=== PATIENT | female | born 1990 | race Caucasian/White ===

== ENCOUNTER 2018-09-12 10:46 | Emergency (ER) | payer MEDICAID, SELFPAY ==
[2018-09-12 10:52] VITALS: BP 120/84; PULSE 101; RESP 18; TEMP 36.5; O2SAT 100
[2018-09-12] MEDS: Lidocaine 5% Patch 1 PATCH TP (11:14)
[2018-09-12] MEDS: Normal Saline 1,000 ML 1000 ML IV ×2 (11:23→12:08)
[2018-09-12] MEDS: Ondansetron 4 MG/2 ML VIAL IVP (11:24)
[2018-09-12 11:25] LABS: Bilirubin Small (Negative); Blood Trace-intact (Negative); Glucose Negative (Negative); Ketones Trace mg/dL (Negative); Leukocyte Esterase Trace (Negative); Nitrite Negative (Negative)
[2018-09-12 11:26] LABS: Clarity Sl Cloudy
[2018-09-12] MEDS: Ketorolac 30 MG/ML VIAL 15 MG IV (11:26)
[2018-09-12] MEDS: Dicyclomine 10 MG CAP PO (11:27)
--- NOTE | 2018-09-12 11:34 | ED.GENADUL_ITS ---
Discharge Plan Disposition Patient Disposition: HOME Condition: Good Discharge Details Chief Complaint: Nausea/Vomit/Diar Clinical Impression: UTI (urinary tract infection), Gastroenteritis, Acute dehydration Primary Care Provider: Elizabeth Blanco ED Provider: Mingo [place] Home Meds and New Rx's Prescriptions: New ciprofloxacin HCl [Cipro] 250 mg tablet 250 mg PO Q12H Qty: 14 RF: 0 No Action levothyroxine 200 MCG tablet 200 mcg PO DAILY RF: 0 norethindrone-e.estradiol-iron [ (28)] 1 EACH tablet 1 tab-cap PO DAILY Qty: 3 RF: 3 Discharge Instructions Instructions: Urinary Tract Infection in Women (ED) Additional Instructions: Please take the medication as directed. Please drink 8-10 cups of water per up as directed. Please eat greasy foods like applesauce, mashed potatoes and oatmeal over the next few days as your bowels return to normal function. If you notice any worsening of your symptoms, or any new symptoms such as vomiting , diarrhea, fever, chills, shortness of breath, chest pain, numbness, weakness, or fainting , please return immediately to the emergency department for reevaluation. Please follow up with your primary care provider as soon as possible for reassessment and reevaluation. As always, it was a pleasure participating in your medical care today. Referrals: Elizabeth Blanco [Primary Care Provider] - Medical Decision Making This is a 28-year-old female who presents for nausea vomiting diarrhea for the last 48 hours. She denies any blood in the stool, she denies any recent exposure to other sick contacts, foreign travel or antibiotic use. She denies any contact with raw meats. She does also have some chronic back pain that is been present for months, she has had a history of spinal surgery in the past for discopathy. The pain is very mild, she shows no signs of neurologic deficits or saddle anesthesia on exam. Abdominal exam demonstrates no significant tenderness, no signs of guarding or rebound, no signs of an acute abdomen. We did discuss potential CT imaging for the patient, and at this point the patient would like to hold off, which I think is perfectly reasonable as she has no significant abdominal tenderness, and her signs and symptoms were concerning for gastroenteritis. We will rehydrate, treat her nausea, assess for infection. 12:55 Patient's laboratory workup has returned, does demonstrate evidence for mild urinary tract infection, however the remainder of the laboratory workup is benign, no leukocytosis, no left shift or bandemia, no significant electrolyte abnormalities. On reassessment the patient is doing very well, she looks well hydrated, heart rate is normal. I did bring up a CT scan again, and although the patient has no abdominal pain, she again wishes to hold off on any CT scans at this time, which I feel is certainly reasonable. I feel her symptoms are suggestive of a mild gastroenteritis in conjunction with a mild urinary tract infection. Patient will be given Cipro for home use, which will cover any potential bacterial GI pathogens although I feel that her symptoms most likely secondary to a viral etiology. We discussed red flags for which to return the patient understands. I have extensively reviewed the treatment plan and discharge instructions with the patient. I have addressed all patient concerns at this time. The patient was made aware of what symptoms to monitor for that would warrant a return to the emergency department. Discussed the plan with the patient, they demonstrate verbal understanding and agreement with our assessment and plan at this time. HPI General Date/Time Provider Initiated Documentation: 09/12/18 11:01 . HPI Narrative: This is a 28-year-old female with a past medical history of thyroid disease and contraceptive use, who presents for evaluation of some mild chronic backache, urinary burning and nausea vomiting diarrhea for last 2 days. The patient states that for the last 2 days she has had nausea, dry heaving, and watery diarrhea every 20 minutes. She states that she is concerned that she was unable to keep up with the fluid loss, and came in for rehydration. She admits to very minimal abdominal cramping, but denies any significant abdominal pain. She does admit to generalized cramping throughout, but no significant focality in the right or left lower quadrants. She does admit to some mild associated burning with urination. She denies any increase in urinary frequency or pressure. She denies any hematuria or history of kidney stones. She also does complain of very mild bilateral back pain, which she states is slightly atypical from her normal back pain. She describes it as an achy-like sensation in her back, it is been present for greater than the last month. Symptoms are made worse when she walks, she denies any recent trauma. She denies any IV or illicit drug use, history of back cancer or cancer in general, new numbness, tingling, or weakness. She denies any saddle anesthesia, or bowel or bladder incontinence. She denies any other modifying factors. She denies any recent antibiotic use, recent foreign travel, or other sick contacts. She denies any vaginal discharge, history of STDs, or dyspareunia. She has no other complaints at this time. Related Data Home Medications Medication Instructions Recorded Confirmed levothyroxine 200 mcg PO DAILY tab-cap 04/20/17 09/12/18 norethindrone-e.estradiol-iron 1 tab-cap PO DAILY #3 pack 05/06/18 09/12/18 [Junel Fe 1.5 Mg-30 Mcg Tablet] ciprofloxacin HCl [Cipro] 250 mg PO Q12H #14 tab 09/12/18 Previous Rx's Medication Instructions Recorded norethindrone-e.estradiol-iron 1 tab-cap PO DAILY #3 pack 05/06/18 [Junel Fe 1.5 Mg-30 Mcg Tablet] ciprofloxacin HCl [Cipro] 250 mg PO Q12H #14 tab 09/12/18 Allergies Allergy/AdvReac Type Severity Reaction Status Date / Time amoxicillin Allergy Intermediate facial Unverified 09/12/18 10:57 swelling amoxicillin trihydrate Allergy Intermediate facial Unverified 09/12/18 10:57 [From Augmentin] swelling Penicillins Allergy Intermediate facial Unverified 09/12/18 10:57 swelling potassium clavulanate Allergy Intermediate facial Unverified 09/12/18 10:57 [From Augmentin] swelling Environmental Allergy Mild Wheezing Uncoded 09/12/18 10:57 General Stated Complaint: Nausea/Vomit/Diar STEFANIE: 3 Review of Systems Review of Systems All systems reviewed & are unremarkable except as noted in HPI and below PFSH Family History Father Essential hypertension Thyroid disorder Sister Thyroid disorder Medical History Childhood asthma Hypothyroid Psoriasis Social History Smoking/Tobacco Use Status: Never Surgical History Cholecystectomy Wisdome teeth extraction disc surgery Exam Narrative Exam Narrative: 1.Const: Well-nourished, Well-developed, appearing stated age 2.Eyes: PERRL, no conjunctival injection, and symmetrical lids. 3.ENT: Atraumatic external nose and ears. Dry MM. Neck: Symmetric, trachea midline, No thyromegaly. 4.CVS: +S1/S2, No murmurs or gallops. Peripheral pulses 2+ and equal in all extremities. Brisk capillary refill in all extremities. 5.RESP: Unlabored respiratory effort. Clear to auscultation bilaterally. No wheezes rales or rhonchi 6.GI: Soft, Nondistended, No hepatosplenomegaly. No guarding or rebound. No pain at McBurney's point, negative Zambrano sign. Negative obturator and psoas signs. No pain on heel strike. No signs of an acute abdomen. 7.MSK: Normocephalic/Atraumatic, Extremities w/o deformity or ttp No cyanosis or clubbing, Normal movement of all extremities. No midline tenderness to palpation over the CTLS spine. Normal ROM in flexion, extension, side bend, and rotation. Patient has +5 out of 5 strength in the lower extremities in dorsiflexion and plantarflexion, knee flexion and extension, hip flexion and extension. There is +2 over 2 dorsalis pedis pulses bilaterally. There is normal sensation to the skin with light touch at the foot, knee, and hip. Normal saddle sensation. Good sensation over the deep sural nerve area bilaterally. Rectal exam deferred. Reflexes are +2 over 4 in the patellar reflex bilaterally. +5 out of 5 strength in the medial, ulnar, radial nerve distribution bilaterally in the hands as well as intact light touch sensation to these dermatomes on the hands. Slight worsening of symptoms with leg raise bilaterally. No associated numbness or tingling. 8.Skin: Warm, Dry. No rashes or lesions. 9.Neuro: patient safety coordinator II-XII grossly intact. Sensation grossly intact, no focal neurologic deficits. 10.Psych: (AAO) x3. Appropriate mood and affect Course Vital Signs Temperature 36.5 C 09/12/18 10:52 Pulse 101 H 09/12/18 10:52 Respiratory Rate 18 09/12/18 10:52 Blood Pressure 120/84 09/12/18 10:52 Pulse Oximetry 100 09/12/18 10:52 Temperature 36.5 C 09/12/18 10:52 Temperature Source Temporal Artery Scan 09/12/18 10:52 Pulse 101 H 09/12/18 10:52 Respiratory Rate 18 09/12/18 10:52 Respiratory Effort Non-Labored 09/12/18 10:56 Blood Pressure 120/84 09/12/18 10:52 Blood Pressure Position Sitting 09/12/18 10:52 Pulse Oximetry 100 09/12/18 10:52 Oxygen Delivery Method Room Air 09/12/18 10:52 Oxygen Flow Rate 0 09/12/18 10:52 Pain Level 6 09/12/18 10:52 Lab/Test Results Lab/Test Results: POC- Test(urine) Negative
[2018-09-12 11:37] LABS: Abs Immature Grans 0.01 k/cumm (0.0-0.09); Absolute Basophil Count 0.03 k/cumm (0.0-0.2); Absolute Eosinophil Count 0.23 k/cumm (0.0-0.7); Absolute Lymphocyte Count 1.87 k/cumm (1.2-3.4); Absolute Neutrophil Count 4.79 k/cumm (1.2-6.7); Basophils % 0.4; Eosinophils % 3.1; HCT 40.6 % (36.0-46.0); HGB 13.5 g/dL (12.0-15.5); Immature Grans % 0.1; Lymphocytes % 25.2; Mean Corp. HGB Concentration 33.3 g/dL (32.0-36.0); Mean Corpuscular Volume 84.2 fL (80-95); Mean Platelet Volume 10.7 fL (8.0-11.0); Monocytes % 6.7; Neutrophils % 64.5; Platelet Count 191 x1000/uL (130-400); RBC 4.82 m/cumm (4.00-5.20); RBC Distribution Width 13.6 % (11.7-14.6); White Blood Cell Count 7.43 k/cumm (4.4-10.8)
[2018-09-12 11:37] LABS: Bacteria Moderate HPF (Negative); C & S Indicated? No/Sq. Contamination; Casts Negative LPF (Negative); Crystals Moderate Amorphous HPF (Negative); Epithelial Cells Many HPF (Negative); Mucus Heavy (Negative); RBC 0-2 (0-2)
[2018-09-12 12:01] LABS: ALT 14 U/L (12-78); AST 15 U/L (15-37); Alkaline Phosphatase 54 U/L (46-116); Anion Gap 9.7 mmol/L (3-11); BUN 12 mg/dL (7-18); Bilirubin, Total 0.4 mg/dL (0.2-1.0); CO2 25.3 mmol/L (21.0-32.0); CREATININE 0.78 mg/dL (0.55-1.02); Calcium 8.4 mg/dL (8.5-10.1); Chloride 100 mmol/L (98-107); Glucose 81 mg/dL (70-100); Lipase 88 U/L (73-393); Potassium 3.6 mmol/L (3.5-5.1); Sodium 135 mmol/L (136-145); TSH 1.77 uIU/mL (0.358-3.74); Total Protein 7.4 g/dL (6.4-8.2)
[2018-09-12 13:08] VITALS: PULSE 88; RESP 16; TEMP 36.6
== END 2018-09-12 13:10 | disposition home or self-care (01) ==
PROVIDERS: Emergency Provider Student in an Organized Health Care Education/Training Program; PCP Nurse Practitioner Family
DX: N39.0 Urinary tract infection, site not specified (principal); K02.9 Dental caries, unspecified; E86.0 Dehydration; M54.5 Low back pain; G89.29 Other chronic pain
CPT/HCPCS: 36415; 80053; 81025; 83690; 96361; 96374; 96375; 99284; 81003; 81015; 84443; 85025; J1885; J2405

== ENCOUNTER 2018-09-19 18:38 | Outpatient (REF) | payer BC, SELFPAY | END 2018-09-19 18:58 | LOC: NCHCN 18:38 | PROVIDERS: PCP Nurse Practitioner Family; Visit Provider Family Medicine | DX: R10.30 Lower abdominal pain, unspecified (principal) | CPT/HCPCS: 87086 ==

== ENCOUNTER 2018-09-20 20:47 | Emergency (ER) | payer BC, SELFPAY ==
[2018-09-20 20:59] VITALS: BP 117/87; PULSE 116; RESP 14; TEMP 36.7; O2SAT 99
--- NOTE | 2018-09-20 21:16 | ED.GENADUL_ITS ---
Discharge Plan Disposition Patient Disposition: HOME Condition: Good Discharge Details Chief Complaint: Nausea/Vomit/Diar Clinical Impression: Nausea, vomiting and diarrhea, Dehydration Primary Care Provider: Elizabeth Blanco ED Provider: Flako Leon [place] Meds and New Rx's Prescriptions: New dicyclomine 20 mg tablet 20 mg PO QID PRN (Reason: abdominal cramping) Qty: 20 RF: 0 ondansetron [Zofran ODT] 4 mg tablet,disintegrating 4 mg PO QID PRN (Reason: nausea and vomiting) Qty: 20 RF: 0 Continue levothyroxine 200 MCG tablet 200 mcg PO DAILY RF: 0 norethindrone-e.estradiol-iron [ (28)] 1 EACH tablet 1 tab-cap PO DAILY Qty: 3 RF: 3 Discharge Instructions Additional Instructions: Your laboratory studies and your CT scan tonight are essentially unremarkable. You do have some evidence of mesenteric lymph node enlargement which might be suggestive of infection. You do have a left ovarian cyst for which you can follow-up with OB in 4-6 weeks. We will send your stool for special studies to evaluate for infections. Your C. difficile screen tonight was negative. Because you were on ciprofloxacin last week this theoretically should have treated any type of bacterial diarrhea. It important that you stay hydrated. Diet should consist of BRAT food. Follow-up with primary care next week. Return to ED for high fever, persistent vomiting, worsening abdominal pain, bloody diarrhea. You may use Zofran for nausea and vomiting. You may use dicyclomine for abdominal pain/cramping. Referrals: Elizabeth Blanco [Primary Care Provider] - Medical Decision Making Patient here with abdominal complaints that got a little better then worse again. Abdomen is a little tender in the epigastric area, but certainly no surgical concern. Review previous visit and labs. Not convinced UTI present as urine micro revealed heavy squam contamination. Culture from yesterday is also suggestive of contamination. No family history of IBD. Possible C. diff now since on Cipro for a week. Will place IV and give a couple of liters of LR. Zofran and Toradol for symptoms. Repeat labs, get straight cath urine and proceed with CT scan which she declined previous visit. Patient's straight cath urinalysis tonight is negative. Laboratory studies for the most part unremarkable. White count slightly elevated. Electrolytes normal. Liver function and lipase normal. test negative. CT scan without significant pathology. She does have a left ovarian cyst which can be followed up as outpatient as well as some mesenteric lymph nodes consistent with mesenteric adenitis. C. difficile is negative. Lactoferrin is positive. However, she has already been treated with a week of Cipro and has an otherwise unremarkable CT scan. We will send off stool for ova and parasites, bacterial PCR, Giardia. We will not treat again at this point. We will give Zofran for nausea and vomiting and Bentyl for abdominal pain and cramping. Patient to stay hydrated and try a brat diet over the weekend. Follow-up with primary care next week. Return to ED if worsening pain, persistent vomiting, bloody diarrhea, fever, other concerns. Addendum: Patient unable to give stool sample here for other stool studies ordered. Will discharge home with lab req and have her bring sample back. Medical Records Medical records reviewed: Yes I reviewed the patient's medical records. Lab Data Lab results reviewed: Yes I reviewed the patient's lab results. HPI General Mode of arrival: ambulatory . Date/Time Provider Initiated Documentation: 09/20/18 20:48 . Limitations to Documentation: no limitations . Information obtained by: patient, RN notes reviewed and old records reviewed . HPI Narrative: Patient presents to ED with upper abdominal pain, nausea, vomiting and diarrhea. She was here on the with similar symptoms. She was treated for UTI for 7 days with Cipro. She thought she was better but symptoms never really went completely away and now are worse again. She did see PCP yesterday who sent a repeat urine. She does not really describe urinary symptoms. She has sharp cramping upper abdominal pain radiating to the back. She has watery diarrhea. Vomiting is not severe, but anything she eats or drinks causes diarrhea. She has had no fever. She has no travel, no sick contacts, no questionable food. She feels weak, tired and dehydrated. Related Data Home Medications Medication Instructions Recorded Confirmed levothyroxine 200 mcg PO DAILY tab-cap 04/20/17 09/20/18 norethindrone-e.estradiol-iron 1 tab-cap PO DAILY #3 pack 05/06/18 09/20/18 [ FE (28)] dicyclomine 20 mg PO QID PRN #20 tab 09/21/18 ondansetron [Zofran ODT] 4 mg PO QID PRN #20 tab 09/21/18 Previous Rx's Medication Instructions Recorded norethindrone-e.estradiol-iron 1 tab-cap PO DAILY #3 pack 05/06/18 [ FE (28)] dicyclomine 20 mg PO QID PRN #20 tab 09/21/18 ondansetron [Zofran ODT] 4 mg PO QID PRN #20 tab 09/21/18 Allergies Allergy/AdvReac Type Severity Reaction Status Date / Time amoxicillin Allergy Intermediate facial Unverified 09/20/18 21:04 swelling amoxicillin trihydrate Allergy Intermediate facial Unverified 09/20/18 21:04 [From Augmentin] swelling Penicillins Allergy Intermediate facial Unverified 09/20/18 21:04 swelling potassium clavulanate Allergy Intermediate facial Unverified 09/20/18 21:04 [From Augmentin] swelling Environmental Allergy Mild Wheezing Uncoded 09/20/18 21:04 General Stated Complaint: Nausea/Vomit/Diar STEFANIE: 3 Review of Systems Constitutional Denies chills, Reports fatigue, Denies fever(s), Denies headache(s), Reports malaise and Reports weakness Eyes Denies change in vision and Denies eye pain ENT Denies otalgia, Denies headache(s), Denies neck pain and Denies sore throat Cardiovascular Denies chest pain, Denies diaphoresis, Denies syncope, Denies edema, Denies palpitations and Denies dyspnea Respiratory Denies cough and Denies dyspnea Gastrointestinal Reports abdominal pain, Denies melena, Denies hematochezia, Denies constipation , Reports cramping, Reports diarrhea, Reports nausea, Reports vomiting and Denies hematemesis Genitourinary Denies abnormal vaginal bleeding, Denies hematuria, Denies urinary frequency, Denies dysuria, Reports urinary urgency and Denies vaginal discharge Musculoskeletal Reports back pain, Denies myalgias, Denies arthralgias, Denies neck pain and Denies numbness Integumentary/Breasts Denies rash Neurologic Denies syncope, Denies headache(s), Denies focal weakness, Denies numbness, Denies sensory deficit and Reports weakness Endocrine Reports fatigue and Denies palpitations PFSH Family History Father Essential hypertension Thyroid disorder Sister Thyroid disorder Medical History Childhood asthma Hypothyroid Psoriasis Social History Smoking/Tobacco Use Status: Never Surgical History Cholecystectomy Wisdome teeth extraction disc surgery Exam Const General: cooperative, comfortable and no acute distress Nutritional Appearance: average body habitus Orientation: alert and oriented x3 HENFL Head: normocephalic and atraumatic Mouth: mucous membranes dry Eyes Sclera: sclerae normal Neck Neck: normal visual inspection, trachea midline and supple Resp Effort & Inspection: normal respiratory effort Auscultation: clear to auscultation bilaterally Cardio Rate: tachycardic Rhythm: regular rhythm Heart Sounds: S1 normal and S2 normal Pulses: radial pulses present GI Inspection: normal to inspection Palpation: soft, not firm, no guarding, no hepatosplenomegaly and tender (mildly ) in the epigastrum Back/Spine/Pelvis Back: no CVA tenderness Skin General skin exam: no rashes or lesions noted Neuro General: alert, oriented x3, gait normal, no focal motor deficits and CN's II- XI intact bilaterally Extrem General: normal to inspection, full ROM and normal capillary refill Course Vital Signs Temperature 98.1 F 09/20/18 20:59 Pulse 116 H 09/20/18 20:59 Respiratory Rate 14 09/20/18 20:59 Blood Pressure 117/87 09/20/18 20:59 Pulse Oximetry 99 09/20/18 20:59 Temperature 98.1 F 09/20/18 20:59 Temperature Source Skin 09/20/18 20:59 Pulse 116 H 09/20/18 20:59 Respiratory Rate 14 09/20/18 20:59 Respiratory Effort Short of Breath 09/20/18 21:03 Blood Pressure 117/87 09/20/18 20:59 Pulse Oximetry 99 09/20/18 20:59 Pain Level 8 09/20/18 20:59
--- NOTE | 2018-09-20 21:27 | DI.CT_ITS ---
SYMPTOM/DIAGNOSIS: ABD PAIN, DIARRHEA ABDOMEN AND PELVIC CT: Routine post contrast examination was performed. There are no priors for comparison. The lung bases are clear. The liver is normal in size. There are a few tiny hypodensities present. They are too small for further characterization but likely reflect small cysts. No suspicious hepatic masses are seen. The patient is status post cholecystectomy. No biliary ductal dilatation is seen. The portal and superior mesenteric veins are patent. The pancreas, spleen and adrenal glands are unremarkable. The kidneys show normal and symmetric enhancement. No evidence of a solid renal mass or obstruction. The urinary bladder is intact. There is a 3.8 by 3.1 cm. cyst in the left adnexa, likely ovarian. The reproductive organs are otherwise unremarkable. The abdominal aorta is of normal caliber. No significant abdominal or pelvic ascites or pneumoperitoneum is seen. There are mildly enlarged lymph nodes seen throughout the mesentery. This may represent mesenteric adenitis. The bowel shows no evidence of obstruction, inflammation or infection. No findings to suggest an acute appendicitis are present. The bones are intact. IMPRESSION: 1. Mildly enlarged lymph nodes seen throughout the mesentery suspicious for mesenteric adenitis. 2. 4 cm. left adnexal cyst. This is likely ovarian. A follow up pelvic ultrasound in 6-8 weeks is suggested to document resolution of the cyst and to exclude other etiologies.
[2018-09-20] MEDS: Lactated Ringers 1,000 ML 2000 ML IV (21:41)
[2018-09-20] MEDS: Ondansetron 4 MG/2 ML VIAL IVP (21:43)
[2018-09-20] MEDS: Ketorolac 15 MG/ML VIAL IVP (21:43)
[2018-09-20 21:45] LABS: Abs Immature Grans 0.03 k/cumm (0.0-0.09); Absolute Basophil Count 0.05 k/cumm (0.0-0.2); Absolute Eosinophil Count 0.11 k/cumm (0.0-0.7); Absolute Lymphocyte Count 2.93 k/cumm (1.2-3.4); Absolute Monocyte Count 1.05 k/cumm (0.11-0.7); Absolute Neutrophil Count 7.94 k/cumm (1.2-6.7); Basophils % 0.4; Eosinophils % 0.9; HCT 45.3 % (36.0-46.0); HGB 15.6 g/dL (12.0-15.5); Immature Grans % 0.2; Lymphocytes % 24.2; Mean Corp. HGB Concentration 34.4 g/dL (32.0-36.0); Mean Corpuscular Hemoglobin 28.2 pg (27.0-33.0); Mean Corpuscular Volume 81.9 fL (80-95); Mean Platelet Volume 10.1 fL (8.0-11.0); Monocytes % 8.7; Neutrophils % 65.6; Platelet Count 373 x1000/uL (130-400); RBC 5.53 m/cumm (4.00-5.20); RBC Distribution Width 13.9 % (11.7-14.6); White Blood Cell Count 12.11 k/cumm (4.4-10.8)
[2018-09-20 21:54] LABS: Lipase 88 U/L (73-393)
[2018-09-20 21:59] LABS: ALT 12 U/L (12-78); AST 16 U/L (15-37); Albumin 3.6 g/dL (3.4-5.0); Alkaline Phosphatase 57 U/L (46-116); BUN 17 mg/dL (7-18); Bilirubin, Total 0.5 mg/dL (0.2-1.0); CREATININE 0.79 mg/dL (0.55-1.02); Calcium 8.4 mg/dL (8.5-10.1); Chloride 102 mmol/L (98-107); Glucose 84 mg/dL (70-100); Potassium 3.5 mmol/L (3.5-5.1); Sodium 137 mmol/L (136-145); Total Protein 6.8 g/dL (6.4-8.2)
[2018-09-20 22:35] LABS: Bilirubin Small (Negative); Blood Negative (Negative); Clarity Clear; Glucose Negative (Negative); Ketones 40 mg/dL (Negative); Leukocyte Esterase Negative (Negative); Nitrite Negative (Negative); Specific Gravity 1.025 (1.005-1.025); Urobilinogen 0.2 EU/dL (Up TO 0.2)
[2018-09-20] MEDS: Lactated Ringers 1,000 ML 1000 ML IV (22:35)
[2018-09-20] MEDS: Omnipaque 350 MG/ML 100 ML BTL IJ (22:58)
--- NOTE | 2018-09-20 23:17 | DI.VRAD_ITS ---
EXAM: CT Abdomen and Pelvis With Intravenous Contrast EXAM DATE/TIME: 09/20/2018 9:34 PM CLINICAL HISTORY: 28 years old, female; Pain; Abdominal pain TECHNIQUE: Axial computed tomography images of the abdomen and pelvis with intravenous contrast. Coronal and sagittal reformatted images were created and reviewed. COMPARISON: US PELVIS TRANSVAG 01/05/2014 4:43 PM FINDINGS: Lower thorax: No acute findings. ABDOMEN: Liver: Normal. No mass. Gallbladder and bile ducts: Surgical clips in the gallbladder fossa. Pancreas: Normal. No ductal dilation. Spleen: Normal. No splenomegaly. Adrenals: Normal. No mass. Kidneys and ureters: Normal. No hydronephrosis. Stomach and bowel: Normal. No obstruction. No mucosal thickening. Appendix: Normal appendix. PELVIS: Bladder: Unremarkable as visualized. Reproductive: 4 cm left ovarian cyst. ABDOMEN and PELVIS: Intraperitoneal space: Normal. No free air. No significant fluid collection. Bones/joints: No acute fracture. No dislocation. Soft tissues: Unremarkable. Vasculature: Normal. No abdominal aortic aneurysm. Lymph nodes: Slightly prominent lymph nodes throughout the mesentery. IMPRESSION: 1. Mesenteric adenitis. 2. 4 cm left ovarian cyst. I would suggest a 6 week mid cycle followup pelvic ultrasound to be sure that this resolves. Dictated and Authenticated by: Mark Simpson MD. Ordering:LESLEY SHERIDAN MD
[2018-09-21] MEDS: Ondansetron 4 MG/2 ML VIAL 2 MG IVP (00:36)
--- NOTE | 2018-09-21 01:59 | NUR.NOTE ---
Nursing Note: Still awaiting fecal sample from pt. Unable to provide at this time.
[2018-09-21 02:54] VITALS: PULSE 67; RESP 16; TEMP 37.1; O2SAT 98
[2018-09-21 03:08] VITALS: BP 112/75; PULSE 67; RESP 16; TEMP 37.1; O2SAT 98
== END 2018-09-21 03:10 | disposition home or self-care (01) ==
PROVIDERS: Emergency Provider Emergency Medicine; PCP Nurse Practitioner Family
DX: R11.2 Nausea with vomiting, unspecified (principal); R19.7 Diarrhea, unspecified; E86.0 Dehydration
CPT/HCPCS: 36415; 51701; 80053; 81025; 83690; 87505; 96361; 96374; 96375; 96376; 99285; 74177; 81003; 83630; 85025; 87177; 87324; J1885; J2405; J3490

== ENCOUNTER 2018-09-21 10:07 | Outpatient (REF) | payer BC, SELFPAY ==
[2018-09-22 19:47] LABS: Campylobacter PCR SEE COMMENTS; Salmonella PCR SEE COMMENTS; Shiga Toxin PCR SEE COMMENTS; Shigella/Enteroinvasive Ecoli SEE COMMENTS
--- NOTE | 2018-09-25 16:59 | W.ED.FU ---
Lab result reviewed by me today: positive giardia. I called and spoke with patient. Still having some symptoms consistent with Giardia. Plan to treat with tinidazole 2g PO x1. Patient confirms allergies listed in EMR and denies . Advised hand hygiene and no working with foods until treatment successful and cleared for work. Advised call PCP tomorrow to schedule followup. Advised return to ER for any worsening or new concerning symptoms. Patient verbalized understanding importance of taking medication julio and following up with pcp.
== END 2018-09-21 10:27 ==
LOC: LBN 10:07
PROVIDERS: PCP Nurse Practitioner Family; Visit Provider Emergency Medicine
DX: R11.2 Nausea with vomiting, unspecified (principal)
CPT/HCPCS: 87329; 87505; 87177

== ENCOUNTER 2018-12-23 00:34 | Outpatient (CLI) | payer BC, SELFPAY ==
--- NOTE | 2018-12-23 12:57 | DI.US_ITS ---
SYMPTOM/DIAGNOSIS: F/U LT OVARIAN CYST ON CT, N83.209, RT PAIN PELVIC ULTRASOUND: Comparison is made with CT of the abdomen and pelvis dated 09/20/18. The uterus is normal in size, measuring 9.1 by 4.1 by 4.1 cm. The endometrial stripe appears homogeneous and measures 6 mm. There is a 3.2 cm. cyst on the right ovary. The previous CT showed a left ovarian cyst. Left ovary is unremarkable on today's exam. There is no free fluid or hydronephrosis. IMPRESSION: 3.2 cm. right ovarian cyst.
== END 2018-12-23 00:54 ==
PROVIDERS: PCP Nurse Practitioner Family; Visit Provider Obstetrics & Gynecology
DX: N83.292 Other ovarian cyst, left side (principal); N83.291 Other ovarian cyst, right side
CPT/HCPCS: 76830; 76856

== ENCOUNTER 2019-01-20 09:40 | Outpatient (CLI) | payer BC, SELFPAY ==
[2019-01-20 11:02] LABS: TSH (W/Ref FT4) 1.14 uIU/mL (0.358-3.74)
== END 2019-01-20 10:00 ==
PROVIDERS: PCP Nurse Practitioner Family; Visit Provider Nurse Practitioner Family
DX: N92.6 Irregular menstruation, unspecified (principal)
CPT/HCPCS: 36415; 84443

== ENCOUNTER 2019-02-18 16:02 | Outpatient (REF) | payer BC, SELFPAY ==
[2019-02-21 00:38] LABS: Tissue Transglutaminase Ab IgA <1.2 U/mL; Tissue Transglutaminase Ab IgG <1.2 U/mL
== END 2019-02-18 16:22 ==
LOC: NCHCN 16:02
PROVIDERS: PCP Nurse Practitioner Family; Visit Provider Nurse Practitioner Family
DX: R14.0 Abdominal distension (gaseous) (principal); K59.09 Other constipation
CPT/HCPCS: 83516

== ENCOUNTER 2019-09-09 14:46 | Outpatient (CLI) | payer BC, SELFPAY ==
[2019-09-09 16:34] LABS: TSH (W/Ref FT4) 1.76 uIU/mL (0.36-3.74)
== END 2019-09-09 15:06 ==
PROVIDERS: PCP Nurse Practitioner Family; Visit Provider Nurse Practitioner Family
DX: R53.83 Other fatigue (principal)
CPT/HCPCS: 36415; 84443

== ENCOUNTER 2020-01-07 16:06 | Outpatient (CLI) | payer BC, SELFPAY ==
[2020-01-07 18:16] LABS: TSH (W/Ref FT4) 2.67 uIU/mL (0.36-3.74)
== END 2020-01-07 16:26 ==
PROVIDERS: PCP Nurse Practitioner Family; Visit Provider Nurse Practitioner Women's Health
DX: E03.9 Hypothyroidism, unspecified (principal); N93.9 Abnormal uterine and vaginal bleeding, unspecified
CPT/HCPCS: 36415; 84443

== ENCOUNTER 2020-01-07 16:40 | Outpatient (REF) | payer BC, SELFPAY ==
[2020-01-09 13:30] LABS: Chlamydia Result Negative (Negative); GC Result Negative (Negative)
== END 2020-01-07 17:00 ==
LOC: LBN 16:40
PROVIDERS: PCP Nurse Practitioner Family; Visit Provider Nurse Practitioner Women's Health
DX: Z11.3 Encounter for screening for infections with a predominantly sexual mode of transmission (principal)
CPT/HCPCS: 87491; 87591

== ENCOUNTER 2020-01-14 01:39 | Outpatient (CLI) | payer BC, SELFPAY ==
--- NOTE | 2020-01-14 13:45 | DI.US_ITS ---
EXAM: US PELVIS TRANSVAGINAL CLINICAL HISTORY: AUB, Pelvic pain, R10.2, R93.9 TECHNIQUE: Ultrasound performed using standard protocol. COMPARISON: US PELVIS TRANSVAGINAL from 12/23/2018 FINDINGS: The uterus measures 7.7 x 3.5 by 5.8 cm. The endometrium measures 3 millimeters in thickness. No fi broids are seen. The ovaries are normal in size and appearance. No free fluid or hydronephrosis is seen. IMPRESSION: Pelvic ultrasound is within normal limits. DATA REPOSITORY:
== END 2020-01-14 01:59 ==
PROVIDERS: PCP Nurse Practitioner Family; Visit Provider Nurse Practitioner Women's Health
DX: R10.2 Pelvic and perineal pain (principal); N93.9 Abnormal uterine and vaginal bleeding, unspecified
CPT/HCPCS: 76830; 76856

== ENCOUNTER 2020-06-14 16:20 | Outpatient (REF) | payer MEDICAID, SELFPAY ==
[2020-06-14 19:18] LABS: HCT 38.5 % (36.0-46.0); HGB 13.2 g/dL (12.0-15.5); Mean Corp. HGB Concentration 34.3 g/dL (32.0-36.0); Mean Corpuscular Hemoglobin 29.3 pg (27.0-33.0); Mean Corpuscular Volume 85.4 fL (80-95); Mean Platelet Volume 10.9 fL (8.0-11.0); Platelet Count 252 x1000/uL (130-400); RBC 4.51 m/cumm (4.00-5.20); RBC Distribution Width 12.3 % (11.7-14.6); White Blood Cell Count 5.88 k/cumm (4.4-10.8)
[2020-06-14 19:30] LABS: Iron 54 ug/dL (50-170); Total Iron Binding Capacity 313 ug/dL (250-450); Transferrin Sat 17 % (15-50)
[2020-06-14 19:49] LABS: Vitamin D 25 Total 20.3 ng/ml (30-100)
[2020-06-14 19:50] LABS: ALT 11 U/L (14-59); AST 22 U/L (15-37); Alkaline Phosphatase 48 U/L (46-116); Anion Gap 9.8 mmol/L (3-11); BUN 13 mg/dL (7-18); Bilirubin, Total 0.2 mg/dL (0.2-1.0); CO2 24.2 mmol/L (21.0-32.0); Chloride 105 mmol/L (98-107); Ferritin 35 ng/mL (8-252); Folate 6.4 ng/mL (8.6-20.0); Glucose 77 mg/dL (74-106); Potassium 3.9 mmol/L (3.5-5.1); Sodium 139 mmol/L (136-145); Total Protein 6.9 g/dL (6.4-8.2); Vitamin B12 220 pg/mL (193-986)
[2020-06-14 19:55] LABS: Calcium 8.8 mg/dL (8.5-10.1)
[2020-06-16 11:06] LABS: Parathyroid Hormone,Intact 43 pg/mL (19-88)
[2020-06-17 10:10] LABS: Free Retinol (Vitamin A) 76.7 mcg/dL (32.5-78.0)
== END 2020-06-14 16:40 ==
LOC: NCHCN 16:20
PROVIDERS: PCP Nurse Practitioner Family; Visit Provider Family Medicine
DX: R14.0 Abdominal distension (gaseous) (principal); R19.7 Diarrhea, unspecified; E03.9 Hypothyroidism, unspecified; K59.09 Other constipation
CPT/HCPCS: 80053; 82306; 85027; 82607; 82728; 82746; 83540; 83550; 83970; 84590

== ENCOUNTER 2020-10-12 14:49 | Outpatient (REF) | payer MEDICAID, SELFPAY | END 2020-10-12 15:09 | LOC: NCHCN 14:49 | PROVIDERS: PCP Nurse Practitioner Family; Visit Provider Nurse Practitioner Family | DX: N89.8 Other specified noninflammatory disorders of vagina (principal) | CPT/HCPCS: 87480; 87510; 87660 ==

== ENCOUNTER 2020-12-08 17:59 | Outpatient (CLI) | payer MEDICAID, SELFPAY ==
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
--- NOTE | 2020-12-08 17:19 | DI.VRAD_ITS ---
PROCEDURE INFORMATION: Exam: CT Cervical Spine Without Contrast Exam date and time: 12/08/2020 5:04 PM Age: 30 years old Clinical indication: Injury or trauma; Other: Slidding accident; Sprain or strain, cervical ligaments TECHNIQUE: Imaging protocol: Computed tomography images of the cervical spine without contrast. Radiation optimization: All CT scans at this facility use at least one of these dose optimization techniques: automated exposure control; mA and/or kV adjustment per patient size (includes targeted exams where dose is matched to clinical indication); or iterative reconstruction. COMPARISON: No relevant prior studies available. FINDINGS: Bones/joints: No fracture or dislocation. Vertebral body heights are within normal limits. Straightening of normal lordotic curvature. Discs/Spinal canal/Neural foramina: Disc heights are maintained. No CT evidence of significant disc herniation. No disc protrusion or extrusion. Lungs: Lung apices are normal. Soft tissues: Unremarkable. IMPRESSION: Straightening of normal lordotic curvature. No fracture or dislocation in cervical spine. Dictated and Authenticated by: Johnny Nichols MD. Ordering:RAGHU Noel MD
== END 2020-12-08 18:19 ==
PROVIDERS: PCP Nurse Practitioner Family; Visit Provider Physician Assistant Medical
DX: M54.2 Cervicalgia (principal); S19.89XA Other specified injuries of other specified part of neck, initial encounter
CPT/HCPCS: 72125

== ENCOUNTER 2020-12-28 21:24 | Outpatient (REF) | payer MEDICAID, SELFPAY | END 2020-12-28 21:25 | disposition home or self-care (01) | LOC: NCHCN 21:24 | PROVIDERS: PCP Nurse Practitioner Family; Visit Provider Nurse Practitioner Family | DX: N89.8 Other specified noninflammatory disorders of vagina (principal); N39.0 Urinary tract infection, site not specified | CPT/HCPCS: 87086; 87480; 87510; 87660 ==

== ENCOUNTER 2021-04-19 03:27 | Outpatient (CLI) | payer MEDICAID, SELFPAY ==
--- NOTE | 2021-04-19 13:00 | NS.NUTBLAN_ITS ---
Makeda was referred for Medical Nutrition Therapy for IBS with constipation. Makeda reports symptoms started about same time as daughter born 10 years ago and that she can go upto 1 week without having BM. She has been tested/ruled out for celiac dx, ulcerative colitis, gluten allergy. PMH:hypothyroidism. Meds: Levothyroxin, ampitriptaline. Unable to tolerate mirilax, fiber supplements. IBS smptoms include bloating, fullness, cramping and lower abdominal burning. Ht and weight wnl- weight has been stabld > 2 years. Overall reports no hunger during day but often wakes up at night and binges on cookies around 2-4 am. Father also binges on junk food at night. Takes Vit B, D, folic acid, fish oil dailly. 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 Lives with father of second child. No exercise or self care time since kids born. Session today discussed aspects of diet to change to improve constipation. Recommend increase in soluable fiber with magnesium 500-1000 mg to help with motility. Reviewed benefits of trying Linzess for IBS. Reviewed benefits of SSNRIs such as effexor to help with symptoms and encouraged considering seeing psychiatrist for medication management. Makeda is unwilling to take medications at this time. Reviewed role of stress hormones and natural ways to reduce them in the course of IBS. recommended daily self care- meditate 10 min daily, exercise 20-30 min daily and increase sleep. Also provided meal plan for 3 meals 2 snacks daily which focused on soluable fiber, lean protein and healthy fats. Makeda to bring in food journal/BM habits at next appt. Follow up appt. scheduled in two weeks. 05/04/21 at 10:30
== END 2021-04-19 03:28 | disposition home or self-care (01) ==
LOC: DS 03:28
PROVIDERS: PCP Nurse Practitioner Family; Visit Provider Dietitian, Registered
DX: K58.1 Irritable bowel syndrome with constipation (principal); E03.9 Hypothyroidism, unspecified; Z71.3 Dietary counseling and surveillance
CPT/HCPCS: 97802

== ENCOUNTER 2021-07-21 08:31 | Emergency (ER) | payer MEDICAID, SELFPAY ==
[2021-07-21 08:37] VITALS: BP 146/82; PULSE 91; TEMP 36.6; O2SAT 98
--- NOTE | 2021-07-21 08:43 | ED.GENADUL_ITS ---
Discharge Plan Disposition Patient Disposition: HOME Condition: Stable Discharge Details Clinical Impression: UTI (urinary tract infection) Primary Care Provider: Elizabeth Blanco ED Provider: Bessie Bazzi Home Meds and New Rx's Prescriptions: New nitrofurantoin macrocrystal 100 mg capsule 100 mg PO BID Qty: 9 RF: 0 phenazopyridine [Pyridium] 100 mg tablet 100 mg PO TID PRN (Reason: pain) Qty: 6 RF: 0 Continued norgestimate-ethinyl estradiol [Sprintec (28)] 0.25-35 mg-mcg tablet 1 tab PO DAILY Qty: 84 RF: 7 levothyroxine 200 MCG tablet 200 mcg PO DAILY RF: 0 Discharge Instructions Instructions: Urinary Tract Infection in Women (ED) Additional Instructions: Today is concerning for urinary tract infection. Please take antibiotics as prescribed for treatment. Even if symptoms improve, please take the entire course. You may use the Pyridium as prescribed to help with urinary pain, frequency and urgency. I will call you with results of your vaginal pathology screen and we will treat as appropriate. If you develop fever/chills, increased pain, flank pain or other new/worsening symptoms please seek care urgently once again. Otherwise, please follow-up with your primary care provider in 1 week for reevaluation Referrals: Elizabeth Blanco [Primary Care Provider] - Medical Decision Making Patient is a pleasant 31-year-old female presented with chief complaint of dysuria, increased frequency and urgency. States this began yesterday. Denies any fevers or chills. No pain radiating to flanks. Denies any vaginal discharge. She does report that she has increased discomfort with vaginal intercourse but describes this as being bladder pain. States that this seems worse than her UTI she has had in the past. No new sexual partners. Denies exposure to STIs. On exam, patient appears nontoxic. She does appear anxious. She is no CVA tenderness. Abdomen is benign but she does report that she has mild discomfort of the bladder. We will move forward with vaginal exam as she is having some discomfort with vaginal intercourse. Primarily concern at this time for UTI. She does not appear systemically ill, exam is not consistent with pyelonephritis . Small amount of discharge in vaginal vault. Likely her normal. Will send for vag path screening given her symptoms. Will treat with nitrofurantoin and Pyridium. Encourage hydration. Return prec autions were discussed. We will call with vaginal pathology results. Vaginal pathology screen negative. Call patient relayed these results. HPI General Mode of arrival: ambulatory . Date/Time Provider Initiated Documentation: 07/21/21 08:32 . Limitations to Documentation: no limitations . Information obtained by: patient and RN notes reviewed . History of Present Illness 31 year old F presents to the emergency department with the chief complaint of dysurea, frequency and urgency, described as moderate, with intensity rated at 6. Quality is described as burning, and is localized to the pelvis and genitals. Patient reports no radiation. Patient started experiencing this day(s) (1) and it has been constant. No relieving factors improve symptom(s), Other factors that worsen symptoms (urinating) . Patient notes no other symptoms.. Patient did receive the following treatments prior to arrival, none Related Data Home Medications Medication Instructions Recorded Confirmed levothyroxine 200 mcg PO DAILY tab-cap 04/20/17 07/21/21 norgestimate 0.25 mg-ethinyl 1 tab PO DAILY #84 tab 01/07/20 07/21/21 estradiol 35 mcg tablet nitrofurantoin macrocrystal 100 mg PO BID #9 cap 07/21/21 phenazopyridine [Pyridium] 100 mg PO TID PRN #6 tab 07/21/21 Previous Rx's Medication Instructions Recorded norgestimate 0.25 mg-ethinyl 1 tab PO DAILY #84 tab 01/07/20 estradiol 35 mcg tablet nitrofurantoin macrocrystal 100 mg PO BID #9 cap 07/21/21 phenazopyridine [Pyridium] 100 mg PO TID PRN #6 tab 07/21/21 Allergies Allergy/AdvReac Type Severity Reaction Status Date / Time amoxicillin Allergy Intermediate facial Verified 07/21/21 08:45 swelling amoxicillin trihydrate Allergy Intermediate facial Verified 07/21/21 08:45 [From Augmentin] swelling Penicillins Allergy Intermediate facial Verified 07/21/21 08:45 swelling potassium clavulanate Allergy Intermediate facial Verified 07/21/21 08:45 [From Augmentin] swelling Environmental Allergy Mild Wheezing Uncoded 07/21/21 08:45 General Stated Complaint: Urinary STEFANIE: 4 Review of Systems Constitutional Constitutional: Reports as per HPI, Denies chills, Denies fever(s) and Denies poor appetite Cardiovascular Cardiovascular: Denies chest pain Respiratory Respiratory: Denies cough Gastrointestinal Gastrointestinal: Denies abdominal pain, Denies change in bowel habits, Denies nausea and Denies vomiting Genitourinary Genitourinary: Reports as per HPI Musculoskeletal Musculoskeletal: Reports as per HPI and Denies back pain Integumentary/Breasts Skin/Breast: Reports as per HPI and Denies rash PFSH Medical History (Updated 07/21/21 @ 09:21 by ARNALDO Núñez) Childhood asthma Chronic pelvic pain in female Contraception (04/20/17) Hypothyroidism (12/07/14) Psoriasis Surgical History Cholecystectomy disc surgery 02/2017 [place] teeth extraction Family History Father Essential hypertension Thyroid disorder Sister Thyroid disorder Social History Smoking/Tobacco Use Status: Never Smoking risk assessment performed?: Yes Alcohol Intake: current Alcohol Intake frequency: holidays/special occasions only Drug use: Daily Substance use type: marijuana Seatbelt use: always Do you feel safe at home: Yes Do you feel safe in your relationship?: Yes Female Reproductive History Menstrual Age of Menarche: 12 control method: pills History History 2 Para 2 Hx # Term Pregnancies Multiple births Hx # Pregnancies Ectopic pregnancies AB induced Hx Number of Living Children AB spontaneous Exam Const General: cooperative, healthy appearing, comfortable, no acute distress, well developed and well groomed Nutritional Appearance: average body habitus and well nourished Orientation: alert and awake Resp Effort & Inspection: normal respiratory effort and no respiratory distress Auscultation: clear to auscultation bilaterally, no rales, no rhonchi and no wheezes Cardio Rate: regular rate Rhythm: regular rhythm Heart Sounds: S1 normal and S2 normal GI Inspection: normal to inspection Palpation: soft, no hepatosplenomegaly, not firm, no guarding, not rigid and nontender External Female Exam: normal external appearance (known psoriasis ) Speculum Exam - Vagina: normal appearance of the vagina, normal vaginal discharge, not erythematous, No vaginal bleeding, no swelling and nontender Speculum Exam - Cervix: normal appearance of the cervix Bimanual Exam- Vagina & Uterus: normal bimanual exam, normal palpation, uterine size normal, normal palpation and no cervical motion tenderness OB/External & Speculum: No vaginal bleeding Back/Spine/Pelvis Back: no CVA tenderness Skin General skin exam: no rashes or lesions noted Trauma: no lacerations or abrasions Neuro General: patient alert and patient awake Cognition: normal cognition Speech: speech normal Gait: normal gait Psych Appearance: grossly normal and well kempt Mental Status: mental status grossly normal Speech and Movement: speech and movement normal Course Vital Signs Vital signs: Vital Signs Temperature 36.6 C 07/21/21 08:37 Pulse 91 H 07/21/21 08:37 Blood Pressure 146/82 H 07/21/21 08:37 Pulse Oximetry 98 07/21/21 08:37 Temperature 36.6 C 07/21/21 08:37 Temperature Source Temporal Artery Scan 07/21/21 08:37 Pulse 91 H 07/21/21 08:37 Blood Pressure 146/82 H 07/21/21 08:37 Blood Pressure Position Sitting 07/21/21 08:37 Pulse Oximetry 98 07/21/21 08:37 Oxygen Delivery Method Room Air 07/21/21 08:37 Oxygen Flow Rate 0 07/21/21 08:37 Pain Level 6 07/21/21 08:37
[2021-07-21 08:52] LABS: Bilirubin Negative (Negative); Blood Moderate (Negative); Clarity Sl Cloudy (Clear); Glucose Negative (Negative); Ketones Negative (Negative); Leukocyte Esterase Small (Negative); Nitrite Positive (Negative); Specific Gravity 1.025 (1.005-1.025); Urobilinogen 0.2 EU/dL (Up TO 0.2); pH 6.5 (5-8)
[2021-07-21 09:00] LABS: Bacteria Moderate HPF (Negative); C & S Indicated? No/Sq. Contamination; Casts Negative LPF (Negative); Crystals Negative HPF (Negative); Epithelial Cells Moderate HPF (Negative); Mucus Trace (Negative); WBC >50 HPF (0-5)
[2021-07-21] MEDS: Phenazopyridine 100 MG TAB PO (09:22)
[2021-07-21] MEDS: MacroBID 100 MG CAP PO (09:23)
[2021-07-21 09:39] LABS: Bilirubin Negative (Negative); Blood Moderate (Negative); Clarity Sl Cloudy (Clear); Glucose Negative (Negative); Ketones Negative (Negative); Leukocyte Esterase Small (Negative); Nitrite Negative (Negative); Urobilinogen 0.2 EU/dL (Up TO 0.2); pH 6.5 (5-8)
[2021-07-21 09:47] LABS: Bacteria Moderate HPF (Negative); C & S Indicated? Yes; Casts Negative LPF (Negative); Crystals Negative HPF (Negative); Epithelial Cells Few HPF (Negative); Mucus Negative (Negative); Other Cells Few Renal (Negative); WBC >50 HPF (0-5)
== END 2021-07-21 09:40 | disposition home or self-care (01) ==
PROVIDERS: Emergency Provider Physician Assistant; PCP Nurse Practitioner Family
DX: N39.0 Urinary tract infection, site not specified (principal); B96.20 Unspecified Escherichia coli [E. coli] as the cause of diseases classified elsewhere; N94.19 Other specified dyspareunia
CPT/HCPCS: 81025; 87077; 99284; 81003; 81015; 87086; 87186; 87480; 87510; 87660; 99283

== ENCOUNTER 2021-09-08 02:04 | Outpatient (CLI) | payer MEDICAID, SELFPAY ==
--- NOTE | 2021-09-08 | DI.US_ITS ---
Exam(s) US PELVIS EXAM: US PELVIS CLINICAL HISTORY: PELVIC PAIN,R10.2 TECHNIQUE: Ultrasound of the pelvis was performed using transabdominal technique. Transvaginal stud y was not performed.. COMPARISON: US US PELVIS TRANSVAGINAL from 01/14/2020 FINDINGS: UTERUS: Nongravid anteverted Measures 7.2 cm length x 3.8 cm AP x 5.0 cm wide. There are no uterine fibroids. Endometrial thickness measures 6 mm. There is no fluid in the endometrial canal. CERVIX: There are no obvious nabothian cysts. RIGHT OVARY: Measures 2.7 x 2.0 x 2.1 cm Contains dominant follicle measuring 1.7 x 1.5 cm. LEFT OVARY: Measures 2.1 x 2.1 x 1.2 cm Contains small follicles. CUL-DE-SAC: No free fluid evident. IMPRESSION: 1. Normal appearing uterus and age-appropriate endometrium. 2. No abnormal ovarian findings. There is 1.7 x 1.5 cm cyst in the right ovary is most probably foll icular. 3. No free fluid evident in the adnexal regions and cul-de-sac. DATA REPOSITORY:
== END 2021-09-08 02:24 ==
PROVIDERS: PCP Nurse Practitioner Family; Visit Provider Nurse Practitioner Women's Health
DX: R10.2 Pelvic and perineal pain (principal); N83.201 Unspecified ovarian cyst, right side
CPT/HCPCS: 76856

== ENCOUNTER 2021-12-01 19:11 | Outpatient (REF) | payer MEDICAID, SELFPAY ==
[2021-12-01 19:55] LABS: Folate 16.5 ng/mL (8.6-20.0); TSH (W/Ref FT4) 3.34 uIU/mL (0.36-3.74)
[2021-12-01 20:10] LABS: Vitamin D 25 Total 30.4 ng/mL (30-100)
== END 2021-12-01 19:12 | disposition home or self-care (01) ==
LOC: NCHCN 19:11
PROVIDERS: PCP Nurse Practitioner Family; Visit Provider Nurse Practitioner Family
DX: E03.9 Hypothyroidism, unspecified (principal); D52.9 Folate deficiency anemia, unspecified; E55.9 Vitamin D deficiency, unspecified
CPT/HCPCS: 82306; 82746; 84443

== ENCOUNTER 2022-02-16 20:15 | Outpatient (REF) | payer MEDICAID, SELFPAY ==
[2022-02-16 20:43] LABS: AST 14 U/L (15-37); Albumin 4.5 g/dL (3.4-5.0); Alkaline Phosphatase 53 U/L (46-116); Anion Gap 8.6 mmol/L (3-11); BUN 10 mg/dL (7-18); Bilirubin, Total 0.5 mg/dL (0.2-1.0); CO2 27.4 mmol/L (21.0-32.0); CREATININE 0.8 mg/dL (0.55-1.02); Calcium 9.1 mg/dL (8.5-10.1); Chloride 104 mmol/L (98-107); Glucose 86 mg/dL (74-106); Lipase 68 U/L (73-393); Potassium 3.9 mmol/L (3.5-5.1); Sodium 140 mmol/L (136-145); Total Protein 7.5 g/dL (6.4-8.2)
[2022-02-16 20:44] LABS: ALT < 6 U/L (14-59)
== END 2022-02-16 20:16 | disposition home or self-care (01) ==
LOC: LBN 20:15
PROVIDERS: PCP Nurse Practitioner Family; Visit Provider Physician Assistant Medical
DX: R10.9 Unspecified abdominal pain (principal)
CPT/HCPCS: 80053; 83690

== ENCOUNTER → 2022-02-20 02:55 | Outpatient (CLI) | payer MEDICAID, SELFPAY ==
--- NOTE | 2022-02-20 13:45 | DI.US_ITS ---
Exam(s) US ABDOMEN RENAL EXAM: US ABDOMEN RENAL CLINICAL HISTORY: RT FLANK PAIN, R10.9, 2-3 WEEKS RELATED TO FOOD BM, PAIN NEAR KIDNEY TECHNIQUE: Ultrasound of complete upper abdomen performed using standard protocol. COMPARISON: US US PELVIS from 09/08/2021 FINDINGS: There is no ascites evident. LIVER: There are no hepatic lesions evident nor obvious dilatation of intrahepatic ducts. GALLBLADDER/BILIARY: The gallbladder surgically absent. The common hepatic duct isnot dilated, measuring 5mm at the level of genie hepatis. PANCREAS: There is no evidence of pancreatic mass nor dilatation of the pancreatic duct. SPLEEN: The spleen is not enlarged and there are no intrasplenic lesions evident. KIDNEYS:Kidneys exhibit normal size with no evidence of solid mass, calculus, nor hydronephrosis. No cortical cysts evident. ABDOMINAL AORTA: There is no evidence of abdominal aortic aneurysm. IVC: Normal diameter where visualized. Urinary bladder: Prevoid volume 52 cc. Ureterovesical jets were not identified. IMPRESSION: 1. The gallbladder is surgically absent the biliary tree is not dilated. 2. No other significant ultrasound findings in the upper abdomen. 3. Both kidneys appear unremarkable. DATA REPOSITORY:
== END ==
PROVIDERS: PCP Nurse Practitioner Family; Visit Provider Physician Assistant Medical
DX: R10.9 Unspecified abdominal pain (principal)
CPT/HCPCS: 76770; 76700

== ENCOUNTER 2022-03-17 19:13 | Outpatient (REF) | payer MEDICAID, SELFPAY | END 2022-03-17 19:14 | disposition home or self-care (01) | LOC: LBN 19:13 | PROVIDERS: PCP Nurse Practitioner Family; Visit Provider Physician Assistant Medical | DX: R10.9 Unspecified abdominal pain (principal); R82.998 Other abnormal findings in urine | CPT/HCPCS: 87077; 87086; 87186 ==

== ENCOUNTER 2022-09-08 16:12 | Outpatient (REF) | payer MEDICAID, SELFPAY ==
[2022-09-08 16:25] LABS: HCT 41.5 % (36.0-46.0); HGB 13.9 g/dL (11.2-15.7); MCH 29.3 pg (27.0-33.0); MCHC 33.5 % (32.0-36.0); MCV 87 fL (80-95); MPV 11.2 fL (8.0-11.0); Platelet Count 214 10^3/uL (130-400); RBC 4.75 10^6/uL (3.93-5.22); RDW 11.9 % (11.7-14.6); RDW-SD 38.5 fL; WBC 6.51 10^3/uL (4.4-10.8)
[2022-09-08 16:34] LABS: Iron 74 ug/dL (50-170); Total Iron Binding Capacity 305 ug/dL (250-450); Transferrin Sat 24 % (15-50)
[2022-09-08 16:59] LABS: Ferritin 45 ng/mL (8-252); Vitamin B12 695 pg/mL (193-986)
[2022-09-11 05:38] LABS: Vitamin D 25 Total 27.3 ng/mL (30-100)
== END 2022-09-08 16:13 | disposition home or self-care (01) ==
LOC: NCHCN 16:12
PROVIDERS: PCP Nurse Practitioner Family; Visit Provider Nurse Practitioner Family
DX: D52.9 Folate deficiency anemia, unspecified (principal); E55.9 Vitamin D deficiency, unspecified; E53.8 Deficiency of other specified B group vitamins
CPT/HCPCS: 82306; 85027; 82607; 82728; 83540; 83550

== ENCOUNTER 2023-02-02 11:57 | Outpatient (REF) | payer MEDICAID, SELFPAY ==
[2023-02-02 18:29] LABS: TSH (W/Ref FT4) 0.12 uIU/mL (0.36-3.74)
[2023-02-02 18:46] LABS: Vitamin D 25 Total 31.5 ng/mL (30-100)
[2023-02-02 18:49] LABS: FREE T4 1.72 ng/dL (0.76-1.46)
== END 2023-02-02 11:58 | disposition home or self-care (01) ==
LOC: NCHCN 11:57
PROVIDERS: PCP Nurse Practitioner Family; Visit Provider Nurse Practitioner Family
DX: E03.9 Hypothyroidism, unspecified (principal); E55.9 Vitamin D deficiency, unspecified
CPT/HCPCS: 82306; 84439; 84443

== ENCOUNTER 2023-05-07 14:14 | Outpatient (REF) | payer MEDICAID, SELFPAY ==
--- OUTSIDE RECORDS SUMMARY | 2023-05-07 14:18 | XMS_ITS | Continuity of Care Document ---
Author Name Unknown Organization [facility] Ambulatory Clinics Address [address] [place] [address] Encounter [facility] NBR [id number] Date(s): 01/22/23 - 01/22/23 [facility] Ambulatory Clinics [address], [place] [address] Encounter Diagnosis Gynecologic exam normal(Discharge Diagnosis) - 01/22/23 Surveillance of contraceptive pill(Discharge Diagnosis) - 01/22/23 Encounter for Papanicolaou smear of cervix(Discharge Diagnosis) - 01/22/23 Discharge Disposition: Home or Self Care Attending Physician: Parul Tobin APRN Allergies, Adverse Reactions, Alerts Substance Reaction Severity Status amoxicillin 1 Moderate Active penicillin Moderate Active Augmentin 2 Moderate Active Milk Mild Active 1Facial Swelling 2Facial swelling Functional Status 01/22/23 Other exposure to Infectious Disease Non e Medications Humira Pen 40 mg/0.4 mL subcutaneous kit 40 mg = 0.4 mL, Subcutaneous, every 2 wk, # 2 EA, 0 Refill(s) Start Date: 01/22/23 Status: Ordered levothyroxine 200 mcg (0.2 mg) oral capsule 200 mcg = 1 cap, Oral, Daily, # 30 cap, 0 Refill(s) Start Date: 01/16/23 Status: Ordered Natazia oral tablet 1 tab, Oral, Daily, NOT TAKING THE LAST 4 PILLS IN THE PACK, # 90 tab, 4 Refill(s), Pharmacy: [facility] #[id number] Start Date: 01/22/23 Stop Date: 04/16/24 Status: Ordered Vitamin B12 1000 mcg oral tablet 1,000 mcg = 1 tab, Oral, Daily, # 30 tab, 0 Refill(s) Start Date: 01/16/23 Status: Ordered Vitamin D3 1000, Oral, Daily, 0 Refill(s) Start Date: 2/28/23 Status: Ordered Problem List Condition Confirmation Course Effective Dates Status H ealth Status Informant Abdominal pain Confirmed Active Allergic rhinitis Confirmed Active Anxiety Confirmed Active Asthma Confirmed Active Back pain Confirmed Active Chronic pelvic pain in female Confirmed Active Constipation Confirmed Active Ovarian cyst Confirmed Active Dysmenorrhea, unspecified Confirmed Active Hyperthyroidism Confirmed Active Lactose intolerance Confirmed Active Psoriasis 1 Confirmed Active 1Scalp abd vulvar tissues Procedures Procedure Date Related Diagnosis Body Site Status Colonoscopy 1 08/12/20 Completed Cholecystectomy 01/06/13 Completed Eye surgery 2 Completed Surgery 3 Completed [place] tooth Completed 1No recall stated 2Right eye surgery for detached retina 2017 3Back Surgery 02/19/2017 Vital Signs Most recent to oldest [Reference Range]: 1 Blood Pressure [90-140/60-90 mmHg] 110/7 5mmHg (01/22/23 9:42 AM) Weight 73.3 kg (01/22/23 9:42 AM) Weight Measured (lbs) 161.599 lb (01/22/23 9:42 AM) [place] Body Weight Calculated 61.437 kg (01/22/23 9:42 AM) Height 170 cm (01/22/23 9:42 AM) Height/Length Measured (inches) 66.93 in ch (01/22/23 9:42 AM) BSA Measured 1.86 m2 (01/22/23 9:42 AM) Body Mass Index 25.36 kg/m2 (01/22/23 9:42 AM) Social History Social History Type Response Tobacco Never tobacco user T obacco Use:. Sex Female Physician Outpatient Note * Parul Tobin, MEDICINE AND HEALTH SERVICE MANAGER: PERFORM Event Display: Office Clinic Note Physician Authored Date: [id number] YOEL COMBS :1990 Age:32 years Sex:Female Visit Date:01/22/2023 Chief Complaint Pt is here for her well women visit, no concerns. 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 When reviewing the menstrual history:??significantly better, skips last 4 of the pill pack. Her symptoms have significantly improved but intermittently she has pelvic discomfort. Her pap smear history is??unremarkable.?? Last Pap??07/2021. For contraception the couple depends upon??the oral contraceptive pill..?? Vaginal discharge??is minimal.?? Her calcium intake??is adequate..?? Her breast health is??relatively unremarkable.?? In review of her sexual relationship:??she is in a monogamous, healthy, and longstanding relationship..?? Review of Systems GENERAL??Overall she feels well.??DERMATOLOGIC??No recent rashes or worrisome dermatologic lesions.. CARDIAC??She states she's not had a significant change recently in exercise tolerance.,??No recentpalpitations, chest pains, or other heart related complaints.. RESPIRATORY??No recent changes with her breathing.. GENITOURINARY??Aside from those issues noted above, the patient doesn't have any other complaints.. GASTROINTESTINAL??Her bowel habits are unchanged over the past 6 months.. MUSCULOSKELETAL??There are no recent problems with weakness or pain.. NEUROLOGIC??No recent neurologic issues.. ENDOCRINOLOGIC??She has no known issues.. HEMATOLOGIC??She has no known bleeding or clotting disorders. Physical Exam Vitals & Measurements BP:??110/75?? HT:??170??cm?? WT:??73.3??kg?? BMI:??25.36?? BSA:??1.86?? [facility] General Physical Exam:?? GENERAL??Healthy woman appearing her age,??No apparent distress,??Reasonable historian.?? HEENT??PERRL,??No cervical LAD,??No thyromegaly.?? RESPIRATORY??Clear to auscultation bilaterally..?? CARDIAC??Regular rate and rhythm.,??No murmur or rub..?? ABDOMEN??Soft, nontender..?? EXTREMITIES??Grossly normal exam..?? MUSCULOSKELETAL??Grossly normal strength bilaterally..?? DERMATOLOGIC??Grossly normal exam..?? NEUROLOGIC??No focal or gross weakness.,??Strength is symmetric bilaterally..?? BREAST EXAM??Nipples bilaterally appear normal. No worrisome masses or nipple discharge. Bilateral axillas are free of any worrisome lymphadenopathy..?? [facility] Pelvic Exam:?? EXTERNAL GENITALIA??Labia majora and minora bilaterally are normal in appearance.,??Introitus is normal in external appearance..?? VAGINA??Healthy rugated mucosa..?? VAGINAL DISCHARGE??Thin, minimal, white discharge..?? CERVIX??Healthy in appearance. Pap collected.?? UTERUS??Small and normal in contours.,??Uterus is nontender.,??Adnexal areas bilaterally are normalin size and are nontender.. Assessment/Plan 1.??Gynecologic exam normal??Z01.419 ??We discussed general health maintenance and improvement strategies. Maintaining a healthy diet rich in Calcium, Vitamin D, and [place] 3s is recommended for overall health. ??I encouraged her to consider making time in her busy schedule for regular exercise, at least 30 minutes most days of the week. ?? 2.??Surveillance of contraceptive pill??Z30.41 Refills provided. Orders: Natazia oral tablet, 1 tab, Oral, Daily, NOT TAKING THE LAST 4 PILLS IN THE PACK, # 90 tab, 4 Refill(s), Pharmacy: [facility] #[id number] Follow Up Instructions prn, one year Problem List/Past Medical History Ongoing Abdominal pain Allergic rhinitis Anxiety Asthma Back pain Chronic pelvic pain in female Constipation Dysmenorrhea, unspecified Hyperthyroidism Lactose intolerance Ovarian cyst Psoriasis Historical Procedure/Surgical History ???Colonoscopy (08/13/2020)???Cholecystectomy (01/07/2013)???Eye surgery???Surgery???[place] tooth Medications Humira Pen 40 mg/0.4 mL subcutaneous kit, 40 mg= 0.4 mL, Subcutaneous, every 2 wk levothyroxine 200 mcg (0.2 mg) oral capsule, 200 mcg= 1 cap, Oral, Daily Natazia oral tablet, 1 tab, Oral, Daily, 4 refills Vitamin B12 1000 mcg oral tablet, 1000 mcg= 1 tab, Oral, Daily Vitamin D3, 1000, Oral, Daily Allergies Augmentin amoxicillin penicillin Milk Social History Alcohol Current, Wine, 1-2 times per month Electronic Cigarette/Vaping Electronic Cigarette Use: Never. Employment/School Employed, Work/School description: [employer]. Home/Environment Lives with Children, Significant other. Sexual Sexually active: Yes. Substance Use Never Tobacco Never tobacco user Tobacco Use:. Family History Anxiety: Father and Sister. Hyperthyroidism: Father. Electronically Signed on 01/22/23 11:56 AM Parul Tobin APRN Patient Care team information Care Team Related Persons Name: LUCIANO COMBS Address: [address] [id number]
== END 2023-05-07 14:15 | disposition home or self-care (01) ==
LOC: LBN 14:14
PROVIDERS: PCP Nurse Practitioner Family; Visit Provider Nurse Practitioner Family
DX: J02.9 Acute pharyngitis, unspecified (principal)
CPT/HCPCS: 87081

== ENCOUNTER 2023-06-21 12:59 | Outpatient (REF) | payer MEDICAID, SELFPAY ==
[2023-06-21 16:47] LABS: TSH (W/Ref FT4) 0.24 uIU/mL (0.36-3.74)
[2023-06-21 17:47] LABS: FREE T4 1.39 ng/dL (0.76-1.46)
== END 2023-06-21 13:00 | disposition home or self-care (01) ==
LOC: NCHCN 12:59
PROVIDERS: PCP Nurse Practitioner Family; Visit Provider Nurse Practitioner Family
DX: E03.9 Hypothyroidism, unspecified (principal)
CPT/HCPCS: 84439; 84443

== ENCOUNTER → 2023-08-03 11:35 | Outpatient (CLI) | payer MEDICAID, SELFPAY ==
--- NOTE | 2023-08-03 16:25 | DI.RAD_ITS ---
Exam(s) XR SACROILIAC JOINTS EXAM: XR SACROILIAC JOINTS CLINICAL HISTORY: SI JOINT PAIN RT M53.3. TECHNIQUE: 2D digital imaging was performed. COMPARISON: No exams were available for comparison FINDINGS: Bones: No fracture is present. No bony destructive lesion is seen. Alignment is satisfactory. SI Joint: No fusion, erosions or sclerosis is seen. Soft Tissue: Normal. IMPRESSION: Normal radiographs of the SI Joints. DATA REPOSITORY: RADIATION DOSE DELIVERED:
--- NOTE | 2023-08-03 16:25 | DI.RAD_ITS ---
Exam(s) XR LUMBAR SPINE COMPLETE EXAM: XR LUMBAR SPINE COMPLETE CLINICAL HISTORY: SI JOINT PAIN RT M53.3 LUMBAR BACK PAIN M54.50. TECHNIQUE: 2D digital imaging was performed. Five views. COMPARISON: No exams were available for comparison FINDINGS: BONES: No fracture or destructive lesion. Vertebral body heights are maintained. No facet hypertroph y identified. No spondylolysis. DISKS: Intervertebral disc spaces are maintained. ALIGNMENT: Lumbar spinal alignment is within normal limits. No spondylo listhesis. SOFT TISSUE: Large quantity of stool noted throughout the colon IMPRESSION: Unremarkable radiographs of the lumbar spine. Large quantity of stool noted. DATA REPOSITORY: RADIATION DOSE DELIVERED:
--- NOTE | 2023-08-03 16:56 | DI.VRAD_ITS ---
PROCEDURE INFORMATION: Exam: XR Lumbosacral Spine Exam date and time: 08/03/2023 4:06 PM Age: 33 years old Clinical indication: Other: Back pain TECHNIQUE: Imaging protocol: Radiologic exam of the lumbosacral spine. Views: 4 or 5 views. COMPARISON: MRI - LUMBAR SPINE WO CONTRAST 08/01/2017 16:14 FINDINGS: Bones/joints: Normal. No acute fracture. Normal alignment. Soft tissues: Unremarkable. Intraperitoneal space: Surgical clips in the right upper quadrant. Gastrointestinal tract: Moderate solid stool volume. IMPRESSION: 1. No acute findings. 2. Moderate solid stool volume. Dictated and Authenticated by: Loretta Packer MD. Ordering:MAGGIE Leiva MD
--- NOTE | 2023-08-03 16:57 | DI.VRAD_ITS ---
PROCEDURE INFORMATION: Exam: XR Bilateral Sacroiliac Joints Exam date and time: 08/03/2023 4:08 PM Age: 33 years old Clinical indication: Other: Fall, ? injury TECHNIQUE: Imaging protocol: XR bilateral XR of the sacroiliac joints. Views: 3 or more views. COMPARISON: CR XR LUMBAR SPINE COMPLETE 03/08/2023 16:06 FINDINGS: Bones/joints: Normal. The SI joints are symmetric. No fracture or dislocation. Soft tissues: Normal. IMPRESSION: No acute findings. Dictated and Authenticated by: Loretta Packer MD. Ordering:MAGGIE Leiva MD
== END ==
PROVIDERS: PCP Nurse Practitioner Family; Visit Provider Physician Assistant Medical
DX: M53.3 Sacrococcygeal disorders, not elsewhere classified (principal)
CPT/HCPCS: 72110; 72202

== ENCOUNTER 2023-09-26 13:09 | Outpatient (REF) | payer MEDICAID, SELFPAY ==
[2023-09-26 16:31] LABS: Vitamin D 25 Total 24.6 ng/mL (30-100)
[2023-09-26 16:44] LABS: ALT 14 U/L (14-59); AST 19 U/L (15-37); Albumin 4.4 g/dL (3.4-5.0); Alkaline Phosphatase 65 U/L (46-116); Anion Gap 8.7 mmol/L (3-11); BUN 7 mg/dL (7-18); Bilirubin, Total 0.4 mg/dL (0.2-1.0); CO2 27.3 mmol/L (21.0-32.0); CREATININE 0.7 mg/dL (0.55-1.02); Calcium 9.6 mg/dL (8.5-10.1); Chloride 103 mmol/L (98-107); Estimated GFR 117.77 (mL/min/1.73m2); Folate 4.1 ng/mL (8.6-20.0); Glucose 89 mg/dL (74-106); Potassium 4.6 mmol/L (3.5-5.1); Sodium 139 mmol/L (136-145); TSH 4.99 uIU/mL (0.36-3.74); Total Protein 7.4 g/dL (6.4-8.2); Vitamin B12 579 pg/mL (193-986)
== END 2023-09-26 13:10 | disposition home or self-care (01) ==
LOC: NCHCN 13:09
PROVIDERS: PCP Nurse Practitioner Family; Visit Provider Nurse Practitioner Family
DX: E03.9 Hypothyroidism, unspecified (principal); E53.8 Deficiency of other specified B group vitamins; D52.9 Folate deficiency anemia, unspecified; F41.8 Other specified anxiety disorders; L40.9 Psoriasis, unspecified; E55.9 Vitamin D deficiency, unspecified
CPT/HCPCS: 80053; 82306; 82607; 82746; 84443

== ENCOUNTER 2023-09-27 15:41 | Outpatient (REF) | payer MEDICAID, SELFPAY ==
[2023-09-27 16:11] LABS: Abs Immature Grans 0.03 10^3/uL (0.0-0.06); Absolute Basophil Count 0.03 10^3/uL (0.0-0.2); Absolute Eosinophil Count 0.35 10^3/uL (0.0-0.7); Absolute Lymphocyte Count 2.99 10^3/uL (1.2-3.4); Absolute Monocyte Count 0.53 10^3/uL (0.1-0.8); Absolute Neutrophil Count 5.18 10^3/uL (1.2-6.7); Basophils % 0.3; Eosinophils % 3.8; HCT 39.9 % (36.0-46.0); HGB 13.2 g/dL (11.2-15.7); Immature Grans % 0.3; Lymphocytes % 32.8; MCHC 33.1 % (32.0-36.0); MCV 88 fL (80-95); MPV 10.2 fL (8.0-11.0); Monocytes % 5.8; Platelet Count 224 10^3/uL (130-400); RBC 4.55 10^6/uL (3.93-5.22); RDW-SD 38.9 fL; WBC 9.11 10^3/uL (4.4-10.8)
== END 2023-09-27 15:42 | disposition home or self-care (01) ==
LOC: NCHCN 15:41
PROVIDERS: PCP Nurse Practitioner Family; Visit Provider Nurse Practitioner Family
DX: D52.9 Folate deficiency anemia, unspecified (principal)
CPT/HCPCS: 85025

== ENCOUNTER 2023-10-03 09:49 | Outpatient (REF) | payer MEDICAID, SELFPAY | END 2023-10-03 09:50 | disposition home or self-care (01) | LOC: LBN 09:49 | PROVIDERS: PCP Nurse Practitioner Family; Visit Provider Nurse Practitioner Family | DX: J02.9 Acute pharyngitis, unspecified (principal) | CPT/HCPCS: 87070 ==

== ENCOUNTER 2024-03-03 21:54 | Outpatient (REF) | payer MEDICAID, SELFPAY ==
[2024-03-03 23:35] LABS: Abs Immature Grans 0.01 10^3/uL (0.0-0.06); Absolute Basophil Count 0.06 10^3/uL (0.0-0.2); Absolute Eosinophil Count 0.75 10^3/uL (0.0-0.7); Absolute Lymphocyte Count 3.19 10^3/uL (1.2-3.4); Absolute Monocyte Count 0.53 10^3/uL (0.1-0.8); Absolute Neutrophil Count 3.92 10^3/uL (1.2-6.7); Basophils % 0.7; Eosinophils % 8.9; Immature Grans % 0.1; Lymphocytes % 37.7; MCH 29.1 pg (27.0-33.0); MCHC 32.5 % (32.0-36.0); MCV 90 fL (80-95); MPV 10.7 fL (8.0-11.0); Monocytes % 6.3; Neutrophils % 46.3; Platelet Count 196 10^3/uL (130-400); RBC 4.46 10^6/uL (3.93-5.22); RDW 12.1 % (11.7-14.6); RDW-SD 39.8 fL; WBC 8.46 10^3/uL (4.4-10.8)
[2024-03-03 23:45] LABS: ALT 18 U/L (14-59); AST 21 U/L (15-37); Albumin 4.2 g/dL (3.4-5.0); Alkaline Phosphatase 54 U/L (46-116); Anion Gap 8.7 mmol/L (3-11); BUN 12 mg/dL (7-18); Bilirubin, Total 0.3 mg/dL (0.2-1.0); CO2 27.3 mmol/L (21.0-32.0); CREATININE 0.7 mg/dL (0.55-1.02); Calcium 8.5 mg/dL (8.5-10.1); Chloride 106 mmol/L (98-107); Estimated GFR 117.77 (mL/min/1.73m2); Glucose 83 mg/dL (74-106); Lipase 43 U/L (16-77); Potassium 4.2 mmol/L (3.5-5.1); Sodium 142 mmol/L (136-145); Total Protein 7.2 g/dL (6.4-8.2)
== END 2024-03-03 21:55 | disposition home or self-care (01) ==
LOC: LBN 21:54
PROVIDERS: PCP Nurse Practitioner Family; Visit Provider Nurse Practitioner Family
DX: R10.13 Epigastric pain (principal)
CPT/HCPCS: 80053; 83690; 85025

== ENCOUNTER 2024-03-04 03:59 | Outpatient (CLI) | payer MEDICAID, SELFPAY | END 2024-03-04 04:00 | disposition home or self-care (01) | LOC: LBO 03:59 | PROVIDERS: PCP Nurse Practitioner Family; Visit Provider Nurse Practitioner Family | DX: R10.13 Epigastric pain (principal) | CPT/HCPCS: 36415; 83013 ==

== ENCOUNTER 2024-05-21 02:31 | Outpatient (CLI) | payer MEDICAID, SELFPAY ==
--- OUTSIDE RECORDS SUMMARY | 2024-05-21 02:33 | XMS_ITS | Continuity of Care Document ---
Author Name Unknown Organization [facility] Address [address] [place] [address] Care Team Providers Care Curer Acid Drum Name Role Phone Elizabeth Blanco Primary Care Physician Encounter [facility] Date(s): 03/11/24 - 03/11/[address] [facility] [place] [facility] [address] [place] [address] Discharge Disposition: Home Allergies, Adverse Reactions, Alerts Substance Reaction Severity Status amoxicillin Unknown Active Augmentin Unknown Active Penicillin V Potassium Unknown Activ e Assessment and Plan Future Appointments Medications Happy Simpson Vitamin D3 25 mcg (1000 intl units) oral capsule See Instructions, 1 cap, 0 Refill(s) Start Date: 05/11/22 Status: Ordered levothyroxine 200 mcg (0.2 mg) oral capsule 200 mcg = 1 cap, Oral, Daily, # 30 cap, 0 Refill(s) Start Date: 05/11/22 Status: Ordered Macrobid 100 mg oral capsule See Instructions, 1 cap Oral BID 14 days, 0 Refill(s) Start Date: 05/11/22 Status: Ordered Natazia oral tablet 1 tab, Oral, Daily, 0 Refill(s) Start Date: 05/11/22 Status: Ordered Vitamin B12 500 mcg oral tablet 500 mcg = 1 tab, Oral, Daily, # 30 tab, 0 Refill(s) Start Date: 05/11/22 Status: Ordered Problem List Condition Confirmation Course Effective Dates Status H ealth Status Informant Adjustment disorder with mixed anxiety and depressed mood Confirmed Active Chronic constipation Confirmed Active Chronic diarrhea Confirmed Active Vitamin B12 deficiency Confirmed Active Dysuria Confirmed Active Fatigue Confirmed Active Hypothyroidism Confirmed Active Lactose intolerance Confirmed Active Folate deficiency anemia Confirmed Active Ophthalmoplegic migraine headache Confirmed Active Preventative health care Confirmed Active Psoriasis Confirmed Active Rectal prolapse Confirmed Active Right flank pain Confirmed Active Sleep disorder Confirmed Active Heart murmur, systolic Confirmed Active Vaginal prolapse Confirmed Active Vitamin D deficiency Confirmed Active Social History Social History Type Response Tobacco Never tobacco user T obacco Use:. Sex Female Patient Care team information Care Team Personnel Name: Elizabeth Blanco APRN Position: No Access Member Role: Primary Care Physician Address: Address: [place] [address]- Care Team Related Persons Name: ORLY HEATON
--- OUTSIDE RECORDS SUMMARY | 2024-05-21 02:33 | XMS_ITS | Continuity of Care Document ---
Author Name Unknown Organization [facility] Address [address] [place] [address] Encounter [facility] FIN NBR [id number] Date(s): 08/23/23 - 08/23/23 [facility] [address] [place] [address]- Discharge Disposition: Home Allergies, Adverse Reactions, Alerts Substance Reaction Severity Status amoxicillin 1 Anaphylactic reaction Severe Activ e penicillin Moderate Active Augmentin 2 Anaphylactic reaction Severe Active Milk Mild Active 1Facial Swelling 2Facial swelling Assessment and Plan Future Appointments Medications Bactrim DS 800 mg-160 mg oral tablet 1 tab, Oral, BID, # 14 tab, 0 Refill(s), Pharmacy: [facility] #[id number], 170, cm, 08/17/23 14:47:00 EDT, Height/Length Dosing, 69, kg, 08/17/23 14:47:00 EDT, Weight Dosing Start Date: 08/21/23 Stop Date: 08/28/23 Status: Ordered Humira Pen 40 mg/0.4 mL subcutaneous kit 40 mg = 0.4 mL, Subcutaneous, every 2 wk, 0 Refill(s) Start Date: 01/22/23 Status: Ordered levothyroxine 125 mcg (0.125 mg) oral tablet 125 mcg = 1 tab, Oral, Daily, 0 Refill(s) Start Date: 08/17/23 Status: Ordered levothyroxine 175 mcg (0.175 mg) oral capsule 175 mcg = 1 cap, Oral, Daily, # 90 cap, 0 Refill(s) Start Date: 08/21/23 Status: Ordered Pyridium 200 mg oral tablet 200 mg = 1 tab, Oral, TID(PC), # 6 tab, 0 Refill(s), Pharmacy: [facility] #[id number], 170, cm, 08/17/23 14:47:00 EDT, Height/Length Dosing, 69, kg, 08/17/23 14:47:00 EDT, Weight Dosing Start Date: 08/21/23 Status: Ordered Vitamin B12 1000 mcg oral tablet 1,000 mcg = 1 tab, Oral, Daily, 0 Refill(s) Start Date: 01/16/23 Status: Ordered Vitamin D3 1000, Oral, Daily, 0 Refill(s) Start Date: 01/16/23 Status: Ordered Problem List Condition Confirmation Course Effective Dates Status H ealth Status Informant Abdominal pain Confirmed Active Allergic rhinitis Confirmed Active Anxiety Confirmed Active Back pain Confirmed Active Chronic pelvic pain in female Confirmed Active Constipation Confirmed Active Ovarian cyst Confirmed Active Hypothyroidism Confirmed Active Lactose intolerance Confirmed Active Psoriasis 1 Confirmed Active Dysmenorrhea, unspecified Confirmed Active Oral contraceptive use Confirmed Active 1Scalp abd vulvar tissues Procedures Procedure Date Related Diagnosis Body Site Status Colonoscopy 1 08/12/20 Completed Cholecystectomy 01/06/13 Completed Eye surgery 2 Completed Surgery 3 Completed [place] tooth Completed 1No recall stated 2Right eye surgery for detached retina 2017 3Back Surgery 02/19/2017 Social History Social History Type Response Smoking Status Smoking tobacco use: Never tobacco user;Never entered on: 08/21/23 Sex Female Patient Care team information Care Team Related Persons Name: STACIE SAGE Name: LUCIANO COMBS Address: Home [address] [place] [phone]
--- OUTSIDE RECORDS SUMMARY | 2024-05-21 02:33 | XMS_ITS | Continuity of Care Document ---
Author Name Unknown Organization [facility] Address [address] [place] [address] Encounter [facility] FIN NBR [id number] Date(s): 08/21/23 - 08/21/23 [facility] [address] [place] [address] [place] Encounter Diagnosis Dysuria(Discharge Diagnosis) - 08/21/23 Urinary tract infection in female(Discharge Diagnosis) - 08/21/23 Discharge Disposition: Home or Self Care Attending Physician: Lopez Willis MD Allergies, Adverse Reactions, Alerts Substance Reaction Severity Status amoxicillin 1 Anaphylactic reaction Severe Activ e penicillin Moderate Active Augmentin 2 Anaphylactic reaction Severe Active Milk Mild Active 1Facial Swelling 2Facial swelling Assessment and Plan Future Appointments Medications Bactrim DS 800 mg-160 mg oral tablet 1 tab, Oral, BID, # 14 tab, 0 Refill(s), Pharmacy: [facility] #[id number], 170, cm, 08/17/23 14:47:00 EDT, Height/Length Dosing, [...] 0 Refill(s) Start Date: 08/21/23 Status: Ordered Natazia oral tablet 1 tab, Oral, Daily, NOT TAKING THE LAST 4 PILLS IN THE PACK, # 90 tab, 4 Refill(s), Pharmacy: [email or web address] #[id number] Start Date: 01/22/23 Stop Date: 04/16/24 Status: Ordered Pyridium 200 mg oral tablet 200 mg = 1 tab, Oral, TID(PC), # 6 tab, 0 Refill(s), Pharmacy: [email or web address] #[id number], 170, cm, 08/17/23 14:47:00 EDT, Height/Length Dosing, [...] Eye surgery 2 Completed Surgery 3 Completed [place] tooth Completed 1No recall stated 2Right eye surgery for detached retina 2017 3Back Surgery 02/19/2017 Results Laboratory List Name Date .Urinalysis POCT 08/21/23 Most recent to oldest [Reference Range]: 1 Specific [place], Ur POC 1.005 *NA* (08/21/23 12:00 PM) Specimen Color POC [Yellow] Light Yellow (08/21/23 12:00 PM) Glucose, Urine POC Negative mg/dL *NA* (08/21/23 12:00 PM) Bilirubin, Urine POC [Negative] Trace *ABN* (08/21/23 12:00 PM) Ketones, Urine POC [Negative mg/dL] Nega tive mg/dL (08/21/23 12:00 PM) Blood, Urine POC [Negative] Small *ABN* (08/21/23 12:00 PM) pH, Urine POC 8.00 *NA* (08/21/23 12:00 PM) Protein, Urine POC [Negative mg/dL] Trac e mg/dL *ABN* (08/21/23 12:00 PM) Urobilinogen, Urine POC [0.2] 0.2 (08/21/23 12:00 PM) Nitrite, Urine POC [Negative] Positive *ABN* (08/21/23 12:00 PM) Leuk Esterase, Urine POC [Negative] Smal l *ABN* (08/21/23 12:00 PM) Clarity, Urine POC [Clear] Cloudy *ABN* (08/21/23 12:00 PM) Vital Signs Most recent to oldest [Reference Range]: 1 Blood Pressure [90-140/60-90 mmHg] 128/7 8mmHg (08/21/23 11:38 AM) Weight 70.6 kg (08/21/23 11:38 AM) Weight Measured (lbs) 155.646 lb (08/21/23 11:38 AM) [place] Body Weight Calculated 59.3 kg (08/21/23 11:38 AM) Height 167.64 cm (08/21/23 11:38 AM) Height/Length Measured (inches) 66 inch (08/21/23 11:38 AM) BSA Measured 1.81 m2 (08/21/23 11:38 AM) Body Mass Index 25.12 kg/m2 (08/21/23 11:38 AM) Social History Social History Type Response Smoking Status Smoking tobacco use: Never tobacco user;Never entered on: 08/21/23 Sex Female Physician Outpatient Note * Lopez Willis MD: PERFORM Event Display: Office Clinic Note Physician Authored Date: [id number] YOEL COMBS :1990 Age:33 years Sex:Female Visit Date:08/21/2023 Chief Complaint ? UTI, surgery scheduled w/Dr. Sahni on 08/24/2023, urinary frequency, urgency, pain after urination, dull ache in lower abdomen, has been taking OTC urinary pain relief - no change in symptoms History of Present Illness 33yo Female, The patient is here today??due to urinary tract symptoms.?? She has??urgency, frequency, and pain with urination for the past 2 days. ??There has not been any fever or flank pain. ??She is scheduled for Total Vaginal Hysterectomy, Bilateral Salpingectomy, and??Posterior Colporrhaphy??on 08/24/[address] Sahni. Physical Exam Vitals & Measurements BP:??128/78?? HT:??167.64??cm?? WT:??70.6??kg?? BMI:??25.12?? BSA:??1.81?? General: Alert and oriented, well nourished, no acute distress Eye: Pupils equal, EOMI HEENT: Normocephalic, grossly normal hearing, moist oral mucosa, no scleral icterus Abdomen: Soft, non-tender, non-distended, no masses Musculoskeletal: Grossly normal range of motion and strength, no tenderness or swelling Skin: Skin is warm, dry, no rashes Neurologic: Awake, alert, and oriented X4 Psychiatric: Cooperative, appropriate mood and affect Assessment/Plan 1.??Urinary tract infection in female??N30.00 Ordered: Pyridium 200 mg oral tablet, 200 mg = 1 tab, Oral, TID(PC), # 6 tab, 0 Refill(s), Pharmacy: [email or web address] #[id number], 170, cm, 08/17/23 14:47:00 EDT, Height/Length Dosing, 69, kg, 08/17/23 14:47:00 EDT, Weight Dosing Bactrim DS 800 mg-160 mg oral tablet, 1 tab, Oral, BID, # 14 tab, 0 Refill(s), Pharmacy: [facility] #[id number], 170, cm, 08/17/23 14:47:00 EDT, Height/Length Dosing, 69, kg, 08/17/23 14:47:00 EDT, Weight Dosing ?? 2.??Dysuria??R30.0 Ordered: Urine Culture, Urine, Clean Catch, Routine collect, RT - Routine, 08/21/23 11:40:00 EDT, Once, Nurse collect, Dysuria Urine Dipstick Clinic POC (RE), 08/21/23 11:59:00 EDT, Dysuria, 08/21/23 11:59:00 EDT ?? At today's appointment, we reviewed her urinary tract??symptoms and plans for upcoming surgery??on August 24.?? Her??Urinalysis??indicates??probable bowl urinary tract infection. ??I??prescribed??Bactrim DS??and sent her urine for culture.?? I feel that??with improvement of symptoms and treatment with antibiotics, her??surgery will proceed as scheduled.?? However, if she??develops fever and??progressive infection with pyelonephritis, her??surgery would??likely be postponed. Problem List/Past Medical History Ongoing Abdominal pain Allergic rhinitis Anxiety Back pain Chronic pelvic pain in female Constipation Dysmenorrhea, unspecified Hypothyroidism Lactose intolerance Oral contraceptive use Ovarian cyst Psoriasis Historical Asthma Procedure/Surgical History ???Colonoscopy (08/13/2020)???Cholecystectomy (01/07/2013)???Eye surgery???Surgery???[place] tooth Medications Bactrim DS 800 mg-160 mg oral tablet, 1 tab, Oral, BID Humira Pen 40 mg/0.4 mL subcutaneous kit, 40 mg= 0.4 mL, Subcutaneous, every 2 wk levothyroxine 125 mcg (0.125 mg) oral tablet, 125 mcg= 1 tab, Oral, Daily levothyroxine 175 mcg (0.175 mg) oral capsule, 175 mcg= 1 cap, Oral, Daily Natazia oral tablet, 1 tab, Oral, Daily, 4 refills Pyridium 200 mg oral tablet, 200 mg= 1 tab, Oral, TID(PC) Vitamin B12 1000 mcg oral tablet, 1000 mcg= 1 tab, Oral, Daily Vitamin D3, 1000, Oral, Daily Allergies Augmentin??(Anaphylactic reaction) amoxicillin??(Anaphylactic reaction) penicillin Milk Social History Alcohol Current, Wine, 1-2 times per month Electronic Cigarette/Vaping Electronic Cigarette Use: Never. Employment/School Employed, Work/School description: [employer]. Home/Environment Lives with Children, Significant other. Sexual Sexually active: Yes. Substance Use Current, 1-2 times per month Tobacco Never tobacco user Tobacco Use:. Never Smokeless Tobacco use:. Family History Anxiety: Father and Sister. Hyperthyroidism: Father. Lab Results Test Name Test Result Date/Time Specimen Color POC Light Yellow 08/21/2023 12:00 EDT Clarity, Urine POC Cloudy 08/21/2023 12:00 EDT Glucose, Urine POC Negative 08/21/2023 12:00 EDT Bilirubin, Urine POC Trace 08/21/2023 12:00 EDT Ketones, Urine POC Negative 08/21/2023 12:00 EDT Specific [place], Ur POC 1.005 08/21/2023 12:00 EDT pH, Urine POC 8.00 08/21/2023 12:00 EDT Protein, Urine POC Trace 08/21/2023 12:00 EDT Urobilinogen, Urine POC 0.2 08/21/2023 12:00 EDT Nitrite, Urine POC Positive 08/21/2023 12:00 EDT Blood, Urine POC Small 08/21/2023 12:00 EDT Leuk Esterase, Urine POC Small 08/21/2023 12:00 EDT Electronically Signed on 08/21/23 12:15 PM Lopez Willis MD Patient Care team information Care Team Related Persons Name: ALONA STACIE Name: LUCIANO COMBS Address: Home [address] [place] [phone]
--- OUTSIDE RECORDS SUMMARY | 2024-05-21 02:33 | XMS_ITS | Continuity of Care Document ---
Author Name Unknown Organization [facility] Address [address] [place] [phone] Encounter [facility] NBR [id number] Date(s): 08/21/23 - 08/21/[address] [address] [place] Encounter Diagnosis Dysuria(Discharge Diagnosis) - 08/21/23 Discharge Disposition: Home or Self Care Attending Physician: Lopez Willis MD Admitting Physician: Lopez Willis MD Allergies, Adverse Reactions, Alerts Substance Reaction Severity Status amoxicillin 1 Anaphylactic reaction Severe Activ e penicillin Moderate Active Augmentin 2 Anaphylactic reaction Severe Active Milk Mild Active 1Facial Swelling 2Facial swelling Assessment and Plan Future Appointments Medications Bactrim DS 800 mg-160 mg oral tablet 1 tab, Oral, BID, # 14 tab, 0 Refill(s), Pharmacy: [facility] #[id number], 170, cm, 08/17/23 14:47:00 EDT, Height/Length Dosing, [...] PACK, # 90 tab, 4 Refill(s), Pharmacy: [facility] #[id number] Start Date: 01/22/23 Stop Date: 04/16/24 Status: Ordered Pyridium 200 mg oral tablet 200 mg = 1 tab, Oral, TID(PC), # 6 tab, 0 Refill(s), Pharmacy: [facility] #[id number], 170, cm, 08/17/23 14:47:00 EDT, Height/Length Dosing, [...] Eye surgery 2 Completed Surgery 3 Completed [place] tooth Completed 1No recall stated 2Right eye surgery for detached retina 2017 3Back Surgery 02/19/2017 Results Orders for Microbiology Reports Name Date Urine Culture 08/21/23 Microbiology Reports TEST:Urine Culture STATUS:Order in Progress BODY SITE: SOURCE:Urine, Clean Catch COLLECTED DATE/TIME:08/21/23 12:02 PM PRELIMINARY REPORT >100,000 cfu/ml Gram Negative Bacilli Presumptive E. coli Identification and susceptibility to follow. Social History Social History Type Response Smoking Status Smoking tobacco use: Never tobacco user;Never entered on: 08/21/23 Sex Female Patient Care team information Care Team Related Persons Name: STACIE SAGE Name: LAURYN LUCIANO Address: Home [address] [place] [phone]
--- OUTSIDE RECORDS SUMMARY | 2024-05-21 02:33 | XMS_ITS | Continuity of Care Document ---
Author Name Unknown Organization [facility] Address [address] [place] [address] Encounter [facility] FIN NBR [id number] Date(s): 07/02/23 - 07/02/23 [facility] [address], [place] [id number] Encounter Diagnosis Chronic pelvic pain in female(Discharge Diagnosis) - 07/02/23 Oral contraceptive use(Discharge Diagnosis) - 07/02/23 Dysmenorrhea, unspecified(Discharge Diagnosis) - 07/02/23 Dyspareunia, female(Discharge Diagnosis) - 07/02/23 Rectocele(Discharge Diagnosis) - 07/02/23 Discharge Disposition: Home or Self Care Attending Physician: Giancarlo Sahni MD Allergies, Adverse Reactions, Alerts Substance Reaction Severity Status amoxicillin 1 Moderate Active penicillin Moderate Active Augmentin 2 Moderate Active Milk Mild Active 1Facial Swelling 2Facial swelling Medications fluconazole 200 mg oral tablet See Instructions, 1 tab today and repeat in 3 days., # 2 tab, 2 Refill(s), Pharmacy: [facility] #[id number] Start Date: 01/31/23 Status: Ordered Humira Pen 40 mg/0.4 mL subcutaneous kit 40 mg = 0.4 mL, Subcutaneous, every 2 wk, # 2 EA, 0 Refill(s) Start Date: 01/22/23 Status: Ordered levothyroxine 175 mcg (0.175 mg) oral capsule 175 mcg = 1 cap, Oral, Daily, # 30 cap, 0 Refill(s) Start Date: 06/06/23 Status: Ordered levothyroxine 200 mcg (0.2 mg) oral capsule 200 mcg = 1 cap, Oral, Daily, # 30 cap, 0 Refill(s) Start Date: 01/16/23 Status: Ordered metroNIDAZOLE 0.75% vaginal gel with applicator 1 boris, VAG, every day at bedtime, # 70 g, 1 Refill(s), Pharmacy: [facility] #[id number] Start Date: 06/21/23 Stop Date: 07/01/23 Status: Ordered metroNIDAZOLE 500 mg oral tablet 500 mg = 1 tab, Oral, BID, # 14 tab, 0 Refill(s), Pharmacy: [facility] #[id number] Start Date: 06/18/23 Stop Date: 06/25/23 Status: Ordered Natazia oral tablet 1 tab, Oral, Daily, NOT TAKING THE LAST 4 PILLS IN THE PACK, # 90 tab, 4 Refill(s), Pharmacy: [facility] #[id number] Start Date: 01/22/23 Stop Date: 04/16/24 Status: [...] Eye surgery 2 Completed Surgery 3 Completed [place] tooth Completed 1No recall stated 2Right eye surgery for detached retina 2017 3Back Surgery 02/19/2017 Vital Signs Most recent to oldest [Reference Range]: 1 Blood Pressure [90-140/60-90 mmHg] 126/8 2mmHg (07/02/23 2:57 PM) Weight 68.4 kg (07/02/23 2:57 PM) Weight Measured (lbs) 150.796 lb (07/02/23 2:57 PM) [place] Body Weight Calculated 61.6 kg (07/02/23 2:57 PM) Height 170.18 cm (07/02/23 2:57 PM) Height/Length Measured (inches) 67 inch (07/02/23 2:57 PM) BSA Measured 1.8 m2 (07/02/23 2:57 PM) Body Mass Index 23.62 kg/m2 (07/02/23 2:57 PM) Social History Social History Type Response Tobacco Never tobacco user T obacco Use:. 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 She would like to discuss hysterectomy.?? She has been struggling with breakthrough bleeding despite oral contraceptive pill basedsuppression.?? When not on the pill she has heavy, crampy cycles she also has significant GI symptom s such as diarrhea and bloating.?? She is not interested in having more children and having failed hormonal suppression would like to consider having her uterus removed.?? She has also noted deep insertional??dyspareunia. ??She has struggled with chronic constipation and feels like she pockets stool in the posterior aspect of the vagina. ??She has pressure at the introitus??with??sitting??and prolonged??standing. ??She had a Pap smear gathered January 22, 2023 that was negative with negative high-risk HPV testing.?? She underwent pelvic ultrasound September 08, 2021.?? Her uterus was noted to measure 7.2 x 3.8 x 5.0 cm.?? There were no fibroids appreciated and the endometrium measured 6 mm.?? The bilateral adnexal structures were within normal limits. Review of Systems Constitutional:?No??fevers,?No??chills,?No??sweats Eye:?No??recent visual problems ENT:?No??ear pain,?No??nasal congestion,?No??sore throat Respiratory:?No??shortness of breath,?No??cough Cardiovascular:?No??Chest pain,?No??palpitations,?No??syncope Gastrointestinal:?Nonausea,?No??vomiting,?No??diarrhea Genitourinary:?No??hematuria Dwayne/Lymph:?No??bruising tendency,?No??swollen lymph glands Endocrine:?No??excessive thirst,??No??excessive hunger Musculoskeletal:??No??back pain,??No??neck pain,??No??joint pain,??No??muscle pain,??No??decreased range of motion Integumentary:?No??rash,?No??pruritus,?No??abrasions Neurologic: Alert & oriented X 4 Psychiatric:?No??anxiety,?No??depression Physical Exam Vitals & Measurements BP:??126/82?? HT:??170.18??cm?? WT:??68.4??kg?? BMI:??23.62?? BSA:??1.8?? General: Alert and oriented, well nourished,?No acute distress Eye: PERRL, EOMI,??Normal conjunctiva HENT: Normocephalic,??Normal hearing, moist oral mucosa,?No scleral icterus Neck: Supple, non-tender, no??thyroid irregularities or thyromegaly Lungs: Clear to auscultation and percussion,?Non-labored respiration Heart:?Normal rate,?Regular rhythm,?No murmur,?No gallop Abdomen: Soft, non-tender, non-distended,?Normal bowel sounds,?No??masses Musculoskeletal:?Normal range of motion and strength,?No tenderness,?No swelling Skin: Skin is warm, dry and pink,?No??rashes,?No lesions Neurologic: Awake, alert and oriented X4, CN II-XII intact Psychiatric: Cooperative, appropriate mood and affect ?? Pelvic:??The introitus is slightly gaped at??3 cm, 4 with straining. ??She has a rectocele at rest that stretches to a grade??2 nearly grade 3 rectocele with straining.?? A speculum in the vagina notes??the cervix to be multiparous in size and mobile. ??It comes within 3 cm of the introitus withstraining. ??The uterus is small, slightly anteverted, and nontender. ??No adnexal mass. Clinic Assessment/Plan 1.??Dysmenorrhea, unspecified??N94.5 The patient??has been on an oral contraceptive pill to quiet her pelvis and again is starting to feel??the suppression.?? She would like to move in a different direction. ??Having failed??a hormonal??strategy??she would like to consider something surgical.?? Her ultrasound does not appreciate anything fixable in the pelvis.?? I reviewed the option of??an intrauterine device, the ablation, or removal of her uterus.?? Because she is also struggling with significant pelvic organ prolapse disease with a symptomatic rectocele, we both agree that??removal of the uterus as well as the fallopian tubes??followed by rectocele repair would be the best??route of treatment for her. ??This should??fix the issues with the bleeding and cramping but also fix her rectocele and the associated dyspareunia. ?? Having confirmed this plan??the patient would like to move forward with scheduling the surgery.?? She confirms today that she does not want to consider having children??in the future??and understands that removal of her uterus would leave her unable to have more children.?? I reviewed the logistics of her surgery including the risks of bleeding, infection, and damage to surrounding pelvic organs.?? I reviewed how the rectocele repair would be done and that it has inherent risks of the??damage to the rectum. ??The ureter, bladder, and bowel are also at risk during hysterectomy.?? I reviewedthe typical recovery patient's??can expect postoperatively as well as the medications and herbal sup plements that should be avoided??preoperatively. 2.??Chronic pelvic pain in female??R10.2 3.??Oral contraceptive use??Z30.41 4.??Dyspareunia, female??N94.10 5.??Rectocele??N81.6 Problem List/Past Medical History Ongoing Abdominal pain Allergic rhinitis Anxiety Asthma Back pain Chronic pelvic pain in female Constipation Dysmenorrhea, unspecified Hypothyroidism Lactose intolerance Oral contraceptive use Ovarian cyst Psoriasis Historical Procedure/Surgical History ???Colonoscopy (08/13/2020)???Cholecystectomy (01/07/2013)???Eye surgery???Surgery???[place] tooth Medications What How Much When Instructions Unchanged adalimumab (Humira Pen 40 mg/ 0.4 mL subcutaneous kit) 0.4 Milliliters Subcutaneous (under the skin) Every other week Contact prescribing physician if questions or concerns ?? Unchanged cholecalciferol (Vitamin D3) 1000 Oral (given by mouth) Every day Contact prescribing physician if questions or concerns ?? Unchanged cyanocobalamin (Vitamin B12 1000 mcg oral tablet) 1 tab Oral (given by mouth) Every day Contact prescribing physician if questions or concerns ?? Unchanged dienogest-estradiol (Natazia oral tablet) 1 tab Oral (given by mouth) Every day Duration: 90 Days NOT TAKING THE LAST 4 PILLS IN THE PACK Contact prescribing physician if questions or concerns ?? Unchanged fluconazole (fluconazole 200 mg oral tablet) See instructions 1 tab today and repeat in 3 days. Contact prescribing physician if questions or concerns ?? Unchanged levothyroxine (levothyroxine 175 mcg (0.175 mg) oral capsule) 1 Capsules Oral (given by mouth) Every day Contact prescribing physician if questions or concerns ?? Unchanged levothyroxine (levothyroxine 200 mcg (0.2 mg) oral capsule) 1 Capsules Oral (given by mouth) Every day Contact prescribing physician if questions or concerns ?? Unchanged metroNIDAZOLE (metroNIDAZOLE 500 mg oral tablet) 1 tab Oral (given by mouth) 2 times a day Duration: 7 Days Contact prescribing physician if questions or concerns ?? Unchanged metroNIDAZOLE topical (metroNIDAZOLE 0.75% vaginal gel with applicator) 1 Application Vaginal (in the vagina) Every night at bedtime Duration: 5 Days Contact prescribing physician if questions or concerns ?? Allergies Augmentin amoxicillin penicillin Milk Social History Alcohol Current, Wine, 1-2 times per month Electronic Cigarette/Vaping Electronic Cigarette Use: Never. Employment/School Employed, Work/School description: [employer]. Home/Environment Lives with Children, Significant other. Sexual Sexually active: Yes. Substance Use Never Tobacco Never tobacco user Tobacco Use:. Family History Anxiety: Father and Sister. Hyperthyroidism: Father. Electronically Signed on 07/02/23 06:10 PM Giancarlo Sahni MD Patient Care team information Care Team Related Persons Name: STACIE SAGE Name: LUCIANO COMBS Address: [address] [id number]
--- OUTSIDE RECORDS SUMMARY | 2024-05-21 02:33 | XMS_ITS | Continuity of Care Document ---
Author Name Unknown Organization [facility] Address [address] [place] [id number] Encounter LTTL_NE FIN NBR [id number] Date(s): 08/24/23 - 08/24/[address] [address]- [place] Encounter Diagnosis S/P vaginal hysterectomy(Discharge Diagnosis) - 08/24/23 Discharge Disposition: Home or Self Care Attending Physician: Giancarlo Sahni MD Admitting Physician: Giancarlo Sahni MD Referring Physician: Giancarlo Sahni MD Allergies, Adverse Reactions, Alerts Substance Reaction Severity Status amoxicillin 1 Anaphylactic reaction Severe Activ e penicillin Moderate Active Augmentin 2 Anaphylactic reaction Severe Active Milk Mild Active 1Facial Swelling 2Facial swelling Assessment and Plan Future Appointments Diagnostic Tests Pending * Pathology Request 08/24/23 Functional Status 08/24/23 Anti-Embolism Device Activity: In place Anti-Embolism Site Condition: No complic ations Medications Bactrim DS 800 mg-160 mg oral tablet 1 tab, Oral, BID, # 14 tab, 0 Refill(s), Pharmacy: [email or web address] #[id number], 170, cm, 08/17/23 14:47:00 EDT, Height/Length Dosing, 69, kg, 08/17/23 14:47:00 EDT, Weight Dosing Start Date: 08/21/23 Stop Date: 08/28/23 Status: Ordered Humira Pen 40 mg/0.4 mL subcutaneous kit 40 mg = 0.4 mL, Subcutaneous, every 2 wk, 0 Refill(s) Start Date: 01/22/23 Status: Ordered ibuprofen 600 mg oral tablet 600 mg = 1 tab, Oral, every 4 hr, PRN pain, baseline, X 14 days, # 40 tab, 6 Refill(s), 11/30/23 12:02:00 PM [employer], Pharmacy: [facility], 170, cm, 08/17/23 14:47:00 EDT, Height/Length Dosing, 69, kg, 08/17/23 14:47:00 EDT, Weight Dosing Start Date: 08/24/23 Stop Date: 11/30/23 Status: Ordered levothyroxine 125 mcg (0.125 mg) oral tablet 125 mcg = 1 tab, Oral, Daily, 0 Refill(s) Start Date: 08/17/23 Status: Ordered levothyroxine 175 mcg (0.175 mg) oral capsule 175 mcg = 1 cap, Oral, Daily, # 90 cap, 0 Refill(s) Start Date: 08/21/23 Status: Ordered oxyCODONE-acetaminophen 5 mg-325 mg oral tablet 1 tab, Oral, every 4 hr, PRN as needed for pain, # 12 tab, 0 Refill(s), Pharmacy: [facility], 170, cm, 08/17/23 14:47:00 EDT, Height/Length Dosing, 69, kg, 08/17/23 14:47:00 EDT, Weight Dosing Start Date: 08/24/23 Stop Date: 08/29/23 Status: Ordered Pyridium 200 mg oral tablet 200 mg = 1 tab, Oral, TID(PC), # 6 tab, 0 Refill(s), Pharmacy: [facility] #[id number], 170, cm, 08/17/23 14:47:00 EDT, Height/Length Dosing, [...] Constipation Confirmed Active Ovarian cyst Confirmed Active S/P vaginal hysterectomy Confirmed Active Hypothyroidism Confirmed Active Lactose intolerance Confirmed Active Psoriasis 1 Confirmed Active Dysmenorrhea, unspecified Confirmed Active Oral contraceptive use Confirmed Active 1Scalp abd vulvar tissues Procedures Procedure Date Related Diagnosis Body Site Status Colonoscopy 1 08/12/20 Completed Cholecystectomy 01/06/13 Completed Eye surgery 2 Completed Surgery 3 Completed [place] tooth Completed 1No recall stated 2Right eye surgery for detached retina 2017 3Back Surgery 02/19/2017 Results Laboratory List Name Date Automated Diff 08/24/23 CBC w/ Diff 08/24/23 Urine Qual POCT 08/24/23 Most recent to oldest [Reference Range]: 1 WBC [4.8-10.8 K/mcL] 7.7 K/mcL (08/24/23 9:00 AM) RBC [4.20-5.40 Million/mcL] 4.47 Million /mcL (08/24/23 9:00 AM) Neutro Auto [42.2-75.2 %] 58.8 % (08/24/23 9:00 AM) Lymph Auto [20.5-51.1 %] 31.3 % (08/24/23 9:00 AM) Finney Auto [1.7-9.3 %] 6.9 % (08/24/23 9:00 AM) Basophil Auto [0.0-0.8 %] 0.4 % (08/24/23 9:00 AM) Baso Absolute [0.0-0.2 K/mcL] 0.0 K/mcL (08/24/23 9:00 AM) MCV [81.0-99.0 fL] 89.3 fL (08/24/23 9:00 AM) MCHC [32.0-36.0 g/dL] 32.8 g/dL (08/24/23 9:00 AM) Lymph Absolute [1.2-3.4 K/mcL] 2.4 K/mcL (08/24/23 9:00 AM) Hct [37.0-47.0 %] 39.9 % (08/24/23 9:00 AM) Finney Absolute [0.1-0.6 K/mcL] 0.5 K/mcL (08/24/23 9:00 AM) MCH [27.0-31.0 pg] 29.3 pg (08/24/23 9:00 AM) Neutro Absolute [1.4-6.5 K/mcL] 4.5 K/mc L (08/24/23 9:00 AM) Hgb [12.0-16.0 g/dL] 13.1 g/dL (08/24/23 9:00 AM) MPV [7.4-10.4 fL] 10.5 fL *HI* (08/24/23 9:00 AM) Platelets [130-400 K/mcL] 238 K/mcL (08/24/23 9:00 AM) Eos Absolute [0.0-0.2 K/mcL] 0.2 K/mcL (08/24/23 9:00 AM) RDW-CV [11.5-14.5 %] 12.2 % (08/24/23 9:00 AM) Imm Gran Absolute [0.00-0.02 K/mcL] 0.03 K/mcL *HI* (08/24/23 9:00 AM) Imm Gran Auto [0.0-0.5 %] 0.4 % (08/24/23 9:00 AM) U Preg POCT [Negative] Negative (08/24/23 8:30 AM) Eos, Auto [0.00-3.00 %] 2.20 % (08/24/23 9:00 AM) Vital Signs Most recent to oldest [Reference Range]: 1 2 3 Temperature Temporal Artery [36-38 Deg C] 37 Deg C (08/24/23 2:00 PM) 36.7 Deg C (08/24/23 1:11 PM) 36.3 Deg C (08/24/23 8:46 AM) Temperature Temporal Artery (DegF) [97.3-100 Deg F] 98.06 Deg F (08/24/23 1:11 PM) 97.34 Deg F (08/24/23 8:46 AM) Peripheral Pulse Rate [60-100 bpm] 75 bpm (08/24/23 2:00 PM) 82 bpm (08/24/23 1:45 PM) 86 bpm (08/24/23 1:30 PM) Heart Rate Monitored [60-100 bpm] 76 bpm (08/24/23 1:11 PM) 72 bpm (08/24/23 12:13 PM) 73 bpm (08/24/23 12:03 PM) Respiratory Rate [12-24 br/min] 16 br/min (08/24/23 1:11 PM) 18 br/min (08/24/23 12:00 PM) 18 br/min (08/24/23 11:00 AM) Blood Pressure [90-140/60-90 mmHg] 117/83mmHg (08/24/23 2:00 PM) 114/83mmHg (08/24/23 1:45 PM) 120/86mmHg (08/24/23 1:30 PM) Mean Arterial Pressure, Cuff [65-140 mmHg] 94 mmHg (08/24/23 2:00 PM) 93 mmHg (08/24/23 1:45 PM) 97 mmHg (08/24/23 1:30 PM) Mean Arterial Pressure Cuff 94 mmHg (08/24/23 2:00 PM) 92 mmHg (08/24/23 1:45 PM) 95 mmHg (08/24/23 1:30 PM) Blood Pressure Location Right arm (08/24/23 2:00 PM) Right arm (08/24/23 1:45 PM) Right arm (08/24/23 1:11 PM) Blood Pressure Method Automatic (08/24/23 2:00 PM) Automatic (08/24/23 1:45 PM) Automatic (08/24/23 1:11 PM) Weight 69.000 kg (08/17/23 2:39 PM) Weight Dosing 69.000 kg (08/17/23 2:39 PM) Height 170.000 cm (08/17/23 2:39 PM) Height/Length Dosing 170.000 cm (08/17/23 2:39 PM) Social History Social History Type Response Smoking Status Smoking tobacco use: Never tobacco user;Never entered on: 08/21/23 Sex Female Hospital Discharge Instructions Patient Education 08/24/2023 12:08:16 [facility] ([facility] - Vaginal Hysterectomy Post Operative Instructions (CUSTOM) [facility] POST OPERATIVE DISCHARGE INSTRUCTIONS: Vaginal Hysterectomy General: Plan to rest today. You had major surgery and you may feel drowsy or tired for several days. You may also have a sore throat and muscle aches. Do not drink alcohol after anesthesia or while taking pain medications. Do not drive until you have stopped taking your pain medications. Do not make any major decisions, sign contracts, etc. for 24 hours. You can expect the following after your vaginal surgery: You have just had major surgery. It is normal to feel tired and worn out over the next several weeks. If you had a general anesthetic for your procedure you may experience a sore throat for a few hours up to a day or so. For the first couple of weeks you may feel pretty good in the mornings and then need a nap in the afternoons. The surgical pain will be at its worst for the first twenty-four hours post-op. Do not drink alcohol while taking narcotics. You may drive when you are no longer requiring the pain medication. You may need a angel pad for a few days. The sutures in the vagina will break down on their own overtime. The suture in the vaginal skin breaks down starting 2 weeks after surgery. A small amount of bleeding is to be expected as this happens along with some yellow discharge. It is a normal process. It will be important to keep your bowel movements as soft as possible. The surgical repairs need a few weeks to heal. Hard stools that are difficult to pass will require you to strain and this could put your repairs at risk of not healing well. You may shower anytime you feel steady enough on your feet. It is best to avoid tub baths for a week after your surgery. Activity: There are no lifting restrictions but it is best to start off avoiding any heavy lifting. Advance your activities as tolerated. It is good for you to take small walks. Climbing stairs is fine. Participating in light household activities such as washing dishes, folding laundry, cooking, etc is fine. Eating a diet rich in protein will help your body heal. Plenty of fiber and water helps avoid constipation. You may return to driving when you have stopped taking your pain medications and are doing well. Nothing in the vagina for six weeks. The tissues in the vagina need time to heal. Medication: You had major gynecologic surgery and can expect to have some pain. You should plan to decrease your activities for a few days to allow your body to recover. Expect very little of yourself above basic daily living needs such as getting to and from the bathroom and kitchen. Slowly advance your activities according to how you are doing but remember that your body needs time to recover from the surgery you had. We recommend the following for postop pain control: [ ] Ibuprofen is the best medication for your baseline pain control. Taking 600 mg by mouth every 4hours will help with most of your post op pain. Taking it with food is best so it doesn't upset your stomach. Taking it consistently will provide you the greatest pain relief. [ ] Tylenol combined with a narcotic: taking one or two tablets every 4 - 6 hours as needed can be helpful for pain you have that is not covered by the ibuprofen. We recommend trying one tablet in anattempt to help with your pain that is at a five or more on the pain scale. If after forty minutes your pain is still greater than a five, you may take a second tablet. These medications are constipating, can leave you slightly sick to your stomach, and do not help with inflammation. Taper this type of medication first and then the ibuprofen. Our office policy is that post-op patients can use narcotics in addition to ibuprofen for up to 5 days. After that, post op pain should be treated with ibu profen and Tylenol alone and no further prescriptions for narcotics will be provided. [ ] Estrogen replacement may be needed if your ovaries were removed. The correct amount can be difficult to know. It is best to start with a low dose at night to help with hot flashes and to increasethe dose every few days to help treat menopausal symptoms. If you are getting sick and/or headachesevery time you take your estrogen you may be getting too much. If you are having hot flashes through the night and day the dose may be too little. Contact the office and let us know how you are doing, and we will help you adjust your dose. [ ] Constipation prevention is very important as you recover from surgery. The decreased activitiescombined with narcotics can lead to severe constipation. Straining at the time of surgery can put your vaginal repairs at risk of not healing well. You can purchase stool softeners from your local pharmacy that can help prevent constipation. Colace or Senokot S work well to prevent constipation. Itis usually best to start one of them twice daily and to decrease the dosing to daily if you are getting diarrhea. Putting off starting a stool softener can lead to severe constipation. If you find yourself constipated, you can try Milk of Magnesia to get things moving again. We recommend a 30ml medi cine cup of Milk of Magnesia followed by another in 45 minutes and another 45 minutes after that. Each dose should be followed by a large glass of water. This should start to work within a few hours to get things moving. Best to do this course in the morning because it typically leads to a few hours that require you to be close to the bathroom. If that does not work, you can use Magnesium Citrateinstead. Substitute a 10 oz bottle of Magnesium Citrate for the Milk of Magnesia and take 3 bottlesto get your bowels moving. Again, remember the large glass of water that follows each bottle. Much better to be proactive with the Colace or Senokot S to avoid this level of severe constipation whichputs your repairs at risk. The following pain medications have been recommended for you postoperatively: [ ] Ibuprofen 600 mg 1 tablet by mouth every 4 hours for baseline pain control [ ] Percocet 5/325 mg 1 or 2 tablets by mouth every 4 to 6 hours as needed for pain [ ] Tylenol #3 1 or 2 tablets by mouth every 4 to 6 hours as needed for pain [ ] Dilaudid 2 mg 1 or 2 tablets by mouth every 4 to 6 hours as needed for pain [ ] Colace or Senokot S once or twice daily for stool softening [ ] Estradiol 1 mg nightly or [ ] Estradiol 1 mg twice daily Please call the office for any of the following: Fever of 102 degrees or higher If you are noting a marked change in your appetite with increasing nausea Foul smelling or progressive, bloody drainage from the vagina Pain that is not controlled with your pain medications as written You are ready to return to work. If you take good care of yourself after your surgery and give yourbody some time to recover, it is common for you to be able to return to work within a few weeks of your surgery. 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 Once you have a plan you can reach out to our office and let us know your plans. Coming for an appointment typically is not needed. We can create a return to work note and fax it to your workplace. Post op Appointment: Your postoperative appointment is on @ . If this time does not work for you, please call the office at [phone] to reschedule. Follow Up Care 07/06/2023 09:35:29 With:Giancarlo Sahni MD Address: [address] [address]- When: Unknown Comments:As scheduled with Dr. Sahni Discharge instructions * Sahara Mauricio: PERFORM Event Display: Discharge Instructions Authored Date: [id number] YOEL COMBS :1990 Age:33 years Sex:Female Visit Date:08/24/2023 Hospital Discharge Instructions We would like to thank you for allowing us to assist you with your healthcare needs. The following includes patient education materials and information regarding your injury/illness. Your Next Steps Discharge Orders Discharge Diet Instruction, Regular home diet Discharge Follow Up Instructions, 08/24/23 9:45:00 EDT, When following are met: Alert and awake, Follow-up appointment as scheduled in 6 weeks. If you are not aware of the appt time please call [phone]. Discharge Patient Instructions, You may have a sore throat and or muscle aches Discharge Patient Instructions, After minor surgery you may feel tired, drowsy, or judgement may beimpaired Discharge Patient Instructions, Do not sign any contracts for 24 hours Discharge Patient Instructions, Do not drive or operate machinery today Discharge Patient Instructions, Plan to rest and relax today Discharge Patient Instructions, Do not make major decisions for 24 hours Scheduled Future Appointments Sunday 11:00 AM EST ?? Follow Up Appointments Follow Up with??Giancarlo Sahni MD Why: As scheduled with Dr. Sahni Where: [address] [address]- Medications What How Much When Why Instructions Next Dose New ibuprofen (ibuprofen 600 mg oral tablet) 1 tab Oral (given by mouth) Every 4 hours as needed for pain, baseline Duration: 14 Days Refills: 6 Pickup at [facility] New oxyCODONE-acetaminophen (oxyCODONE-acetaminophen 5 mg-325 mg oral tablet) 1 tab Oral (given by mouth) Every 4 hours as needed for as needed for pain Duration: 5 Days Pickup at [facility] Unchanged adalimumab (Humira Pen 40 mg/ 0.4 mL subcutaneous kit) 0.4 [place]iliters Subcutaneous (under the skin) Every other week Unchanged cholecalciferol (Vitamin D3) 1000 Oral (given by mouth) Every day Unchanged cyanocobalamin (Vitamin B12 1000 mcg oral tablet) 1 tab Oral (given by mouth) Every day Unchanged levothyroxine (levothyroxine 125 mcg (0.125 mg) oral tablet) 1 tab Oral (given by mouth) Every day Unchanged levothyroxine (levothyroxine 175 mcg (0.175 mg) oral capsule) 1 Capsules Oral (given by mouth) Every day Unchanged phenazopyridine (Pyridium 200 mg oral tablet) 1 tab Oral (given by mouth) 3 times a day after meals Urinary tract infection in female Unchanged sulfamethoxazole-trimethoprim (Bactrim DS 800 mg-160 mg oral tablet) 1 tab Oral (given by mouth) 2 times a day Urinary tract infection in female Duration: 7 Days Pharmacy Information [facility]: [address] [place] [address] [phone] ?? What How Much When Comments Stop Taking dienogest-estradiol (Natazia oral tablet) 1 tab Oral (given by mouth) Every day Duration: 90 Days NOT TAKING THE LAST 4 PILLS IN THE PACK ?? Your Summary Your Care Team Admitting Physician - Giancarlo Sahni MD Attending Physician - Giancarlo Sahni MD Referring Physician - Giancarlo Sahni MD Your Diagnosis S/P vaginal hysterectomy Secondary dysmenorrhea Pelvic and perineal pain Unspecified dyspareunia Problems Ongoing - Any problem that you are currently receiving treatment for. Abdominal pain Allergic rhinitis Anxiety Back pain Chronic pelvic pain in female Constipation Dysmenorrhea, unspecified Hypothyroidism Lactose intolerance Oral contraceptive use Ovarian cyst Psoriasis S/P vaginal hysterectomy Historical - Any problem that you are no longer receiving treatment for. Asthma Tests Performed/Pending Automated Diff BB Hold Tube?-- Results Pending -- CBC w/ Diff Pathology Request?-- Results Pending -- Urine Qual POCT Discharge Vitals Temperature??(Temporal Artery) 98.6 ??F (37 ??C) Heart Rate??(Peripheral) 75 Respiratory Rate?? 16 Blood Pressure?? 117/83?? Allergies Augmentin??(Anaphylactic reaction) amoxicillin??(Anaphylactic reaction) penicillin Milk Education Materials [facility] POST OPERATIVE DISCHARGE INSTRUCTIONS: Vaginal Hysterectomy General: Plan to rest today. You had major surgery and you may feel drowsy or tired for several days. You may also have a sore throat and muscle aches. Do not drink alcohol after anesthesia or while taking pain medications. Do not drive until you have stopped taking your pain medications. Do not make any major decisions, sign contracts, etc. for 24 hours. You can expect the following after your vaginal surgery: You have just had major surgery. It is normal to feel tired and worn out over the next several weeks. If you had a general anesthetic for your procedure you may experience a sore throat for a few hours up to a day or so. For the first couple of weeks you may feel pretty good in the mornings and then need a nap in the afternoons. The surgical pain will be at its worst for the first twenty-four hours post-op. Do not drink alcohol while taking narcotics. You may drive when you are no longer requiring the pain medication. You may need a angel pad for a few days. The sutures in the vagina will break down on their own overtime. The suture in the vaginal skin breaks down starting 2 weeks after surgery. A small amount of bleeding is to be expected as this happens along with some yellow discharge. It is a normal process. It will be important to keep your bowel movements as soft as possible. The surgical repairs need a few weeks to heal. Hard stools that are difficult to pass will require you to strain and this could put your repairs at risk of not healing well. You may shower anytime you feel steady enough on your feet. It is best to avoid tub baths for a week after your surgery. Activity: There are no lifting restrictions but it is best to start off avoiding any heavy lifting. Advance your activities as tolerated. It is good for you to take small walks. Climbing stairs is fine. Participating in light household activities such as washing dishes, folding laundry, cooking, etc is fine. Eating a diet rich in protein will help your body heal. Plenty of fiber and water helps avoid constipation. You may return to driving when you have stopped taking your pain medications and are doing well. Nothing in the vagina for six weeks. The tissues in the vagina need time to heal. Medication: You had major gynecologic surgery and can expect to have some pain. You should plan to decrease your activities for a few days to allow your body to recover. Expect very little of yourself above basic daily living needs such as getting to and from the bathroom and kitchen. Slowly advance your activities according to how you are doing but remember that your body needs time to recover from the surgery you had. We recommend the following for postop pain control: [ ] Ibuprofen is the best medication for your baseline pain control. Taking 600 mg by mouth every 4hours will help with most of your post op pain. Taking it with food is best so it doesn't upset your stomach. Taking it consistently will provide you the greatest pain relief. [ ] Tylenol combined with a narcotic: taking one or two tablets every 4 - 6 hours as needed can be helpful for pain you have that is not covered by the ibuprofen. We recommend trying one tablet in anattempt to help with your pain that is at a five or more on the pain scale. If after forty minutes your pain is still greater than a five, you may take a second tablet. These medications are constipating, can leave you slightly sick to your stomach, and do not help with inflammation. Taper this type of medication first and then the ibuprofen. Our office policy is that post-op patients can use narcotics in addition to ibuprofen for up to 5 days. After that, post op pain should be treated with ibu profen and Tylenol alone and no further prescriptions for narcotics will be provided. [ ] Estrogen replacement may be needed if your ovaries were removed. The correct amount can be difficult to know. It is best to start with a low dose at night to help with hot flashes and to increasethe dose every few days to help treat menopausal symptoms. If you are getting sick and/or headachesevery time you take your estrogen you may be getting too much. If you are having hot flashes through the night and day the dose may be too little. Contact the office and let us know how you are doing, and we will help you adjust your dose. [ ] Constipation prevention is very important as you recover from surgery. The decreased activitiescombined with narcotics can lead to severe constipation. Straining at the time of surgery can put your vaginal repairs at risk of not healing well. You can purchase stool softeners from your local pharmacy that can help prevent constipation. Colace or Senokot S work well to prevent constipation. Itis usually best to start one of them twice daily and to decrease the dosing to daily if you are getting diarrhea. Putting off starting a stool softener can lead to severe constipation. If you find yourself constipated, you can try Milk of Magnesia to get things moving again. We recommend a 30ml medi cine cup of Milk of Magnesia followed by another in 45 minutes and another 45 minutes after that. Each dose should be followed by a large glass of water. This should start to work within a few hours to get things moving. Best to do this course in the morning because it typically leads to a few hours that require you to be close to the bathroom. If that does not work, you can use Magnesium Citrateinstead. Substitute a 10 oz bottle of Magnesium Citrate for the Milk of Magnesia and take 3 bottlesto get your bowels moving. Again, remember the large glass of water that follows each bottle. Much better to be proactive with the Colace or Senokot S to avoid this level of severe constipation whichputs your repairs at risk. The following pain medications have been recommended for you postoperatively: [ ] Ibuprofen 600 mg 1 tablet by mouth every 4 hours for baseline pain control [ ] Percocet 5/325 mg 1 or 2 tablets by mouth every 4 to 6 hours as needed for pain [ ] Tylenol #3 1 or 2 tablets by mouth every 4 to 6 hours as needed for pain [ ] Dilaudid 2 mg 1 or 2 tablets by mouth every 4 to 6 hours as needed for pain [ ] Colace or Senokot S once or twice daily for stool softening [ ] Estradiol 1 mg nightly or [ ] Estradiol 1 mg twice daily Please call the office for any of the following: Fever of 102 degrees or higher If you are noting a marked change in your appetite with increasing nausea Foul smelling or progressive, bloody drainage from the vagina Pain that is not controlled with your pain medications as written You are ready to return to work. If you take good care of yourself after your surgery and give yourbody some time to recover, it is common for you to be able to return to work within a few weeks of your surgery. 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 Once you have a plan you can reach out to our office and let us know your plans. Coming for an appointment typically is not needed. We can create a return to work note and fax it to your workplace. Post op Appointment: Your postoperative appointment is on @ . If this time does not work for you, please call the office at [phone] to nacho. Patient/Housekeeping Lead Signature Patient Name:YOEL COMBS I have received this information and my questions have been answered. Patient/Housekeeping Lead Name: Patient/Housekeeping Lead Signature: Relationship to Patient: Witness Name/Signature: Date: Electronically Signed on: 08/24/2023 16:36 EDTSigned by:DP History and physical note * Giancarlo Sahni MD: MODIFY, PERFORM Event Display: History and Physical Authored Date: [id number] YOEL COMBS :1990 Age:33 years Sex:Female Preop update:??The patient presents for surgery. ??She has a following history. ??Her vital signs, med list??and remaining history were updated today with no significant changes.?? The plan for surgery and??the surgical consent were reviewed again today??prior to her signing the consent. ?? 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 The patient is a 33-year-old 2 para [...] were within normal limits. Review of Systems ?? Constitutional:?No??fevers,?No??chills,?No??sweats Eye:?No??recent visual problems ENT:?No??ear pain,?No??nasal congestion,?No??sore throat Respiratory:?No??shortness of breath,?No??cough Cardiovascular:?No??Chest pain,?No??palpitations,?No??syncope Gastrointestinal:?Nonausea,?No??vomiting,?No??diarrhea Genitourinary:?No??hematuria Dwayne/Lymph:?No??bruising tendency,?No??swollen lymph glands Endocrine:?No??excessive thirst,??No??excessive hunger Musculoskeletal:??No??back pain,??No??neck pain,??No??joint pain,??No??muscle pain,??No??decreased range of motion Integumentary:?No??rash,?No??pruritus,?No??abrasions Neurologic: Alert & oriented X 4 Psychiatric:?No??anxiety,?No??depression Physical Exam ?Vitals & Measurements ?BP:??126/82?HT:??170.18??cm?? WT:??68.4??kg?? BMI:??23.62?? BSA:??1.8? General: Alert and oriented, well nourished,?No acute [...] and nontender. ??No adnexal mass. Clinic Assessment/Plan The patient had a urinary tract infection since I saw her last. ??She has completed??the initial portion of her antibiotic course and her symptoms??were??gone??yesterday.?? Otherwise there have been no other additions to her medical history. ?? 1.??Dysmenorrhea, unspecified??N94.5 ?The patient??has been on an oral contraceptive pill [...] herbal sup plements that should be avoided??preoperatively. ?? 2.??Chronic pelvic pain in female??R10.2 ?? 3.??Oral contraceptive use??Z30.41 ?? 4.??Dyspareunia, female??N94.10 ?? 5.??Rectocele??N81.6 Problem List/Past Medical History Ongoing ?Abdominal pain ??Allergic rhinitis ??Anxiety ??Asthma ??Back pain ??Chronic pelvic pain in female ??Constipation ??Dysmenorrhea, unspecified ??Hypothyroidism ??Lactose intolerance ??Oral contraceptive use ??Ovarian cyst ??Psoriasis Historical ? Procedure/Surgical History ???Colonoscopy (08/13/2020)???Cholecystectomy (01/07/2013)???Eye surgery???Surgery???[place] tooth ?? Medications ??What How Much When Instructions??Unchanged adalimumab (Humira Pen 40 mg/ 0.4 mL subcutaneous kit) 0.4 Milliliters ??Subcutaneous (under the skin) Every other week ?? Contact prescribing physician if questions or concerns?Unchanged cholecalciferol (Vitamin D3) 1000 ??Oral (given by mouth) Every day ?? Contact prescribing physician if questions or concerns?Unchanged cyanocobalamin (Vitamin B12 1000 mcg oral tablet) 1 tab ??Oral (given by mouth) Every day ?? Contact prescribing physician if questions or concerns?Unchanged dienogest-estradiol (Natazia oral tablet) 1 tab ??Oral (given by mouth) Every day ?? Duration: 90 Days ??NOT TAKING THE LAST 4 PILLS IN THE PACK ??Contact prescribing physician if questions or concerns?Unchanged fluconazole (fluconazole 200 mg oral tablet) See instructions 1 tab today and repeat in 3 days. ??Contact prescribing physician if questions or concerns?Unchanged levothyroxine (levothyroxine 175 mcg (0.175 mg) oral capsule) 1 Capsules ??Oral (given by mouth) Every day ?? Contact prescribing physician if questions or concerns?Unchanged levothyroxine (levothyroxine 200 mcg (0.2 mg) oral capsule) 1 Capsules ??Oral (given by mouth) Every day ?? Contact prescribing physician if questions or concerns?Unchanged metroNIDAZOLE (metroNIDAZOLE 500 mg oral tablet) 1 tab ??Oral (given by mouth) 2 times a day ?? Duration: 7 Days ??Contact prescribing physician if questions or concerns?Unchanged metroNIDAZOLE topical (metroNIDAZOLE 0.75% vaginal gel with applicator) 1 Application ??Vaginal (in the vagina) Every night at bedtime ?? Duration: 5 Days ??Contact prescribing physician if questions or concerns? Allergies Augmentin amoxicillin penicillin Milk Social History Alcohol ?Current, Wine, 1-2 times per month Electronic Cigarette/Vaping ??Electronic Cigarette Use: Never. Employment/School ??Employed, Work/School description: [employer]. Home/Environment ??Lives with Children, Significant other. Sexual ??Sexually active: Yes. Substance Use ??Never Tobacco ??Never tobacco user Tobacco Use:. Family History ??Anxiety: Father and Sister. ??Hyperthyroidism: Father. Electronically Signed on 08/24/23 09:17 AM Giancarlo Sahni MD Patient Care team information Care Team Related Persons Name: STACIE SAGE Name: LUCIANO COMBS Address: Home [address] [place] [phone]
--- OUTSIDE RECORDS SUMMARY | 2024-05-21 02:33 | XMS_ITS | Continuity of Care Document ---
Author Name Unknown Organization [facility] Ambulatory Clinics Address [address] [place] [address] Encounter [facility] NBR [id number] Date(s): 10/03/23 - 10/03/23 [facility] [address] [place] [address]- [place] Encounter Diagnosis Postoperative examination(Discharge Diagnosis) - 10/03/23 S/P vaginal hysterectomy(Discharge Diagnosis) - 10/03/23 Discharge Disposition: Home or Self Care Attending Physician: Giancarlo Sahni MD Allergies, Adverse Reactions, Alerts Substance Reaction Severity Status amoxicillin 1 Anaphylactic reaction Severe Activ e penicillin Moderate Active Augmentin 2 Anaphylactic reaction Severe Active Milk Mild Active 1Facial Swelling 2Facial swelling Medications folic acid 1 mg oral tablet 1 mg = 1 tab, Oral, Daily, # 90 tab, 0 Refill(s) Start Date: 10/03/23 Status: Ordered Humira Pen 40 mg/0.4 mL subcutaneous kit 40 mg = 0.4 mL, Subcutaneous, every 2 wk, 0 Refill(s) Start Date: 01/22/23 Status: Ordered levothyroxine 150 mcg (0.15 mg) oral tablet 150 mcg = 1 tab, Oral, Daily, # 90 tab, 0 Refill(s) Start Date: 10/03/23 Status: Ordered Vitamin D3 50,000 intl units oral capsule 1,250 mcg = 1 cap, Oral, every week, # 12 cap, 0 Refill(s) Start Date: 10/03/23 Status: Ordered Problem List Condition Confirmation Course Effective Dates Status H ealth Status Informant Allergic rhinitis Confirmed Active Anxiety Confirmed Active Back pain Confirmed Active Chronic pelvic pain in female Confirmed Active Constipation Confirmed Active S/P vaginal hysterectomy Confirmed Active Hypothyroidism Confirmed Active Lactose intolerance Confirmed Active Psoriasis 1 Confirmed Active 1Scalp abd vulvar tissues Procedures Procedure Date Related Diagnosis Body Site Status Hysterectomy Vaginal 1 08/24/23 Co mpleted Posterior Repair 2 08/24/23 Comple [place] Colonoscopy 3 08/12/20 Completed Cholecystectomy 01/06/13 Completed Eye surgery 4 Completed Surgery 5 Completed [place] tooth Completed 1auto-populated from documented surgical case 2auto-populated from documented surgical case 3No recall stated 4Right eye surgery for detached retina 2017 5Back Surgery 02/19/2017 Vital Signs Most recent to oldest [Reference Range]: 1 Blood Pressure [90-140/60-90 mmHg] 132/8 0mmHg (10/03/23 11:05 AM) Mean Arterial Pressure, Cuff [70-110 mmH g] 97 mmHg (10/03/23 11:05 AM) Weight 67.9 kg (10/03/23 11:05 AM) Weight Measured (lbs) 149.694 lb (10/03/23 11:05 AM) Weight Dosing 67.900 kg (10/03/23 11:05 AM) [place] Body Weight Calculated 61.6 kg (10/03/23 11:05 AM) Height 170.18 cm (10/03/23 11:05 AM) Height/Length Measured (inches) 67 inch (10/03/23 11:05 AM) Body Mass Index 23.45 kg/m2 (10/03/23 11:05 AM) Social History Social History Type Response Smoking Status Smoking tobacco use: Never tobacco user;Never entered on: 08/21/23 Sex Female Physician Outpatient Note * Giancarlo Sahni MD: PERFORM Event Display: Office Clinic Note Physician Authored Date: [id number] YOEL COMBS :1990 Age:33 years Sex:Female Visit Date:10/03/2023 Chief Complaint 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 Findings at the time of surgery noted a multiparous uterus with some uterovaginal prolapse.?? She also had a 4 cm physiologic right ovarian cyst and a grade 3 rectocele.?? The case went without complication.?? She did call postoperatively and was having marked constipation.?? Later she had some vaginal bleeding at a time that is typical as the sutures start to breakdown.?? The endometrium was noted to be inactive.?? The myometrium had adenomyosis.?? There was no evidence of cervical dysplasia. ?? She has done well since her surgery. ??No unusual discharge. ??Nearly back to??100% in regards to her energy.?? Her bowel and bladder function??seem fine.?? No struggles with constipation if she is good about remembering her MiraLAX. Physical Exam Vitals & Measurements BP:??132/80?? HT:??170.18??cm?? WT:??67.9??kg?? BMI:??23.45?? The external genitalia is within normal limits.?? The introitus is well- maintained with minimal??relaxation noted with straining.?? The apex of the vagina has healed well. ??No granulation tissue.?? No??notable granulation tissue across the posterior compartment??repair.?? The PDS sutures are still palpable. Clinic Assessment/Plan 1.??Postoperative examination??Z09 She is doing well at the time of her postoperative follow-up??and we left our postop plans??open ended.?? I reviewed how she can resume intercourse??and asked her to call if she has any other questions or concerns. 2.??S/P vaginal hysterectomy??Z90.710 Additional Actions: DISCONTINUED - ibuprofen, 600 mg = 1 tab, Oral, every 4 hr, PRN pain, baseline, X 14 days, # 40 tab, 6 Refill(s), 11/30/23 13:02:00 EST, Pharmacy: [facility], 170, cm, 08/17/23 14:47:00 EDT, Height/Length Dosing, 69, kg, 08/17/23 14:47:00 EDT, Weight Dosing DISCONTINUED - oxyCODONE-acetaminophen, 1 tab, Oral, every 4 hr, PRN as needed for pain, # 12 tab, 0 Refill(s), Pharmacy: [facility], 170, cm, 08/17/23 14:47:00 EDT, Height/Length Dosing,69, kg, 08/17/23 14:47:00 EDT, Weight Dosing DISCONTINUED - phenazopyridine, 200 mg = 1 tab, Oral, TID(PC), # 6 tab, 0 Refill(s), Pharmacy: [facility] #[id number], 170, cm, 08/17/23 14:47:00 EDT, Height/Length Dosing, 69, kg, 08/17/23 14:47:00 EDT, Weight Dosing DISCONTINUED - sulfamethoxazole-trimethoprim, 1 tab, Oral, BID, # 14 tab, 0 Refill(s), Pharmacy: [facility] #[id number], 170, cm, 08/17/23 14:47:00 EDT, Height/Length Dosing, 69, kg, 08/17/23 14:47:00 EDT, Weight Dosing Problem List/Past Medical History Ongoing Allergic rhinitis Anxiety Back pain Chronic pelvic pain in female Constipation Hypothyroidism Lactose intolerance Psoriasis S/P vaginal hysterectomy Historical Asthma Procedure/Surgical History ???Hysterectomy Vaginal (08/24/2023)???Posterior Repair (08/24/2023)???Colonoscopy (08/13/2020)???Cholecystectomy (01/07/2013)???Eye surgery???Surgery???[place] tooth Medications What How Much When Instructions Unchanged adalimumab (Humira Pen 40 mg/ 0.4 mL subcutaneous kit) 0.4 Milliliters Subcutaneous (under the skin) Every other week Contact prescribing physician if questions or concerns ?? Unchanged cholecalciferol (Vitamin D3 50,000 intl units oral capsule) 1 Capsules Oral (given by mouth) Every week Contact prescribing physician if questions or concerns ?? Unchanged folic acid (folic acid 1 mg oral tablet) 1 tab Oral (given by mouth) Every day Contact prescribing physician if questions or concerns ?? Unchanged levothyroxine (levothyroxine 150 mcg (0.15 mg) oral tablet) 1 tab Oral (given by mouth) Every day Contact prescribing physician if questions or concerns ? What How Much When Why Comments Stop Taking cholecalciferol (Vitamin D3) 1000 Oral (given by mouth) Every day Stop Taking cyanocobalamin (Vitamin B12 1000 mcg oral tablet) 1 tab Oral (given by mouth) Every day Stop Taking ibuprofen (ibuprofen 600 mg oral tablet) 1 tab Oral (given by mouth) Every 4 hours as needed for pain, baseline Duration: 14 Days Stop Taking levothyroxine (levothyroxine 125 mcg (0.125 mg) oral tablet) 1 tab Oral (given by mouth) Every day Stop Taking levothyroxine (levothyroxine 175 mcg (0.175 mg) oral capsule) 1 Capsules Oral (given by mouth) Every day Stop Taking oxyCODONE-acetaminophen (oxyCODONE-acetaminophen 5 mg-325 mg oral tablet) 1 tab Oral (given by mouth) Every 4 hours as needed for as needed for pain Duration: 5 Days Stop Taking phenazopyridine (Pyridium 200 mg oral tablet) 1 tab Oral (given by mouth) 3 times a day after meals Urinary tract infection in female Stop Taking sulfamethoxazole-trimethoprim (Bactrim DS 800 mg-160 mg oral tablet) 1 tab Oral (given by mouth) 2 times a day Urinary tract infection in female Duration: 7 Days Allergies Augmentin??(Anaphylactic reaction) amoxicillin??(Anaphylactic reaction) penicillin Milk Social History Alcohol Current, Wine, 1-2 times per month Electronic Cigarette/Vaping Electronic Cigarette Use: Never. Employment/School Employed, Work/School description: [employer]. Home/Environment Lives with Children, Significant other. Sexual Sexually active: Yes. Substance Use Current, 1-2 times per month Tobacco Never tobacco user Tobacco Use:. Never Smokeless Tobacco use:. Family History Anxiety: Father and Sister. Hyperthyroidism: Father. Electronically Signed on 10/03/23 12:27 PM Giancarlo Sahni MD Patient Care team information Care Team Related Persons Name: STACIE SAGE Name: LUCIANO COMBS Address: Home [address] [place] [phone]
--- OUTSIDE RECORDS SUMMARY | 2024-05-21 02:33 | XMS_ITS | Continuity of Care Document ---
Author Name Unknown Organization [facility] Ambulatory Clinics Address [address] [place] [address] Encounter [facility] NBR [id number] Date(s): 06/06/23 - 06/06/23 [facility] Ambulatory Clinics [address] [place], [place] [address] Encounter Diagnosis Vaginal discharge(Discharge Diagnosis) - 06/06/23 Discharge Disposition: Home or Self Care Attending Physician: Parul Tobin Allergies, Adverse Reactions, Alerts Substance Reaction Severity Status amoxicillin 1 Moderate Active penicillin Moderate Active Augmentin 2 Moderate Active Milk Mild Active 1Facial Swelling 2Facial swelling Assessment and Plan Future Appointments Functional Status 06/06/23 Other exposure to Infectious Disease Non e Medications fluconazole 200 mg oral tablet See Instructions, 1 tab today and repeat in 3 days., # 2 tab, 2 Refill(s), Pharmacy: [facility] #[id number] Start Date: 01/31/23 Status: Ordered Humira Pen [...] PACK, # 90 tab, 4 Refill(s), Pharmacy: [facility] #[id number] Start Date: 01/22/23 Stop Date: 04/16/24 Status: [...] Eye surgery 2 Completed Surgery 3 Completed [place] tooth Completed 1No recall stated 2Right eye surgery for detached retina 2017 3Back Surgery 02/19/2017 Vital Signs Most recent to oldest [Reference Range]: 1 Blood Pressure [90-140/60-90 mmHg] 118/7 8mmHg (06/06/23 9:16 AM) Weight 68.1 kg (06/06/23 9:16 AM) Weight Measured (lbs) 150.135 lb (06/06/23 9:16 AM) [place] Body Weight Calculated 61.437 kg (06/06/23 9:16 AM) Height 170 cm (06/06/23 9:16 AM) Height/Length Measured (inches) 66.93 in ch (06/06/23 9:16 AM) BSA Measured 1.79 m2 (06/06/23 9:16 AM) Body Mass Index 23.56 kg/m2 (06/06/23 9:16 AM) Social History Social History Type Response Tobacco Never tobacco user T obacco Use:. Sex Female Patient Care team information Care Team Related Persons Name: ALONA STACIE Name: LUCIANO COMBS Address: Home [address] [place] [phone]
[2024-05-21 13:12] LABS: FREE T4 1.64 ng/dL (0.76-1.46); TSH 0.38 uIU/Ml (0.36-3.74)
== END 2024-05-21 02:32 | disposition home or self-care (01) ==
LOC: LOS 02:31
PROVIDERS: Visit Provider Nurse Practitioner Family
DX: E03.9 Hypothyroidism, unspecified (principal)
CPT/HCPCS: 36415; 84439; 84443

== ENCOUNTER 2024-07-28 18:11 | Outpatient (REF) | payer MEDICAID, SELFPAY ==
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
--- OUTSIDE RECORDS SUMMARY | 2024-07-28 18:13 | XMS_ITS | Encounter Summary ---
Author Organization [facility] Address [address] [place] [address] Care Team Providers Care Rectifying Operator Name Role Phone Elizabeth Blanco Primary Care Provider [phone] Encounter Details Date Type Department Care Team (Latest Contact Info) Description 12/25/2023 Specialty Pharmacy [facility] [address] [place] [address] Jenna Shaffer RPH Refill Coordination Outreach for Dermatology Social History Tobacco Use Types Packs/Day Years Used Date Smoking Tobacco: Never Assessed Interpersonal Safety Answer Date Record ed Physically Hurt Never 06/20/2020 Verbally Threaten Not on file 06/20/2020 Sex and Gender Information Value Date Recorded Sex Assigned at Not on file Gender Identity Not on file Sexual Orientation Not on file documented as of this encounter Plan of Treatment Not on file documented as of this encounter Visit Diagnoses Not on filedocumented in this encounter Care Teams Rectifying Operator Relationship Specialty Start Date End Date Elizabeth Bl[place] [address] PCP - General 01/03/19 documented as of this encounter
--- OUTSIDE RECORDS SUMMARY | 2024-07-28 18:13 | XMS_ITS | Encounter Summary ---
Author Organization [facility] Address [address] [place] [address] Care Team Providers Care Pick Up Name Role Phone Elizabeth Blanco Primary Care Provider [phone] Encounter Details Date Type Department Care Team (Latest Contact Info) Description 06/23/2024 Specialty Pharmacy [facility] [address] [place] [address] Dusty Wright RPH Refill Coordination Outreach for Dermatology Social [...] on filedocumented in this encounter Care Teams Pick Up Relationship Specialty Start Date End Date Elizabeth Bl[place] [place] [address] PCP - General 01/03/19 documented as of this encounter
--- OUTSIDE RECORDS SUMMARY | 2024-07-28 18:13 | XMS_ITS | Encounter Summary ---
Author Organization [facility] Address [address] [place] [address] Care Team Providers Care Chipper Machine Operator Name Role Phone Elizabeth Blanco JOSUÉ Primary Care Provider [phone] Encounter Details Date Type Department Care Team (Latest Contact Info) Description 12/06/2023 Specialty Pharmacy [facility] [address] [place], [place] [address] Dusty Wright One-time Clinical Outreach (1 time occurrence) for Dermatology Social History Tobacco Use Types Packs/Day Years Used Date Smoking Tobacco: Never Assessed Interpersonal Safety Answer Date Record ed Physically Hurt Never 06/20/2020 Verbally Threaten Not on file 06/20/2020 Sex and Gender Information Value Date Recorded Sex Assigned at Not on file Gender Identity Not on file Sexual Orientation Not on file documented as of this encounter Progress Notes * Rebecca Potter - 12/06/2023 1259 EST Prescription Receipt by [facility] Date Received: 12/06/23 Medication: Humira 40 mg Pen Q2w Provider: Irma Antoine MD Provider Phone number: [phone] [facility] Clinic: Non [facility] Derm Comments: RTS until 12/21/23 Prescription copy available in scans: YES Relevant clinical documents in scans (if applicable): YES Routed to appropriate Pharmacist: YES [facility] Specialty Pharmacy: [phone] * Jenna Shaffer RPH - 12/06/2023 1259 EST I spoke with Makeda today regarding the Humira, she left her Humira pen out of the fridge after herinjection on 12/06 and forgot the other pen was in there. She is due on 12/20 for her injection. The medication is stable outside of the refrigerator for 14 days and extended stability data gathered from the remote control assembler indicates the medication is stable under 77 degrees for 30 days. Patient will usethe pen for 12/20 injection. documented in this encounter Plan of Treatment Not on file documented as of this encounter Visit Diagnoses Not on filedocumented in this encounter Care Teams Chipper Machine Operator Relationship Specialty Start Date End Date Elizabeth Bl[place] [address] [place] [address] PCP - General 01/03/19 documented as of this encounter
--- OUTSIDE RECORDS SUMMARY | 2024-07-28 18:13 | XMS_ITS | Clinical Summary ---
Author Organization [facility] Address [address] [place] [address] Care Team Providers Care Irrigation Manager Name Role Phone Elizabeth Blanco JOSUÉ Primary Care Provider [phone] Allergies Active Allergy Reactions Criticality Noted Date Comments Amoxicillin Swelling of throat 01/06/2019 Amoxicillin-Pot Clavulanate Swelling of throat 01/06/2019 Hydromorphone Nausea Only 01/07/2019 Penicillin G Swelling of throat 01/06/2019 Facial swelling Medications Medication Sig Dispensed Refills Start Date End Date Status levothyroxine (SYNTHROID) 200 mcg tablet Take 200 mcg by mouth daily. Active UNABLE TO FIND Med Name: Glisovi Fe control pill Active cholecalciferol, Vitamin D3, 1,000 unit tablet Take 2,000 Units by mouth daily. Active adalimumab (HUMIRA,CF, PEN) 40 mg/0.4 mL pen Inject 0.4 mL into the skin every 14 days. 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 Encounters Date Type Department Care Team Description 07/22/2024 Specialty Pharmacy [facility] [address] [place], [place] [address] Dusty Ybarra RPH Refill Coordination Outreach for Dermatology 06/23/2024 Specialty Pharmacy [facility] [address] [place], [place] [address] Dusty Wright RPH Refill Coordination Outreach for Dermatology 06/15/2024 16:09 EDT - 06/15/2024 23:59 EDT Hospital Encounter [facility] [place] Discharge Disposition: Home or Self Care 06/15/2024 16:08 EDT Hospital Encounter [facility] [place] Discharge Disposition: Home or Self Care 05/16/2024 Specialty Pharmacy [facility] [address] [place] [address] Jenna Shaffer RPH Refill Coordination Outreach for Dermatology from Last 3 Months Social History Tobacco Use Types Packs/Day Years Used Date Smoking Tobacco: Never Assessed Interpersonal Safety Answer Date Record ed Physically Hurt Never 06/20/2020 Verbally Threaten Not on file 06/20/2020 Sex and Gender Information Value Date Recorded Sex Assigned at Not on file Gender Identity Not on file Sexual Orientation Not on file Last Filed Vital Signs Vital Sign Reading Time Taken Comments Blood Pressure 128/81 01/07/2019 1045 EST Pulse 80 01/07/2019 0702 EST Temperature 36 ??C (96.8 ??F) 01/07/2019 1045 EST Respiratory Rate 10 01/07/2019 1045 EST Oxygen Saturation 97% 01/07/2019 1045 EST Inhaled Oxygen Concentration - - Weight 73.9 kg (163 lb) 01/06/2019 1208 EST Height 170.2 cm (5' 7) 01/06/2019 1208 EST Body Mass Index 25.53 01/06/2019 1208 EST Plan of Treatment Health Maintenance Due Date Last Done Comments Hepatitis C Screen 1991 Hepatitis B Vaccine (1 of 3 - 19+ 3-dose series) 06/17 COVID-19 Vaccine ( season) 2024 Procedures Procedure Name Priority Date/Time Associated Diagnosis Comments CT OUTSIDE IMAGES CHEST ABDOMEN PELVIS Routine 06/15/2024 16:[address] OUTSIDE IMAGES HEAD AND NECK Routine 06/15/2024 16:09 EDT from Last 3 Months Results * CT OUTSIDE IMAGES CHEST ABDOMEN PELVIS (06/15/2024 16:10 EDT) Narrative 06/15/2024 16:10 EDT This is a non-reportable exam. External Imaging IMG OTHER IMAGING OR DERABLES * CT OUTSIDE IMAGES HEAD AND NECK (06/15/2024 16:09 EDT) Narrative 06/15/2024 16:09 EDT This is a non-reportable exam. External Imaging IMG OTHER IMAGING OR DERABLES from Last 3 Months Care Teams Irrigation Manager Relationship Specialty Start Date End Date [place] [address] PCP - General 01/03/19
--- OUTSIDE RECORDS SUMMARY | 2024-07-28 18:13 | XMS_ITS | Encounter Summary ---
Author Organization [facility] Address [address] [place] [address] Care Team Providers Care Show Host Or Hostess Name Role Phone Elizabeth Blanco Primary Care Provider Encounter Details Date Type Department Care Team (Latest Contact Info) Description 07/22/2024 Specialty Pharmacy [facility] [address] [place] [address] Dusty Ybarra RPH Refill Coordination Outreach for Dermatology Social [...] on filedocumented in this encounter Care Teams Show Host Or Hostess Relationship Specialty Start Date End Date Elizabeth Bl[place] [address] PCP - General 01/03/19 documented as of this encounter
--- OUTSIDE RECORDS SUMMARY | 2024-07-28 18:13 | XMS_ITS | Encounter Summary ---
Author Organization [facility] Address [address] [place] [address] Care Team Providers Care Security System Sales Consultant Name Role Phone Elizabeth Blanco Primary Care Provider [phone] Encounter Details Date Type Department Care Team (Latest Contact Info) Description 10/17/2023 Specialty Pharmacy [facility] [address] [place] [address] Vi Voss RPH Refill Coordination Outreach (1 time occurrence) for Dermatology Social [...] on filedocumented in this encounter Care Teams Security System Sales Consultant Relationship Specialty Start Date End Date Elizabeth [place] [address] PCP - General 01/03/19 documented as of this encounter
--- OUTSIDE RECORDS SUMMARY | 2024-07-28 18:13 | XMS_ITS | Encounter Summary ---
Author Organization [facility] Address [address] [place] [address] Care Team Providers Care Assurance Associate Name Role Phone Elizabeth Blanco JOSUÉ Primary Care Provider [phone] Reason for Referral * (Routine/Next Available) - Receiving Office to Obtain Authorization Specialty Diagnoses / Procedures Referred By Contac t Referred To Contact Procedures CT OUTSIDE IMAGES CHEST ABDOMEN PELVIS Imaging, External Referral ID Status Reason Start Date Expiration Date Visits Requested Visits Authorized [id number] Receiving Office to Obtain Authorization 06/15/2024 1 1 Reason for Visit * (Routine/Next Available) - Receiving Office to Obtain Authorization Specialty Diagnoses / Procedures Referred By Contac t Referred To Contact Procedures CT OUTSIDE IMAGES CHEST ABDOMEN PELVIS Imaging, External Referral ID Status Reason Start Date Expiration Date Visits Requested Visits Authorized [id number] Receiving Office to Obtain Authorization 06/15/2024 1 1 Encounter Details Date Type Department Care Team (Latest Contact Info) Description 06/15/2024 16:09 EDT - 06/15/2024 23:59 EDT Hospital Encounter [facility] [place] Discharge Disposition: Home or Self Care Social History Tobacco Use Types Packs/Day Years Used Date Smoking Tobacco: Never Assessed Interpersonal Safety Answer Date Record ed Physically Hurt Never 06/20/2020 Verbally Threaten Not on file 06/20/2020 Sex and Gender Information Value Date Recorded Sex Assigned at Not on file Gender Identity Not on file Sexual Orientation Not on file documented as of this encounter Medications at Time of Discharge Medication Sig Dispensed Refills Start Date End Date adalimumab (HUMIRA,CF, PEN) 40 mg/0.4 mL pen Inject 0.4 mL into the skin every 14 days. cholecalciferol, Vitamin D3, 1,000 unit tablet Take 2,000 Units by mouth daily. levothyroxine (SYNTHROID) 200 mcg tablet Take 200 mcg by mouth daily. UNABLE TO FIND Med Name: Glisotevin Fe control pill documented as of this encounter Discharge Disposition Disposition Code Departure Means Destination Home or Self Care documented in this encounter Plan of Treatment Not on file documented as of this encounter Procedures Procedure Name Priority Date/Time Associated Diagnosis Comments CT OUTSIDE IMAGES CHEST ABDOMEN PELVIS Routine 06/15/2024 16:10 EDT documented in this encounter Results * CT OUTSIDE IMAGES CHEST ABDOMEN PELVIS (06/15/2024 16:10 EDT) Narrative 06/15/2024 16:10 EDT This is a non-reportable exam. External Imaging IMG OTHER IMAGING OR DERABLES documented in this encounter Visit Diagnoses Not on filedocumented in this encounter Care Teams Assurance Associate Relationship Specialty Start Date End Date Elizabeth [place] [place] [address] PCP - General 01/03/19 documented as of this encounter
--- OUTSIDE RECORDS SUMMARY | 2024-07-28 18:13 | XMS_ITS | Encounter Summary ---
Author Organization [facility] Address [address] [place] [address] Care Team Providers Care Hvac Specialist Name Role Phone Elizabeth Blanco Primary Care Provider [phone] Encounter Details Date Type Department Care Team (Latest Contact Info) Description 01/22/2024 Specialty Pharmacy [facility] [address] [place] [address] Jenna Shaffer RPH Refill Coordination Outreach for Dermatology, One-time Clinical Outreach (1 time occurrence) for [...] on filedocumented in this encounter Care Teams Hvac Specialist Relationship Specialty Start Date End Date Elizabeth Blanco [place] [address] PCP - General 01/03/19 documented as of this encounter
--- OUTSIDE RECORDS SUMMARY | 2024-07-28 18:13 | XMS_ITS | Encounter Summary ---
Author Organization [facility] Address [address] [place] [address] Care Team Providers Care Respiratory Technician Name Role Phone Elizabeth Blanco JOSUÉ Primary Care Provider [phone] Reason for Referral * (Routine/Next Available) - Receiving Office to Obtain Authorization Specialty Diagnoses / Procedures Referred By Contac t Referred To Contact Procedures CT OUTSIDE IMAGES HEAD AND NECK Imaging, External Referral ID Status Reason Start Date Expiration Date Visits Requested Visits Authorized [id number] Receiving Office to Obtain Authorization 06/15/2024 1 1 Reason for Visit * (Routine/Next Available) - Receiving Office to Obtain Authorization Specialty Diagnoses / Procedures Referred By Contac t Referred To Contact Procedures CT OUTSIDE IMAGES HEAD AND NECK Imaging, External Referral ID Status Reason Start Date Expiration Date Visits Requested Visits Authorized [id number] Receiving Office to Obtain Authorization 06/15/2024 1 1 Encounter Details Date Type Department Care Team (Latest Contact Info) Description 06/15/2024 16:08 EDT Hospital Encounter [facility] [place] Discharge Disposition: Home [...] mouth daily. UNABLE TO FIND Med Name: Sarah Fe control pill documented as of this encounter Discharge Disposition Disposition Code Departure Means Destination Home or Self Care documented in this encounter Plan of Treatment Not on file documented as of this encounter Procedures Procedure Name Priority Date/Time Associated Diagnosis Comments CT OUTSIDE IMAGES HEAD AND NECK Routine 06/15/2024 16:09 EDT documented in this encounter Results * CT OUTSIDE IMAGES HEAD AND NECK (06/15/2024 16:09 EDT) Narrative 06/15/2024 16:09 EDT This is a non-reportable exam. External Imaging IMG OTHER IMAGING OR DERABLES documented in this encounter Visit Diagnoses Not on filedocumented in this encounter Care Teams Respiratory Technician Relationship Specialty Start Date End Date Elizabeth [place] [address] [place] [address] PCP - General 01/03/19 documented as of this encounter
--- OUTSIDE RECORDS SUMMARY | 2024-07-28 18:13 | XMS_ITS | Referral Summary ---
Author Organization [facility] Address [address] [place] [address] Care Team Providers Care Retail Selling Specialist Name Role Phone Elizabeth Blanco JOSUÉ Primary Care Provider [phone] Encounters Date Type Department Care Team Description 07/22/2024 Specialty Pharmacy [facility] [address] [place] [address] Dusty Ybarra RPH Refill Coordination Outreach for Dermatology 06/23/2024 Specialty Pharmacy [facility] [address] [place], [place] [address] Dusty Wright RPH Refill Coordination Outreach for Dermatology 06/15/2024 16:09 EDT - 06/15/2024 23:59 EDT Hospital Encounter [facility] [place] Discharge Disposition: Home or Self Care 06/15/2024 16:08 EDT Hospital Encounter [facility] [place] Discharge Disposition: Home or Self Care 05/16/2024 Specialty Pharmacy [facility] [address] [place] [address] Jenna Shaffer RPH Refill Coordination Outreach for Dermatology from Last 3 Months Allergies Active Allergy Reactions Criticality Noted Date [...] right eye with retinal james lysis 01/07/2019 Social History Tobacco Use Types Packs/Day Years [...] 25.53 01/06/2019 1208 EST Plan of Treatment Not on file Procedures Procedure Name Priority Date/Time Associated Diagnosis [...] DERABLES from Last 3 Months Care Teams Retail Selling Specialist Relationship Specialty Start Date End [place] [address] PCP - General 01/03/19
--- OUTSIDE RECORDS SUMMARY | 2024-07-28 18:13 | XMS_ITS | Encounter Summary ---
Author Organization [facility] Address [address] [place] [address] Care Team Providers Care Small Machine Bindery Operator Name Role Phone Elizabeth Blanco Primary Care Provider [phone] Encounter Details Date Type Department Care Team (Latest Contact Info) Description 03/14/2024 Specialty Pharmacy [facility] [address] [place] [address] Bandar Jeter RPH Refill Coordination Outreach for Dermatology, One-time [...] on filedocumented in this encounter Care Teams Small Machine Bindery Operator Relationship Specialty Start Date End Date Elizabeth Blanco [place] [address] PCP - General 01/03/19 documented as of this encounter
--- OUTSIDE RECORDS SUMMARY | 2024-07-28 18:13 | XMS_ITS | Encounter Summary ---
Author Organization [facility] Address [address] [place] [address] Care Team Providers Care Telecommunication Systems Designer Name Role Phone Elizabeth Blanco Primary Care Provider [phone] Encounter Details Date Type Department Care Team (Latest Contact Info) Description 11/29/2023 Specialty Pharmacy [facility] [address] [place] [address] Dusty Wright RPH Refill Coordination Outreach for [...] on filedocumented in this encounter Care Teams Telecommunication Systems Designer Relationship Specialty Start Date End Date Elizabeth Bl[place] [address] PCP - General 01/03/19 documented as of this encounter
--- OUTSIDE RECORDS SUMMARY | 2024-07-28 18:13 | XMS_ITS | Encounter Summary ---
Author Organization [facility] Address [address] [place] [address] Care Team Providers Care Automobile Relocation Engineer Name Role Phone Elizabeth Blanco Primary Care Provider [phone] Encounter Details Date Type Department Care Team (Latest Contact Info) Description 05/16/2024 Specialty Pharmacy [facility] [address] [place] [address] Jenna Shaffer RPH Refill Coordination Outreach for [...] on filedocumented in this encounter Care Teams Automobile Relocation Engineer Relationship Specialty Start Date End Date Elizabeth Bl[place] [address] PCP - General 01/03/19 documented as of this encounter
--- OUTSIDE RECORDS SUMMARY | 2024-07-28 18:13 | XMS_ITS ---
Author Organization Unknown Address [address] [place] [phone] Phone Care Team Providers Care Locksmith Name Role Phone APARNA Whitney Attending Unavailable Social History Type Status Start Date End Date Code Code Syst em Sex Female Hospital Discharge Instructions Should you have any questions prior to discharge, please contact a member of your healthcare team. If you have left the hospital and have any questions, please contact your primary care physician. Reason For Referral No Data Found Problems Problem Start Date Resolved Date Status Code Code System HISTORY OF TOTAL HYSTERECTOMY 06/15/2024 resolved [id number] SNOMED-CT HYPOTHYROIDISM 06/15/2024 resolved [id number] SNOM ED-CT HISTORY OF HYSTERECTOMY 06/15/2024 resolved 37222 0001 SNOMED-CT Allergies and Adverse Reactions Allergy Substance Reaction Severity Start Date Concern Status Co de Code System AMOXICILLIN Active 723 RxNorm PENICILLIN Active Plan of Treatment No Data Found Encounters Encounter Diagnosis Start Date Code Code Sys tem Closed fracture of sternum 06/15/2024 [id number] S NOMED-CT Personal Care Team Section Performer Name Performer Role Active Date Inactive Da te
--- OUTSIDE RECORDS SUMMARY | 2024-07-28 18:13 | XMS_ITS | Encounter Summary ---
Author Organization [facility] Address [address] [place] [address] Care Team Providers Care Tracer Powder Blender Name Role Phone Elizabeth Blanco Primary Care Provider [phone] Encounter Details Date Type Department Care Team (Latest Contact Info) Description 04/16/2024 Specialty Pharmacy [facility] [address] [place] [address] Bandar Jeter RPH Refill Coordination Outreach for Dermatology Social [...] on filedocumented in this encounter Care Teams Tracer Powder Blender Relationship Specialty Start Date End Date Elizabeth [place] [place] [address] PCP - General 01/03/19 documented as of this encounter
--- OUTSIDE RECORDS SUMMARY | 2024-07-28 18:14 | XMS_ITS | Encounter Summary ---
Author Organization [facility] Address [address] [place] [address] Care Team Providers Care Tool Maintenance Worker Name Role Phone Elizabeth Blanco JOSUÉ Primary Care Provider Encounter Details Date Type Department Care Team (Late st Contact Info) Description 02/19/2023 Specialty Pharmacy [facility] [address] [address] Jenna Shaffer RPH Social History Tobacco Use Types Packs/Day Years Used Date Smoking Tobacco: Never Assessed Interpersonal Safety Answer Date Record ed Physically Hurt Never 06/20/2020 Verbally Threaten Not on file 06/20/2020 Sex and Gender Information Value Date Recorded Sex Assigned at Not on file Gender Identity Not on file Sexual Orientation Not on file documented as of this encounter Progress Notes * Jenna Shaffer RPH - 02/19/2023 1007 EDT [facility] Specialty Pharmacy Dermatology Routine Follow Up Makeda Paiz is a 32 y.o. female being treated with Humira for psoriasis. Adherence: ??? The patients next dose is due 03/01 ??? The patient had 0 recent missed doses. Side effects/toxicities: injection site reaction, red hard raised bump that is itchy and tender after each injection. Recommended hydrocortisone cream on the injection site. New medications or drug allergies: Dose change of levothyroxine to 175mcg Assessment: Makeda reports the Humira is really helpful for her psoriasis. She is going to use the hydrocortisone cream going forward to manage the injection site reaction she gets with each injection. Follow up: ??? Phone call: 6 months Jenna Shaffer PharmD Specialty Pharmacy 02/19/2023 documented in this encounter Plan of Treatment Not on file documented as of this encounter Visit Diagnoses Not on filedocumented in this encounter Care Teams Tool Maintenance Worker Relationship Specialty Start Date End Date Elizabeth Blanco [place] [address] [place] [address] PCP - General 01/03/19 documented as of this encounter
--- OUTSIDE RECORDS SUMMARY | 2024-07-28 18:14 | XMS_ITS | Encounter Summary ---
Author Organization [facility] Address [address] [place] [address] Care Team Providers Care Inspector Type Name Role Phone Elizabeth Blanco JOSUÉ Primary Care Provider Encounter Details Date Type Department Care Team (Late st Contact Info) Description 08/20/2023 Specialty Pharmacy [facility] Ambulatory Pharmacy - [address] [address] Vi Voss RPH Social History Tobacco Use Types Packs/Day Years Used Date Smoking Tobacco: Never Assessed Interpersonal Safety Answer Date Record ed Physically Hurt Never 06/20/2020 Verbally Threaten Not on file 06/20/2020 Sex and Gender Information Value Date Recorded Sex Assigned at Not on file Gender Identity Not on file Sexual Orientation Not on file documented as of this encounter Progress Notes * Vi Voss RPH - 08/20/2023 1444 EDT Non-[facility] Specialty Pharmacy Dermatology Routine Follow Up Makeda Paiz is a 33 y.o. female being treated with Humira for psoriasis. Adherence: ??? The patients next dose is due 08/30/23 ??? The patient had 0 missed doses. Side effects/toxicities: Makeda experienced an injection site reaction last dose. Immediately she started itching and it appeared as a bug bite. It got up to the size of a golf ball but the swelling did go down by the next morning. Suggested using hydrocortisone cream. New medications or drug allergies: changed levothyroxine dose Assessment: psoriasis well controlled. Patient has surgery scheduled for 08/24- advised to call clinic about holding dose. Follow up: ??? Phone call: routine 6 month follow up ??? Clinic Appointment: n/a Vi Voss PharmD [facility] Specialty Pharmacy 08/20/2023 documented in this encounter Plan of Treatment Not on file documented as of this encounter Visit Diagnoses Not on filedocumented in this encounter Historical Medications * This list may reflect changes made after this encounter. Medication Sig Dispensed Refills Start Date End Date adalimumab (HUMIRA,CF, PEN) 40 mg/0.4 mL pen Inject 0.4 mL into the skin every 14 days. added in this encounter Care Teams Inspector Type Relationship Specialty Start Date End Date Elizabeth Bl[place] [address] PCP - General 01/03/19 documented as of this encounter
--- OUTSIDE RECORDS SUMMARY | 2024-07-28 18:14 | XMS_ITS | Encounter Summary ---
Author Organization [facility] Address [address] [place] [address] Care Team Providers Care Instructor Dramatic Arts Name Role Phone Elizabeth Blanco JOSUÉ Primary Care Provider [phone] Encounter Details Date Type Department Care Team (Late st Contact Info) Description 10/02/2022 Specialty Pharmacy [facility] Ambulatory Pharmacy - [facility] [address] [place], [place] [id number] Jessica Malhotra, [facility] [address] [place] [address] Social History Tobacco Use Types Packs/Day Years [...] Progress Notes * Jenna Shaffer RPH - 10/02/2022 1421 EST Spoke with Makeda to follow up regarding her Humira pens, she reports that it is working great and she has no reported side effects. She reports no new medications or drug allergies. Jenna Shaffer PharmD Specialty Pharmacy 10/05/2022 * Marva Nichole - 10/02/2022 1421 EST [facility] Specialty Pharmacy Delivery Information Hours: Sunday-Sunday 8:30am - 5:00pm *Pharmacist available ornamental bronze worker 11/06 Delivery Service: [facility] Delivery Window: 1pm - 5pm Date of Delivery: 10/10/22 Tracking # : [id number] documented in this encounter Plan of Treatment Not on file documented as of this encounter Visit Diagnoses Not on filedocumented in this encounter Care Teams Instructor Dramatic Arts Relationship Specialty Start Date End Date Elizabeth Blanco FNP It[address] [place] [address] PCP - General 01/03/19 documented as of this encounter
--- OUTSIDE RECORDS SUMMARY | 2024-07-28 18:14 | XMS_ITS | Encounter Summary ---
Author Organization [facility] Address [address] [place] [address] Care Team Providers Care Lead Ruby On Rails Developer Name Role Phone Elizabeth Blanco JOSUÉ Primary Care Provider [phone] Encounter Details Date Type Department Care Team (Late st Contact Info) Description 04/14/2022 Specialty Pharmacy [facility] Ambulatory Pharmacy - Main [place] [address] [place] [address] Jessica Malhotra, [facility] [address] [place] [address] Social History Tobacco Use Types Packs/Day Years Used Date Smoking Tobacco: Never Assessed Interpersonal Safety Answer Date Record ed Physically Hurt Never 06/20/2020 Verbally Threaten Not on file 06/20/2020 Sex and Gender Information Value Date Recorded Sex Assigned at Not on file Gender Identity Not on file Sexual Orientation Not on file documented as of this encounter Progress Notes * Brynn Aponte - 04/14/2022 0914 EDT Prescription Receipt by [facility] Specialty Pharmacy Date Received: 04/14/2022 Medication: Humira 40mg/0.4ml maintenance dosing. Sent by: Irma Rivera Clinic: [facility] Derm Provider:Irma Sanchez Phone number: [phone] Benefits Investigation Results: Comments: we received two scripts for the same product. The PA through [facility] was for the starter pack. Checking with Delaney to see if this is correct. Both scripts are profiled. [facility] Specialty Pharmacy: [phone] * Jessica Malhotra RPH - 04/14/2022 0914 EDT [facility] Specialty Pharmacy Medication Therapy Initiation Note Makeda Paiz is a 31 y.o. female who will be starting treatment with Humira (adalimumab) CF [id number] for psoriasis. Planned Start Date: 04/20/22, Duration: indefinite I performed a complete review of the patient???s medical record, including medications, immunizations, and allergies. Clinically relevant drug interactions identified: Drug Interaction management plan: Potential barriers to therapy: No; Assessment & Plan Indication, effectiveness, safety, and convenience of specialty medications were reviewed today. Method of Education: Telephone Taught to: Patient Counseled the patient on the following: Therapeutic rationale / Goals of therapy discussed Dosage and administration discussed Safe handling, storage, and disposal reviewed Therapy contraindications discussed Possible adverse effects and management discussed Possible drug and prescription drug interactions discussed Adherence and missed doses discussed Adherence tools reviewed: medication list Lab monitoring and follow-up discussed. Additional self-management strategies reviewed Information regarding Humira (adalimumab) CF Pen [id number] provided to patient. Barriers to Education: None Outcomes of Education: Verbalized understanding Follow up: - Phone call: within 6 weeks - Labs: none Jessica Malhotra, PharmD, BCPS Pharmacist Clinician [phone] 04/14/2022 documented in this encounter Plan of Treatment Not on file documented as of this encounter Visit Diagnoses Not on filedocumented in this encounter Care Teams Lead Ruby On Rails Developer Relationship Specialty Start Date End Date Elizabeth Bl[place] [address] PCP - General 01/03/19 documented as of this encounter
--- OUTSIDE RECORDS SUMMARY | 2024-07-28 18:14 | XMS_ITS | Encounter Summary ---
Author Organization [facility] Address [address] [place] [address] Care Team Providers Care Clam Shovel Operator Name Role Phone Unavailable Primary Care Provider Unavailabl e Encounter Details Date Type Department Care Team (Late st Contact Info) Description 04/16/2009 Orders Only [facility] Laboratory Services - [facility] [address] [place], [place] [address] Mis Allred, [facility] [address] [place] [address] Social History Tobacco Use Types Packs/Day Years Used Date Smoking Tobacco: Never Assessed Sex and Gender Information Value Date Recorded Sex Assigned at Not on file Gender Identity Not on file Sexual Orientation Not on file documented as of this encounter Plan of Treatment Not on file documented as of this encounter Procedures Procedure Name Priority Date/Time Associated Diagnosis Comments CYTOPATHOLOGY Routine 04/16/2009 0:00 EDT documented in this encounter Results * CYTOPATHOLOGY (04/16/2009 0:00 EDT) Pathology Report: CYTOPATHOLOGY REPORT ? Reports generated via electronic interface contain original data; ? however they are lacking the format of the original report. ? Caution should be taken when reading/interpreti ng unformatted reports. ? Name: ? YOEL COMBS ? Accession #: ? [id number] ? : ? 1990 (Age: 18) ??F ?Collect Date: ? 04/16/2009 ? Location: ? [facility] ? Receive Date: ? 04/19/2009 ? Provider: ?MIS ROSAURA DOOR AND ARRIVAL ATTENDANT ? Copy to: ? Specimen/Source: ?Pap Test, Cervix/Endocervix, ThinPrep Imaging System ? with manual evaluation ? Last Menstrual Period: ? 05/09/09 ? Hormonal/Contracep tive Status: ? Oral contraceptives ? SPECIMEN ADEQUACY ? Unsatisfactory for Evaluation, ? - insufficient numbers of squamous epithelial cells (less than 10% of expected ?? cellularity) ? - sample preparation compromised by excessive mucus ? Unsatisfactory for Evaluation ? - obscuring contamination, possibly lubricant, which precludes interpretation of 75% or more of the epithelial cells ? GENERAL CATEGORIZATION ? Specimen processed and examined, but unsatisfactory for evaluation of ? epithelial abnormality. ? Recommend repeat Pap test or further follow up, as clinically indicated. ? Document reviewed and electronically signed by: ? Della Montalvo, SCT(ASCP) ? Report Date: ??04/22/2009 15:08 ? End of Report ? [facility] 04/16/2009 04/19/2009 Mis Allred DOOR AND ARRIVAL ATTENDANT PATHOLOGY ORDERABLES [facility] [address] [place] [address] documented in this encounter Visit Diagnoses Not on filedocumented in this encounter
--- OUTSIDE RECORDS SUMMARY | 2024-07-28 18:14 | XMS_ITS | Encounter Summary ---
Author Organization [facility] Address [address] [place] [address] Care Team Providers Care Kit Planner Name Role Phone Elizabeth Blanco Primary Care Provider [phone] Encounter Details Date Type Department Care Team (Late st Contact Info) Description 07/13/2023 Specialty Pharmacy [facility] Ambulatory Pharmacy - [place] [address] [place], [place] [address] Jenna Shaffer RPH Social History Tobacco Use [...] on filedocumented in this encounter Care Teams Kit Planner Relationship Specialty Start Date End Date Elizabeth Blanco FNP [facility] [place] [address] PCP - General 01/03/19 documented as of this encounter
--- OUTSIDE RECORDS SUMMARY | 2024-07-28 18:14 | XMS_ITS | Encounter Summary ---
Author Organization [facility] Address [address] [place] [address] Care Team Providers Care Leather Novelty Parts Cutter Name Role Phone Unknown, Provider Primary Care Provider [phone] Encounter Details Date Type Department Care Team (Late st Contact Info) Description 01/07/2014 Results Only [facility] Laboratory Services - [facility] [address] [place] [address] Saranya Gotti, KEON Social History Tobacco Use Types Packs/Day Years Used Date Smoking Tobacco: Never Assessed Sex and Gender Information Value Date Recorded Sex Assigned at Not on file Gender Identity Not on file Sexual Orientation Not on file documented as of this encounter Plan of Treatment Not on file documented as of this encounter Procedures Procedure Name Priority Date/Time Associated Diagnosis Comments PAP TEST- RESULT ONLY Routine 01/07/2014 0:00 EST documented in this encounter Results * PAP TEST- RESULT ONLY (01/07/2014 0:00 EST) Pathology Report: CYTOPATHOLOGY REPORT Reports generated via electronic interface contain original data; however they are lacking the format of the original report. Caution should be taken when reading/interpreti ng unformatted reports. Name: ? YOEL COMBS ? Accession #: ? [id number] : ? 1990 (Age: 23) ??F ?Collect Date: ? 01/07/2014 Location: ? [facility] ? Receive Date: ? 01/08/2014 Provider: ?SARANYA GOTTI DEVELOPMENTAL EDUCATION INSTRUCTOR Copy to: ?KAELA CANO DEVELOPMENTAL EDUCATION INSTRUCTOR ? Specimen/Source: ?Pap Test, Cervix/Endocervix, ThinPrep Imaging System with manual evaluation Last Menstrual Period: ? 12/25/2013 ? SPECIMEN ADEQUACY ? Satisfactory for Evaluation - transformation zone component present GENERAL CATEGORIZATION ? Negative for Intraepithelial Lesion or Malignancy ? Document reviewed and electronically signed by: ? JACOB Cat(ASCP) ? Report Date: ??01/13/2014 12:34 End of Report [facility] 01/07/2014 01/08/2014 Saranya Gotti DEVELOPMENTAL EDUCATION INSTRUCTOR PATHOLOGY ORDERABLES Performing Organization Address City/State/[facility] Co de Phone Number [facility] [address] [place] [address] documented in this encounter Visit Diagnoses Not on filedocumented in this encounter Care Teams Leather Novelty Parts Cutter Relationship Specialty Start Date End Date Unknown, Provider, PCP - General 01/09/13 01/02/19 documented as of this encounter
--- OUTSIDE RECORDS SUMMARY | 2024-07-28 18:14 | XMS_ITS | Encounter Summary ---
Author Organization [facility] Address [address] [place] [address] Care Team Providers Care Accountant Supervisor Name Role Phone Unknown, Provider Primary Care Provider [phone] Encounter Details Date Type Department Care Team (Late st Contact Info) Description 05/04/2017 Results Only [facility] [phone] Mis Allred, [address] [place] [address] Social History Tobacco Use Types Packs/Day Years [...] Diagnosis Comments PAP TEST- RESULT ONLY Routine 05/04/2017 0:00 EDT documented in this encounter Results * PAP TEST- RESULT ONLY (05/04/2017 0:00 EDT) Pathology Report: CYTOPATHOLOGY REPORT Reports generated via electronic interface contain original data; however they are lacking the format of the original report. Caution should be taken when reading/interpreti ng unformatted reports. Name: ? YOEL COMBS ? Accession #: ? [id number] : ? 1990 (Age: 26) ??F ?Collect Date: ? 05/04/2017 Location: ? [facility] ? Receive Date: ? 05/07/2017 Provider: ?MIS ALLRED RN ONCOLOGY CLINICAL Copy to: ?KASIE BORJAS RN ONCOLOGY CLINICAL ? Specimen/Source: ?Pap Test, Cervix, ThinPrep Imaging System with manual evaluation Last Menstrual Period: ? 04/20/17 Hormonal/Contracep tive Status: ? Oral contraceptives ? SPECIMEN ADEQUACY ? Satisfactory for Evaluation - transformation zone component present GENERAL CATEGORIZATION ? Negative for Intraepithelial Lesion or Malignancy ? Document reviewed and electronically signed by: ? JACOB Cat(ASCP) ? Report Date: ??05/17/2017 07:49 End of Report [facility] 05/04/2017 05/07/2017 Mis Allred RN ONCOLOGY CLINICAL PATHOLOGY ORDERABLES [facility] [address] [place] [address] documented in this encounter Visit Diagnoses Not on filedocumented in this encounter Care Teams Accountant Supervisor Relationship Specialty Start Date End Date Unknown, Provider, PCP - General 01/09/13 01/02/19 documented as of this encounter
--- OUTSIDE RECORDS SUMMARY | 2024-07-28 18:14 | XMS_ITS | Encounter Summary ---
Author Organization [facility] Address [address] [place] [address] Care Team Providers Care Staff Mechanical Engineer Name Role Phone Elizabeth Blanco JOSUÉ Primary Care Provider [phone] Encounter Details Date Type Department Care Team (Late st Contact Info) Description 04/06/2022 Specialty Pharmacy [facility] Ambulatory Pharmacy - Main [place] [address] [place] [address] Jessica Malhotra, [facility] [address] [address] Social History Tobacco Use Types Packs/Day Years Used Date Smoking Tobacco: Never Assessed Interpersonal Safety Answer Date Record ed Physically Hurt Never 06/20/2020 Verbally Threaten Not on file 06/20/2020 Sex and Gender Information Value Date Recorded Sex Assigned at Not on file Gender Identity Not on file Sexual Orientation Not on file documented as of this encounter Progress Notes * Maureen [place] - 04/06/2022 1127 EDT Prescription Receipt by [facility] Specialty Pharmacy Date Received: 04/06/2022 Medication: Tremfya Sent by: electronic Clinic: Irma Rivera Provider: [facility] Phone number: [phone] Benefits Investigation Results: [facility] Comments: Rx uploaded into scans. [facility] Specialty Pharmacy: [phone] * Johana Lema - 04/06/2022 1127 EDT Specialty Pharmacy Non-Outreach Documentation Medication: Humira Ps/Uv Starter kit Clinic: Irma Rivera Reason for Encounter: uploading PA approval to scans & documenting change in medication Notes: awaiting new rx; Tremfya rx cancelled by PPI Follow up date: 04/10/22 Follow up reason: outreach/rx request documented in this encounter Plan of Treatment Not on file documented as of this encounter Visit Diagnoses Not on filedocumented in this encounter Care Teams Staff Mechanical Engineer Relationship Specialty Start Date End Date Elizabeth Blanco FNP [facility] [place] [address] PCP - General 01/03/19 documented as of this encounter
--- OUTSIDE RECORDS SUMMARY | 2024-07-28 18:14 | XMS_ITS | Encounter Summary ---
Author Organization [facility] Address [address] [place] [address] Care Team Providers Care Detective And Intelligence Analyst Name Role Phone Elizabeth Blanco JOSUÉ Primary Care Provider [phone] Encounter Details Date Type Department Care Team (Late st Contact Info) Description 05/26/2022 Specialty Pharmacy [facility] Ambulatory Pharmacy - [address] [id number] Jessica Malhotra, [facility] [address] [place] [address] Social History Tobacco Use Types Packs/Day Years Used Date Smoking Tobacco: Never Assessed Interpersonal Safety Answer Date Record ed Physically Hurt Never 06/20/2020 Verbally Threaten Not on file 06/20/2020 Sex and Gender Information Value Date Recorded Sex Assigned at Not on file Gender Identity Not on file Sexual Orientation Not on file documented as of this encounter Progress Notes * Brynn Aponte - 05/26/2022 1501 EDT Specialty Pharmacy Non-Outreach Documentation Medication: humira Clinic: [facility] Derm Reason for Encounter: script received, refill too soon until 06/06/2022. Notes:profiled. 06/14: approval received from [facility] for maintenance doses. Uploaded to scans. Follow up date: Follow up reason: outreach documented in this encounter Plan of Treatment Not on file documented as of this encounter Visit Diagnoses Not on filedocumented in this encounter Care Teams Detective And Intelligence Analyst Relationship Specialty Start Date End Date Elizabeth Blanco FNP [facility] [place] [address] PCP - General 01/03/19 documented as of this encounter
--- OUTSIDE RECORDS SUMMARY | 2024-07-28 18:14 | XMS_ITS | Encounter Summary ---
Author Organization [facility] Address [address] [place] [address] Care Team Providers Care Budget Officer Name Role Phone Elizabeth Blanco JOSUÉ Primary Care Provider [phone] Encounter Details Date Type Department Care Team (Late st Contact Info) Description 08/14/2020 [facility] Pathology & Laboratory Medicine - [address] [address] Juan Blas MD [address] [place] [phone] Irritable bowel syndrome without diarrhea; Other fecal abnormalities; Rectal prolapse Social History Tobacco Use Types Packs/Day Years [...] Procedure Name Priority Date/Time Associated Diagnosis Comments SURGICAL PATHOLOGY Today 08/13/2020 12 :15 EDT Irritable bowel syndrome without diarrhea Other fecal abnormalities Rectal prolapse documented in this encounter Results * SURGICAL PATHOLOGY (08/13/2020 12:15 EDT) Final Diagnosis A. COLON, RANDOM BIOPSIES: - Colonic mucosa with no specific pathologic features. B. RECTUM, 2 MM POLYP, COLD FORCEPS BIOPSY: - Hyperplastic polyp. C. RECTUM, BIOPSIES: - Colorectal mucosa with no specific pathologic features. 08/16/2020 18:14 [facility] Attestation By the signature below, the attending physician certifies that they have 1) personally conducted a gross and/or microscopic examination of the described specimen(s), and/or personally interpreted the results of laboratory testing of the described specimen(s), and 2) personally rendered or confirmed the above diagnosis. 08/16/2020 18:14 [facility] at 1814 Clinical History Chronic diarrhea; abdominal pain; rectal erythema; colon polyp 08/16/2020 18:14 [facility] Gross Description A. Received in formalin labelled with proper patient identification (initials S, M) and A. Random colon BXs are four pale-whaley tissues (0.3 x 0.2 x 0.1 cm to 0.2 x 0.2 x 0.1 cm). Entirely submitted in A1-A2. B. Received in formalin labelled with proper patient identification (initials S, M) and B. 2 mm rectal polyp cold Bx forceps is a single whaley focally brown speckled tissue (0.3 x 0.2 x 0.1 cm). Submitted intact in B1. C. Received in formalin labelled with proper patient identification (initials S, M) and C. Rectal BXs is a single pale whaley tissue (0.6 x 0.2 x 0.2 cm). Submitted intact in C1. [place] Arriola 08/14/2020 9:58 08/16/2020 18:14 [facility] Performing Lab [facility] 08/16/2020 18:14 [facility] Scanned Images 08/16/2020 18:14 [facility] Tissue SPECIMEN FROM RECTUM / Unknown 08/13/2020 12:15 EDT 08/14/2020 5:06 EDT Tissue specimen (specimen) SPECIMEN FROM RECTUM / Unknown 08/13/2020 12:15 EDT 08/14/2020 5:06 EDT Tissue specimen (specimen) SPECIMEN FROM RECTUM / Unknown 08/13/2020 12:15 EDT 08/14/2020 5:06 EDT Juan Blas MD PATHOLOGY ORD ERABLES [facility] [address] [place] [address] documented in this encounter Visit Diagnoses Diagnosis Irritable bowel syndrome without diarrhea Irritable bowel syndrome Other fecal abnormalities Rectal prolapse documented in this encounter Care Teams Budget Officer Relationship Specialty Start Date End Date Elizabeth [place] [address] [place] [address] PCP - General 01/03/19 documented as of this encounter
--- OUTSIDE RECORDS SUMMARY | 2024-07-28 18:14 | XMS_ITS ---
Author Organization [facility] Address [address] [place] [address] Care Team Providers Care Racing Secretary Name Role Phone Elizabeth Blanco JOSUÉ Primary Care Provider [phone] Dermatology Status:Enrolled (Active) Start date:04/06/2022 Enrollment date:04/06/2022 Current support & services provided:Clinical Management, Refill Management Linked medications:adalimumab (Active) Linked problems:Psoriasis (Active) Continued Care and Services Coordination
--- OUTSIDE RECORDS SUMMARY | 2024-07-28 18:14 | XMS_ITS | Encounter Summary ---
Author Organization [facility] Address [address] [place] [address] Care Team Providers Care Accounts Payable Accountant Name Role Phone Elizabeth Blanco JOSUÉ Primary Care Provider [phone] Encounter Details Date Type Department Care Team (Late st Contact Info) Description 09/05/2022 Specialty Pharmacy [facility] Amb[facility] - [address] [address] Jessica Malhotra, [facility] [address] [place] [address] Social History Tobacco Use Types Packs/Day Years Used Date Smoking Tobacco: Never Assessed Interpersonal Safety Answer Date Record ed Physically Hurt Never 06/20/2020 Verbally Threaten Not on file 06/20/2020 Sex and Gender Information Value Date Recorded Sex Assigned at Not on file Gender Identity Not on file Sexual Orientation Not on file documented as of this encounter Progress Notes * Blanca Frye - 09/05/2022 1314 EDT [facility] Specialty Pharmacy Delivery Information Hours: Sunday-Sunday 8:30am - 5:00pm *Pharmacist available collection teller 11/06 Delivery Service: [facility] Delivery Window: 1pm - 5pm Date of Delivery: SUN (09/08) Tracking # : [id number] documented in this encounter Plan of Treatment Not on file documented as of this encounter Visit Diagnoses Not on filedocumented in this encounter Care Teams Accounts Payable Accountant Relationship Specialty Start Date End Date Elizabeth Blanco FNP [place] [facility] [address] PCP - General 01/03/19 documented as of this encounter
--- OUTSIDE RECORDS SUMMARY | 2024-07-28 18:14 | XMS_ITS | Encounter Summary ---
Author Organization [facility] Address [address] [place] [address] Care Team Providers Care Reed Polisher Name Role Phone Elizabeth Blanco JOSUÉ Primary Care Provider [phone] Encounter Details Date Type Department Care Team (Late st Contact Info) Description 07/06/2023 Specialty Pharmacy [facility] Amb[facility] - [address] [address] Jenna Shaffer RPH Social History Tobacco Use Types Packs/Day Years Used Date Smoking Tobacco: Never Assessed Interpersonal Safety Answer Date Record ed Physically Hurt Never 06/20/2020 Verbally Threaten Not on file 06/20/2020 Sex and Gender Information Value Date Recorded Sex Assigned at Not on file Gender Identity Not on file Sexual Orientation Not on file documented as of this encounter Progress Notes * Whitney Vazquez RPH - 07/06/2023 1059 EDT Incoming call from patient who states she realized last night that her Humira boris didn't remind herof her last two doses. She administered a dose last night, but realized she completely missed her dose on 06/21/23. Advised patient to continue per normal schedule and report any symptoms of disease flare to her provider. Patient added cell phone reminders outside of the Humira boris to prevent this problem from happeningin the future. Whitney Vazquez, PharmD Ambulatory Pharmacist [facility] Specialty Pharmacy 07/06/2023 documented in this encounter Plan of Treatment Not on file documented as of this encounter Visit Diagnoses Not on filedocumented in this encounter Care Teams Reed Polisher Relationship Specialty Start Date End Date Elizabeth Blanco FNP [facility] [place] [address] PCP - General 01/03/19 documented as of this encounter
--- OUTSIDE RECORDS SUMMARY | 2024-07-28 18:14 | XMS_ITS | Encounter Summary ---
Author Organization [facility] Address [address] [place] [address] Care Team Providers Care Precision Devices Inspector/Tester Name Role Phone Unavailable Primary Care Provider Unavailabl e Encounter Details Date Type Department Care Team (Late st Contact Info) Description 02/27/2011 Results Only [facility] - [facility] ([facility]) [address] [place] [address] [id number] Saranya Gotti, GEARMAN Social History Tobacco Use Types Packs/Day Years Used Date Smoking Tobacco: Never Assessed Sex and Gender Information Value Date Recorded Sex Assigned at Not on file Gender Identity Not on file Sexual Orientation Not on file documented as of this encounter Plan of Treatment Not on file documented as of this encounter Procedures Procedure Name Priority Date/Time Associated Diagnosis Comments CYTOPATHOLOGY Routine 02/27/2011 0:00 EDT documented in this encounter Results * CYTOPATHOLOGY (02/27/2011 0:00 EDT) Pathology Report: CYTOPATHOLOGY REPORT ? Reports generated via electronic interface contain original data; ? however they are lacking the format of the original report. ? Caution should be taken when reading/interpreti ng unformatted reports. ? Name: ? YOEL COMBS ? Accession #: ? [id number] ? : ? 1990 (Age: 20) ??F ?Collect Date: ? 02/27/2011 ? Location: ? [facility] ? Receive Date: ? 03/01/2011 ? Provider: ?SARANYA M ANUPAM GEARMAN ? Copy to: ? Specimen/Source: ?Pap Test, Cervix/Endocervix, ThinPrep Imaging System ? with manual evaluation ? Last Menstrual Period: ? 02/05/2011 ? Hormonal/Contracep tive Status: ? Oral contraceptives ? SPECIMEN ADEQUACY ? Satisfactory for Evaluation ? - transformation zone component present ? GENERAL CATEGORIZATION ? Negative for Intraepithelial Lesion or Malignancy ? Document reviewed and electronically signed by: ? Laure Maria T, CT(ASCP) ? Report Date: ??03/07/2011 10:38 ? End of Report ? CANDACE DAVIDSON 02/27/2011 03/01/2011 Saranya Gotti NP PATHOLOGY ORDERABLES CAND[facility] DAVIDSON [address] [place] [address] documented in this encounter Visit Diagnoses Not on filedocumented in this encounter
--- OUTSIDE RECORDS SUMMARY | 2024-07-28 18:14 | XMS_ITS | Encounter Summary ---
Author Organization [facility] Address [address] [place] [address] Care Team Providers Care Grab Hooker Name Role Phone Elizabeth Blanco JOSUÉ Primary Care Provider [phone] Encounter Details Date Type Department Care Team (Late st Contact Info) Description 01/08/2020 Lab Requisition [facility] - [address] [address] Unknown, Provider, Social History Tobacco Use Types Packs/Day Years Used Date Smoking Tobacco: Never Assessed Sex and Gender Information Value Date Recorded Sex Assigned at Not on file Gender Identity Not on file Sexual Orientation Not on file documented as of this encounter Plan of Treatment Not on file documented as of this encounter Procedures Procedure Name Priority Date/Time Associated Diagnosis Comments CHLAMYDIA/N. GONORRHOEAE AMPLIFIED NUCLEIC ACID Routine 01/07/2020 16:00 EST documented in this encounter Results * CHLAMYDIA/N. GONORRHOEAE AMPLIFIED RNA (01/07/2020 16:00 EST) Neisseria gonorrhoeae Result Negative Negative 01/09/2020 13:25 EST [facility] Chlamydia trachomatis Result Negative Negative 01/09/2020 13:25 EST [facility] Swab SPECIMEN FROM UTERINE CERVIX / Unknown 01/07/2020 16:00 EST 01/08/2020 16:16 EST Provider Unknown MICROBIOLOGY - GENER AL ORDERABLES [facility] [address] [place] [address] documented in this encounter Visit Diagnoses Not on filedocumented in this encounter Care Teams Grab Hooker Relationship Specialty Start Date End Date Elizabeth Bl[place] [address] [place] [address] PCP - General 01/03/19 documented as of this encounter
--- OUTSIDE RECORDS SUMMARY | 2024-07-28 18:14 | XMS_ITS | Encounter Summary ---
Author Organization [facility] Address [address] [place] [address] Care Team Providers Care Data Programmer Name Role Phone Unknown, Provider Primary Care Provider [phone] Encounter Details Date Type Department Care Team (Late st Contact Info) Description 06/28/2015 Results Only [facility] [phone] Zaina Gross CNM [address] [place] [address] Social History Tobacco Use Types Packs/Day Years Used Date Smoking Tobacco: Never Assessed Sex and Gender Information Value Date Recorded Sex Assigned at Not on file Gender Identity Not on file Sexual Orientation Not on file documented as of this encounter Plan of Treatment Not on file documented as of this encounter Procedures Procedure Name Priority Date/Time Associated Diagnosis Comments SUSCEPTIBILITY Routine 06/28/2015 15:00 EDT documented in this encounter Results * SUSCEPTIBILITY (06/28/2015 15:00 EDT) Result STREPTOCOCCUS, BETA HEMOLYTIC GROUP B (STREPTOCOCCUS AGALACTIAE) Organism identification performed by client. 07/07/2015 7:48 EDT [facility] DOUCHE WITH RECTAL AND VAGINAL FITTINGS / Unknown 06/28/2015 15:00 EDT 07/06/2015 17:57 EDT Comment:Ashton plate(s) submit clemencia for interpretation~Patient is allergic to penicillin, do susceptibility if PCR is positive. Narrative Organism Antibiotic Method Susceptibility Streptococcus, beta hemolyti c group b (streptococcus agalactiae) organism identification performed by client. Clindamycin SUPRIYA IN-HOUSE METHOD >=1: Resistant Zaina Gross [facility] MICROBIOLOGY - GENER AL ORDERABLES [facility] [address] [place] [address] documented in this encounter Visit Diagnoses Not on filedocumented in this encounter Care Teams Data Programmer Relationship Specialty Start Date End Date Unknown, Provider, PCP - General 01/09/13 01/02/19 documented as of this encounter
--- OUTSIDE RECORDS SUMMARY | 2024-07-28 18:14 | XMS_ITS | Encounter Summary ---
Author Organization [facility] Address [address] [place] [address] Care Team Providers Care Geek Squad Autotech Name Role Phone Unknown, Provider Primary Care Provider [phone] Encounter Details Date Type Department Care Team (Late st Contact Info) Description 05/06/2018 Results Only [facility] [phone] Mis Allred, [address] [place] [id number] Social History Tobacco Use Types Packs/Day Years [...] Diagnosis Comments PAP TEST- RESULT ONLY Routine 05/06/2018 0:00 EDT documented in this encounter Results * PAP TEST- RESULT ONLY (05/06/2018 0:00 EDT) Pathology Report: CYTOPATHOLOGY REPORT Reports generated via electronic interface contain original data; however they are lacking the format of the original report. Caution should be taken when reading/interpreti ng unformatted reports. Name: ? YOEL COMBS ? Accession #: ? [id number] : ? 1990 (Age: 27) ??F ?Collect Date: ? 05/06/2018 Location: ? [facility] ? Receive Date: ? 05/07/2018 Provider: ?MIS ALLRED CLAM DREDGER Copy to: ?KASIE BORJAS CLAM DREDGER ? Specimen/Source: ?Pap Test, Cervix, ThinPrep Imaging System with manual evaluation Last Menstrual Period: ? 04/07/2018 Hormonal/Contracep tive Status: ? Oral contraceptives ? SPECIMEN ADEQUACY ? Satisfactory for Evaluation - transformation zone component present GENERAL CATEGORIZATION ? Negative for Intraepithelial Lesion or Malignancy INTERPRETATION ? Shift in teresita present suggestive of bacterial vaginosis. ? Document reviewed and electronically signed by: ? Mandi Gustafson, JACOB(ASCP) ? Report Date: ??05/14/2018 15:15 End of Report [facility] 05/06/2018 05/07/2018 Mis Allred CLAM DREDGER PATHOLOGY ORDERABLES [facility] [address] [place] [address] documented in this encounter Visit Diagnoses Not on filedocumented in this encounter Care Teams Geek Squad Autotech Relationship Specialty Start Date End Date Unknown, Provider, PCP - General 01/09/13 01/02/19 documented as of this encounter
--- OUTSIDE RECORDS SUMMARY | 2024-07-28 18:14 | XMS_ITS | Encounter Summary ---
Author Organization [facility] Address [address] [place] [address] Care Team Providers Care Cloth Checker Name Role Phone Elizabeth Blanco JOSUÉ Primary Care Provider [phone] Encounter Details Date Type Department Care Team (Late st Contact Info) Description 04/06/2022 10:[address] [facility] - Outpatient Phlebotomy Drawing [address] [place] [address] [place], [facility] Encounter for long-term (current) use of other medications (Primary Dx) Social History Tobacco Use Types Packs/Day Years [...] Procedure Name Priority Date/Time Associated Diagnosis Comments QUANTIFERON MITOGEN (PERFORMABLE) Routine 04/06/2022 10:55 EDT Encounter for long-term (current) use of other medications QUANTIFERON TB2 (PERFORMABLE) Routine 04/06/2022 10:55 EDT Encounter for long-term (current) use of other medications QUANTIFERON TB1 (PERFORMABLE) Routine 04/06/2022 10:55 EDT Encounter for long-term (current) use of other medications QUANTIFERON NIL (PERFORMABLE) Routine 04/06/2022 10:55 EDT Encounter for long-term (current) use of other medications QUANTIFERON INTERPRETATION (PERFORMABLE) Today 04/06/2022 10:55 EDT Encounter for long-term (current) use of other medications QUANTIFERON TB GOLD PLUS Routine 04/06/2022 10:55 EDT Encounter for long-term (current) use of other medications HEPATITIS B SURFACE ANTIGEN Routine 04/06/2022 10:55 EDT Encounter for long-term (current) use of other medications documented in this encounter Results * (ABNORMAL) QUANTIFERON INTERPRETATION (PERFORMABLE) (04/06/2022 10:55 EDT) [facility] Quantiferon Interpretation Positive( A) Negative 04/07/2022 14:49 EDT [facility] Comment:Interferon gamma res ponse to M. tuberculosis antigens detected, suggesting infection with M. tuberculosis. Positive results in patients at low-risk for tuberculosis should be interpreted with caution and repeat testing on a new sample should be considered. False positive results may occur in patients with prior infection with M. marinum, M. szulgai, or M. kansasii. TB1 Ag minus Nil 0.33 IU/ml 04/07/20 22 14:49 EDT [facility] TB2 Ag minus Nil 0.41 IU/mL 04/07/20 14:49 EDT [facility] Blood VENOUS BLOOD / Unknown Venipuncture / Unknown 04/06/2022 10:55 EDT 04/07/2022 14:13 EDT Narrative [facility] - 04/07/2022 14:49 EDT Results were obtained with the Qiagen QuantiFERON-TB Gold Plus CLIA. New platform in use 07/27/2021 Irma Rivera MD IMMUNOLOGY AND SEROL ANGEL ORDERABLES [facility] [address] [place] [address] * QUANTIFERON MITOGEN (PERFORMABLE) (04/06/2022 10:55 EDT) Blood VENOUS BLOOD / Unknown Venipuncture / Unknown 04/06/2022 10:55 EDT 04/06/2022 11:07 EDT Irma Rivera MD IMMUNOLOGY AND SEROL OGY ORDERABLES Performing Organization Address City/[facility]/ZIP Co de Phone Number [facility] [address] [place] [address] * QUANTIFERON TB2 (PERFORMABLE) (04/06/2022 10:55 EDT) Blood VENOUS BLOOD / Unknown Venipuncture / Unknown 04/06/2022 10:55 EDT 04/06/2022 11:07 EDT Irma Rivera MD IMMUNOLOGY AND SEROL OGY ORDERABLES Performing Organization Address City/[facility]/ZIP Co de Phone Number [facility] [address] [place] [address] * QUANTIFERON TB1 (PERFORMABLE) (04/06/2022 10:55 EDT) Blood VENOUS BLOOD / Unknown Venipuncture / Unknown 04/06/2022 10:55 EDT 04/06/2022 11:07 EDT Irma Rivera MD IMMUNOLOGY AND SEROL OGY ORDERABLES Performing Organization Address [facility] Co de Phone Number [facility] [address] [place] [address] * QUANTIFERON NIL (PERFORMABLE) (04/06/2022 10:55 EDT) Blood VENOUS BLOOD / Unknown Venipuncture / Unknown 04/06/2022 10:55 EDT 04/06/2022 11:07 EDT Irma Rivera MD IMMUNOLOGY AND SEROL OGY ORDERABLES Performing Organization Address City/[facility]/ZIP Co de Phone Number [facility] [address] [place] [address] * HEPATITIS B SURFACE ANTIGEN (04/06/2022 10:55 EDT) Hep B Surface Ag Negative Negative 04/06/20 12:50 EDT [facility] Comment: Expected values: Negative The results of this assay can be falsely lowered due to the consumption of Biotin. Blood VENOUS BLOOD / Unknown Venipuncture / Unknown 04/06/2022 10:55 EDT 04/06/2022 11:45 EDT Irma Rivera MD CHEMISTRY & BLOOD GA S ORDERABLES [facility] [address] [place] [address] documented in this encounter Visit Diagnoses Diagnosis Encounter for long-term (current) use of other medications- Primary documented in this encounter Care Teams Cloth Checker Relationship Specialty Start Date End Date Elizabeth Blanco [place] [address] [address] PCP - General 01/03/19 documented as of this encounter
--- OUTSIDE RECORDS SUMMARY | 2024-07-28 18:14 | XMS_ITS | Encounter Summary ---
Author Organization [facility] Address [address] [place] [address] Care Team Providers Care Silk Printer Name Role Phone Elizabeth Blanco JOSUÉ Primary Care Provider [phone] Encounter Details Date Type Department Care Team (Late st Contact Info) Description 05/08/2022 Specialty Pharmacy [facility] Amb[facility] - [address] [address] Jessica Malhotra, [facility] [address] [place] [address] Social History Tobacco Use Types Packs/Day Years Used Date Smoking Tobacco: Never Assessed Interpersonal Safety Answer Date Record ed Physically Hurt Never 06/20/2020 Verbally Threaten Not on file 06/20/2020 Sex and Gender Information Value Date Recorded Sex Assigned at Not on file Gender Identity Not on file Sexual Orientation Not on file documented as of this encounter Progress Notes * Johana Lema - 05/08/2022 1041 EDT Specialty Pharmacy Non-Outreach Documentation Medication: Humira cf pen 40mg Clinic: [facility] derm Reason for Encounter: documentation Notes: pt requested a call back on 05/15; has one pen on hand for 05/11 injection, due again 05/25/22 Follow up date: 05/15/22 Follow up reason: outreach * Jessica Malhotra RP - 05/08/[address] Rivera informing her that patient will need one time RX sent to [facility] due to misfire of pen. Jessica Malhotra, PharmD, [facility] Pharmacist Clinician [phone] 05/26/2022 documented in this encounter Plan of Treatment Not on file documented as of this encounter Visit Diagnoses Not on filedocumented in this encounter Care Teams Silk Printer Relationship Specialty Start Date End Date Elizabeth Blanco [place] [address] PCP - General 01/03/19 documented as of this encounter
--- OUTSIDE RECORDS SUMMARY | 2024-07-28 18:14 | XMS_ITS | Encounter Summary ---
Author Organization [facility] Address [address] [place] [address] Care Team Providers Care Spray Cementer Name Role Phone Elizabeth Blanco JOSUÉ Primary Care Provider [phone] Encounter Details Date Type Department Care Team (Late st Contact Info) Description 07/10/2022 Specialty Pharmacy [facility] Amb[facility] - [address] [address] Jessica Malhotra, [facility] [address] [place] [address] [place] [address] Social History Tobacco Use Types Packs/Day Years Used Date Smoking Tobacco: Never Assessed Interpersonal Safety Answer Date Record ed Physically Hurt Never 06/20/2020 Verbally Threaten Not on file 06/20/2020 Sex and Gender Information Value Date Recorded Sex Assigned at Not on file Gender Identity Not on file Sexual Orientation Not on file documented as of this encounter Progress Notes * Yareli Randhawa - 07/10/2022 1335 EDT [facility] Specialty Pharmacy Delivery Information Hours: Sunday-Sunday 8:30am - 5:00pm *Pharmacist available site controller 11/06 Delivery Service: [facility] Delivery Window: 1pm - 5pm Date of Delivery: 07/17/22 Tracking # : [id number] documented in this encounter Plan of Treatment Not on file documented as of this encounter Visit Diagnoses Not on filedocumented in this encounter Care Teams Spray Cementer Relationship Specialty Start Date End Date Elizabeth Blanco FNP Itz [address] [facility] [address] PCP - General 01/03/19 documented as of this encounter
--- OUTSIDE RECORDS SUMMARY | 2024-07-28 18:14 | XMS_ITS | Encounter Summary ---
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) Discharge Disposition: Home or Self Care Social History Tobacco Use Types Packs/Day Years Used Date Smoking Tobacco: Never Assessed Sex and Gender Information Value Date Recorded Sex Assigned at Not on file Gender Identity Not on file Sexual Orientation Not on file documented as of this encounter Last Filed Vital Signs Vital Sign Reading [...] Body Mass Index 25.53 01/06/2019 1208 EST documented in this encounter Discharge Diagnoses Diagnosis H33.041 Retinal detachment with retinal dialysis, right eye-H33.041[ICD-10-CM] E03.9 Hypothyroidism, unspecified-E03.9[ICD-10-CM] Z79.899 Other intermediate (current) drug therapy-Z79.899[ICD-10-CM] documented in this encounter Discharge Instructions * Discharge Instructions* Simon Mandel MD - 01/07/2019 9:30 EST Leave your eye patch and shield - if any were placed by your surgeon - in place. For pain, you may use Tylenol (acetominophen) and/or Advil (ibuprofen) or other similar non-prescription, [id number] medications in doses as noted on manufacturers' labels. For pain not relieved with this approach you may use the Dilaudid - 2-4 mg (I.e., 1-2 tablets), by mouth, as often as every fours hours - for which Dr Mandel gave you a written prescription prior to surgery. Do not exceed daily dosing limits for any of the active ingredients. Be careful to check other medications you may be taking by mouth for other conditions that may coincidentally contain one or more of theseactive ingredients. For example, if you have a chronic pain condition - say, arthritis - and are onpills regularly for that, check to see if those pills contain acetominophen as one of their activeingredients before using additional acetominophen for eye pain after today's surgery. For pain notcontrolled with this approach and/or for concerns and/or questions about use of these medications, call [facility] at [phone]. For showering, avoid directing your face into the stream of the shower head. Do not worry about a small amount of water and/or soap that gets into your eye patch and/or eye during shampooing, face washing, etc. Do not lift anything heavier than a light bag of groceries and, until notified by your surgeon, do not exercise. Follow-up tomorrow at [facility], [address] [place] [address], 2nd [facility], at 09:10AM. (That location is up the block from [place] at the corner of [facility] [address]ross [address] from [place], and next door to [facility].) At that appointment, your surgeon and the [facility] staff will review post-operative instructions that will apply moving forward after tomorrow's visit; the instructions you are holding and reading right now apply to today, tonight, and tomorrow morning prior to your appointment. Tomorrow, you will learn about eye drop use after patch removal, further activity and/or exercise restrictions, any ongoing positioning needs, etc. It is very strongly recommended that you have another adult with you at that appointment and in the examination room to help you keep track of all of this and to help you figure out what questions you might have. documented in this encounter Medications at Time of Discharge Medication Sig Dispensed Refills Start Date End Date cholecalciferol, Vitamin D3, 1,000 unit tablet Take 2,000 Units by mouth daily. levothyroxine (SYNTHROID) 200 mcg tablet Take 200 mcg by mouth daily. UNABLE TO FIND Med Name: Glisovi Fe control pill documented as of this encounter Discharge Disposition Disposition Code Departure Means Destination Home or Self Care documented in this encounter Progress Notes * Nel Lim RN - 01/06/2019 1222 EST Makeda Paiz has been instructed as follows regarding medication administration for the day of the scheduled procedure. Date of Surgery: 01/07/19 Instructions for Taking Medications Day of Surgery Medication Sig Last Dose Hold DOS Take DOS cholecalciferol, Vitamin D3, 1,000 unit tablet Take 2,000 Units by mouth daily. Yes levothyroxine (SYNTHROID) 200 mcg tablet Take 200 mcg by mouth daily. Yes UNABLE TO FIND Med Name: Glisovi Fe control pill Yes documented in this encounter H&P Notes * Simon Mandel MD - 01/07/2019 0715 EST The preoperative history and physical which was performed within 30 days of this procedure has been reviewed and the clinically appropriate elements of the physical examination have been repeated. There are no changes to the documented history and physical or if so such changes are documented below Simon Mandel MD 01/07/2019 7:15 Source Note - PEARL GLUE DRIER, SCAN 2 - 01/06/2019 8:32 EST documented in this encounter OR Notes * OR Surgeon - Simon Mandel MD - 01/07/2019 0926 EST Brief Op Note Pre-op Diagnosis(es): retinal dialysis with detachment right eye Post-op Diagnosis(es): same Procedure(s): cryoretinopexy, scleral buckle (#506 sponge), external drainage of subretinal fluid right eye Surgeon: Ministerio Middleware Engineer: Sung Dudley Anesthesia: GET IV Fluid: per Anesthesia Urine output: none Complication(s): none Specimen(s): none Misc: #506 sponge used * OR Surgeon - Simon Mandel MD - 01/07/2019 0000 EST OPERATIVE REPORT SERVICE DATE: 01/07/2019 PREOPERATIVE DIAGNOSIS: Retinal detachment with retinal dialysis, right eye. POSTOPERATIVE DIAGNOSIS: Retinal detachment with retinal dialysis, right eye. PROCEDURE: Cryoretinopexy, scleral buckle, external drainage of subretinal fluid, right eye. SURGEON: Simon Mandel MD DIRECTOR REACTOR PROJECTS: LINUS Merino ANESTHESIA: General endotracheal. IV FLUIDS: Per the anesthesia record. URINE OUTPUT: None. ESTIMATED BLOOD LOSS: None. COMPLICATIONS: None. NARRATIVE: The patient was correctly identified as well as Makeda Paiz in the preoperative holding area and brought to the operating room where general endotracheal anesthesia was induced without incident. The patient was prepped and draped in the usual sterile fashion for retinal reattachment surgery onthe right side. A wire lid speculum was placed between the lids of the right eye. A 360-degree perilimbal conjunctival peritomy was dissected using the blunt Ismael scissors and tissue forceps. Episcleral hemostasis was maintained using light application of the wet-field cautery. Tenon's capsule was dissected free from the external scleral surface in each of the 4 quadrants using the baby Metzenbaum scissors. T he insertions of each of the 4 rectus muscles were slung with #2-0 silk suture. The quadrants were inspected and found to be free of thinning or other significant pathology. 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 The dialysis margins were treated with external trans-scleral cryoretinopexy. A #506 silicone sponge was selected and soaked in triple antibiotic solution. A 5-0 Mersilene suture was used to fashion a 6 mm bed for the scleral sponge in the inferotemporal quadrant. Horizontal mattress placement was accomplished. One such suture was placed superior to the lateral rectus muscle, 2 in the inferotemporal quadrant and 1 medial to the inferior rectus muscle. The buckle was placedwithin the bed of the preplaced Mersilene sutures and beneath the insertions of the inferior and lateral rectus muscles. Binocular indirect ophthalmoscopy was repeated and confirmed the stable- appearing presence of the retinal detachment with no intraocular suture nor new breaks. A site was chosen for external drainageof subretinal fluid in the inferotemporal quadrant. A #67 blade was used to fashion a full-thickness radial sclerotomy within the bed of the preplaced Mersilene suture in the inferotemporal quadrant. The knuckle of protruding choroid at the base of the sclerotomy was lightly cauterized with a low temperature cautery. A choroidotomy was fashioned with a 25-gauge needle. A small amount of thick subretinal fluid was easily expressed and drainage ceased spontaneously. The Mersilene sutures were all tied securely. The knots and the margins of the buckle were trimmed. Repeat indirect ophthalmoscopy confirmed the reattachment of the inferotemporal retina and did not reveal new breaks nor intraocular hemorrhage. The buckle hardware and sub Tenon's space were irrigated copiously with triple antibiotic solution. The silk stay sutures were cut and removed. The globe was gently reposited within the orbit. The conjunctiva was reapproximated about the limbus and to itself in numerous locations using interrupted 7-0 Vicryl suture. Subconjunctival antibiotic and steroid injections were administered. The speculum was removed. A drop of atropine ophthalmic solution and a ribbon of TobraDex ophthalmic ointment were placed on the eye. The eye was patched and shielded. The patient was extubated and emerged from general endotracheal anesthesia without incident. The patient left the operating room in stable condition. Unless otherwise noted, there were no complications, no blood loss, no cultures obtained, no specimens removed, and no drains retained. Simon Mandel MD 07 31 PM / Simon Mandel MD jn Confirmation: [id number] Dictation ID: [id number] cc:Simon Briscoe* OD Elizabeth Blanco BEARING INSPECTOR documented in this encounter Miscellaneous Notes * Anesthesia Post-Eval - Haley Simon CRNA - 01/07/2019 1010 EST Anesthesia Post op Note Makeda Paiz [id number] Anesthesia received: General; Vital Signs: Temp: 36.4 ??C (97.5 ??F), Heart Rate: 70 BPM, Pulse: 80, BP: 131/87, Resp: 18, SpO2: 98 % Vital signs Stable: Yes Consciousness: Awake, Alert Patient's participation in evaluation:Able to participate Temperature Status: Normothermic Respiratory Status: Airway patent Supplemental O2: Room air Oxygen Saturation: Appropriate for condition Cardiovascular Status: Appropriate for condition Post-op Hydration: Adequate Nausea / Vomiting: None Pain Control: Adequate Current Pain Score: Numeric Pain Level (Scale 1-10): 0 Post-op Assessment: Tolerated procedure well, No evidence of recall, Patient satisfied with anesthesia Disposition: Home Complications: No apparent anesthetic complications Haley Simon CRNA 01/07/2019 10:10 documented in this encounter Plan of Treatment Not on file documented as of this encounter Procedures Procedure Name Priority Date/Time Associated Diagnosis Comments IMPLANT RECORD - SCANNED 01/14/2019 11:03 EST ECG REPORT - SCANNED 01/10/2019 9:12 EST IMPLANT RECORD - SCANNED 01/10/2019 9:12 EST TEST, URINE STAT 01/07/2019 6:15 EST documented in this encounter Results * IMPLANT RECORD - SCANNED (01/14/2019 11:03 EST) 01/14/2019 11:0 3 EST Scan 2 Color Maker Dyer PROCEDURE/MINOR JUNE GICAL ORDERABLES * ECG REPORT - SCANNED (01/10/2019 9:12 EST) 01/10/2019 9:12 EST Scan 2 Color Maker Dyer PROCEDURE/MINOR JUNE GICAL ORDERABLES * IMPLANT RECORD - SCANNED (01/10/2019 9:12 EST) 01/10/2019 9:12 EST Scan 2 Color Maker Dyer PROCEDURE/MINOR JUNE GICAL ORDERABLES * TEST, URINE (01/07/2019 6:15 EST) Result- Test, Ur Neg Neg 01/07/2019 7:22 EST [facility] Comment: NOTE: False negative results may occur in women who are beyond 5-8 weeks gestation. Diagnosis of should be based on a correlation of test results with typical clinical signs and symptoms. Performed at [facility], [place], [place] Urine specimen (specimen) URINE / Unknown 01/07/2019 6:15 EST 01/07/2019 7:15 EST Jaja Chambers MD URINALYSIS ORDER EDUARDO [facility] [address] [place] [address] documented in this encounter Visit Diagnoses Diagnosis Retinal detachment of right eye with retinal dialysis- Primary Recent retinal detachment, partial, with retinal dialysis Retinal detachment of right eye with retinal dialysis Recent retinal detachment, partial, with retinal dialysis documented in this encounter Administered Medications Inactive Administered Medications - up to 3 most recent administrations Medication Order MAR Action Action Date Dose Rate Site acetaminophen (TYLENOL) tablet 1,000 mg 1,000 mg, oral, PRN, 1 dose, Starting on Sun01/07/19 at 0943, Until Sun01/07/19 at 1030, Fever, Routine, Recovery (only) Given 01/07/2019 10:30 EST 1,000 mg atropine 0.1 mg/mL syringe 0.5 mg 0.5 mg, intravenous, PRN, Starting on Sun01/07/19 at 0943, Until Sun01/07/19 at 1320, Symptomatic HR < 50, Routine, Recovery (only) diphenhydrAMINE (BENADRYL) injection 12.5 mg 12.5 mg, intravenous, PRN, 1 dose, Starting on Sun01/07/19 at 0943, Until Sun01/07/19 at 1320, nausea, Routine, Recovery (only) fentaNYL citrate (PF) injection 25-50 mcg 25-50 mcg, intravenous, EVERY 5 MIN PRN, Starting on Sun01/07/19 at 0943, Until Sun01/07/19 at 1320, Pain, Routine, Recovery (only) Given 01/07/2019 10:30 EST 50 mcg flurbiprofen (OCUFEN) 0.03 % ophthalmic solution 1 Drop 1 Drop, right eye, PRE-OP Q 30 MINUTES, 4 doses, Starting on Sun01/07/19 at 0623, Until Sun01/07/19 at 1320, vitreoretinal surgery, Routine, Pre-op Rx Needs Approval Given 01/07/2019 7:08 EST 1 Drop Given 01/07/2019 6:34 EST 1 Drop HYDROmorphone (DILAUDID) tablet 2-4 mg 2-4 mg, oral, EVERY 30 MINUTES PRN, 2 doses, Starting on Sun01/07/19 at 0943, Until Sun01/07/19 at 1320, Pain, Routine, Recovery (only) lactated ringers (LR) infusion 30 mL/hr, intravenous, CONTINUOUS, Starting on Sun01/07/19 at 0645, Until Sun01/07/19 at 1320, Routine, Pre-op Rx Needs Approval New Bag 01/07/2019 7:06 EST 30 mL/hr 30 mL/hr lactated ringers (LR) infusion at 75 mL/hr, intravenous, CONTINUOUS, Starting on Sun01/07/19 at 1000, Until Sun01/07/19 at 1320, Routine, Recovery (only) naloxone (NARCAN) injection 0.2 mg 0.2 mg, intravenous, PRN, Starting on Sun01/07/19 at 0943, Until Sun01/07/19 at 1320, Opioid Reversal, Routine, Recovery (only) ofloxacin (OCUFLOX) 0.3 % ophthalmic solution 1 Drop 1 Drop, right eye, PRE-OP Q 5 MINUTES, 3 doses, Starting on Sun01/07/19 at 0623, Until Sun01/07/19 at 0646, vitreoretinal surgery, Routine, Pre-op Rx Needs Approval Given 01/07/2019 6:46 EST 1 Drop Given 01/07/2019 6:41 EST 1 Drop Given 01/07/2019 6:36 EST 1 Drop ondansetron (PF) (ZOFRAN) injection 4 mg 4 mg, intravenous, PRN, 1 dose, Starting on Sun01/07/19 at 0943, Until Sun01/07/19 at 1030, Nausea, Vomiting, Routine, Recovery (only) Given 01/07/2019 10:30 EST 4 m g phenylephrine (MYDFRIN) 2.5 % ophthalmic solution 1 Drop 1 Drop, right eye, PRE-OP Q 5 MINUTES, 3 doses, Starting on Sun01/07/19 at 0623, Until Sun01/07/19 at 0647, vitreoretinal surgery, Routine, Pre-op Rx Needs Approval Given 01/07/2019 6:47 EST 1 Drop Given 01/07/2019 6:42 EST 1 Drop Given 01/07/2019 6:37 EST 1 Drop tropicamide (MYDRIACYL) 1 % ophthalmic solution 1 Drop 1 Drop, right eye, PRE-OP Q 5 MINUTES, 3 doses, Starting on Sun01/07/19 at 0623, Until Sun01/07/19 at 0648, vitreoretinal surgery, Routine, Pre-op Rx Needs Approval Given 01/07/2019 6:48 EST 1 Drop Given 01/07/2019 6:43 EST 1 Drop Given 01/07/2019 6:38 EST 1 Drop documented in this encounter Historical Medications * This list may reflect changes made after this encounter. Medication Sig Dispensed Refills Start Date End Date cholecalciferol, Vitamin D3, 1,000 unit tablet Take 2,000 Units by mouth daily. UNABLE TO FIND Med Name: Sarah Randolph control pill levothyroxine (SYNTHROID) 200 mcg tablet Take 200 mcg by mouth daily. added in this encounter Active and Recently Administered Medications Times are shown in EST. Continuous Medication Order 01/05/2019 01/06/2019 01/07/2019 lactated ringers (LR) infusion 30 mL/hr, intravenous, CONTINUOUS, Starting on Sun01/07/19 at 0645, Until Sun01/07/19 at 1320, Routine, Pre-op Rx Needs Approval 07 (New Bag - Prov ider: Tita Morales RN) lactated ringers (LR) infusion at 75 mL/hr, intravenous, CONTINUOUS, Starting on Sun01/07/19 at 1000, Until Sun01/07/19 at 1320, Routine, Recovery (only) 1000 (Canceled Entry - Provider: Batch Job User Admin - Comment: Automatically canceled at discontinue of medication order) PRN Medication Order 01/05/2019 01/06/2019 01/07/2019 acetaminophen (TYLENOL) tablet 1,000 mg (COMPLETED)(Linked Group 1) 1,000 mg, oral, PRN, 1 dose, Starting on Sun01/07/19 at 0943, Until Sun01/07/19 at 1030, Fever, Routine, Recovery (only) 1030 (Given - Provid er: Elmira Motley RN) atropine 0.1 mg/mL syringe 0.5 mg 0.5 mg, intravenous, PRN, Starting on Sun01/07/19 at 0943, Until Sun01/07/19 at 1320, Symptomatic HR < 50, Routine, Recovery (only) diphenhydrAMINE (BENADRYL) injection 12.5 mg 12.5 mg, intravenous, PRN, 1 dose, Starting on Sun01/07/19 at 0943, Until Sun01/07/19 at 1320, nausea, Routine, Recovery (only) fentaNYL citrate (PF) injection 25-50 mcg 25-50 mcg, intravenous, EVERY 5 MIN PRN, Starting on Sun01/07/19 at 0943, Until Sun01/07/19 at 1320, Pain, Routine, Recovery (only) 1030 (Given - Provid er: Elmira Motley RN) flurbiprofen (OCUFEN) 0.03 % ophthalmic solution 1 Drop 1 Drop, right eye, PRE-OP Q 30 MINUTES, 4 doses, Starting on Sun01/07/19 at 0623, Until Sun01/07/19 at 1320, vitreoretinal surgery, Routine, Pre-op Rx Needs Approval 0634 (Given - Provid er: Tita Morales RN)0708 (Given - Provider: Tita Morales RN) HYDROmorphone (DILAUDID) tablet 2-4 mg 2-4 mg, oral, EVERY 30 MINUTES PRN, 2 doses, Starting on Sun01/07/19 at 0943, Until Sun01/07/19 at 1320, Pain, Routine, Recovery (only) naloxone (NARCAN) injection 0.2 mg 0.2 mg, intravenous, PRN, Starting on Sun01/07/19 at 0943, Until Sun01/07/19 at 1320, Opioid Reversal, Routine, Recovery (only) ofloxacin (OCUFLOX) 0.3 % ophthalmic solution 1 Drop (COMPLETED) 1 Drop, right eye, PRE-OP Q 5 MINUTES, 3 doses, Starting on Sun01/07/19 at 0623, Until Sun01/07/19 at 0646, vitreoretinal surgery, Routine, Pre-op Rx Needs Approval 0636 (Given - Provid er: Tita Morales RN)0641 (Given - Provider: Tita Morales RN)0646 (Given - Provider: Tita Morales RN) ondansetron (PF) (ZOFRAN) injection 4 mg (COMPLETED) 4 mg, intravenous, PRN, 1 dose, Starting on Sun01/07/19 at 0943, Until Sun01/07/19 at 1030, Nausea, Vomiting, Routine, Recovery (only) 1030 (Given - Provid er: Elmira Motley RN) phenylephrine (MYDFRIN) 2.5 % ophthalmic solution 1 Drop (COMPLETED) 1 Drop, right eye, PRE-OP Q 5 MINUTES, 3 doses, Starting on Sun01/07/19 at 0623, Until Sun01/07/19 at 0647, vitreoretinal surgery, Routine, Pre-op Rx Needs Approval 0637 (Given - Provid er: Tita Morales RN)0642 (Given - Provider: Tita Morales RN)0647 (Given - Provider: Tita Morales RN) tropicamide (MYDRIACYL) 1 % ophthalmic solution 1 Drop (COMPLETED) 1 Drop, right eye, PRE-OP Q 5 MINUTES, 3 doses, Starting on Sun01/07/19 at 0623, Until Sun01/07/19 at 0648, vitreoretinal surgery, Routine, Pre-op Rx Needs Approval 0638 (Given - Provid er: Tita Morales RN)0643 (Given - Provider: Tita Morales RN)0648 (Given - Provider: Tita Morales RN) Linked Groups Order Group 1: acetaminophen (TYLENOL) solution unit dose cup 995 mg (COMPLETED) 995 mg (rounded from 1,000 mg), oral, PRN, 1 dose, Starting on Sun01/07/19 at 0943, Until Sun01/07/19 at 1030, Fever, Routine, Recovery (only) Or acetaminophen (TYLENOL) tablet 1,000 mg (COMPLETED)Jump to med 1,000 mg, oral, PRN, 1 dose, Starting on Sun01/07/19 at 0943, Until Sun01/07/19 at 1030, Fever, Routine, Recovery (only) documented in this encounter Orders Medications Ordered That Kamari ht Not Have Been Administered Count Last Ordered Date First Ordered Date acetaminophen (TYLENOL) solu tion unit dose cup 995 mg 1 01/07/2019 atropine 0.1 mg/mL syringe 0.5 mg 1 019 diphenhydrAMINE (BENADRYL) i njection 12.5 mg 1 01/07/2019 HYDROmorphone (DILAUDID) tablet 2-4 mg 1 lactated ringers (LR) infusion 1 01/07/2019 naloxone (NARCAN) injection 0.2 mg 1 2018 Admission Count Last Ordered Date First Orde red Date STATUS: OUTPATIENT SURGICAL OP BED/SERVICES 1 01/07/2019 Transfer Count Last Ordered Date First Orde red Date NOTIFY PPS PACU PATIENT DISCHARGE 1 019 NOTIFY PPS PATIENT ARRIVAL IN PACU 1 2018 Discharge Count Last Ordered Date First Orde red Date DISCHARGE PATIENT 1 01/07/2019 documented in this encounter Care Teams Broomcorn Press Feeder Relationship Specialty Start Date End Date Elizabeth Bl[place] [address] PCP - General 01/03/19 documented as of this encounter
--- OUTSIDE RECORDS SUMMARY | 2024-07-28 18:14 | XMS_ITS | Encounter Summary ---
Author Organization [facility] Address [address] [place] [address] Care Team Providers Care Olericulturist Name Role Phone Elizabeth Blanco Primary Care Provider [phone] Encounter Details Date Type Department Care Team (Late st Contact Info) Description 06/12/2023 Specialty Pharmacy [facility] - [facility] [address] [place] [address] Jessica Malhotra, [facility] [address] [address] [place] [address] Social History Tobacco Use Types Packs/Day Years [...] on filedocumented in this encounter Care Teams Olericulturist Relationship Specialty Start Date End Date Elizabeth Blanco [place] [address] PCP - General 01/03/19 documented as of this encounter
--- OUTSIDE RECORDS SUMMARY | 2024-07-28 18:14 | XMS_ITS | Encounter Summary ---
Author Organization [facility] Address [address] [place] [address] Care Team Providers Care Band Edger Name Role Phone Elizabeth Blanco Primary Care Provider [phone] Encounter Details Date Type Department Care Team (Late st Contact Info) Description 01/22/2023 Specialty Pharmacy [facility] - [facility] [address] [place] [address] Jessica Malhotra, [facility] [address] [place] [address] Social History Tobacco Use Types Packs/Day Years [...] on filedocumented in this encounter Care Teams Band Edger Relationship Specialty Start Date End Date Elizabeth Blanco [place] [address] PCP - General 01/03/19 documented as of this encounter
--- OUTSIDE RECORDS SUMMARY | 2024-07-28 18:14 | XMS_ITS | Encounter Summary ---
Author Organization [facility] Address [address] [place] [address] Care Team Providers Care Hooker Machine Tender Name Role Phone Elizabeth Blanco Primary Care Provider [phone] Encounter Details Date Type Department Care Team (Late st Contact Info) Description 11/27/2022 Specialty Pharmacy [facility] - [facility] [address] [place] [address] Jessica Malhotra, [facility] [address] [place] [address] Social History Tobacco Use Types Packs/Day Years [...] on filedocumented in this encounter Care Teams Hooker Machine Tender Relationship Specialty Start Date End Date Elizabeth Blanco [place] [address] PCP - General 01/03/19 documented as of this encounter
--- OUTSIDE RECORDS SUMMARY | 2024-07-28 18:14 | XMS_ITS | Encounter Summary ---
Author Organization [facility] Address [address] [place] [address] Care Team Providers Care Associate Sales Representative Name Role Phone Unavailable Primary Care Provider Unavailabl e Encounter Details Date Type Department Care Team (Late st Contact Info) Description 03/31/2008 Results Only [facility] [address] [place] [address] [address] [place] [id number] Social History Tobacco Use Types Packs/Day Years Used Date Smoking Tobacco: Never Assessed Sex and Gender Information Value Date Recorded Sex Assigned at Not on file Gender Identity Not on file Sexual Orientation Not on file documented as of this encounter Plan of Treatment Not on file documented as of this encounter Procedures Procedure Name Priority Date/Time Associated Diagnosis Comments CYTOPATHOLOGY Routine 03/31/2008 0:00 EDT documented in this encounter Results * CYTOPATHOLOGY (03/31/2008 0:00 EDT) Pathology Report: CYTOPATHOLOGY REPORT Reports generated via electronic interface contain original data; however they are lacking the format of the original report. Caution should be taken when reading/interpreti ng unformatted reports. Name: ? YOEL COMBS ? Accession #: ? [id number] : ? 1990 (Age: 17) ??F ?Collect Date: ? 03/31/2008 Location: ? [facility] ? Receive Date: ? 03/31/2008 Provider: ?MIS ALLRED SALVAGE GRINDER Copy to: ? Specimen/Source: ?ThinPrep Pap Test, Cervix/Endocervix, processed on Radionomy ThinPrep Imaging System, with manual evaluation Last Menstrual Period: ? 02/11/08 Menstrual/Pregnanc y Status: ? Other: ? Additional clinical information: First pap ? SPECIMEN ADEQUACY ? Satisfactory for Evaluation - transformation zone component present GENERAL CATEGORIZATION ? Negative for Intraepithelial Lesion or Malignancy ? Document reviewed and electronically signed by: ? Angelica Gambino SCT(ASCP) ? Report Date: ??04/02/2008 14:37 End of Report CANDACE DAVIDSON 03/31/2008 03/31/2008 Mis Allred SALVAGE GRINDER PATHOLOGY ORDERABLES [facility] [address] [place] [address] documented in this encounter Visit Diagnoses Not on filedocumented in this encounter
--- OUTSIDE RECORDS SUMMARY | 2024-07-28 18:14 | XMS_ITS | Encounter Summary ---
Author Organization [facility] Address [address] [place] [address] Care Team Providers Care Metal Casket Assembler Name Role Phone Elizabeth Blanco Primary Care Provider [phone] Encounter Details Date Type Department Care Team (Late st Contact Info) Description 12/26/2022 Specialty Pharmacy [facility] - [facility] [address] [place] [address] Jessica Malhotra, [facility] [address] [place] [address] Social History Tobacco Use Types Packs/Day Years [...] on filedocumented in this encounter Care Teams Metal Casket Assembler Relationship Specialty Start Date End Date Elizabeth Bl[place] [address] PCP - General 01/03/19 documented as of this encounter
--- OUTSIDE RECORDS SUMMARY | 2024-07-28 18:14 | XMS_ITS | Encounter Summary ---
Author Organization [facility] Address [address] [place] [address] Care Team Providers Care Junior Technical Writer Name Role Phone Elizabeth Blanco Primary Care Provider Encounter Details Date Type Department Care Team (Late st Contact Info) Description 03/19/2023 Specialty Pharmacy [facility] [address] [place], [place] [id number] Jenna Shaffer RPH Social History Tobacco Use [...] on filedocumented in this encounter Care Teams Junior Technical Writer Relationship Specialty Start Date End Date Elizabeth Blanco FNP [facility] [place] [address] PCP - General 01/03/19 documented as of this encounter
--- OUTSIDE RECORDS SUMMARY | 2024-07-28 18:14 | XMS_ITS | Encounter Summary ---
Author Organization [facility] Address [address] [place] [address] Care Team Providers Care Janitor And Cleaner Name Role Phone Elizabeth Blanco JOSUÉ Primary Care Provider [phone] Encounter Details Date Type Department Care Team (Late st Contact Info) Description 08/24/2023 Lab Requisition [facility] & Laboratory Medicine - [address] [address] Giancarlo Sahni MD [address] [place] [address] Unspecified dyspareunia; Pelvic and perineal pain; Secondary dysmenorrhea Social History Tobacco Use Types Packs/Day Years [...] Date/Time Associated Diagnosis Comments SURGICAL PATHOLOGY Today 08/24/2023 10 :45 EDT Unspecified dyspareunia Pelvic and perineal pain Secondary dysmenorrhea documented in this encounter Results * SURGICAL PATHOLOGY (08/24/2023 10:45 EDT) Note to Patient The following pathology results have been interpreted by your pathologist and may be available to you before your health provider has had the opportunity to review them. Please allow time for your provider to receive these results and explore management options, if applicable. 08/29/2023 16:55 [facility] Final Diagnosis A. UTERUS, AND CERVIX, HYSTERECTOMY: - Endometrium: - Inactive. - Myometrium: - Adenomyosis. - Cervix: - Acute and chronic cervicitis. - Serosa: - No specific pathologic features. 08/29/2023 16:55 [facility] Attestation There was significant resident/fellow involvement in the diagnostic evaluation of this case. By the signature below, the attending physician certifies that they have personally conducted a gross and/or microscopic examination of the described specimens and rendered or confirmed the above diagnosis. 08/29/2023 16:55 [facility] at 1654 Clinical History Dysmenorrhea, chronic pelvic pain, dyspareunia; clinical diagnosis code: N94.5, R10.2, N94.10 08/29/2023 16:55 [facility] Gross Description A. Received in formalin labelled with proper patient identification (initials S, M) and cervix +uterus is the uterus and cervix (80 g, 8.5 cm cervix to fundus x 4.5 cm cornu to cornu x 4.0 cm anterior to posterior) without attached adnexa. The uterine serosa is whaley-purple and smooth. The endometrium is whaley-white and smooth and has a thickness of 0.1 cm. The myometrium is whaley-irby and mildly trabecular and averages 1.8 cm in thickness. No myometrial masses or lesions are identified. The ectocervix is whaley and smooth and the endocervix is whaley-white and furrowed. Spiral Winding Machine Helper sections are submitted as follows: BLOCK STEEN A1- anterior cervix A2- posterior cervix A3- anterior endomyometrium, full-thickness (endometrium transected from myometrium upon opening) A4- posterior endomyometrium, full-thickness ARNALDO ALFONSO([facility]) 08/27/2023 13:40 08/29/2023 16:55 [facility] Resident/Julio w: Chula Vizcaino MD 08/29/2023 16:[address] [facility] Performing Lab [facility] 08/29/2023 16:[address] [facility] Scanned Images 08/29/2023 16:[address] [facility] Tissue UTERINE STRUCTURE / Unknown 08/24/2023 10:45 EDT 08/24/2023 17:56 EDT Giancarlo Sahni MD PATHOLOGY ORDERABLES [facility] [address] [place] [address] documented in this encounter Visit Diagnoses Diagnosis Unspecified dyspareunia Pelvic and perineal pain Unspecified symptom associated with female genital organs Secondary dysmenorrhea Dysmenorrhea documented in this encounter Care Teams Janitor And Cleaner Relationship Specialty Start Date End Date Elizabeth Blanco [place] [address] [place] [address] PCP - General 01/03/19 documented as of this encounter
--- OUTSIDE RECORDS SUMMARY | 2024-07-28 18:14 | XMS_ITS | Encounter Summary ---
Author Organization [facility] Address [address] [place] [address] Care Team Providers Care Senior Insight Manager International Name Role Phone Elizabeth Blanco Primary Care Provider [phone] Encounter Details Date Type Department Care Team (Late st Contact Info) Description 09/17/2023 Specialty Pharmacy [facility] - [facility] [address] [place], [place] [address] Bandar Jeter RPH Social History Tobacco Use Types Packs/Day [...] on filedocumented in this encounter Care Teams Senior Insight Manager International Relationship Specialty Start Date End Date Elizabeth Bl[place] [address] PCP - General 01/03/19 documented as of this encounter
--- OUTSIDE RECORDS SUMMARY | 2024-07-28 18:14 | XMS_ITS | Encounter Summary ---
Author Organization [facility] Address [address] [place] [address] Care Team Providers Care Glue Clamp Operator Name Role Phone Elizabeth Blanco Primary Care Provider [phone] Encounter Details Date Type Department Care Team (Late st Contact Info) Description 04/13/2023 Specialty Pharmacy [facility] Amb[facility] - [facility] [address] [place], [place] [address] Jenna Shaffer RPH Social History Tobacco Use [...] on filedocumented in this encounter Care Teams Glue Clamp Operator Relationship Specialty Start Date End Date Elizabeth Blanco FNP [facility] [place] [address] PCP - General 01/03/19 documented as of this encounter
--- OUTSIDE RECORDS SUMMARY | 2024-07-28 18:14 | XMS_ITS | Encounter Summary ---
Author Organization [facility] Address [address] [place] [address] Care Team Providers Care Quality Control Director Name Role Phone Unavailable Primary Care Provider Unavailabl e Encounter Details Date Type Department Care Team (Late st Contact Info) Description 01/07/2013 Results Only [facility] [address] [place], [place] [address] Macario Ireland, DO [address] [place], [place] [id number] Social History Tobacco Use Types Packs/Day Years Used Date Smoking Tobacco: Never Assessed Sex and Gender Information Value Date Recorded Sex Assigned at Not on file Gender Identity Not on file Sexual Orientation Not on file documented as of this encounter Plan of Treatment Not on file documented as of this encounter Procedures Procedure Name Priority Date/Time Associated Diagnosis Comments SURGICAL PATHOLOGY Routine 01/07/2013 15 :59 EST documented in this encounter Results * SURGICAL PATHOLOGY (01/07/2013 15:59 EST) Pathology Report: SURGICAL PATHOLOGY REPORT Reports generated via electronic interface contain original data; however they are lacking the format of the original report. Caution should be taken when reading/interpreti ng unformatted reports. Name: ? YOEL COMBS ? Accession #: ? [id number] ? : ? 1990 (Age: 22) ??F ? Collect Date: ? 01/07/2013 ? Location: ? [facility] ? Receive Date: ? 01/07/2013 ? Provider: MACARIO IRELAND DO Copy to: KAELA CANO OVER THE HORIZON TARGETING SUPERVISOR ? Final Pathologic Diagnosis: ? Gallbladder, cholecystectomy: 1. ?Cholesterolosis. 2. ? No definitive features of active or chronic cholecystitis. Document reviewed and electronically signed by: Joan Cm MD Report ??Date: 01/09/2013 15:25 By the signature above, the attending physician certifies that he/she has personally conducted a gross and/or microscopic examination of the described specimens and rendered or confirmed the above diagnosis. Specimen(s) Received: ? Gallbladder Clinical History: ? Biliary dyskinesia Gross Description: ? Received in formalin labelled GayleerYoel and gallbladder is a 7.0 cm in length by 0.3 cm in diameter gallbladder received closed which includes a segment of cystic duct which measures roughly 1.0 cm in length by 0.3 cm in diameter (proximal cystic duct margin is blue inked). ??The gallbladder contains dark green bile, however, there are no choleliths. ??The mucosa of the upper third of the gallbladder is focally flat in four areas in close proximity to one another with the areas ranging from 0.4 cm to 0.3 cm in diameter. ??The remaining gallbladder mucosa is velvety, whaley-dark green bile stained and focally studded with slightly raised light yellow flecks. ??The gallbladder wall measures 0.1 cm in thickness. ??The serosa is smooth, whaley-irby with a small amount of light yellow adipose tissue. ??The proximal cystic duct margin (blue inked and en face) along with a section of upper third gallbladder, including flat mucosa along with one additional section of upper gallbladder and one section of lower gallbladder are submitted in one cassette as (1). ??(Laurie Edwards)/[facility] End of Report CANDACE DAVIDSON 01/07/2013 15:5 9 EST 01/07/2013 15:59 EST Macario Ireland DO PATHOLOGY ORDER EDUARDO CANDACE DAVIDSON [address] [place] [address] documented in this encounter Visit Diagnoses Not on filedocumented in this encounter
--- OUTSIDE RECORDS SUMMARY | 2024-07-28 18:14 | XMS_ITS | Encounter Summary ---
Author Organization [facility] Address [address] [place] [address] Care Team Providers Care Program Trainer Name Role Phone Elizabeth Blanco JOSUÉ Primary Care Provider [phone] Encounter Details Date Type Department Care Team (Late st Contact Info) Description 06/15/2020 Lab Requisition [facility] Pathology & Laboratory Medicine - [address] [address] Outr Resulting Lab, Provider Social History Tobacco Use Types Packs/Day Years Used Date Smoking Tobacco: Never Assessed Sex and Gender Information Value Date Recorded Sex Assigned at Not on file Gender Identity Not on file Sexual Orientation Not on file documented as of this encounter Plan of Treatment Not on file documented as of this encounter Procedures Procedure Name Priority Date/Time Associated Diagnosis Comments PTH INTACT Routine 06/14/2020 16:05 EDT documented in this encounter Results * PTH INTACT (06/14/2020 16:05 EDT) Intact PTH 43 19 - 88 pg/mL 06/16/2020 11:02 EDT [facility] Blood VENOUS BLOOD / Unknown 06/14/2020 16:05 EDT 06/15/2020 16:43 EDT Provider Outr Resulting Lab CHEMISTRY & BLOOD GAS ORDERABLES [facility] [address] [place] [address] documented in this encounter Visit Diagnoses Not on filedocumented in this encounter Care Teams Program Trainer Relationship Specialty Start Date End Date Elizabeth Blanco F[place] [address] PCP - General 01/03/19 documented as of this encounter
--- OUTSIDE RECORDS SUMMARY | 2024-07-28 18:14 | XMS_ITS | Encounter Summary ---
Author Organization [facility] Address [address] [place] [address] Care Team Providers Care Children'S Choir Director Name Role Phone Elizabeth Blanco JOSUÉ Primary Care Provider [phone] Encounter Details Date Type Department Care Team (Late st Contact Info) Description 08/08/2022 Specialty Pharmacy [facility] Amb[facility]acy - [address] [address] Jessica Malhotra, [facility] [address] [place] [address] Social History Tobacco Use Types Packs/Day Years Used Date Smoking Tobacco: Never Assessed Interpersonal Safety Answer Date Record ed Physically Hurt Never 06/20/2020 Verbally Threaten Not on file 06/20/2020 Sex and Gender Information Value Date Recorded Sex Assigned at Not on file Gender Identity Not on file Sexual Orientation Not on file documented as of this encounter Progress Notes * Giancarlo Tadeo - 08/08/2022 1050 EDT [facility] Specialty Pharmacy Delivery Information Hours: Sunday-Sunday 8:30am - 5:00pm *Pharmacist available coroner technician 11/06 Delivery Service: [facility] Delivery Window: 1pm - 5pm Date of Delivery: 08/15/2022 Tracking # : [id number] documented in this encounter Plan of Treatment Not on file documented as of this encounter Visit Diagnoses Not on filedocumented in this encounter Care Teams Children'S Choir Director Relationship Specialty Start Date End Date Elizabeth Blanco FNP [address] [place] [address] PCP - General 01/03/19 documented as of this encounter
--- OUTSIDE RECORDS SUMMARY | 2024-07-28 18:14 | XMS_ITS | Encounter Summary ---
Author Organization [facility] Address [address] [place] [address] Care Team Providers Care Patternmaker Name Role Phone Elizabeth Blanco JOSUÉ Primary Care Provider [phone] Encounter Details Date Type Department Care Team (Late st Contact Info) Description 10/30/2022 Specialty Pharmacy [facility] - [address] [address] Jessica Malhotra, [facility] [address] [place] [address] Social History Tobacco Use Types Packs/Day Years Used Date Smoking Tobacco: Never Assessed Interpersonal Safety Answer Date Record ed Physically Hurt Never 06/20/2020 Verbally Threaten Not on file 06/20/2020 Sex and Gender Information Value Date Recorded Sex Assigned at Not on file Gender Identity Not on file Sexual Orientation Not on file documented as of this encounter Progress Notes * Yareli Randhawa - 10/30/2022 0954 EST [facility] Specialty Pharmacy Delivery Information Hours: Sunday-Sunday 8:30am - 5:00pm *Pharmacist available electronics engineering technician 11/06 Delivery Service: [facility] Delivery Window: 1pm - 5pm Date of Delivery: 11/06/22 Tracking # : [id number] documented in this encounter Plan of Treatment Not on file documented as of this encounter Visit Diagnoses Not on filedocumented in this encounter Care Teams Patternmaker Relationship Specialty Start Date End Date Elizabeth Blanco FNP [address] [place] [address] PCP - General 01/03/19 documented as of this encounter
--- OUTSIDE RECORDS SUMMARY | 2024-07-28 18:14 | XMS_ITS | Encounter Summary ---
Author Organization [facility] Address [address] [place] [address] Care Team Providers Care Pecan Cleaner Name Role Phone Elizabeth Blanco Primary Care Provider [phone] Encounter Details Date Type Department Care Team (Late st Contact Info) Description 05/15/2023 Specialty Pharmacy [facility] - [facility] [address] [place] [address] Jessica Malhotra, [facility] [address] [place] [address] [place] [address] Social History Tobacco Use Types Packs/Day Years [...] on filedocumented in this encounter Care Teams Pecan Cleaner Relationship Specialty Start Date End Date Elizabeth Blanco [place] [address] PCP - General 01/03/19 documented as of this encounter
--- OUTSIDE RECORDS SUMMARY | 2024-07-28 18:15 | XMS_ITS | Encounter Summary ---
[place] [address] Care Team Providers Care Distribution Specialist Name Role Phone Elizabeth Blanco APRN Primary Care Provider [phone] Encounter Details Date Type Department Care Team (Late st Contact Info) Description 09/10/2020 [place] [address] Edith Taylor Social History Tobacco Use Types Packs/Day Years Used Date Smoking Tobacco: Never Smokeless Tobacco: Never Alcohol Use Standard Drinks/Week Comments Yes 0 (1 standard drink = 0.6 oz pure alcohol) rarely - less than once a month - wine Sex and Gender Information Value Date Recorded Sex Assigned at Not on file Gender Identity Not on file Sexual Orientation Not on file documented as of this encounter Miscellaneous Notes * Telephone Encounter - Edith Taylor - 09/10/2020 12:58 PM EDT BREATH TEST CLINICAL SAFETY CHECKLIST 09/10/2020 Edith Paiz [address] [facility] [address] [id number] : 1990 REFERRING PROVIDER: GONZÁLEZ SHORT [[id number]] PRIMARY CARE PROVIDER: Elizabeth Blanco APRN PRIMARY SYMPTOM (DIARRHEA, ABDOMINAL PAIN, ETC): abdominal pain SUGAR(S) REQUESTED (lactose, lactulose, glucose, fructose): lactulose If a provider requests lactose or fructose breath testing: Do we have documentation of previous lactulose or glucose breath testing? IF YES: ok to schedule IF NO: The provider must submit an additional request for a lactulose or glucose breath test. DO NOT SCHEDULE either breath test, until this request is submitted. Separate breath test appointments are needed to test multiple sugars. If a patient needs more than one breath test, the breath tests must be scheduled on separate days in any order. QUESTIONS FOR THE PATIENT DIABETIC? no Diabetic patients should speak with their PCP or managing provider at least two weeks before the test to ask what medication or insulin adjustments are needed for testing. Patients fast 12 hours before testing and the test lasts 2-3 hours. DID THE PATIENT HAVE A COLONOSCOPY OR ANTIBIOTICS IN THE LAST 4 WEEKS? no If yes, the breath test must be scheduled at least four weeks after colonoscopy or last antibiotic dose. DOES THE PATIENT USE A WHEELCHAIR? no VERBAL PATIENT INSTRUCTIONS The written instructions are very important for the patient to review and contain specific dietary and medication instructions prior to testing. These instructions will give the patient the most accurate test result. The patient should speak with their referring provider or our office if they have any questions. APPOINTMENT NOTES TEMPLATE lactulose breath test, symptom: abdominal pain, RMD: GONZÁLEZ SHORT [[id number]], PCP: Elizabeth Blanco APRN, wheelchair: No Please copy/paste the template above for each breath test that is needed. documented in this encounter Plan of Treatment Not on file documented as of this encounter Visit Diagnoses Not on filedocumented in this encounter Care Teams Distribution Specialist Relationship Specialty Start Date End Date Elizabeth Blanco APRN [address] [place] [address] PCP - General Family Medicine 05/13/18 documented as of this encounter
--- OUTSIDE RECORDS SUMMARY | 2024-07-28 18:15 | XMS_ITS | Encounter Summary ---
Author Organization [facility] [place] [address] Care Team Providers Care Assistant Guest Services Manager Name Role Phone Elizabeth Blanco APRN Primary Care Provider [phone] Encounter Details Date Type Department Care Team (Late st Contact Info) Description 07/12/2018 Telephone [place] [phone] Ze Sexton RN Social History Tobacco Use Types Packs/Day Years [...] encounter Miscellaneous Notes * Telephone Encounter - Ze Sexton RN - 07/12/2018 3:23 PM EDT Patient calls the office leaving a message on the RN voicemail stating that she missed a yamil from [facility] [place], but they did not leave a message. Patient wondering if it was Tracia since she saw her on 06/27 and had some testing performed. Returned call to patient to make her aware that is was not our office. documented in this encounter Plan of Treatment Not on file documented as of this encounter Visit Diagnoses Not on filedocumented in this encounter Care Teams Assistant Guest Services Manager Relationship Specialty Start Date End Date Elizabeth Blanco APRN [address] [place] [address] PCP - General Family Medicine 05/13/18 documented as of this encounter
--- OUTSIDE RECORDS SUMMARY | 2024-07-28 18:15 | XMS_ITS | Encounter Summary ---
Author Organization Formerly [facility] [place] [address] Care Team Providers Care Char Filter Tank Tender Name Role Phone Elizabeth Blanco APRN Primary Care Provider Encounter Details Date Type Department Care Team (Late st Contact Info) Description 06/15/[address] [facility] in [address] [phone] Mis Salinas MD [address] [place] [phone] Social History Tobacco Use Types Packs/Day Years Used Date Smoking Tobacco: Never Assessed Sex and Gender Information Value Date Recorded Sex Assigned at Not on file Gender Identity Not on file Sexual Orientation Not on file documented as of this encounter Plan of Treatment Not on file documented as of this encounter Visit Diagnoses Not on filedocumented in this encounter Care Teams Char Filter Tank Tender Relationship Specialty Start Date End Date Elizabeth Blanco APRN [address] [place] [address] PCP - General Family Medicine 05/13/18 documented as of this encounter
--- OUTSIDE RECORDS SUMMARY | 2024-07-28 18:15 | XMS_ITS | Encounter Summary ---
[place] [address] Care Team Providers Care Officer Lieutenant Name Role Phone Bella Elizabeth TETO Primary Care Provider [phone] Reason for Referral * Diagnostic Test (Routine) - Closed Specialty Diagnoses / Procedures Referred By Contac t Referred To Contact Radiology Diagnoses Pelvic floor dysfunction Procedures MRI Pelvis Soft Tissue (Gi Gu [employer] Chief Clerk)WO Contrast MRI Pelvis Soft Tissue (GI BAKE ROOM WORKER)W Contrast Fritz Castro APRN [facility] [place] [address] [place] [address] Referral ID Status Reason Start Date Expiration Date V isits Requested Visits Authorized [id number] Closed Specialty Service Requested 06/27/2018 09/25/2018 1 1 * Surgical (Routine) - Specialty Diagnoses / Procedures Referred By Contac t Referred To Contact Gastroenterology Diagnoses Pelvic floor dysfunction Procedures High Definition Anal Manometry HRAM Fritz Castro BIOINFORMATICS RESEARCH TECHNICIAN [facility] [place] [address] [facility] [address] [place] [address] Referral ID Status Reason Start Date Expiration Date V isits Requested Visits Authorized [id number] Consult, Test & Treat 06/27/2018 06/27/2019 1 1 Reason for Visit * Reason Comments GI Problem * Consultation (Routine) - Closed Specialty Diagnoses / Procedures Referred By Abraham solorzano Referred To Contact Gastroenterology Diagnoses CHRONIC CONSTIPATION Elizabeth Blanco APRN [address] [place] [address] [facility] [address] [place] [address] Referral ID Status Reason Start Date Expiration Date V isits Requested Visits Authorized [id number] Closed Consult, Test & Treat [facility] 05/13/2018 05/13/2019 1 1 Encounter Details Date Type Department Care Team (Late st Contact Info) Description 06/27/2018 9:00 AM EDT Office [place] [address] Fritz Castro APRN [facility] [place] [address] Pelvic floor dysfunction; Irritable bowel syndrome with constipation Social History Tobacco Use Types Packs/Day Years Used Date Smoking Tobacco: Never Smokeless Tobacco: Never Sex and Gender Information Value Date Recorded Sex Assigned at Not on file Gender Identity Not on file Sexual Orientation Not on file documented as of this encounter Last Filed Vital Signs Vital Sign Reading Time Taken Comments Blood Pressure 131/81 06/27/2018 9:10 AM EDT Pulse 73 06/27/2018 9:10 AM EDT Temperature - - Respiratory Rate - - Oxygen Saturation - - Inhaled Oxygen Concentration - - Weight 73 kg (161 lb) 06/27/2018 9:10 AM EDT Height 170.2 cm (5' 7) 06/27/2018 9:10 AM EDT Body Mass Index 25.22 06/27/2018 9:10 AM EDT documented in this encounter Progress Notes * Fritz Castro RN - 06/27/2018 9:00 AM EDT Section of Gastroenterology and Hepatology [address] [place], [place] [id number] .Makeda Paiz : 1990 Patient is here for further evaluation of gastrointestinal symptoms at the request of Elizabeth Blanco. 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 Bowel issues for 10 years. Progressively becoming worse. Saw GI specialist in [place]. Placed on a medication that caused loose bloody stools. Saw another GI provider in same location and was told to eat more fiber and drink more fluids. Can go days without have a stool. 1-2 stools per week. Miralax causes stools to be loose and loss of control. Also, can cause gas and cramping. Stools can be hard. Straining. When she is going she feels like a part of her is falling out and she has to manipulate to put it back in. No blood in stool. But can have small amount of bright red with wiping. Mucous in stools. No hx of hemorrhoids or fissures. Daily urge to have a bowel movement. Spends quite a bit of time in the bathroom. Unable to empty. Does not feel empty. Stool softeners with no relief. xlax was too overwhelming, loss control of stool. No change in appetite. Avoids sugar as it worsens abdominal sx. Has added more fiber and fluids with no change in sx. Weight stable. Lactose intolerance. Eats late. Awakes during the night and eats. Trying to change these habits. Drinks coffee. But does not help sx. No heartburn, regurgitation, dysphagia, odynophagia, n/v. Constant bloating. If she can have a goodbowel movement her abdominal sx can improve. Social History Social History ??? Marital status: N/A Spouse name: N/A ??? Number of children: N/A ??? Years of education: N/A Occupational History ??? Not on file. Social History Main Topics ??? Smoking status: Not on file ??? Smokeless tobacco: Not on file ??? Alcohol use Not on file ??? Drug use: Not on file ??? Sexual activity: Not on file Other Topics Concern ??? Not on file Social History Narrative Medical History: constipation; hypothyroidism; transorbital migraine Surgical History: cholecystectomy; back surgery Family History: no gi etiologies Allergies Allergen Reactions ??? Penicillins Angioedema No current outpatient prescriptions on file. Review of Systems - Negative except General: Cardiac: Resp: GI: see above : MS: Neuro: Skin: Psyche: Sleep: Endo: Physical Exam: rectal: tone normal, squeeze weak, descent minimal, no visible fissure, hemorrhoids,masses; Abdominal: soft, non-tender, no mass or organomegaly Impression: 1. IBS-C: discussed laxative choices. Due to work pt wishes to remain with miralax. May need to change after testing completed. Schedule colonoscopy. 2. Pelvic floor dysfunction: Schedule anal manometry and pelvic mri with defecography; may need to consider PT 3. Gif in 6-8 weeks I spent a total of 58 minutes face to face with this patient; 44 minutes were spent counseling the patient in the medical problems described above. Sincerely, Fritz Castro NP Section of Gastroenterology and Hepatology documented in this encounter Miscellaneous Notes * Addendum Note - Lacey Mills - 06/27/2018 11:25 AM EDTAddended by: LACEY MILLS on: 06/27/2018 11:25 AM Modules accepted: Orders documented in this encounter Plan of Treatment Scheduled Orders Name Type Priority Associated Diagnoses Orde r Schedule High Definition Anal Manometry Procedures Routine Pelvic floor dysfunction Ordered: 06/27/2018 COLONOSCOPY Procedures Routine Irritable bowel syndrome with constipation Ordered: 06/27/2018 documented as of this encounter Procedures Procedure Name Priority Date/Time Associated Diagnosis Comments HEMOGRAM Routine 06/27/2018 11:36 AM EDT Irritable bowel syndrome with constipation DIFFERENTIAL, AUTOMATED Routine 06/27/2018 11:36 AM EDT Irritable bowel syndrome with constipation TISSUE TRANSGLUTAMINASE, IGA Routine 06/27/2018 11:36 AM EDT Irritable bowel syndrome with constipation VITAMIN D, 25-HYDROXY Routine 06/27/2018 11:36 AM EDT Irritable bowel syndrome with constipation CBC (WITH DIFF) Routine 06/27/2018 11:36 AM EDT Irritable bowel syndrome with constipation TSH Routine 06/27/2018 11:36 AM EDT Irritable bowel syndrome with constipation COMPREHENSIVE METABOLIC PANEL Routine 06/27/2018 11:36 AM EDT Irritable bowel syndrome with constipation documented in this encounter Results * MRI Pelvis Soft Tissue (Gi [employer] Shop Chief Clerk)WO Contrast (07/09/2018 3:43 PM EDT) Anatomical Region Laterality Modality Pelvis Magnetic Resonan ce Impressions 07/10/2018 3:19 PM EDT 1. ?? No rectocele. 2. ?? Grade1 cystocele. (May be normal in women) 3. ?? Grade1 uterine prolapse. (May be normal in women) 4. ??Paradoxical contraction of the puborectalis during defecation, maintaining an acute angle, more acute than at rest. Definitions: Anorectal Descent Grade I 3-5 cm below PCL Grade II >5 cm below PCL Rectocele (ant bulge to line drawn through anal canal) Grade I 0-2 cm (may be normal in women, always abnl in men) Grade II 2-4 cm Grade III 4-6 cm Cystocele ??(bulge of bladder base below PCL) Grade I 1-3 cm (may be normal in women) Grade II 3-6 cm Grade III > 6 cm Uterine prolapse ??(descent of cvx below PCL) Grade I 1-3 cm (may be normal in women) Grade II 3-6 cm Grade III > 6 cm I have personally reviewed the image(s) and the residents interpretation and agree with the findings, Yoli Ferrari at 07/10/2018 3:19 PM Narrative 07/10/2018 3:19 PM EDT EXAMINATION: MRI PELVIS SOFT TISSUE (GI BAKE ROOM WORKER) WO CONTRAST CLINICAL HISTORY: with defecography; pelvic floor dysfunction; ?rectocele ?cystocele ?enterocele ?prolapses TECHNIQUE: Ultrasound gel was instilled into the rectum. Multiplanar MRI of the pelvis was performed utilizing defecography protocol. All images were obtained with patient in supine position. COMPARISON: [facility] 06/27/2018 FINDINGS: Anatomic Evaluation: Normal physiologic appearing bilateral ovaries and uterus. There is trace physiologic fluid in the right adnexa. Posterior Compartment Anorectal angle: (normal 90-127degrees) Rest: 108 degrees Kegel: 75 degrees Strain: 94 degrees Defecation: 94-102 degrees Findings consistent with normal resting angle with expected narrowing during Kegel and paradoxical contraction during defecation. Anorectal junction location relative to Pubococcygeal line (PCL) Rest: 0.3 cm below (normal <2 cm below) Kegal: 1.3 cm above Strain: 0.7 cm below (normal <3 cm below) Defecation: 2.9 cm below Findings are consistent with normal anorectal junction at rest with normal descent during defecation. Rectocele: No Rectal Intussusception: not present Anterior Compartment Bladder base location relative to the PCL: Rest: 1.6 cm above Defecation: 2.4 cm below Urethral hypermobility: present Middle Compartment Vaginal apex/cervix location relative to PCL: Rest: 2.8 cm above Defecation: 1.9 cm below Peritoneocele/Enterocele/Sigmoidocele: None Procedure Note Yoli Ferrari MD - 07/10/2018 EXAMINATION: MRI PELVIS SOFT TISSUE (GI BAKE ROOM WORKER) WO CONTRAST CLINICAL HISTORY: with defecography; pelvic floor dysfunction;?rectocele ?cystocele ?enterocele ?prolapses TECHNIQUE: Ultrasound gel was instilled into the rectum. Multiplanar MRIof the pelvis was performed utilizing defecography protocol. All images wereobtained with patient in supine position. COMPARISON: [facility] 06/27/2018 FINDINGS: Anatomic Evaluation: Normal physiologic appearing bilateral ovaries anduterus. There is trace physiologic fluid in the right adnexa. Posterior Compartment Anorectal angle: (normal 90-127degrees) Rest: 108 degrees Kegel: 75 degrees Strain: 94 degrees Defecation: 94-102 degrees Findings consistent with normal resting angle with expected narrowingduring Kegel and paradoxical contraction during defecation. Anorectal junction location relative to Pubococcygeal line (PCL) Rest: 0.3 cm below (normal <2 cm below) Kegal: 1.3 cm above Strain: 0.7 cm below (normal <3 cm below) Defecation: 2.9 cm below Findings are consistent with normal anorectal junction at rest withnormal descent during defecation. Rectocele: No Rectal Intussusception: not present Anterior Compartment Bladder base location relative to the PCL: Rest: 1.6 cm above Defecation: 2.4 cm below Urethral hypermobility: present Middle Compartment Vaginal apex/cervix location relative to PCL: Rest: 2.8 cm above Defecation: 1.9 cm below Peritoneocele/Enterocele/Sigmoidocele: None IMPRESSION 1. No rectocele. 2. Grade1 cystocele. (May be normal in women) 3. Grade1 uterine prolapse. (May be normal in women) 4. Paradoxical contraction of the puborectalis during defecation,maintaining an acute angle, more acute than at rest. Definitions: Anorectal Descent Grade I 3-5 cm below PCL Grade II >5 cm below PCL Rectocele (ant bulge to line drawn through anal canal) Grade I 0-2 cm (may be normal in women, always abnl in men) Grade II 2-4 cm Grade III 4-6 cm Cystocele (bulge of bladder base below PCL) Grade I 1-3 cm (may be normal in women) Grade II 3-6 cm Grade III > 6 cm Uterine prolapse (descent of cvx below PCL) Grade I 1-3 cm (may be normal in women) Grade II 3-6 cm Grade III > 6 cm I have personally reviewed the image(s) and the residents interpretationand agree with the findings, Yoli Ferrari at 07/10/2018 3:19 PM Fritz Castro APRN IMG MRI ORDERABLES * Differential, Automated (06/27/2018 11:36 AM EDT) Neutrophil % 61.5 % [facility] Neutrophil Absolute 3.43 1.70 - 6.10 x10(3)/[facility] Lymph % 31.4 % [facility] Lymphocytes Abs 1.8 0.9 - 3.2 x10(3)/[facility] Monocyte % 4.8 % [facility] Monocyte Abs 0.3 0.3 - 0.9 x10(3)/[facility] Eos % 1.4 % [facility] Eosinophils Abs 0.1 0.0 - 0.4 x10(3)/[facility] Basophil % 0.5 % [facility] Baso Absolute 0.0 0.0 - 0.1 x10(3)/[facility] Immature Gran % 0.40 % [facility] Comment: Immature granulocytes(IG's)percentage and absolute count will include metamyelocytes, myelocytes, and promyelocytes. Blood smears from CBCs yielding IG's will be scanned manually for concordance. If this scan disagrees with the automated IG or if promyelocytes are noted, a manual differential will be performed. Immature Gran Absolute 0.02 0.00 - 0.04 x10(3)/[facility] Blood specimen (specimen) 06/27/2018 11:36 AM EDT 06/27/2018 11:46 AM EDT Narrative Resulting Agency Comment Spec In Lab Fritz Castro APRN HEMATOLOGY ORDERABLE S [facility] [place] [address] * (ABNORMAL) Hemogram (06/27/2018 11:36 AM EDT) White Blood Cell 5.6 4.0 - 9.5 x10(3)/[facility] Red Blood Cell 4.55 4.00 - 5.21 x10(6)/[facility] Hemoglobin 12.2 11.7 - 15.5 gm/dL [facility] Hematocrit 37.4 35.7 - 45.8 % [facility] Mean Cell Volume 82.2(L) 82.6 - 94.4 fL [facility] Mean Cell Hemoglobin 26.8(L) 27.1 - 32.0 pg [facility] Mean Cell Hemoglobin Concentration 32.6 31.7 - 35.0 gm/dL [facility] Platelet 258 145 - 357 x10(3)/mc L [facility] RDW Standard Deviation 39.1 37.0 - 46.0 fL [facility] RDW coefficient of variation 13.1 11.5 - 14.1 % [facility] Mean Platelet Volume 10.5 7.6 - 12.9 fL [facility] NRBC% auto 0.0 % [facility] NRBC Absolute 0.000 0.000 - 0.000 x10(3)/mc L [facility] Blood specimen (specimen) 06/27/2018 11:36 AM EDT 06/27/2018 11:46 AM EDT Narrative Resulting Agency Comment Spec In Lab Fritz Castro APRN HEMATOLOGY ORDERABLE S [facility] [place] [address] * (ABNORMAL) Vitamin D, 25-Hydroxy (06/27/2018 11:36 AM EDT) Vitamin D Total 25 OH 22(L) 30 - 100 ng/mL [facility] Comment: Deficient <10 ng/mL Insufficient 10 to 29 ng/mL Sufficient 30 to 100 ng/mL Potential Intoxication >100 ng/mL According to the [place] National Osteoporosis Foundation, Vitamin D concentrations >30 ng/mL are sufficient to protect bone health. ??The National Kidney Foundation has similarly stated that patients with Vitamin D concentrations <30ng/mL should be considered to be insufficient or deficient. http://[employer].com/nkf-guidelines http://[employer].com/nejm-VitD The [employer] i[employer] Vitamin D Immunoassay detects both 25-OH Vitamin D2 and 25-OH Vitamin D3, but only a total Vitamin D concentration is reported. Blood specimen (specimen) 06/27/2018 11:36 AM EDT 06/27/2018 2:33 PM EDT Narrative Resulting Agency Comment Spec In Lab Tracia Jayshree'Olive BIOINFORMATICS RESEARCH TECHNICIAN CHEMISTRY ORDERABLES Performing Organization Address [facility]/ZIP Co de Phone Number [facility] [place] [address] * Tissue transglutaminase, IgA (06/27/2018 11:36 AM EDT) Pathologist [facility] TTG IgA Ab <1.2 <4.0 (Negative) unit/mL [facility] Comment: Test Performed by: [facility] - [address] [address] Blood specimen (specimen) 06/27/2018 11:36 AM EDT 06/27/2018 2:49 PM EDT Narrative Resulting Agency Comment Spec In Lab Tracia Jayshree'Olive BIOINFORMATICS RESEARCH TECHNICIAN IMMUNOLOGY ORDERABLE S Performing Organization Address [facility] Co de Phone Number [facility] [place] [address] * TSH (06/27/2018 11:36 AM EDT) [facility] Thyroid Stimulating Hormone 1.75 0.27 - 4.20 mlU/ML [facility] Blood specimen (specimen) 06/27/2018 11:36 AM EDT 06/27/2018 11:46 AM EDT Narrative Resulting Agency Comment Spec In Lab Tracia Jayshree'Olive BIOINFORMATICS RESEARCH TECHNICIAN CHEMISTRY ORDERABLES Performing Organization Address [facility]/ZIP Co de Phone Number [facility] [place] [address] * (ABNORMAL) Comprehensive metabolic panel (non-fasting) (06/27/2018 11:36 AM EDT) [facility] Glucose 83 65 - 199 mg/dL [facility] Comment:Diabetes: >=200 mg/d L plus symptoms Blood Urea Nitrogen 11 8 - 18 mg/dL [facility] Creatinine 0.89 0.70 - 1.20 mg/dL [facility] Sodium 139 135 - 145 mmol/L [facility] Potassium 3.8 3.5 - 5.0 mmol/L [facility] Comment: Please note: ??Patients with WBC >100,000 may have falsely elevated Potassium levels. ??For accurate Potassium quantification in these patients send serum separator tube (gold top) for subsequent determinations. ??Contact the Clinical Chemistry Laboratory if there are any questions. Chloride 102 98 - 107 mmol/L [facility] Carbon Dioxide 23 22 - 31 mmol/L [facility] Anion Gap 14 5 - 15 mmol/L [facility] Calcium 8.9 8.5 - 10.5 mg/dL [facility] Protein, Total 7.3 6.1 - 8.0 gm/dL [facility] Albumin 4.6 3.2 - 5.2 gm/dL [facility] Aspartate Aminotransferase 34(H) 0 - 30 unit/L [facility] Alanine Aminotransferase 12 0 - 30 unit/L [facility] Alkaline Phosphatase 46 40 - 104 unit/L [facility] Bilirubin, Total 0.3 0.2 - 1.3 mg/dL [facility] Est Glomerular Filtration Rate 89 >=60 mL/min/1. 73 m?? [facility] Comment: The eGFR was calculated using the CKD-EPI equation. As with all creatinine based estimates of kidney function, eGFR values calculated with the CKD-EPI equation are not accurate in patients with acute kidney failure, extremes of body mass or the acutely ill. http://[employer]/DHMCnkf eGFR 103 >=60 mL/min/1. 73 m?? [facility] Comment: The eGFR was calculated using the CKD-EPI equation. As with all creatinine based estimates of kidney function, eGFR values calculated with the CKD-EPI equation are not accurate in patients with acute kidney failure, extremes of body mass or the acutely ill. http://[employer]/DHnkf Blood specimen (specimen) 06/27/2018 11:36 AM EDT 06/27/2018 11:46 AM EDT Narrative Resulting Agency Comment Spec In Lab Fritz Castro APRN CHEMISTRY ORDERABLES [facility] [place] [address] * XR Abdomen 1 view (Generic) (06/27/2018 11:20 AM EDT) Anatomical Region Laterality Modality Abdomen N/A Digital Radiogra phy Impressions 06/27/2018 11:36 AM EDT Nonobstructive bowel gas pattern. Moderate to large amount of fecal material throughout colon. Narrative 06/27/2018 11:36 AM EDT EXAMINATION: XR ABDOMEN 1 VIEW (GENERIC) CLINICAL HISTORY: constipation TECHNIQUE:Supine abdomen x2 COMPARISON: None FINDINGS: Nonobstructive bowel gas pattern. Moderate to large amount of fecal material seen throughout the entire colon to the level of the rectum. Free air is not excluded on this supine exam. No abnormal abdominal calcifications. Lung bases are clear. Surgical clips right upper abdomen. The bones appear intact. Procedure Note Lizet Woodard MD - 06/27/2018 EXAMINATION: XR ABDOMEN 1 VIEW (GENERIC) CLINICAL HISTORY: constipation TECHNIQUE:Supine abdomen x2 COMPARISON: None FINDINGS: Nonobstructive bowel gas pattern. Moderate to large amount of fecalmaterial seen throughout the entire colon to the level of the rectum. Free air is not excluded on this supine exam. No abnormal abdominal calcifications. Lung bases are clear. Surgical clips right upper abdomen.The bones appear intact. IMPRESSION Nonobstructive bowel gas pattern. Moderate to large amount of fecal material throughout colon. Electronically signed by: JARED Gallegos Radiology, at06/27/2018 11:36 AM Fritz Castro APRN IMG DX ORDERABLES documented in this encounter Visit Diagnoses Diagnosis Pelvic floor dysfunction Pelvic muscle wasting Irritable bowel syndrome with constipation Irritable bowel syndrome Irritable bowel syndrome with constipation Irritable bowel syndrome Pelvic floor dysfunction Pelvic muscle wasting documented in this encounter Care Teams Officer Lieutenant Relationship Specialty Start Date End Date Elizabeth Blanco, BIOINFORMATICS RESEARCH TECHNICIAN [address] [place] [address] PCP - General Family Medicine 05/13/18 documented as of this encounter
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
--- OUTSIDE RECORDS SUMMARY | 2024-07-28 18:15 | XMS_ITS | Encounter Summary ---
Author Organization [facility] Address [facility] [address] Care Team Providers Care Showplace Manager Name Role Phone Bella Elizabeth TETO Primary Care Provider [phone] Reason for Referral * Physical Therapy (Routine) - Specialty Diagnoses / Procedures Referred By Abraham solorazno Referred To Contact Physical Therapy Diagnoses Pelvic floor dysfunction Fritz Castro APRN [facility] [place] [address] [address] [place] [address] Referral ID Status Reason Start Date Expiration Date V isits Requested Visits Authorized [id number] Evaluate and Treat 07/17/2018 07/17/2019 12 12 Encounter Details Date Type Department Care Team (Late st Contact Info) Description 07/17/2018 Orders [place] [phone] Fritz Castro MEDICAL CLAIMS REPRESENTATIVE [facility] [address] Pelvic floor dysfunction Social History Tobacco Use Types Packs/Day Years [...] as of this encounter Plan of Treatment Scheduled Referrals Name Type Priority Associated Diagnoses Orde r Schedule Referral to Physical Therapy Outpatient Referral Routine Pelvic floor dysfunction Ordered: 07/17/2018 documented as of this encounter Visit Diagnoses Diagnosis Pelvic floor dysfunction Pelvic muscle wasting documented in this encounter Care Teams Showplace Manager Relationship Specialty Start Date End Date Elizabeth Blanco, MEDICAL CLAIMS REPRESENTATIVE [address] [place] [address] PCP - General Family Medicine 05/13/18 documented as of this encounter
--- OUTSIDE RECORDS SUMMARY | 2024-07-28 18:15 | XMS_ITS | Encounter Summary ---
Author Organization [facility] [place] [address] Care Team Providers Care Retail Client Solutions Consultant Name Role Phone Elizabeth Blanco APRN Primary Care Provider Encounter Details Date Type Department Care Team (Late st Contact Info) Description 06/15/2024 Interpretation Only [facility] in [address] [phone] Mis Sailnas MD [address] [place] [id number] Social History Tobacco Use Types Packs/Day Years Used Date Smoking Tobacco: Never Assessed Sex and Gender Information Value Date Recorded Sex Assigned at Not on file Gender Identity Not on file Sexual Orientation Not on file documented as of this encounter Plan of Treatment Not on file documented as of this encounter Visit Diagnoses Not on filedocumented in this encounter Care Teams Retail Client Solutions Consultant Relationship Specialty Start Date End Date Elizabeth Blanco APRN [address] [place] [address] PCP - General Family Medicine 05/13/18 documented as of this encounter
--- OUTSIDE RECORDS SUMMARY | 2024-07-28 18:15 | XMS_ITS | Encounter Summary ---
Author Organization [facility] Address [facility] [place] [address] Care Team Providers Care Combining Machine Operator Name Role Phone Elizabeth Blanco APRN Primary Care Provider [phone] Encounter Details Date Type Department Care Team (Late st Contact Info) Description 06/15/2024 Interpretation Only [facility] in [facility] [address] [place] [phone] Mis Salinas MD [address] [place] [address] [phone] Social History Tobacco Use Types Packs/Day Years Used Date Smoking Tobacco: Never Assessed Sex and Gender Information Value Date Recorded Sex Assigned at Not on file Gender Identity Not on file Sexual Orientation Not on file documented as of this encounter Plan of Treatment Not on file documented as of this encounter Procedures Procedure Name Priority Date/Time Associated Diagnosis Comments CT HEAD/C-SPINE WO CONTRAST ([facility]) STAT 06/15/2024 11:51 AM EDT documented in this encounter Results * CT Head/C-Spine wo Contrast ([facility]) (06/15/2024 11:51 AM EDT) PT CLASS E RAD ADMITDTTM [id number] RAD PT RAD INFO [id number]^MARK^ME ESTHER^E RAD EXAM DESC CTHCSPWO^CT HEAD AND CSPINE WO CONTRAST^RIS RAD WORKSTATION ID [id number] RAD Anatomical Region Laterality Modality Other Impressions 06/15/2024 12:[address] brain: Negative for acute traumatic injury. CT cervical spine: Negative for acute traumatic injury. Thank you for letting us participate in the care of this patient. ??If you are a health care provider and have any questions regarding this report, please contact the number below. ??For patients who have questions please contact the health pet care attendant that requested your imaging first. ? Electronically signed by: Mathew Kamara MD, [facility] ([phone]), at 06/15/2024 12:17 PM Narrative 06/15/2024 12:17 PM EDT EXAMINATION: CT HEAD AND CSPINE WO CONTRAST CLINICAL HISTORY: ??Reason for Spine: ??Trauma ??Add'l Info: TECHNIQUE: CT head and cervical spine [...] fracture or subluxation. The larynx is intact. Procedure Note Mathew Kamara MD - 06/15/2024 EXAMINATION: CT HEAD AND CSPINE WO CONTRAST CLINICAL HISTORY: Reason for Spine: Trauma Add'l Info: TECHNIQUE: CT head and cervical spine performed without intravenous contrast administration. COMPARISON: None FINDINGS: Brain CT: Multiplanar images show no intracranial hemorrhage, infarct massor other acute abnormality. Ventricular caliber is normal. The osseousstructures appear normal. CT of the cervical spine: Soft tissues and lung apices appear normal. Craniovertebral alignment is normal. Atlantoaxial occipital andatlantoaxial joints are normally aligned. Multiplanar high-resolution bone imagesreveal no fracture or subluxation. The larynx is intact. IMPRESSION CT brain: Negative for acute traumatic injury. CT cervical spine: Negative for acute traumatic injury. Thank you for letting us participate in the care of this patient. If youare a health care provider and have any questions regarding this report,please contact the number below. For patients who have questions please contactthe health pet care attendant that requested your imaging first. Electronically signed by: Mathew Kamara MD, [facility]([phone]), at 06/15/2024 12:17 PM Mis Salinas MD P[facility] IMAGES documented in this encounter Visit Diagnoses Not on filedocumented in this encounter Care Teams Combining Machine Operator Relationship Specialty Start Date End Date Elizabeth Blanco, TETO [address] [facility] [place] [address] PCP - General Family Medicine 05/13/18 documented as of this encounter
--- OUTSIDE RECORDS SUMMARY | 2024-07-28 18:15 | XMS_ITS | Encounter Summary ---
Author Organization [facility] Address [facility] [place] [address] Care Team Providers Care Newspaper Subscription Solicitor Name Role Phone Elizabeth Blanco APRN Primary Care Provider [phone] Encounter Details Date Type Department Care Team (Latest Contact Info) Description 07/08/2018 2:05 PM EDT - 07/08/2018 4:50 PM EDT Hospital Encounter Gastroenterology at [facility] [place] [phone] Mathew Bob MD [facility] [place] [address] Discharge Disposition: Home Social History Tobacco Use Types Packs/Day Years [...] Sign Reading Time Taken Comments Blood Pressure 123/90 07/08/2018 4:15 PM EDT Pulse 58 07/08/2018 4:20 PM EDT Temperature - - Respiratory Rate 8 07/08/2018 4:20 PM EDT Oxygen Saturation 100% 07/08/2018 4:20 PM EDT Inhaled Oxygen Concentration - - Weight 72.6 kg (160 lb) 07/08/2018 2:19 PM EDT Height 170.2 cm (5' 7) 07/08/2018 2:19 PM EDT Body Mass Index 25.06 07/08/2018 2:19 PM EDT documented in this encounter Discharge Instructions * Discharge Instructions* Carolin Glez RN - 07/08/2018 3:54 PM EDT Please call [phone] before 6pm Mon-Fri with problems, questions or concerns. If you call after 8pm or on weekends, call the Hospital at [phone] and ask to speak to the Instrumentation Fitter digital media sales consultant and the blacking machine operator will contact that person for you. * Attachments The following attachments cannot be sent through Care Everywhere. * COLONOSCOPY: POST-OP (MOZAMBICAN) documented in this encounter Medications at Time of Discharge Medication Sig Dispensed Refills Start Date End Date BLISOVI FE 1.5/30, 28, 1.5 mg-30 mcg (21)/75 mg (7) Tablet take 1 tablet by mouth once daily 0 04/17/2018 levothyroxine (SYNTHROID) 200 mcg Tablet 0 06/01/2018 levothyroxine (SYNTHROID) 25 mcg Tablet take 1 tablet by mouth once daily IN ADDITION TO 200MCG TABLET 0 04/19/2018 PROTOPIC 0.1 % Ointment 0 05/14/2018 fluocinolone acetonide (SYNALAR) 0.01 % Solution 0 05/10/2018 documented as of this encounter H&P Notes * Mathew Bbo MD - 07/08/2018 2:57 PM EDT PROBLEM LIST There is no problem list on file for this patient. HISTORY OF PRESENT ILLNESS Makeda Paiz is a 28 y.o. woman who presents for endoscopic evaluation of constipation. MEDICATIONS No current facility-administered medications on file prior to encounter. Current Outpatient Prescriptions on File Prior to Encounter Medication Sig Dispense Refill ??? BLISOVI FE 1.5/30, 28, 1.5 mg-30 mcg (21)/75 mg (7) Tablet take 1 tablet by mouth once daily 0 ??? levothyroxine (SYNTHROID) 200 mcg Tablet 0 ??? levothyroxine (SYNTHROID) 25 mcg Tablet take 1 tablet by mouth once daily IN ADDITION TO 200MCGTABLET 0 ??? PROTOPIC 0.1 % Ointment 0 ??? fluocinolone acetonide (SYNALAR) 0.01 % Solution 0 PHYSICAL EXAM: Blood pressure 136/88, pulse 84, height 170.2 cm (5' 7), weight 72.6 kg (160 lb), last menstrual period 07/01/2018, SpO2 100 %. GEN: Alert, cooperative. Pleasant. In NAD MP I ASA II HEENT: No oropharyngeal lesions. Neck supple. No masses. Thyroid symmetric LUNGS: CTAB CARD: RRR without m/g/r ABD: Non-distended. Active BS. Soft. Benign. No masses. No HSM. No succussion splash. No bruits RECENT LABS No results found for this or any previous visit (from the past 24 hour(s)). ASSESSMENT AND PLAN Makeda Paiz is a 28 y.o. woman who presents for endoscopic evaluation. Risks extensively discussed including bleeding, infection, reaction to anesthesia, perforation, pancreatitis (if applicable),bile duct injury (if applicable), missing a cancer (if applicable) and/or other unforseen complication. Consent signed and patient well informed of the risks of the procedure. documented in this encounter Plan of Treatment Not on file documented as of this encounter Procedures Procedure Name Priority Date/Time Associated Diagnosis Comments SURGICAL PATHOLOGY REPORT Routine 07/08/2018 3:48 PM EDT SPECIMEN TO PATHOLOGY Routine 07/08/2018 3:48 PM EDT COLONOSCOPY Routine 07/08/2018 3:03 PM EDT COLONOSCOPY FLEXIBLE, WITH BX (WRVU 3.56) 07/08/2018 2:59 PM EDT Irritable bowel syndrome with constipation documented in this encounter Results * Surgical Pathology Report (07/08/2018 3:48 PM EDT) Final Diagnosis [id number] ? Location: 4T; EA07; A The signing pathologist has (i) examined the relevant preparation(s) for the specimen(s) and (ii) rendered or confirmed the diagnosis(es). . ?Surgical Pathology DIAGNOSIS Mucosal irritation, ??biopsy: - Colonic mucosa, negative for diagnostic abnormality. CR-PX Electronically signed by: ??Kobe Bonilla MD Verified: ??07/11/2018 ?Pathologist Performed at: ??-[facility], [place], [place] CLINICAL INFORMATION Specimen Submitted: A - Mucosal irritation r/o changes secondary to rectal prolapse Clinical History and Diagnosis: Mucosal irritation rule out changes secondary to rectal prolapse. Constipation. SPECIMEN PROCESSING A - Labeled/Fixativ e: Mucosal irritation, formalin. Quantity/Size: Five, 0.2-0.3 cm. Tissue Description: ??Soft, whaley-pink tissue ??. Sections/Proces sing: []. ([]) ??pps 07/11/2018 4:41 PM EDT [facility] GI Biopsy 07/08/2018 3:48 PM EDT 07/08/2018 3:48 PM EDT Mathew Bob MD PATHOLOGY/CYTOLOGY O ALPHONSE Performing Organization Address [facility] Co de Phone Number [facility] [place] [address] * Specimen to Pathology (07/08/2018 3:48 PM EDT) AP Specimen 07/08/2018 3:48 PM EDT 07/08/2018 4:50 PM EDT Narrative [facility] - 07/08/2018 4:50 PM EDT Specimen requisition ordered. ??Separate Pathology report to follow Resulting Agency Comment Spec In Lab Mathew Bob MD PATHOLOGY/CYTOLOGY O ALPHONSE Performing Organization Address [facility] Co de Phone Number [facility] [place] [address] * COLONOSCOPY (07/08/2018 3:03 PM EDT) COLONOSCOPY [facility] Endoscopy Procedure Date: 07/08/2018 3:03 PM ? Patient Name: Makeda Paiz ? Date of : 1990 ? Age: 28 ? Order #: [id number] ? Instrument Name: [id number] ? Procedure: ? Colonoscopy Indications: ? Abdominal pain, Constipation Providers: ? Mathew Bob Diana Muñoz, ? Anne-Marie Chavez, Humble Kang, ? Deicer Inspector Electric Referring MD: ?Elizabeth Bella Medicines: ? Fentanyl 250 micrograms IV, Midazolam ? 7 mg IV, Diphenhydramine 50 mg IV Complications: ? No immediate complications. Procedure: ? Pre-Anesthesia Assessment: ? - Prior to the procedure, a History ? and Physical was performed, and ? patient medications, allergies and ? sensitivities were reviewed. The ? patient's tolerance of previous ? anesthesia was reviewed. ? - The risks and benefits of the ? procedure and the sedation options ? and risks were discussed with the ? patient. All questions were answered ? and informed consent was obtained. ? - Patient identification and proposed ? procedure were verified prior to the ? procedure by the physician, the nurse ? and the anesthesiologist. The ? procedure was verified in the ? pre-procedure area in the procedure ? room. ? - Pre-procedure physical examination ? revealed no contraindications to ? sedation. ? - ASA Grade Assessment: II - A ? patient with mild systemic disease. ? The procedure, indications, benefits, ? risks and alternatives were explained ? to the patient. Specifically ? discussed were potential ? complications including, but not ? limited to, bleeding, perforation, ? infection, missing a cancer, and ? adverse medication reactions. The ? patient was placed in the left ? lateral decubitus position, and a ? digital rectal exam was performed. ? The Colonoscope was inserted in the ? anus and under direct visualization, ? advanced to the terminal ileum. ? Careful inspection was made as the ? colonoscope was withdrawn. The ? colonoscopy was performed without ? difficulty. The patient tolerated the ? procedure well. The quality of the ? bowel preparation was evaluated using ? the BBPS ([place] Bowel Preparation ? Scale) with scores of: Right Colon = ? 2 (minor amount of residual staining, ? small fragments of stool and/or ? opaque liquid, but mucosa seen well), ? Transverse Colon = 2 (minor amount of ? residual staining, small fragments of ? stool and/or opaque liquid, but ? mucosa seen well) and Left Colon = 2 ? (minor amount of residual staining, ? small fragments of stool and/or ? opaque liquid, but mucosa seen well). ? The total BBPS score equals 6. The ? quality of the bowel preparation was ? good. ? Findings: ? The terminal ileum appeared normal. ? An area of spotted mucosa was found in the rectum. ? Etiology is unlcear. Biopsies were taken with a cold ? forceps for histology. Verification of patient ? identification for the specimen was done by the ? physician, nurse and highway maintenance technician using the patient's ? name, date and medical record number. Estimated ? blood loss was minimal. ? The exam was otherwise without abnormality on direct ? and retroflexion views. ? Moderate Sedation: ? Moderate (conscious) sedation was administered by the ? endoscopy nurse and supervised by the endoscopist. ? The patient's oxygen saturation, heart rate, blood ? pressure and response to care were monitored. Total ? physician intraservice time was 42 minutes. Impression: ?- The examined portion of the ileum ? was normal. ? - Abnormal mucosa in the rectum. ? Could be normal variant, bowel ? preparation effect, due to prolapsing ? rectum, among other etiologies. ? Biopsies obtained. ? - The examination was otherwise ? normal on direct and retroflexion ? views. Recommendation: ?- Discharge patient to home (with ? escort). ? - Resume previous diet. ? - Await pathology results. ? - Return to referring physician as ? previously scheduled. ? Procedure Code(s): ?? --- Professional --- ? 71243, Colonoscopy, flexible; with ? biopsy, single or multiple ? 73831, 59, Moderate sedation services ? provided by the same physician or ? other qualified health care ? professional performing the ? diagnostic or therapeutic service ? that the sedation supports, requiring ? the presence of an independent ? trained observer to assist in the ? monitoring of the patient's level of ? consciousness and physiological ? status; initial 15 minutes of ? intraservice time, patient age 5 ? years or older ? [address], Moderate sedation services; ? each additional 15 minutes ? intraservice time ? 61874, Moderate sedation services; ? each additional 15 minutes ? intraservice time CPT copyright 2016 [employer]. All rights reserved. The codes documented in this report are preliminary and upon plate conditioner review may be revised to meet current compliance requirements. Attending Participation: ? I personally performed the entire procedure. ? Mathew Bob, 07/08/2018 4:00:50 PM Number of Addenda: 0 Note Initiated On: 07/08/2018 3:03 PM PROVATION 07/08/2018 3:03 PM EDT Elizabeth Blanco DOUGHNUT ICER GENERAL SURGICAL ORD ERABLES PROVATION documented in this encounter Visit Diagnoses Not on filedocumented in this encounter Active and Recently Administered Medications Times are shown in EDT. PRN Medication Order 07/06/2018 07/07/2018 07/08/2018 diphenhydrAMINE (BENADRYL) injection (CANCELED) ONCE PRN, Starting on Sun07/08/18 at 1503, Until Sun07/08/18 at 1850, Intra-Operative (Intra-Procedure), Routine 1503 (Given - Provid er: Anne-Marie Chavez RN) fentaNYL 50 mcg/mL multi-dose injection (CANCELED) ONCE PRN, Starting on Sun07/08/18 at 1503, Until Sun07/08/18 at 1850, Intra-Operative (Intra-Procedure), Routine 1504 (Given - Provid er: Anne-Marie Chavez RN)1507 (Given - Provider: Anne-Marie Chavez RN)1511 (Given - Provider: Anne-Marie Chavez RN)1514 (Given - Provider: Anne-Marie Chavez RN)1517 (Given - Provider: Anne-Marie Chavez RN)1521 (Given - Provider: Anne-Marie Chavez RN)1524 (Given - Provider: Anne-Marie Chavez RN) midazolam (PF) (VERSED) 1 mg/mL multi-dose injection (CANCELED) ONCE PRN, Starting on Sun07/08/18 at 1504, Until Sun07/08/18 at 1850, Intra-Operative (Intra-Procedure), Routine 1504 (Given - Provid er: Anne-Marie Chavez RN)1507 (Given - Provider: Anne-Marie Chavez RN)1511 (Given - Provider: Anne-Marie Chavez RN)1514 (Given - Provider: Anne-Marie Chavez RN)1518 (Given - Provider: Anne-Marie Chavez RN)1521 (Given - Provider: Anne-Marie Chavez RN)1525 (Given - Provider: Anne-Marie Chavez RN) documented in this encounter Care Teams Newspaper Subscription Solicitor Relationship Specialty Start Date End Date Elizabeth Blanco, DOUGHNUT ICER [address] [place] [address] PCP - General Family Medicine 05/13/18 documented as of this encounter
--- OUTSIDE RECORDS SUMMARY | 2024-07-28 18:15 | XMS_ITS | Encounter Summary ---
[place] [address] Care Team Providers Care Inspector Line Name Role Phone EllieElizabeth alvarado TETO Primary Care Provider [phone] Reason for Visit * Reason Onset Date Comments Results 07/15/2018 Encounter Details Date Type Department Care Team (Late st Contact Info) Description 07/15/2018 Telephone [place] [id number] Edith Taylor Results Social History Tobacco Use Types Packs/Day Years [...] as of this encounter Miscellaneous Notes * Addendum Note - Maricruz Mckeon RN - 07/18/2018 10:45 AM EDTAddended by: MARICRUZ MCKEON on: 07/18/2018 10:45 AM Modules accepted: Orders * Telephone Encounter - Maricruz Mckeon RN - 07/18/2018 10:41 AM EDT Per Fritz Castro APRN she will place referral and patient should keep HRAM appt. Also Vitamin d low ? 1000units qd. ? Repeat level in 3 months Left detailed message with above on identifiable cell phone voicemail. * Telephone Encounter - Maricruz Mckeon RN - 07/15/2018 4:27 PM EDT Called patient to discuss results. Per Fritz Castro, MACHINE SETTER SUPERVISOR: kub showed a large amount of stool [place] and bx normal Pelvic mri showed cystocele and uterine prolapse. Also, paradoxical effect of pelvic floor All of this should be managed with PT. ?? She has pelvic floor dysfunction See if this is okay with her. I will order. Relayed above. She would like to be referred for pelvic floor PT here at [facility]. Wonders if she should keep HRAM scheduled or cancel? * Telephone Encounter - Edith Taylor - 07/15/2018 10:22 AM EDT Pt calls today to request results from recent testing in Jun. Be relayed to her. Is at work until 3today : [phone]. Also can use cell or letter. documented in this encounter Plan of Treatment Not on file documented as of this encounter Visit Diagnoses Diagnosis Low serum vitamin D documented in this encounter Care Teams Inspector Line Relationship Specialty Start Date End Date Elizabeth Blanco, TETO [address] [place] [address] PCP - General Family Medicine 05/13/18 documented as of this encounter
--- OUTSIDE RECORDS SUMMARY | 2024-07-28 18:15 | XMS_ITS | Encounter Summary ---
Author Organization [facility] Address One [facility] [place] [address] Care Team Providers Care Sweep Molder Name Role Phone Elizabeth Blanco APRN Primary Care Provider Encounter Details Date Type Department Care Team (Late st Contact Info) Description 02/19/2017 Interpretation Only Radiology [address] [facility] [place] [address] Unknown None Social History Tobacco Use Types Packs/Day Years Used Date Smoking Tobacco: Never Assessed Sex and Gender Information Value Date Recorded Sex Assigned at Not on file Gender Identity Not on file Sexual Orientation Not on file documented as of this encounter Plan of Treatment Not on file documented as of this encounter Procedures Procedure Name Priority Date/Time Associated Diagnosis Comments XR FLUORO NO RAD <1HR - RADIOLOGY USE Routine 02/19/2017 6:19 AM EDT documented in this encounter Results * XR Fluoro <1Hr - Radiology Use (02/19/2017 6:19 AM EDT) Anatomical Region Laterality Modality N/A Radiographic Abril ging 02/19/2017 6:19 AM EDT Narrative 02/19/2017 6:19 AM EDT APD Historical Result Principal Hoop Coiling Machine Operator: ??ANIKET ??TREVON C-ARM IMAGES: CLINICAL HISTORY: ??Left L4-5 MSD. The total fluoro time is 2.8 seconds with a cumulative dose of 187.09 mrad. Two lateral images are acquired demonstrating a metallic probe posterior to the spinal canal at the L5 level. IMPRESSION: Intraoperative images as described above. ??A Radiologist was not present during the examination. ??The clinician is referred to the report of the performing clinician for further details. Aniket Roa MD DP/rr [id number] Procedure Note Unknown - 05/19/2019 APD Historical Result Principal Hoop Coiling Machine Operator: ANIKET ROA C-ARM IMAGES: CLINICAL HISTORY: Left L4-5 MSD. The total fluoro time is 2.8 seconds with a cumulative dose of 187.09mrad. Two lateral images are acquired demonstrating a metallic probe posteriorto the spinal canal at the L5 level. IMPRESSION: Intraoperative images as described above. A Radiologist wasnot present during the examination. The clinician is referred to the report of the performingclinician for further details. Aniket Roa MD DP/rr [id number] Unknown IMG FLUORO ORDERABLE S documented in this encounter Visit Diagnoses Not on filedocumented in this encounter Care Teams Sweep Molder Relationship Specialty Start Date End Date Elizabeth Blanco APRN [address] [place] [address] PCP - General Family Medicine 05/13/18 documented as of this encounter
--- OUTSIDE RECORDS SUMMARY | 2024-07-28 18:15 | XMS_ITS | Encounter Summary ---
Author Organization [facility] [place] [address] Care Team Providers Care Mainframe Consultant Name Role Phone Elizabeth Blanco APRN Primary Care Provider [phone] Encounter Details Date Type Department Care Team (Late st Contact Info) Description 08/20/2018 4:00 PM EDT Tech Visit Gastroenterology at [facility] [place] [address] Dashawn Serrano MD [facility] [place] [address] Constipation, unspecified constipation type Social History Tobacco Use Types Packs/Day Years [...] as of this encounter Progress Notes * Dashawn Serrano MD - 08/20/2018 4:00 PM EDT Images from the original note were not included. Re: Makeda Paiz Reg No:[id number] : 1990 Date of Service: 08/20/18 ANORECTAL MANOMETRY w/BALLOON EXPULSION Referring provider:Fritz Castro Dear: Dr. Castro We had the pleasure of performing a high resolution anorectal manometry on your patient in the GI Motility Laboratory at [facility]. CLINICAL HISTORY AND INDICATION As you know, she is a 28 y.o. female with complaints of constipation RESULTS 3D topography of anal canal at rest (Jose A et al. Colorectal Dis. 2017 March;19(5):468-47): (pink: >=25mmHg; purple: <=24mmHg) POSTERIOR ANTERIOR POSTERIOR RECTUM ANAL VERGE Length of the high pressure zone: 4.0 cm Resting sphincter pressure: 79 mmHg Maximum squeeze pressure: 185 mmHg Squeeze duration: excellent Rectoanal inhibitory reflex: present at 60 ccs balloon distention Response to coughing: normal Response to simulated defecation: normal Type of Dyssynergia: none Response to simulated defecation with 30 cc of air into the balloon: normal Type of Dyssynergia: none Percent of Sphincter Relaxation: 22% Rectal Sensation: Threshold: 30mL Urgency: 50mL Maximum tolerated: 100mL Balloon expulsion test: normalnormal at 45 seconds in seated position abnormal at >120 seconds in left lateral decubitus position Normal Values Sphincter Length:(NL Value: Males 4.1-4.5, Females 3.8-4.2) Resting Pressure:(NL Value: Males 70-100, Females 70-90) Max Squeeze pressure:(NL Value: Males 240-300, Females 160-200) Rectal Sensation: Threshold: (NL Value: 30-70) Urgency: (NL Value: 80-130) Maximum tolerated: (NL Value: 130-200) Types of Dyssynergia: Type 1: Adequate Increase in Rectal Pressure and Paradoxical Increase in Anal Sphincter Pressure Type 2: Inadequate Intrarectal Pressure and Paradoxical Anal Sphincter Pressure Type 3: Increase in Intrarectal Pressure and Absent or Incomplete Sphincter Relaxation Type 4: Inadequate Intrarectal Pressure and Unable to relax the Anal Sphincter Defecation Index: Normal > 1.5 Balloon expulsion: <60 seconds in seated position IMPRESSION Resting anal sphincter pressure reflecting internal sphincter function was normal. Maximum squeeze pressures reflecting external sphincter function were normal. The rectoanal inhibitory reflex was normal helping to exclude Hirschsprung's disease. With simulated defecation, there was a normal response. The balloon expulsion test was normal in a seated position. Rectal sensation was hypersensitive.In summary, this patient had no evidence of dyssynergic defecation but has rectal hypersensitivity which might benefit from referral to physical therapy for pelvic floor neuromuscular reeducation andrectal sensory balloon retraining. Signed: Dashawn Serrano MD, DILAN Section of Gastroenterology and Hepatology [facility] [place] [address] V: [phone] F: [phone] CC/EC: Elizabeth Blanco APRN [address] [place] [address] documented in this encounter Plan of Treatment Not on file documented as of this encounter Visit Diagnoses Diagnosis Constipation, unspecified constipation type documented in this encounter Care Teams Mainframe Consultant Relationship Specialty Start Date End Date Elizabeth Blanco APRN [address], [place] [address] PCP - General Family Medicine 05/13/18 documented as of this encounter
--- OUTSIDE RECORDS SUMMARY | 2024-07-28 18:15 | XMS_ITS | Encounter Summary ---
[place] [address] Care Team Providers Care Reimbursement Spec Name Role Phone Elizabeth Blanco APRN Primary Care Provider [phone] Encounter Details Date Type Department Care Team (Late st Contact Info) Description 06/27/2018 Orders [place] [address] Whitney Box Social History Tobacco Use Types Packs/Day Years [...] on filedocumented in this encounter Care Teams Reimbursement Spec Relationship Specialty Start Date End Date Elizabeth Blanco APRN [address] [place] [place] [address] PCP - General Family Medicine 05/13/18 documented as of this encounter
--- OUTSIDE RECORDS SUMMARY | 2024-07-28 18:15 | XMS_ITS | Encounter Summary ---
[place] [address] Care Team Providers Care Yarn Sizer Name Role Phone Janelle Blancoh TETO Primary Care Provider Reason for Referral * Diagnostic Test (Routine) - Closed Specialty Diagnoses / Procedures Referred By Contac t Referred To Contact Radiology Diagnoses Pelvic floor dysfunction Procedures MRI Pelvis Soft Tissue (Gi Gu Rib Cutter)WO Contrast MRI Pelvis Soft Tissue (GI STEWARD/STEWARDESS BATH)W Contrast Fritz Castro APRN [facility] [place] [address] [place] [address] Referral ID Status Reason Start Date Expiration Date V isits Requested Visits Authorized [id number] Closed Specialty Service Requested 06/27/2018 09/25/2018 1 1 Reason for Visit * Diagnostic Test (Routine) - Closed Specialty Diagnoses / Procedures Referred By Contac t Referred To Contact Radiology Diagnoses Pelvic floor dysfunction Procedures MRI Pelvis Soft Tissue (Gi Gu Rib Cutter)WO Contrast MRI Pelvis Soft Tissue (GI STEWARD/STEWARDESS BATH)W Contrast Fritz Castro STORE MANAGER [facility] [place] [address] [place] [address] Referral ID Status Reason Start Date Expiration Date V isits Requested Visits Authorized [id number] Closed Specialty Service Requested 06/27/2018 09/25/2018 1 1 Encounter Details Date Type Department Care Team (Latest Contact Info) Description 07/09/2018 2:25 PM EDT - 07/09/2018 11:59 PM EDT Hospital [place] [address] Fritz Csatro APRN [facility] [place] [address] Pelvic floor dysfunction Discharge Disposition: Home Social History Tobacco Use [...] Refills Start Date End Date BLISOVI FE .5, 28, 1.5 mg-30 mcg (21)/75 mg (7) Tablet take 1 tablet by mouth once daily 0 04/17/2018 levothyroxine (SYNTHROID) 200 mcg Tablet 0 06/01/2018 levothyroxine (SYNTHROID) 25 mcg Tablet take 1 tablet by mouth once daily IN ADDITION TO 200MCG TABLET 0 04/19/2018 PROTOPIC 0.1 % Ointment 0 05/14/2018 fluocinolone acetonide (SYNALAR) 0.01 % Solution 0 05/10/2018 documented as of this encounter Plan of Treatment Not on file documented as of this encounter Procedures Procedure Name Priority Date/Time Associated Diagnosis Comments MRI PELVIS SOFT TISSUE (GI STEWARD/STEWARDESS BATH) WO CONTRAST Routine 07/09/2018 3:43 PM EDT Pelvic floor dysfunction documented in this encounter Results * MRI Pelvis Soft Tissue (Gi Gu Rib Cutter)WO Contrast (07/09/2018 3:43 PM EDT) Anatomical Region [...] EDT EXAMINATION: MRI PELVIS SOFT TISSUE (GI STEWARD/STEWARDESS BATH) WO CONTRAST CLINICAL HISTORY: with defecography; pelvic [...] 07/10/2018 EXAMINATION: MRI PELVIS SOFT TISSUE (GI STEWARD/STEWARDESS BATH) WO CONTRAST CLINICAL HISTORY: with defecography; pelvic floor dysfunction;?rectocele ?cystocele ?enterocele ?prolapses TECHNIQUE: Ultrasound gel was instilled into the rectum. Multiplanar MRIof the pelvis was performed utilizing defecography protocol. All images wereobtained with patient in supine position. COMPARISON: KUB 06/27/2018 FINDINGS: Anatomic Evaluation: Normal physiologic appearing [...] PM Fritz Castro APRN IMG MRI ORDERABLES documented in this encounter Visit Diagnoses Diagnosis Pelvic floor dysfunction Pelvic muscle wasting documented in this encounter Care Teams Yarn Sizer Relationship Specialty Start Date End Date Elizabeth Blanco APRN [address] [place] [address] PCP - General Family Medicine 05/13/18 documented as of this encounter
--- OUTSIDE RECORDS SUMMARY | 2024-07-28 18:15 | XMS_ITS | Encounter Summary ---
Author Organization [facility] [place] [address] Care Team Providers Care Telephone Instrument Supervisor Name Role Phone Elizabeth Blanco APRN Primary Care Provider [phone] Encounter Details Date Type Department Care Team (Late st Contact Info) Description 06/15/2024 Interpretation Only [facility] [address] [place] [phone] Mis Salinas MD [address] [place] [id number] Social History Tobacco Use Types Packs/Day Years Used Date Smoking Tobacco: Never Assessed Sex and Gender Information Value Date Recorded Sex Assigned at Not on file Gender Identity Not on file Sexual Orientation Not on file documented as of this encounter Plan of Treatment Not on file documented as of this encounter Procedures Procedure Name Priority Date/Time Associated Diagnosis Comments CT CHEST ABDOMEN PELVIS W CONTRAST (GENERIC) STAT 06/15/2024 11:51 AM EDT documented in this encounter Results * CT Chest Abdomen Pelvis w Contrast (Generic) (06/15/2024 11:51 AM EDT) PT CLASS E RAD ADMITDTTM [id number] RAD PT RAD INFO [id number]^MARK^ME ESTHER^E RAD EXAM DESC CTCAPW^CT CXR ABD PELVIS WITH IV ONLY^RIS RAD WORKSTATION ID [id number] [facility] [place] Anatomical Region Laterality Modality Abdomen, Pelvis Computed Tomogra phy Impressions 06/15/2024 1:06 PM EDT 1. ??Minimally displaced sternal body fracture with underlying small mediastinal hematoma. 2. ??Equivocal segment 7 hepatic laceration (AAST grade 1 injury) versus subcapsular cyst. 3. ??Left lower neck and superior chest wall contusion 4. ??Left anterolateral thigh contusion. Preliminary report signed by: Julio Cesar Lawrence MD at 06/15/2024 12:36 PM Thank you for letting us participate in the care of this patient. ??If you are a health care provider and have any questions regarding this report, please contact the number below. ??For patients who have questions please contact the health lead caregiver that requested your imaging first. ? Narrative 06/15/2024 1:06 PM EDT EXAMINATION: CT CXR ABD PELVIS WITH IV ONLY CLINICAL HISTORY: Reason for EXAM: ??trauma ??Add'l Info: TECHNIQUE: Helical CT of the chest, abdomen, and pelvis following the intravenous administration of 99 mL of Omnipaque 350. ??Oral contrast was not administered. COMPARISON: None FINDINGS: [...] Comminuted minimally displaced proximal sternal body fracture. Procedure Note Carmen Pappas MD - 06/15/2024 EXAMINATION: CT CXR ABD PELVIS WITH IV ONLY CLINICAL HISTORY: Reason for EXAM: trauma Add'l Info: TECHNIQUE: Helical CT of the chest, abdomen, and pelvis following the intravenous administration of 99 mL of Omnipaque 350. Oral contrast wasnot administered. COMPARISON: None FINDINGS: Chest: Lungs and large airways: The large airways are patent. No airspace opacityor suspicious pulmonary nodule. Pleura: No pneumothorax or effusion. Heart/vasculature: Normal heart size. Nonaneurysmal thoracic aorta. Nopulmonary arterial defect. Arch branch vessel origins are widely patent. Lymph nodes: No enlarged lymph nodes. Mediastinum and marie: Small anterior mediastinal hematoma. Chest wall: Fat stranding along the posterior margin of the left sternocleidomastoid muscle. Additional fat stranding over the superiorleft chest wall. Abdomen/pelvis: Liver: Normal size, contour, and attenuation. Several roundsubcentimeter hypoattenuating lesions, are too small to characterize, although mayrepresent cysts or hemangiomas. A subcapsular segment 7 lesion may also represent asmall cyst or hemangioma, although linear/oblong morphology may suggest asmall laceration (10 mm length). Bile ducts: Nondilated. Gallbladder: Absent. Pancreas: Normal attenuation without ductal dilatation. Spleen: Normal. Adrenals: Normal. Kidneys: Normal. Urinary Bladder: Normal. Vasculature: Normal caliber abdominal aorta. IVC is patent. Portal veinis patent. Lymph Nodes: No enlarged lymph nodes. Bowel: Nondilated, no wall thickening. Normal appendix. Peritoneum and retroperitoneum: No free fluid. No pneumoperitoneum. Noloculated fluid collection or mesenteric inflammation. Abdominal wall: Left anterolateral thigh subcutaneous contusion. Reproductive organs: Absent uterus. No adnexal mass. Osseous structures: Comminuted minimally displaced proximal sternal body fracture. IMPRESSION 1. Minimally displaced sternal body fracture with underlying smallmediastinal hematoma. 2. Equivocal segment 7 hepatic laceration [...] patients who have questions please contactthe health lead caregiver that requested your imaging first. Mis Salinas MD IMG CT ORDERABLES documented in this encounter Visit Diagnoses Not on filedocumented in this encounter Care Teams Telephone Instrument Supervisor Relationship Specialty Start Date End Date Elizabeth Blanco, TETO [address] [place] [address] PCP - General Family Medicine 05/13/18 documented as of this encounter
--- OUTSIDE RECORDS SUMMARY | 2024-07-28 18:15 | XMS_ITS | Encounter Summary ---
Author Organization [facility] Address [facility] [place] [address] Care Team Providers Care Wire Mesh Filter Fabricator Name Role Phone EllieElizabeth alvarado TETO Primary Care Provider [phone] Reason for Visit * Physical Therapy (Routine) - Specialty Diagnoses / Procedures Referred By Abraham solorzano Referred To Contact Physical Therapy Diagnoses Pelvic floor dysfunction Fritz Castro APRN [facility] GASTROENTER[place] [address] [facility] [address] [place] [address] Referral ID Status Reason Start Date Expiration Date V isits Requested Visits Authorized [id number] Evaluate and Treat 07/17/2018 07/17/2019 12 12 Encounter Details Date Type Department Care Team (Late st Contact Info) Description 09/02/2018 11:15 AM EDT Office Visit Physical Therapy at [facility] [address] [place] [address] Raman Rubio, PT [facility] PHYSICAL MEDICINE & [place] [address] Disorder of muscle, ligament, and fascia; Pelvic floor dysfunction; Chronic constipation Social History Tobacco Use Types Packs/Day [...] as of this encounter Miscellaneous Notes * Initial Evaluation - Ramiro Raman Ratliff, PT - 09/02/2018 11:15 AM EDT Physical Therapy Initial Evaluation Note: Outpatient Date of Exam/First Treatment: 09/02/2018 Date of onset: 10 years Referring Provider: Fritz Castro APRN Diagnosis and comorbidities: 1. Disorder of muscle, ligament, and fascia 2. Pelvic floor dysfunction 3. Chronic constipation History of current problem: Makeda Paiz is a 28 y.o. female referred to physical therapy for muscle spasm with pelvic floor dysfunction, constipation and abdominal pain and bloating. Patient reports chronic constipation over the past 10 years. She has been taking 1 dose of miraLAX every other day. If she takes miraLAX daily, she has difficulty with stool consistency. Patient reports rectal pain that she describes as shards of glass at the rectal opening and skin. Patient reports abdominal pain and bloating after eating anything - regardless of amount or type offood that she eats. Notes increased abdominal pain today after eating some cantelope this morning. Patient's expressed goals for treatment: improve bowel movements and regularity Previous treatment/self care: limit fiber intake, miraLAX every other day, tries to limit sugar intake, she wakes up during the night and will go to the kitchen and eat, she is trying to improve her sleep, but has not found anything that has helped her sleep through the night Earlier today, Fritz recommended a trial of Pericolace 1-4 tablets at bedtime. Gynecologic/Obstetric History: : 2 Para: 2 Episiotomy/Tearing/Repair: Yes weight of largest baby: 9.4 Difficulty healing after delivery: No : No Difficult Childbirth: No Regular menstrual cycles: Yes Frequent urinary tract infections: No Sexual Dysfunction/Pain: Sexually Active: Yes Pain level with intercourse: Yes, sometimes feels like there is something in the way, then it movesout of the way Level 1: painful, but able to have penetration at same frequency Level 2: painful and limits frequency Level 3: painful and prevents penetration Pain with: Pelvic exam: No Tampon use: No Back, leg, groin and/or abdominal: Yes Test Results: Urodynamics: N Cystoscope: N Urine Tests: N Bowel Tests: anal manometry: 08/20/18 Type 1: Adequate Increase in Rectal Pressure [...] floor neuromuscular reeducation andrectal sensory balloon retraining. MRI defogram: 07/09/18 IMPRESSION 1. No rectocele. 2. Grade1 cystocele. (May be normal in women) 3. Grade1 uterine prolapse. (May be normal in women) 4. Paradoxical contraction of the puborectalis during defe cation, maintaining an acute angle, more acute than at rest. Bladder Function: Pain or burning with urination:No Difficulty starting urine stream: No Strain to empty bladder: No Feel unable to fully empty bladder: No Have a feeling of pelvic heaviness, pressure or falling out: Yes, she has rectal prolapse with bowel movements, she can usually get it to reduce Have pain with a full bladder: No Have urgency of urination: No # daytime voids: ~7 # episodes of nocturia: 1-2 Bowel Dysfunction: Frequency of bowel movements: 1 every 3 days to 1/week Consistency of stool: normal, hard and hard balls Currently strain to void: Yes, but tries not to Include fiber in diet: limits fiber Take laxatives/enema regularly: Yes Have pain with bowel movements:Yes: starts with stomach pain Have a strong urge to move bowels:only because it hurts in her stomach History of Constipation: Yes Have diarrhea often: No Ignore the urge to defecate: No Feel you have not completely emptied your bowels at the end of a BM: Yes Do you have to push on the vagina or rectum to have or complete a BM:No Fecal incontinence: N gas, liquid, formed stool Fluid Intake: 40-60 ounces per day: water 0-2 caffeinated beverages: coffee 0-1 Alcoholic beverages: Outcome Measure: Pain Intensity Rating Scale: at best: 0/10, at worst: 9/10 Social History and Personal Factors affecting Plan of Care: 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 POSTURE: Good spinal and pelvic alignment STRENGTH: lower extremity grossly 5/5 Patient gives verbal consent to external and internal exam. External Exam: Introitus: closed at rest, tight, symmetric Introitus: perineal neutral with cough Pelvic Floor Contraction: moderate levator ani activity with perineal body elevation, slow derecruitment Valsalva: moderate pelvic floor excursion with signs of anterior and posterior laxity Palpation: Non-tender to pelvic clock Internal Exam: Levator ani muscle strength: 3:00 3/5, 6:00 3/5, and 9:00 3/5, incomplete derecruitment, improved with cues Levator ani muscle tone: 4/5, muscle tension with pain 3:00 > 9:00 Hold Time: 10 seconds, # of reps: >4 Valsalva: moderate pelvic floor excursion with signs of anterior and posterior laxity Rectal Exam: External anal sphincter: strength: 4/5, tone: 4/5, hold time: 10 seconds, Valsalva: moderate pelvicfloor excursion, without muscle contraction, skin fissure at 6:00 SEMG: with internal electrode in supine: deferred Resting Rate: uV Quick flicks: uV x reps Long Hold: uV x seconds x reps Assessment: These findings are consistent with overactive pelvic floor muscles with muscle spasm, pelvic floor dysfunction and constipation. Patient performs a fair/good voluntary pelvic floor musclecontraction with incomplete voluntary relaxation. Presents with increased rectal sphincter tone anddemonstrates a moderate valsalva in side lying without muscle contraction. Patient would benefit from pelvic floor muscle training, awareness of habits, SEMG, relaxation/downtraining and HEP. Clinical Presentation: Stable Evolving Unstable x Notes: moderate complexity Goals: Short term goals (4 weeks) 1. Patient to be indep in the performance of a home program of pelvic floor muscle exercises on a daily basis. 2. Patient will demonstrate a consistent voluntary pelvic floor muscle contraction and relaxation. 3. Patient to complete SEMG evaluation. 4. Patient will demonstrate knowledge of toilet positioning and techniques. Goals: [facility] goals (3 months) 1. Patient will reduce symptoms of constipation by 20%. 2. Patient will have resting rate of <5 uV on SEMG with internal electrode. 3. Patient will be independent with ongoing self management and treatment regimen including hot bath, stretching, toilet positioning and techniques, and bowel routine. Frequency: 1 time in 2 weeks for 6 sessions Plan of care: therapeutic exercise, pelvic floor muscle exercises, SEMG, STM/MFR, stretching, patient/family education, home exercise program, relaxation/downtraining, NMEs Informed Consent: The patient consented to the physical therapy evaluation. The patient agrees to and understands thephysical therapy treatment plan and goals. Interventions completed today: Initial evaluation, patient education and home exercise program consisting of: PT treatment of constipation, toilet positioning and techniques, diaphragmatic breathing for relaxation/downtraining, discussion on purpose and benefits of relaxation/downtraining, vaseline on the perineum for skin barrier, colon massage and pelvic floor muscle exercises: LH ~10 seconds with submaximal contraction, rest 10 seconds with focus on full relaxation, x 10 reps, 2 sessions/day Total Treatment time: 60 minutes: eval moderate, neuro re-ed Total Timed Code Treatment: 18 minutes RAMAN RUBIO PT documented in this encounter Plan of Treatment Scheduled Referrals Name Type Priority Associated Diagnoses Orde r Schedule Referral to Physical Therapy Outpatient Referral Routine Pelvic floor dysfunction Ordered: 07/17/2018 documented as of this encounter Visit Diagnoses Diagnosis Disorder of muscle, ligament, and fascia Unspecified disorder of muscle, ligament, and fascia Pelvic floor dysfunction Pelvic muscle wasting Chronic constipation Unspecified constipation documented in this encounter Care Teams Wire Mesh Filter Fabricator Relationship Specialty Start Date End Date Elizabeth Blanco, TRAINING CONSULTANT [address] [place] [address] PCP - General Family Medicine 05/13/18 documented as of this encounter
--- OUTSIDE RECORDS SUMMARY | 2024-07-28 18:15 | XMS_ITS | Encounter Summary ---
Author Organization [facility] Address [facility] [place] [address] Care Team Providers Care Master Lay Out Specialist Name Role Phone Elizabeth Blanco TETO Primary Care Provider [phone] Encounter Details Date Type Department Care Team (Latest Contact Info) Description 06/27/2018 11:05 AM EDT - 06/27/2018 11:59 PM EDT Hospital Encounter XRay at [address] [place] [address] Fritz Castro APRN [facility] GASTROENTEROLOG [place] [address] Irritable bowel syndrome with constipation Discharge Disposition: Home Social History Tobacco Use [...] Name Priority Date/Time Associated Diagnosis Comments XR ABDOMEN 1 VIEW Routine 06/27/2018 11: 20 AM EDT Irritable bowel syndrome with constipation documented in this encounter Results * XR Abdomen 1 view (Generic) (06/27/2018 [...] encounter Visit Diagnoses Diagnosis Irritable bowel syndrome with constipation Irritable bowel syndrome documented in this encounter Care Teams Master Lay Out Specialist Relationship Specialty Start Date End Date Elizabeth Blanco APRN [address] [place] [address] PCP - General Family Medicine 05/13/18 documented as of this encounter
--- OUTSIDE RECORDS SUMMARY | 2024-07-28 18:15 | XMS_ITS | Encounter Summary ---
Author Organization [facility] [place] [address] Care Team Providers Care Ring Cutter Lathe Operator Name Role Phone EllieElizabeth alvarado TETO Primary Care Provider [phone] Reason for Visit * Surgical (Routine) - Specialty Diagnoses / Procedures Referred By Abraham solorzano Referred To Contact Gastroenterology Diagnoses Pelvic floor dysfunction Procedures High Definition Anal Manometry Fritz Johnson APRN [facility] [address] [place]STRO[place] [address] [facility] [address] [place] [address] Referral ID Status Reason Start Date Expiration Date V isits Requested Visits Authorized [id number] Consult, Test & Treat 06/27/2018 06/27/2019 1 1 Encounter Details Date Type Department Care Team (Latest Contact Info) Description 08/20/2018 9:00 AM EDT Procedure visit [place] [address] Constipation, unspecified constipation type Social History Tobacco [...] as of this encounter Progress Notes * Angelica Lara RN - 08/20/2018 9:00 AM EDT A description of the anal manometry procedure was provided to the patient. All questions were answered and the patient verbalized understanding. After performing a digital rectal exam, the HRAM probe was placed in the rectum without difficulty and the procedure was performed. After removal of the probe, an anorectal balloon expulsion catheterwas placed in the rectum for continuation of the study and then removed. The patient tolerated the procedure well. documented in this encounter Plan of Treatment Scheduled Orders Name Type Priority Associated Diagnoses Orde r Schedule High Definition Anal Manometry Procedures Routine Pelvic floor dysfunction Ordered: 06/27/2018 documented as of this encounter Visit Diagnoses Diagnosis Constipation, unspecified constipation type documented in this encounter Care Teams Ring Cutter Lathe Operator Relationship Specialty Start Date End Date Elizabeth Blanco APRN [address] [place] [address] PCP - General Family Medicine 05/13/18 documented as of this encounter
--- OUTSIDE RECORDS SUMMARY | 2024-07-28 18:15 | XMS_ITS | Encounter Summary ---
[facility] [place] [address] Care Team Providers Care Marketing And Development Coordinator Name Role Phone EllieElizabeth alvarado TETO Primary Care Provider [phone] Encounter Details Date Type Department Care Team (Late st Contact Info) Description 09/02/2018 9:00 AM EDT Office [place] [address] Fritz Castro APRN [facility] [address] [place] [address] Pelvic floor dysfunction Social History Tobacco Use [...] Sign Reading Time Taken Comments Blood Pressure 124/77 09/02/2018 9:11 AM EDT Pulse 81 09/02/2018 9:11 AM EDT Temperature - - Respiratory Rate - - Oxygen Saturation - - Inhaled Oxygen Concentration - - Weight 72.2 kg (159 lb 3.2 oz) 09/02/2018 9:11 A M EDT Height 170.2 cm (5' 7) 09/02/2018 9:11 AM EDT Body Mass Index 24.93 09/02/2018 9:11 AM EDT documented in this encounter Progress Notes * Fritz Castro RN - 09/02/2018 9:00 AM EDT _25___minutes of this__30__-minute visit were spent in face to face discussion and/or counseling the patient, regarding symptoms and treatment options as detailed below. Pt is here for follow up regarding gi testing. Kub: Nonobstructive bowel gas pattern. Moderate to large amount of fecal material seen throughout the entire colon to the level of the rectum. Free air is not excluded on this supine exam. No abnormal abdominal calcifications. Lung bases are clear. Surgical clips right upper abdomen. The bones appear intact. ?? IMPRESSION Nonobstructive bowel gas pattern. Moderate to large amount of fecal material throughout colon. Hram: IMPRESSION Resting anal sphincter pressure reflecting internal [...] floor neuromuscular reeducation andrectal sensory balloon retraining. ?? Pelvic mri: IMPRESSION 1. No rectocele. 2. Grade1 cystocele. (May be normal in women) 3. Grade1 uterine prolapse. (May be normal in women) 4. Paradoxical contraction of the puborectalis during defecation, maintaining an acute angle, more acute than at rest. [place]: Moderate (conscious) sedation was administered by the ?endoscopy nurse and supervised by the endoscopist. ?The patient's oxygen saturation, heart rate, blood ?pressure and response to care were monitored. Total ?physician intraservice time was 42 minutes. Impression: ?- The examined portion of the ileum ?was normal. ?- Abnormal mucosa in the rectum. ?Could be normal variant, bowel ?preparation effect, due to prolapsing ?rectum, among other etiologies. ?Biopsies obtained. ?- The examination was otherwise ?normal on direct and retroflexion ?views. Recommendation: ?- Discharge patient to home (with ?escort). ?- Resume previous diet. ?- Await pathology results. ?- Return to referring physician as ?previously scheduled. Bx: DIAGNOSIS Mucosal irritation, ??biopsy: - Colonic mucosa, negative for diagnostic abnormality. Pt is using miralax. Finds she will not go for a few days then will empty out. She is using miralax qod. Qd is too much. She experiences mid to lower abdominal pain prior to having a bowel movement. This will eventually resolve once she is able to empty. However she can be doubled over with this pain and can be exhausted from it afterwards. Pt is seeing PT today. Plan: 1. Pelvic floor dysfunction/constipation: pericolace 1-4 qhs; f/u with PT today. Peppermint, warm liquids, heat, abdominal massage. 2. Pt to call gi regarding progress documented in this encounter Plan of Treatment Not on file documented as of this encounter Visit Diagnoses Diagnosis Pelvic floor dysfunction Pelvic muscle wasting documented in this encounter Care Teams Marketing And Development Coordinator Relationship Specialty Start Date End Date Elizabeth Blanco, TETO [address] [place] [address] PCP - General Family Medicine 05/13/18 documented as of this encounter
--- OUTSIDE RECORDS SUMMARY | 2024-07-28 18:15 | XMS_ITS | Encounter Summary ---
Author Organization [facility] Address [facility] [place] [address] Care Team Providers Care Bet Taker Name Role Phone Elizabeth Blanco APRN Primary Care Provider [phone] Encounter Details Date Type Department Care Team (Late st Contact Info) Description 07/08/2018 3:00 PM EDT - 07/08/2018 3:45 PM EDT Surgery Gastroenterology at [facility] [place] [address] Mathew Bob MD [facility] [place] [address] COLONOSCOPY FLEXIBLE, WITH BX (WRVU 3.56) Social History Tobacco Use Types Packs/Day Years [...] encounter Discharge Instructions * Discharge Instructions* Carolin Glez, RN - 07/08/2018 3:54 PM EDT Please call [phone] before 6pm Mon-Fri with problems, questions or concerns. If you call after 8pm or on weekends, call the Hospital at [phone] and ask to speak to the Scalp Treatment Operator appraiser irrigation tax and the lacquer pin press operator will contact that person for you. * Attachments The following attachments cannot be sent through Care Everywhere. * COLONOSCOPY: POST-OP (BURKINAN) documented in this encounter Medications at Time [...] of this encounter H&P Notes * Mathew Bob MD - 07/08/2018 2:57 PM EDT PROBLEM [...] Report (07/08/2018 3:48 PM EDT) Final Diagnosis [id number] ? Location: 4T; EA07; A The signing pathologist has (i) examined the relevant preparation(s) for the specimen(s) and (ii) rendered or confirmed the diagnosis(es). . ?Surgical Pathology DIAGNOSIS Mucosal irritation, ??biopsy: - Colonic mucosa, negative for diagnostic abnormality. CR-PX Electronically signed by: ??Kobe Bonilla MD Verified: ??07/11/2018 ?Pathologist Performed at: ??-[facility] Dept. of [place]ology, [place], [place] CLINICAL INFORMATION Specimen Submitted: A - Mucosal irritation r/o changes secondary to rectal prolapse Clinical History and Diagnosis: Mucosal irritation rule out changes secondary to rectal prolapse. Constipation. SPECIMEN PROCESSING A - Labeled/Fixativ e: Mucosal irritation, formalin. Quantity/Size: Five, 0.2-0.3 cm. Tissue Description: ??Soft, whaley-pink tissue ??. Sections/Proces sing: []. ([]) ??pps 07/11/2018 4:41 PM EDT [facility] GI Biopsy 07/08/2018 3:48 PM EDT 07/08/2018 3:48 PM EDT Mathew Bob MD PATHOLOGY/CYTOLOGY O ALPHONSE Performing Organization Address [facility] Co de Phone Number [facility] [place] [address] * Specimen to Pathology (07/08/2018 3:48 PM EDT) AP Specimen 07/08/2018 3:48 PM EDT 07/08/2018 4:50 PM EDT Narrative [facility] - 07/08/2018 4:50 PM EDT Specimen requisition ordered. ??Separate Pathology report to follow Resulting Agency Comment Spec In Lab Mathew Bob MD PATHOLOGY/CYTOLOGY O ALPHONSE Performing Organization Address [facility] Co de Phone Number [facility] [place] [address] * COLONOSCOPY (07/08/2018 3:03 PM EDT) COLONOSCOPY [facility] Endoscopy Procedure Date: 07/08/2018 3:03 PM ? Patient Name: Makeda Paiz ? Date of : 1990 ? Age: 28 ? Order #: [id number] ? Instrument Name: [id number] ? Procedure: ? Colonoscopy Indications: ? Abdominal pain, Constipation Providers: ? Mathew Bob, Diana Muñoz, ? Anne-Marie Chavez, Humble Kang, ? Client Evaluator Referring MD: ?Elizabeth Ellie Medicines: ? Fentanyl 250 micrograms IV, Midazolam [...] preparation was evaluated using ? the BBPS (Ophelia Bowel Preparation ? Scale) with scores of: [...] done by the ? physician, nurse and technician support engineer using the patient's ? name, date and [...] Procedure Code(s): ?? --- Professional --- ? 45441, Colonoscopy, flexible; with ? biopsy, single or multiple ? 36748, 59, Moderate sedation services ? provided by [...] age 5 ? years or older ? [address], Moderate sedation services; ? each additional 15 minutes ? intraservice time ? 51592, Moderate sedation services; ? each additional 15 minutes ? intraservice time CPT copyright 2016 [employer]. All rights reserved. The codes documented in this report are preliminary and upon photographic lithographer review may be revised to meet current compliance requirements. Attending Participation: ? I personally performed the entire procedure. ? Mathew Steinbergajay, 07/08/2018 4:00:50 PM Number of Addenda: 0 Note Initiated On: 07/08/2018 3:03 PM PROVATION 07/08/2018 3:03 PM EDT Elizabeth Blanco APRN GENERAL SURGICAL ORD ERABLES PROVATION documented in this encounter Visit Diagnoses Diagnosis Irritable bowel syndrome with constipation Irritable bowel syndrome documented in this encounter Administered Medications Inactive Administered Medications - up to 3 most recent administrations Medication Order MAR Action Action Date Dose Rate Site diphenhydrAMINE (BENADRYL) injection ONCE PRN, Starting on Sun07/08/18 at 1503, Until Sun07/08/18 at 1850, Intra-Operative (Intra-Procedure), Routine Given 07/08/2018 3:03 PM EDT 50 mg fentaNYL 50 mcg/mL multi-dose injection ONCE PRN, Starting on Sun07/08/18 at 1503, Until Sun07/08/18 at 1850, Intra-Operative (Intra-Procedure), Routine Given 07/08/2018 3:24 PM EDT 25 mcg Given 07/08/2018 3:21 PM EDT 25 mcg Given 07/08/2018 3:17 PM EDT 25 mcg midazolam (PF) (VERSED) 1 mg/mL multi-dose injection ONCE PRN, Starting on Sun07/08/18 at 1504, Until Sun07/08/18 at 1850, Intra-Operative (Intra-Procedure), Routine Given 07/08/2018 3:25 PM EDT 1 mg Given 07/08/2018 3:21 PM EDT 1 mg Given 07/08/2018 3:18 PM EDT 1 mg documented in this encounter Active and Recently Administered [...] RN) documented in this encounter Care Teams Bet Taker Relationship Specialty Start Date End Date Elizabeth Blanco, SENIOR ADULTS DIRECTOR [address] [place] [address] PCP - General Family Medicine 05/13/18 documented as of this encounter
--- OUTSIDE RECORDS SUMMARY | 2024-07-28 18:15 | XMS_ITS | Encounter Summary ---
Author Organization [facility] [place] [address] Care Team Providers Care Hired Help Name Role Phone BellaElizabeth TETO Primary Care Provider [phone] Reason for Visit * Surgical (Routine) - Closed Specialty Diagnoses / Procedures Referred By Contac t Referred To Contact Gastroenterology Diagnoses Unspecified abdominal pain Constipation, unspecified Abd Pain & Constipation, ?SIBO Procedures HYDROGEN BREATH TEST HBT- Lactulose Saleem Myles, MARINA REAGAN [address] [place] [address] [facility] [address] [place] [address] Referral ID Status Reason Start Date Expiration Date Visits Re quested Visits Authorized [id number] Closed 09/10/2020 09/10/2021 1 1 Encounter Details Date Type Department Care Team (Late st Contact Info) Description 09/24/2020 8:00 AM EST Procedure [place] [address] Bloating Social History Tobacco Use Types Packs/Day Years [...] as of this encounter Progress Notes * Parul Leyva APRN - 09/24/2020 8:00 AM EST Gastroenterology Breath Test Report Patient: Makeda Paiz Date Of : 1990 PCP: Elizabeth Blanco APRN Referring: Saleem Myles STUDY DATE: 09/28/2020 PROVIDER: Parul Leyva APRN INDICATION: bloating ppmH2 ppmCH4 CO2(f) Fasting Baseline 6 8 3.2/1.90 Administer sugar: Lactulose 10g with 90 mL H2O Sample Time ppmH2 ppmCH4 CO2(f) 90 min 2 4 3.2/1.90 Interpretation: Negative hydrogen breath test. Negative methane breath test. Patient reported vomiting symptoms during the test. Clinical interpretation is based on the Hydrogen and Methane-Based Breath Testing in Gastrointestinal Disorders: The [place] Consensus (Am J Gastroenterol 2017; 112(5):775-84. Apositive breath test is defined as a rise in hydrogen production >20 ppm compared to baseline within 90 minutes. Methane-positive is defined by at least 10 ppm production of methane. Signed, Parul Leyva APRN Gastroenterology [place] [address] P: [phone] F: [phone] Copy: Saleem Blanco APRN documented in this encounter Plan of Treatment Not on file documented as of this encounter Visit Diagnoses Diagnosis Bloating Flatulence, eructation, and gas pain documented in this encounter Care Teams Hired Help Relationship Specialty Start Date End Date Elizabeth Blanco APRN [address] [place] [address] PCP - General Family Medicine 05/13/18 documented as of this encounter
[2024-07-28 19:10] LABS: HCT 36.8 % (36.0-46.0); HGB 12.5 g/dL (11.2-15.7); MCH 29.4 pg (27.0-33.0); MCV 87 fL (80-95); MPV 10.7 fL (8.0-11.0); Platelet Count 207 10^3/uL (130-400); RBC 4.25 10^6/uL (3.93-5.22); RDW 12.2 % (11.7-14.6); RDW-SD 38.7 fL; WBC 8.46 10^3/uL (4.4-10.8)
[2024-07-28 19:36] LABS: ALT 12 U/L (14-59); AST 17 U/L (15-37); Albumin 4.3 g/dL (3.4-5.0); Alkaline Phosphatase 48 U/L (46-116); Anion Gap 10.3 mmol/L (3-11); BUN 11 mg/dL (7-18); CO2 24.7 mmol/L (21.0-32.0); CREATININE 0.8 mg/dL (0.55-1.02); Calcium 9.4 mg/dL (8.5-10.1); Chloride 104 mmol/L (98-107); Estimated GFR 99.71 (mL/min/1.73m2); Glucose 85 mg/dL (74-106); Potassium 3.5 mmol/L (3.5-5.1); Sodium 139 mmol/L (136-145); Total Protein 7.4 g/dL (6.4-8.2)
== END 2024-07-28 18:12 | disposition home or self-care (01) ==
LOC: NCHCN 18:11
PROVIDERS: Visit Provider Family Medicine
DX: R06.09 Other forms of dyspnea (principal); K76.89 Other specified diseases of liver
CPT/HCPCS: 80053; 85027

== ENCOUNTER 2024-07-31 02:22 | Outpatient (CLI) | payer MEDICAID, SELFPAY ==
--- NOTE | 2024-07-31 | DI.RAD_ITS ---
Exam(s) XR STERNUM XR CHEST 2V PA LATERAL EXAM: XR CHEST 2V PA LATERAL CLINICAL HISTORY: DYSPNEA,R06.00,CLOSED FX STERNUM,S22.20XS TECHNIQUE: 2D digital imaging was performed. Two views. COMPARISON: CR XR STERNUM from 07/31/2024 FINDINGS: HEART: Normal size. Aorta: Not dilated. PULMONARY VASCULATURE: Normal. MEDIASTINUM: Unremarkable. LUNGS: Clear. PLEURAL SPACE: No pleural effusion or pneumothorax. BONE:There is a minimally displaced fracture of the upper sternum, below the level of the manubrium. No visible rib fracture. SOFT TISSUES: Unremarkable. IMPRESSION: Upper sternal fracture. DATA REPOSITORY: RADIATION DOSE DELIVERED:
== END 2024-07-31 02:42 ==
LOC: DI 02:22
PROVIDERS: Visit Provider Family Medicine
DX: S22.22XA Fracture of body of sternum, initial encounter for closed fracture (principal); X58.XXXA Exposure to other specified factors, initial encounter
CPT/HCPCS: 71046; 71120

== ENCOUNTER 2024-10-31 15:21 | Outpatient (REF) | payer MEDICAID, SELFPAY ==
--- OUTSIDE RECORDS SUMMARY | 2024-10-31 15:37 | XMS_ITS | Encounter Summary ---
Author Organization [facility] Address [address] [place] [address] Care Team Providers Care Analytics Associate Name Role Phone Elizabeth Blanco Primary Care Provider [phone] Encounter Details Date Type Department Care Team (Latest Contact Info) Description 12/25/2023 Specialty Pharmacy [facility] [address] [place] [address] Jenna Shaffer RPH Refill Coordination Outreach for Dermatology Social History Tobacco Use Types Packs/Day Years Used Date Smoking Tobacco: Never Assessed Interpersonal Safety Answer Date Record ed Physically Hurt Never 06/20/2020 Verbally Threaten Not on file 06/20/2020 Comments Unknown Sex and Gender Information Value Date Recorded Sex Assigned at Not on file Legal Sex Female 18:42 EST Gender Identity Not on file Sexual Orientation Not on file documented as of this encounter Plan of Treatment Not on file documented as of this encounter Visit Diagnoses Not on filedocumented in this encounter Care Teams Analytics Associate Relationship Specialty Start Date End Date Elizabeth Blanco [place] [address] [place] [address] PCP - General 01/03/19 documented as of this encounter
--- OUTSIDE RECORDS SUMMARY | 2024-10-31 15:37 | XMS_ITS | Encounter Summary ---
Author Organization [facility] Address [address] [place] [address] Care Team Providers Care Records Section Supervisor Name Role Phone Elizabeth Blanco Primary Care Provider [phone] Encounter Details Date Type Department Care Team (Latest Contact Info) Description 09/30/2024 Specialty Pharmacy [facility] [address] [place] [address] Dusty Ybarra RPH Started Refill Coordination Outreach for Dermatology Social History [...] on filedocumented in this encounter Care Teams Records Section Supervisor Relationship Specialty Start Date End Date Elizabeth Blanco [place] [place] [address] PCP - General 01/03/19 documented as of this encounter
--- OUTSIDE RECORDS SUMMARY | 2024-10-31 15:37 | XMS_ITS | Encounter Summary ---
Author Organization [facility] Address [address] [place] [address] Care Team Providers Care Secretary To The Vice President Name Role Phone Elizabeth Blanco JOSUÉ Primary Care Provider [phone] Reason for Referral * (Routine/Next Available) - Receiving Office to Obtain Authorization Specialty Diagnoses / Procedures Referred By Contac t Referred To Contact Procedures CT OUTSIDE IMAGES CHEST ABDOMEN PELVIS Imaging, External Referral ID Status Reason Start Date Expiration Date Visits Requested Visits Authorized [id number] Receiving Office to Obtain Authorization 06/15/2024 1 1 Reason for Visit * (Routine/Next Available) - Receiving Office to Obtain Authorization Specialty Diagnoses / Procedures Referred By Contac t Referred To Contact Procedures CT OUTSIDE IMAGES CHEST ABDOMEN PELVIS Imaging, External Referral ID Status Reason Start Date Expiration Date Visits Requested Visits Authorized [id number] Receiving Office to Obtain Authorization 06/15/2024 1 1 Encounter Details Date Type Department Care Team (Latest Contact Info) Description 06/15/2024 16:09 EDT - 06/15/2024 23:59 EDT Hospital Encounter [facility] Secondary Reads [place] Discharge Disposition: Home [...] this encounter Medications at Time of Discharge adalimumab (HUMIRA,CF, PEN) 40 mg/0.4 mL pen Inject 0.4 mL into the skin every 14 days. levothyroxine (SYNTHROID) 200 mcg tablet Take 200 mcg by mouth daily. UNABLE TO FIND Med Name: Glisovi Fe control pill cholecalciferol, Vitamin D3, 1,000 unit tablet Take 2,000 Units by mouth daily. 09/03/2024 documented as of this encounter Discharge Disposition [...] 16:10 EDT This is a non-reportable exam. us External Imaging IMG OTHER IMAGING ORDERABLES Fi nal Result documented in this encounter Visit Diagnoses Not on filedocumented in this encounter Care Teams Secretary To The Vice President Relationship Specialty Start Date End Date Elizabeth Bl[place] [address] [place] [address] PCP - General 01/03/19 documented as of this encounter
--- OUTSIDE RECORDS SUMMARY | 2024-10-31 15:37 | XMS_ITS | Encounter Summary ---
Author Organization [facility] Address [address] [place] [address] Care Team Providers Care Check Embosser Name Role Phone Elizabeth Blanco Primary Care Provider [phone] Encounter Details Date Type Department Care Team (Latest Contact Info) Description 05/16/2024 Specialty Pharmacy [facility] [address] [place] [address] Jenna Shaffer RPH Refill Coordination Outreach for [...] on filedocumented in this encounter Care Teams Check Embosser Relationship Specialty Start Date End Date Elizabeth Blanco [place] [address] PCP - General 01/03/19 documented as of this encounter
--- OUTSIDE RECORDS SUMMARY | 2024-10-31 15:37 | XMS_ITS | Encounter Summary ---
Author Organization Health system Address [address] [place] [address] Care Team Providers Care Dynamometer Repairer Name Role Phone Elizabeth Blanco Primary Care Provider Encounter Details Date Type Department Care Team (Latest Contact Info) Description 11/29/2023 Specialty Pharmacy [facility] [address] [place] [address] Dusty Wright RPH Refill Coordination Outreach for [...] on filedocumented in this encounter Care Teams Dynamometer Repairer Relationship Specialty Start Date End Date Elizabeth Blanco [place] [address] PCP - General 01/03/19 documented as of this encounter
--- OUTSIDE RECORDS SUMMARY | 2024-10-31 15:37 | XMS_ITS | Encounter Summary ---
Author Organization [facility] Address [address] [place] [address] Care Team Providers Care Mounter Flutes And Piccolos Name Role Phone Elizabeth Blanco JOSUÉ Primary Care Provider [phone] Encounter Details Date Type Department Care Team (Latest Contact Info) Description 09/03/2024 Specialty Pharmacy [facility] [address] [place] [address] Bandar Jeter RPH Refill Coordination Outreach for Dermatology, Clinical Follow-up (2x annually) for Dermatology Social History Tobacco Use Types [...] as of this encounter Progress Notes * Bandar Jeter RPH - 09/03/2024 1203 EDT [facility] Specialty Pharmacy Dermatology Routine Follow Up Kiaasia Parish Izabel is a 34 y.o. female being treated with Humira (adalimumab) 40mg CF Pen [id number] forpsoriasis. Spoke with patient regarding the following via Telephone Side effects/toxicities: Minor ISR - uses cortisone cream New medications or drug allergies: updated list Allergies: Allergies Allergen Reactions Amoxicillin Swelling of throat Augmentin [Amoxicillin-Pot Clavulanate] Swelling of throat Dilaudid [Hydromorphone] Nausea Only Penicillin G Swelling of throat Facial swelling Medications: Current Outpatient Medications Medication Sig Dispense Refill adalimumab (HUMIRA,CF, PEN) 40 mg/0.4 mL pen Inject 0.4 mL into the skin every 14 days. FLUoxetine (PROZAC) 20 mg capsule Take 1 Capsule by mouth daily. levothyroxine (SYNTHROID) 200 mcg tablet Take 200 mcg by mouth daily. UNABLE TO FIND Med Name: Glisovi Fe control pill No current facility-administered medications for this visit. Assessment: Patient finds that psoriasis is still well controlled with humira compared to before therapy. Bandar Jeter PharmD Specialty Pharmacy 09/03/2024 documented in this encounter Plan of Treatment Not on file documented as of this encounter Visit Diagnoses Not on filedocumented in this encounter Discontinued Medications Medication Sig Discontinue Reason Start Date End Da te cholecalciferol, Vitamin D3, 1,000 unit tablet Take 2,000 Units by mouth daily. Therapy completed 09/03/2024 documented as of this encounter Historical Medications * This list may reflect changes made after this encounter. FLUoxetine (PROZAC) 20 mg capsule Take 1 Capsule by mouth daily. added in this encounter Care Teams Mounter Flutes And Piccolos Relationship Specialty Start Date End [place] [address] PCP - General 01/03/19 documented as of this encounter
--- OUTSIDE RECORDS SUMMARY | 2024-10-31 15:37 | XMS_ITS | Encounter Summary ---
Author Organization [facility] Address [address] [place] [address] Care Team Providers Care Agricultural Agent Name Role Phone Elizabeth Blanco Primary Care Provider [phone] Encounter Details Date Type Department Care Team (Latest Contact Info) Description 10/17/2023 Specialty Pharmacy [facility] [address] [place] [address] Vi Voss RPH Refill Coordination Outreach (1 [...] on filedocumented in this encounter Care Teams Agricultural Agent Relationship Specialty Start Date End Date Elizabeth Bl[place] [address] [place] [address] PCP - General 01/03/19 documented as of this encounter
--- OUTSIDE RECORDS SUMMARY | 2024-10-31 15:37 | XMS_ITS | Referral Summary ---
Author Organization [facility] Address [address] [place] [address] Care Team Providers Care Account Manager Trainee Name Role Phone Elizabeth Blanco JOSUÉ Primary Care Provider [phone] Encounters Date Type Department Care Team Description 09/30/2024 Specialty Pharmacy [facility] [address] [place], [place] [address] Dusty Ybarra RPH Started Refill Coordination Outreach for Dermatology 09/03/2024 Specialty Pharmacy [facility] [address] [place], [place] [address] Bandar Jeter RPH Refill Coordination Outreach for Dermatology, Clinical Follow-up (2x annually) for Dermatology from Last 3 Months Allergies Active Allergy Reactions Criticality Noted Date Comments Amoxicillin Swelling of throat 01/06/2019 Amoxicillin-Pot Clavulanate Swelling of throat 01/06/2019 Hydromorphone Nausea Only 01/07/2019 Penicillin G Swelling of throat 01/06/2019 Facial swelling Medications levothyroxine (SYNTHROID) 200 mcg tablet Take 200 mcg by mouth daily. Active UNABLE TO FIND Med Name: Glisovi Fe control pill Active adalimumab (HUMIRA,CF, PEN) 40 mg/0.4 mL pen Inject 0.4 mL into the skin every 14 days. Active FLUoxetine (PROZAC) 20 mg capsule Take 1 Capsule by mouth daily. Active Active Problems Problem Noted Date Diagnosed [...] EST Plan of Treatment Not on file [place] Care Teams Account Manager Trainee Relationship Specialty Start Date End Date Elizabeth Bl[place] [address] [place] [address] PCP - General 01/03/19
--- OUTSIDE RECORDS SUMMARY | 2024-10-31 15:37 | XMS_ITS | Encounter Summary ---
Author Organization [facility] Address [address] [place] [address] Care Team Providers Care Hospital Insurance Clerk Name Role Phone Elizabeth Blanco Primary Care Provider [phone] Encounter Details Date Type Department Care Team (Latest Contact Info) Description 07/22/2024 Specialty Pharmacy [facility] [address] [place] [address] Dusty Ybarra RPH Refill Coordination Outreach for [...] on filedocumented in this encounter Care Teams Hospital Insurance Clerk Relationship Specialty Start Date End Date Elizabeth Bl[place] [place] [address] PCP - General 01/03/19 documented as of this encounter
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
--- OUTSIDE RECORDS SUMMARY | 2024-10-31 15:37 | XMS_ITS | Encounter Summary ---
Author Organization [facility] Address [address] [place] [address] Care Team Providers Care Resident Medical Officer Name Role Phone Elizabeth Blanco Primary Care Provider [phone] Encounter Details Date Type Department Care Team (Latest Contact Info) Description 01/22/2024 Specialty Pharmacy [facility] [address] [place] [address] Jenna Shaffer RPH Refill Coordination Outreach for [...] on filedocumented in this encounter Care Teams Resident Medical Officer Relationship Specialty Start Date End Date Elizabeth Bl[place] [address] [place] [address] PCP - General 01/03/19 documented as of this encounter
--- OUTSIDE RECORDS SUMMARY | 2024-10-31 15:37 | XMS_ITS | Clinical Summary ---
Author Organization [facility] Address [address] [place] [address] Care Team Providers Care Motorcycle Delivery Driver Name Role Phone Elizabeth Blanco JOSUÉ Primary Care Provider [phone] Allergies Active Allergy Reactions Criticality Noted Date [...] Department Care Team Description 09/30/2024 Specialty Pharmacy [facility] [address] [place], [place] [id number] Dusty Ybarra RPH Started Refill Coordination Outreach for Dermatology 09/03/2024 Specialty Pharmacy [facility] [address] [place], [place] [id number] Bandar Jeter RPH Refill Coordination Outreach for Dermatology, Clinical Follow-up (2x annually) for Dermatology from Last 3 Months Social [...] series) 06/17 COVID-19 Vaccine ( season) 2024 [place] Care Teams Motorcycle Delivery Driver Relationship Specialty Start Date End Date Elizabeth Blanco [place] [address] [place] [address] PCP - General 01/03/19
--- OUTSIDE RECORDS SUMMARY | 2024-10-31 15:37 | XMS_ITS | Encounter Summary ---
Author Organization [facility] Address [address] [place] [address] Care Team Providers Care Farm Product Purchaser Name Role Phone Elizabeth Blanco JOSUÉ Primary Care Provider [phone] Encounter Details Date Type Department Care Team (Late st Contact Info) Description 08/24/2023 Lab Requisition [facility] Pathology & Laboratory Medicine - [address] [address] Giancarlo Sahni MD [address] [place] [address] Unspecified dyspareunia; Pelvic and perineal pain; Secondary [...] explore management options, if applicable. 08/29/2023 16:55 [facility] Final Diagnosis A. UTERUS, AND CERVIX, HYSTERECTOMY: - Endometrium: - Inactive. - Myometrium: - Adenomyosis. - Cervix: - Acute and chronic cervicitis. - Serosa: - No specific pathologic features. 08/29/2023 16:55 [facility] Attestation There was significant resident/fellow involvement in the diagnostic evaluation of this case. By the signature below, the attending physician certifies that they have personally conducted a gross and/or microscopic examination of the described specimens and rendered or confirmed the above diagnosis. 08/29/2023 16:55 [facility] at 1654 Clinical History Dysmenorrhea, chronic pelvic pain, dyspareunia; clinical diagnosis code: N94.5, R10.2, N94.10 08/29/2023 16:55 [facility] Gross Description A. Received in [...] and the endocervix is whaley-white and furrowed. Furniture Detailer sections are submitted as follows: BLOCK STEEN A1- anterior cervix A2- posterior cervix A3- anterior endomyometrium, full-thickness (endometrium transected from myometrium upon opening) A4- posterior endomyometrium, full-thickness ARNALDO ALFONSO([facility]) 08/27/2023 13:40 08/29/2023 16:55 EDT [facility] Resident/Julio w: Chula Vizcaino MD 08/29/2023 16:55 EDT [facility] Performing Lab [facility] 08/29/2023 16:55 EDT [facility] Scanned Images 08/29/2023 16:55 EDT [facility] Tissue UTERINE STRUCTURE / Unknown 08/24/2023 10:45 EDT 08/24/2023 17:56 EDT us Giancarlo Sahni MD PATHOLOGY ORDERABLES Final Res ult [facility] [address] [place] [address] documented in this encounter Visit Diagnoses Diagnosis Unspecified dyspareunia Pelvic and perineal pain Unspecified symptom associated with female genital organs Secondary dysmenorrhea Dysmenorrhea documented in this encounter Care Teams Farm Product Purchaser Relationship Specialty Start Date End Date Elizabeth Bl[place] [address] [place] [address] PCP - General 01/03/19 documented as of this encounter
--- OUTSIDE RECORDS SUMMARY | 2024-10-31 15:37 | XMS_ITS | Encounter Summary ---
Author Organization [facility] Address [address] [place] [address] Care Team Providers Care Blanket Cutter Hand Name Role Phone Elizabeth Blanco Primary Care Provider [phone] Encounter Details Date Type Department Care Team (Latest Contact Info) Description 04/16/2024 Specialty Pharmacy [facility] [address] [place] [address] Bandar Jeter Alejo Refill Coordination Outreach for Dermatology Social History [...] on filedocumented in this encounter Care Teams Blanket Cutter Hand Relationship Specialty Start Date End Date Elizabeth Bl[place] [place] [address] PCP - General 01/03/19 documented as of this encounter
--- OUTSIDE RECORDS SUMMARY | 2024-10-31 15:37 | XMS_ITS | Encounter Summary ---
Author Organization [facility] Address [address] [place] [address] Care Team Providers Care Financial Retirement Plan Specialist Name Role Phone Elizabeth Blanco Primary Care Provider [phone] Encounter Details Date Type Department Care Team (Latest Contact Info) Description 06/23/2024 Specialty Pharmacy [facility] [address] [place] [address] Dusty Wright RPH Refill Coordination Outreach for [...] on filedocumented in this encounter Care Teams Financial Retirement Plan Specialist Relationship Specialty Start Date End Date Elizabeth Bl[place] [address] PCP - General 01/03/19 documented as of this encounter
--- OUTSIDE RECORDS SUMMARY | 2024-10-31 15:37 | XMS_ITS ---
Author Organization Unknown Address [address] [place] [phone] Phone Care Team Providers Care Computer Hardware Technician Name Role Phone APARNA [place] Attending Unavailable [...] System HISTORY OF TOTAL HYSTERECTOMY 06/15/2024 resolved [id number] SNOMED-CT HYPOTHYROIDISM 06/15/2024 resolved [id number] SNOM ED-CT HISTORY OF HYSTERECTOMY 06/15/2024 resolved [id number] SNOMED-CT Allergies and Adverse Reactions Allergy Substance Reaction Severity Start Date Concern Status Co de Code System AMOXICILLIN Active 723 RxNorm PENICILLIN Active Plan of Treatment No Data Found Encounters Encounter Diagnosis Start Date Code Code Sys tem Closed fracture of sternum 06/15/2024 [id number] S NOMED-CT Personal Care Team Section Performer Name Performer Role Active Date Inactive Da te
--- OUTSIDE RECORDS SUMMARY | 2024-10-31 15:37 | XMS_ITS | Encounter Summary ---
Author Organization [facility] Address [address] [place] [address] Care Team Providers Care Barrel Maker Name Role Phone Elizabeth Blanco JOSUÉ Primary Care Provider [phone] Reason for Referral * (Routine/Next Available) - Receiving Office to Obtain Authorization Specialty Diagnoses / Procedures Referred By Contac t Referred To Contact Procedures CT OUTSIDE IMAGES HEAD AND NECK Imaging, External Referral ID Status Reason Start Date Expiration Date Visits Requested Visits Authorized [id number] Receiving Office to Obtain Authorization 06/15/2024 1 1 Reason for Visit * (Routine/Next Available) - Receiving Office to Obtain Authorization Specialty Diagnoses / Procedures Referred By Contac t Referred To Contact Procedures CT OUTSIDE IMAGES HEAD AND NECK Imaging, External Referral ID Status Reason Start Date Expiration Date Visits Requested Visits Authorized [id number] Receiving Office to Obtain Authorization 06/15/2024 1 1 Encounter Details Date Type Department Care Team (Latest Contact Info) Description 06/15/2024 16:08 EDT Hospital Encounter [facility] Secondary Reads [place] Discharge Disposition: [...] 16:09 EDT This is a non-reportable exam. us External Imaging IMG OTHER IMAGING ORDERABLES Fi nal Result documented in this encounter Visit Diagnoses Not on filedocumented in this encounter Care Teams Barrel Maker Relationship Specialty Start Date End Date Elizabeth Bl[place] [address] PCP - General 01/03/19 documented as of this encounter
--- OUTSIDE RECORDS SUMMARY | 2024-10-31 15:37 | XMS_ITS | Encounter Summary ---
Author Organization [facility] Address [address] [place] [address] Care Team Providers Care Flat Lock Machine Operator Name Role Phone Elizabeth Blanco Primary Care Provider [phone] Encounter Details Date Type Department Care Team (Late st Contact Info) Description 09/17/2023 Specialty Pharmacy [facility] [address] [place], [place] [address] Bandar Jeter RPH Social History Tobacco Use [...] on filedocumented in this encounter Care Teams Flat Lock Machine Operator Relationship Specialty Start Date End Date Elizabeth Bal[place] [address] PCP - General 01/03/19 documented as of this encounter
--- OUTSIDE RECORDS SUMMARY | 2024-10-31 15:37 | XMS_ITS | Encounter Summary ---
Author Organization [facility] Address [address] [place] [address] Care Team Providers Care Monument Mason Name Role Phone Elizabeth Blanco JOSUÉ Primary Care Provider [phone] Encounter Details Date Type Department Care Team (Latest Contact Info) Description 12/06/2023 Specialty Pharmacy [facility] [address] [place], [place] [id number] Dusty Wright One-time Clinical Outreach (1 time [...] - 12/06/2023 1259 EST Prescription Receipt by [facility] Date Received: 12/06/23 Medication: Humira 40 mg Pen Q2w Provider: Irma Antoine MD Provider Phone number: [phone] [facility] Clinic: Non [facility] Derm Comments: RTS until 12/21/23 Prescription copy available in scans: YES Relevant clinical documents in scans (if applicable): YES Routed to appropriate Pharmacist: YES [facility] Specialty Pharmacy: [phone] * Jenna Shaffer RPH - 12/06/2023 1259 EST I spoke with Makeda today regarding the Humira, she left her Humira pen out of the fridge after herinjection on 12/06 and forgot the other pen was in there. She is due on 12/20 for her injection. The medication is stable outside of the refrigerator for 14 days and extended stability data gathered from the stress engineer indicates the medication is stable under 77 degrees for 30 days. Patient will usethe pen for 12/20 injection. documented in this encounter Plan of Treatment Not on file documented as of this encounter Visit Diagnoses Not on filedocumented in this encounter Care Teams Monument Mason Relationship Specialty Start Date End Date Elizabeth Bl[place] [address] [place] [address] PCP - General 01/03/19 documented as of this encounter
--- OUTSIDE RECORDS SUMMARY | 2024-10-31 15:37 | XMS_ITS | Encounter Summary ---
Author Organization [facility] Address [address] [place] [address] Care Team Providers Care Camera Mechanic Name Role Phone Elizabeth Blanco JOSUÉ Primary Care Provider [phone] Encounter Details Date Type Department Care Team (Late st Contact Info) Description 08/20/2023 Specialty Pharmacy [facility] - [address] [id number] Vi Voss RPH Social History Tobacco Use [...] Vi Voss RPH - 08/20/2023 1444 EDT [facility] Dermatology Routine Follow Up Makeda [...] ??? Clinic Appointment: n/a Vi Voss PharmD [facility] 08/20/2023 documented in this encounter Plan of Treatment Not on file documented as of this encounter Visit Diagnoses Not on filedocumented in this encounter Historical Medications * This list may reflect changes made after this encounter. adalimumab (HUMIRA,CF, PEN) 40 mg/0.4 mL pen Inject 0.4 mL into the skin every 14 days. added in this encounter Care Teams Camera Mechanic Relationship Specialty Start Date End Date Elizabeth Blanco [place] [address] PCP - General 01/03/19 documented as of this encounter
--- OUTSIDE RECORDS SUMMARY | 2024-10-31 15:37 | XMS_ITS | Encounter Summary ---
Author Organization [facility] system Address [address] [place] [address] Care Team Providers Care Res Counselor Name Role Phone Elizabeth Blanco Primary Care Provider [phone] Encounter Details Date Type Department Care Team (Latest Contact Info) Description 03/14/2024 Specialty Pharmacy [facility] [address] [place] [address] Bandar Jeter RPH Refill Coordination Outreach for [...] on filedocumented in this encounter Care Teams Res Counselor Relationship Specialty Start Date End Date Elizabeth Blanco FNP [address] [place] [address] [place] [address] PCP - General 01/03/19 documented as of this encounter
--- OUTSIDE RECORDS SUMMARY | 2024-10-31 15:38 | XMS_ITS | Encounter Summary ---
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 For pain, you may use Tylenol (acetominophen) and/or Advil (ibuprofen) or other similar non-prescription, bufh-keq-ybgmvdw medications in doses as noted on manufacturers' [...] questions about use of these medications, call [facility] at [phone]. For showering, avoid directing your face into the stream of the shower head. Do not worry about a small amount of water and/or soap that gets into your eye patch and/or eye during shampooing, face washing, etc. Do not lift anything heavier than a light bag of groceries and, until notified by your surgeon, do not exercise. Follow-up tomorrow at [facility], [address], 2nd floor, [place], at 09:10AM. (That location is up the block from [place] at the corner of [facility] [address]ross [address] from [facility], and next door to [facility].) At that appointment, your surgeon and the [facility] staff will review post-operative instructions that will [...] this encounter Medications at Time of Discharge levothyroxine (SYNTHROID) 200 mcg tablet Take 200 [...] Mandel MD 01/07/2019 7:15 Source Note - DIRECTOR CAREER, SCAN 2 - 01/06/2019 8:32 EST documented in this encounter OR Notes * OR Surgeon - Simon Mandel MD - 01/07/2019 0926 EST Brief Op Note Pre-op Diagnosis(es): retinal dialysis with detachment right eye Post-op Diagnosis(es): same Procedure(s): cryoretinopexy, scleral buckle (#506 sponge), external drainage of subretinal fluid right eye Surgeon: Ministerio Boat Hoist Operator Helper: Sung Dudley Anesthesia: GET IV Fluid: per [...] fluid, right eye. SURGEON: Simon Mandel MD WEARING APPAREL PRESSER: LINUS Merino ANESTHESIA: General endotracheal. IV FLUIDS: [...] PM / Simon Mandel MD jn Confirmation: [id number] Dictation ID: [id number] cc:Simon Briscoe* OD Elizabeth Bella STERILE PRODUCTS PROCESSOR documented in this encounter Miscellaneous Notes * [...] (01/14/2019 11:03 EST) 01/14/2019 11:0 3 EST us Scan 2 Sample Checker PROCEDURE/MINOR SURGICAL OR DERABLES Final Result * ECG REPORT - SCANNED (01/10/2019 9:12 EST) 01/10/2019 9:12 EST us Scan 2 Sample Checker PROCEDURE/MINOR SURGICAL OR DERABLES Final Result * IMPLANT RECORD - SCANNED (01/10/2019 9:12 EST) 01/10/2019 9:12 EST us Scan 2 Sample Checker PROCEDURE/MINOR SURGICAL OR DERABLES Final Result * TEST, URINE (01/07/2019 6:15 EST) Result- Test, Ur Neg Neg 01/07/2019 7:22 EST [facility] Comment: NOTE: False negative results may occur in women who are beyond 5-8 weeks gestation. Diagnosis of should be based on a correlation of test results with typical clinical signs and symptoms. Performed at [place], [place] Urine specimen (specimen) URINE / Unknown 01/07/2019 6:15 EST 01/07/2019 7:15 EST us Jaja Chambers MD URINALYSIS ORDERABLES Fi nal Result [facility] [address] [place] [address] documented in this encounter Visit Diagnoses Diagnosis [...] may reflect changes made after this encounter. UNABLE TO FIND Med Name: Glisovi Fe control pill levothyroxine (SYNTHROID) 200 mcg tablet Take 200 mcg by mouth daily. cholecalciferol, Vitamin D3, 1,000 unit tablet Take 2,000 Units by mouth daily. 09/03/2024 added in this encounter Active and Recently Administered Medications Times are shown in EST. Continuous Medication Order 01/05/2019 01/06/2019 01/07/2019 lactated ringers (LR) infusion 30 mL/hr, intravenous, CONTINUOUS, Starting on Sun01/07/19 at 0645, Until Sun01/07/19 at 1320, Routine, Pre-op Rx Needs Approval 0706 (New Bag - Prov ider: Tita Morales [...] 01/07/2019 documented in this encounter Care Teams Electric Golf Cart Repairer Relationship Specialty Start Date End Date Elizabeth Bl[place] [place] [address] PCP - General 01/03/19 documented as of this encounter
--- OUTSIDE RECORDS SUMMARY | 2024-10-31 15:38 | XMS_ITS | Encounter Summary ---
Author Organization [facility] Address [address] [place] [address] Care Team Providers Care Sales Audit Clerk Name Role Phone Elizabeth Blanco JOSUÉ Primary Care Provider [phone] Encounter Details Date Type Department Care Team (Late st Contact Info) Description 08/08/2022 Specialty Pharmacy [facility] Ambulatory Pharmacy - [address] [address] Jessica Malhotra, [facility] [address] [place] [address] Social History Tobacco Use Types Packs/Day Years [...] * Giancarlo Tadeo - 08/08/2022 1050 EDT [facility] Specialty Pharmacy Delivery Information Hours: Sunday-Sunday 8:30am - 5:00pm *Pharmacist available transportation director 11/06 Delivery Service: [facility] Delivery Window: 1pm - 5pm Date of Delivery: 08/15/2022 Tracking # : [id number] documented in this encounter Plan of Treatment Not on file documented as of this encounter Visit Diagnoses Not on filedocumented in this encounter Care Teams Sales Audit Clerk Relationship Specialty Start Date End Date Elizabeth Blanco [place] [address] PCP - General 01/03/19 documented as of this encounter
--- OUTSIDE RECORDS SUMMARY | 2024-10-31 15:38 | XMS_ITS | Encounter Summary ---
Author Organization [facility] Address [address] [place] [address] Care Team Providers Care Red Hat Engineer Name Role Phone Unknown, Provider Primary Care Provider Unava ilable Encounter Details Date Type Department Care Team (Late st Contact Info) Description 01/07/2014 Results Only [facility] Laboratory Services - [facility] ([address] [address] Saranya Gotti, PHYSICAL FITNESS TEACHER Social History Tobacco Use Types Packs/Day Years [...] ? YOEL COMBS ? Accession #: ? [id number] : ? 1990 (Age: 23) ??F ?Collect Date: ? 01/07/2014 Location: ? [facility] ? Receive Date: ? 01/08/2014 Provider: ?SARANYA GOTTI PHYSICAL FITNESS TEACHER Copy to: ?KAELA CANO PHYSICAL FITNESS TEACHER ? Specimen/Source: ?Pap Test, Cervix/Endocervix, ThinPrep Imaging System with manual evaluation Last Menstrual Period: ? 12/25/2013 ? SPECIMEN ADEQUACY ? Satisfactory for Evaluation - transformation zone component present GENERAL CATEGORIZATION ? Negative for Intraepithelial Lesion or Malignancy ? Document reviewed and electronically signed by: ? Laure Live CT(ASCP) ? Report Date: ??01/13/2014 12:34 End of Report CANDACE DAVIDSON 01/07/2014 01/08/2014 us Saranya Gotti PHYSICAL FITNESS TEACHER PATHOLOGY ORDERABLES Final Re sult CANDACE DAVIDSON [address] [place] [address] documented in this encounter Visit Diagnoses Not on filedocumented in this encounter Care Teams Red Hat Engineer Relationship Specialty Start Date End Date Unknown, Provider, PCP - General 01/09/13 01/02/19 documented as of this encounter
--- OUTSIDE RECORDS SUMMARY | 2024-10-31 15:38 | XMS_ITS | Encounter Summary ---
Author Organization [facility] Address [address] [place] [address] Care Team Providers Care Comb Fixer Name Role Phone Unknown, Provider Primary Care Provider Unava ilable Encounter Details Date Type Department Care Team (Late st Contact Info) Description 06/28/2015 Results Only [facility]- [facility] [phone] [place] [address] Social History Tobacco Use Types Packs/Day Years [...] identification performed by client. 07/07/2015 7:48 EDT [facility] DOUCHE WITH RECTAL AND VAGINAL FITTINGS / Unknown 06/28/2015 15:00 EDT 07/06/2015 17:57 EDT Comment:Lebec plate(s) submit clemencia for interpretation~Patient is allergic to penicillin, do susceptibility if PCR is positive. Narrative Organism Antibiotic Method Susceptibility Streptococcus, beta hemolyti c group b (streptococcus agalactiae) organism identification performed by client. Clindamycin SUPRIYA IN-HOUSE METHOD >=1: Resistant us Zaina Tganya [facility] MICROBIOLOGY - GENERAL ORDERABLE S Final Result [facility] [address] [place] [address] documented in this encounter Visit Diagnoses Not on filedocumented in this encounter Care Teams Comb Fixer Relationship Specialty Start Date End Date Unknown, Provider, PCP - General 01/09/13 01/02/19 documented as of this encounter
--- OUTSIDE RECORDS SUMMARY | 2024-10-31 15:38 | XMS_ITS | Encounter Summary ---
Author Organization [facility] Address [address] [place] [address] Care Team Providers Care Management Psychologist Name Role Phone Unavailable Primary Care Provider Unavailabl e Encounter Details Date Type Department Care Team (Late st Contact Info) Description 03/31/2008 Results Only [facility] - Map conversion [address] [place] [address] [facility] [address] [place] [address] [place] [address] Social History Tobacco Use Types [...] ? YOEL COMBS ? Accession #: ? [id number] : ? 1990 (Age: 17) ??F ?Collect Date: ? 03/31/2008 Location: ? [facility] ? Receive Date: ? 03/31/2008 Provider: ?MIS ALLRED SHIP SUPERINTENDENT Copy to: ? Specimen/Source: ?ThinPrep Pap Test, Cervix/Endocervix, processed on [employer]around ThinPrep Imaging System, with manual evaluation Last Menstrual Period: ? 02/11/08 Menstrual/Pregnanc y Status: ? Other: ? Additional clinical information: First pap ? SPECIMEN ADEQUACY ? Satisfactory for Evaluation - transformation zone component present GENERAL CATEGORIZATION ? Negative for Intraepithelial Lesion or Malignancy ? Document reviewed and electronically signed by: ? OLAYINKA Link(ASCP) ? Report Date: ??04/02/2008 14:37 End of Report CANDACE DAVIDSON 03/31/2008 03/31/2008 us Mis Allred SHIP SUPERINTENDENT PATHOLOGY ORDERABLES Final R esult CANDACE DAVIDSON [address] [place] [address] documented in this encounter Visit Diagnoses Not on filedocumented in this encounter
--- OUTSIDE RECORDS SUMMARY | 2024-10-31 15:38 | XMS_ITS | Encounter Summary ---
Author Organization [facility] Address [address] [place] [address] Care Team Providers Care Behavioral Health Aide Name Role Phone Elizabeth Blanco JOSUÉ Primary Care Provider [phone] Encounter Details Date Type Department Care Team (Late st Contact Info) Description 09/05/2022 Specialty Pharmacy [facility] - [address] [address] Jessica Malhotra, [facility] [address] [place] [address] Social History Tobacco Use Types Packs/Day Years [...] * Blanca Frye - 09/05/2022 1314 EDT [facility] Specialty Pharmacy Delivery Information Hours: Sunday-Sunday 8:30am - 5:00pm *Pharmacist available condenser tester 11/06 Delivery Service: [facility] Delivery Window: 1pm - 5pm Date of Delivery: SUN (09/08) Tracking # : [id number] documented in this encounter Plan of Treatment Not on file documented as of this encounter Visit Diagnoses Not on filedocumented in this encounter Care Teams Behavioral Health Aide Relationship Specialty Start Date End Date Elizabeth Blanco [place] [address] PCP - General 01/03/19 documented as of this encounter
--- OUTSIDE RECORDS SUMMARY | 2024-10-31 15:38 | XMS_ITS | Encounter Summary ---
Author Organization [facility] Address [address] [place] [address] Care Team Providers Care Renal Technician Name Role Phone Elizabeth Blanco JOSUÉ Primary Care Provider [phone] Encounter Details Date Type Department Care Team (Late st Contact Info) Description 04/06/2022 10:35 EDT Phlebotomy Only [facility] - Outpatient Phlebotomy Drawing [address] [place] [address] Lab, [facility] Op Phlebotomy Encounter for long-term (current) use [...] (ABNORMAL) QUANTIFERON INTERPRETATION (PERFORMABLE) (04/06/2022 10:55 EDT) [facility] Quantiferon Interpretation Positive( A) Negative 04/07/2022 14:49 EDT [facility] Comment:Interferon gamma res [...] TB1 Ag minus Nil 0.33 IU/ml 04/07/20 14:49 EDT [facility] TB2 Ag minus Nil 0.41 IU/mL 04/07/20 14:49 EDT [facility] Blood VENOUS BLOOD / Unknown Venipuncture / Unknown 04/06/2022 10:55 EDT 04/07/2022 14:13 EDT Narrative [facility] - 04/07/2022 14:49 EDT Results were obtained with the Qiagen QuantiFERON-TB Gold Plus CLIA. New platform in use 07/27/2021 us Irma Rivera MD IMMUNOLOGY AND SEROLOGY ORDER EDUARDO Final Result [facility] [address] [place] [address] * QUANTIFERON MITOGEN (PERFORMABLE) (04/06/2022 10:55 EDT) Blood VENOUS BLOOD / Unknown Venipuncture / Unknown 04/06/2022 10:55 EDT 04/06/2022 11:07 EDT us Irma Rivera MD IMMUNOLOGY AND SEROLOGY ORDER EDUARDO Final Result Performing Organization Address City/[facility]/ZIP Co de Phone Number [facility] [address] [place] [address] * QUANTIFERON TB2 (PERFORMABLE) (04/06/2022 10:55 EDT) Blood VENOUS BLOOD / Unknown Venipuncture / Unknown 04/06/2022 10:55 EDT 04/06/2022 11:07 EDT us Irma Rivera MD IMMUNOLOGY AND SEROLOGY ORDER EDUARDO Final Result Performing Organization Address [facility]/ZIP Co de Phone Number [facility] [address] [place] [address] * QUANTIFERON TB1 (PERFORMABLE) (04/06/2022 10:55 EDT) Blood VENOUS BLOOD / Unknown Venipuncture / Unknown 04/06/2022 10:55 EDT 04/06/2022 11:07 EDT us Irma Rivera MD IMMUNOLOGY AND SEROLOGY ORDER EDUARDO Final Result Performing Organization Address [facility]/ZIP Co de Phone Number [facility] [address] [place] [address] * QUANTIFERON NIL (PERFORMABLE) (04/06/2022 10:55 EDT) Blood VENOUS BLOOD / Unknown Venipuncture / Unknown 04/06/2022 10:55 EDT 04/06/2022 11:07 EDT us Irma Rivera MD IMMUNOLOGY AND SEROLOGY ORDER EDUARDO Final Result Performing Organization Address City/[facility]/ZIP Co de Phone Number [facility] [address] [place] [address] * HEPATITIS B SURFACE ANTIGEN (04/06/2022 10:55 EDT) Hep B Surface Ag Negative Negative 04/06/20 12:50 EDT [facility] Comment: Expected values: Negative The results of this assay can be falsely lowered due to the consumption of Biotin. Blood VENOUS BLOOD / Unknown Venipuncture / Unknown 04/06/2022 10:55 EDT 04/06/2022 11:45 EDT us Irma Rivera MD CHEMISTRY & BLOOD GAS ORDERAB LES Final Result [facility] [address] [place] [address] documented in this encounter Visit Diagnoses Diagnosis Encounter for long-term (current) use of other medications- Primary documented in this encounter Care Teams Renal Technician Relationship Specialty Start Date End Date Elizabteh [place] [address] PCP - General 01/03/19 documented as of this encounter
--- OUTSIDE RECORDS SUMMARY | 2024-10-31 15:38 | XMS_ITS | Encounter Summary ---
[place] [address] Care Team Providers Care Grain Packer Name Role Phone Janelle Blancoh TETO Primary Care Provider [phone] Reason for Referral * Diagnostic Test (Routine) - Closed Specialty Diagnoses / Procedures Referred By Contac t Referred To Contact Radiology Diagnoses Pelvic floor dysfunction Procedures MRI Pelvis Soft Tissue (Gi Gu Surveying Technician)WO Contrast MRI Pelvis Soft Tissue (GI GAS ADJUSTER)W Contrast Fritz Castro APRN [facility] [address] [place]STR[place] [address] [place] [address] Referral ID Status Reason Start Date Expiration Date V isits Requested Visits Authorized [id number] Closed Specialty Service Requested 06/27/2018 09/25/2018 1 1 Reason for Visit * Diagnostic Test (Routine) - Closed Specialty Diagnoses / Procedures Referred By Contac t Referred To Contact Radiology Diagnoses Pelvic floor dysfunction Procedures MRI Pelvis Soft Tissue (Gi Gu Surveying Technician)WO Contrast MRI Pelvis Soft Tissue (GI GAS ADJUSTER)W Contrast Fritz Castro TOOL SHAPER SET UP OPERATOR [facility] [place] [address] [place] [address] Referral ID Status Reason Start Date Expiration Date V isits Requested Visits Authorized [id number] Closed Specialty Service Requested 06/27/2018 09/25/2018 1 1 Encounter Details Date Type Department Care Team (Latest Contact Info) Description 07/09/2018 2:25 PM EDT - 07/09/2018 11:59 PM EDT [place] [address] Fritz Castro APRN [facility] [address] GASTROENTER[place] [address] Pelvic floor dysfunction Discharge Disposition: Home Social [...] Diagnosis Comments MRI PELVIS SOFT TISSUE (GI GAS ADJUSTER) WO CONTRAST Routine 07/09/2018 3:43 PM EDT Pelvic floor dysfunction documented in this encounter Results * MRI Pelvis Soft Tissue (Gi Gu Surveying Technician)WO Contrast (07/09/2018 3:43 PM EDT) Anatomical Region [...] EDT EXAMINATION: MRI PELVIS SOFT TISSUE (GI GAS ADJUSTER) WO CONTRAST CLINICAL HISTORY: with defecography; pelvic [...] 07/10/2018 EXAMINATION: MRI PELVIS SOFT TISSUE (GI GAS ADJUSTER) WO CONTRAST CLINICAL HISTORY: with defecography; pelvic [...] wasting documented in this encounter Care Teams Grain Packer Relationship Specialty Start Date End Date Elizabeth Blanco APRN [address] [place] [address] PCP - General Family Medicine 05/13/18 documented as of this encounter
--- OUTSIDE RECORDS SUMMARY | 2024-10-31 15:38 | XMS_ITS | Encounter Summary ---
Author Organization [facility] Address [address] [place] [address] Care Team Providers Care Changer Fixer Name Role Phone Elizabeth Blanco Primary Care Provider Encounter Details Date Type Department Care Team (Late st Contact Info) Description 01/22/2023 Specialty Pharmacy [facility] [address] [place], [place] [phone] Jessica Malhotra, [facility] [address] [place] [address] Social History Tobacco Use Types Packs/Day Years [...] on filedocumented in this encounter Care Teams Changer Fixer Relationship Specialty Start Date End Date Elizabeth Blanco FNP [address] [place] [address] [facility] [address] PCP - General 01/03/19 documented as of this encounter
--- OUTSIDE RECORDS SUMMARY | 2024-10-31 15:38 | XMS_ITS | Encounter Summary ---
Author Organization [facility] Address [address] [place] [address] Care Team Providers Care Lung Splitter Name Role Phone Elizabeth Blanco JOSUÉ Primary Care Provider [phone] Encounter Details Date Type Department Care Team (Late st Contact Info) Description 04/14/2022 Specialty Pharmacy [facility] - [address] [id number] Jessica Malhotra, [facility] [address] [place] [address] Social History Tobacco Use Types Packs/Day Years [...] as of this encounter Progress Notes * LoevjacksonBrynn hunt - 04/14/2022 0914 EDT Prescription Receipt by [facility] Date Received: 04/14/2022 Medication: Humira 40mg/0.4ml maintenance dosing. Sent by: Irma Rivera [place] [facility] [place] Provider:Irma Sanchez Phone number: [phone] Benefits Investigation Results: Comments: we received two scripts for the same product. The PA through [facility] was for the starter pack. Checking with Delaney to see if this is correct. Both scripts are profiled. [facility] Specialty Pharmacy: [phone] * Jessica Malhotra RPH - 04/14/2022 0914 EDT [facility] Medication Therapy Initiation Note Makeda Paiz is a 31 y.o. female who will be starting treatment with Humira (adalimumab) CF [id number] for psoriasis. Planned Start Date: 04/20/22, Duration: [...] reviewed Information regarding Humira (adalimumab) CF Pen R31nfav provided to patient. Barriers to Education: None Outcomes of Education: Verbalized understanding Follow up: - Phone call: within 6 weeks - Labs: none Jessica Malhotra, PharmD, BCPS Pharmacist Clinician [phone] 04/14/2022 Electronically signed by Jessica Malhotra [facility] at 04/18/2022 8:04 EDT documented in this encounter Plan of Treatment Not on file documented as of this encounter Visit Diagnoses Not on filedocumented in this encounter Care Teams Lung Splitter Relationship Specialty Start Date End [place] [address] PCP - General 01/03/19 documented as of this encounter
--- OUTSIDE RECORDS SUMMARY | 2024-10-31 15:38 | XMS_ITS | Encounter Summary ---
[place] [address] Care Team Providers Care Demonstrator Electric Gas Appliances Name Role Phone Elizabeth Blanco APRN Primary Care Provider [phone] Encounter Details Date Type Department Care Team (Late st Contact Info) Description 06/27/2018 Orders [place] [address] [place] Social History Tobacco Use Types [...] on filedocumented in this encounter Care Teams Demonstrator Electric Gas Appliances Relationship Specialty Start Date End Date Elizabeth Blanco APRN [address] [place] [address] PCP - General Family Medicine 05/13/18 documented as of this encounter
--- OUTSIDE RECORDS SUMMARY | 2024-10-31 15:38 | XMS_ITS | Encounter Summary ---
Author Organization [facility] [place] [address] Care Team Providers Care Intelligence Analyst Name Role Phone Elizabeth Blanco APRN Primary Care Provider [phone] Encounter Details Date Type Department Care Team (Late st Contact Info) Description 06/15/2024 Interpretation Only [facility] in [facility] [address] [place] [address] Mis Salinas MD [address] [place] [phone] Social History Tobacco Use Types Packs/Day Years [...] AM EDT) PT CLASS E RAD ADMITDTTM [id number] RAD PT RAD INFO [id number]^MARK^ME ESTHER^E RAD EXAM DESC CTCAPW^CT CXR ABD PELVIS WITH IV ONLY^RIS RAD WORKSTATION ID [id number] [facility] Anatomical Region Laterality Modality Abdomen, Pelvis Computed [...] who have questions please contact the health home care manager rn that requested your imaging first. ? Narrative [...] thigh contusion. Preliminary report signed by: Julio eCsar Lawrence MD at 06/15/2024 12:36 PM Thank you for letting us participate in the care of this patient. If youare a health care provider and have any questions regarding this report,please contact the number below. For patients who have questions please contactthe health home care manager rn that requested your imaging first. Mis Salinas MD IMG CT ORDERABLES documented in this encounter Visit Diagnoses Not on filedocumented in this encounter Care Teams Intelligence Analyst Relationship Specialty Start Date End Date Elizabeth Blanco, TETO [address] [place] [address] PCP - General Family Medicine 05/13/18 documented as of this encounter
--- OUTSIDE RECORDS SUMMARY | 2024-10-31 15:38 | XMS_ITS | Encounter Summary ---
Author Organization [facility] Address [facility] [place] [address] Care Team Providers Care Street Light Repairer Name Role Phone Elizabeth Blanco APRN Primary Care Provider [phone] Encounter Details Date Type Department Care Team (Late st Contact Info) Description 06/15/2024 Interpretation Only [facility] in [facility] [address] [place] [address] Mis Salinas MD [address] [place] [phone] Social History Tobacco Use Types Packs/Day Years [...] Associated Diagnosis Comments CT HEAD/C-SPINE WO CONTRAST ([facility]) STAT 06/15/2024 11:51 AM EDT documented in this encounter Results * CT Head/C-Spine wo Contrast ([facility]) (06/15/2024 11:51 AM EDT) PT CLASS E RAD ADMITDTTM [id number] RAD PT RAD INFO [id number]^MARK^ME ESTHER^E RAD EXAM DESC CTHCSPWO^CT HEAD AND CSPINE WO CONTRAST^RIS RAD WORKSTATION ID [id number] RAD Anatomical Region Laterality Modality Other Impressions [...] who have questions please contact the health career services representative that requested your imaging first. ? Electronically signed by: Mathew Kamara MD, [facility] ([phone]), at 06/15/2024 12:17 PM Narrative 06/15/2024 12:17 [...] patients who have questions please contactthe health career services representative that requested your imaging first. Electronically signed by: Mathew Kamara MD, [facility]([phone]), at 06/15/2024 12:17 PM Mis Salinas MD PACS IMAGES documented in this encounter Visit Diagnoses Not on filedocumented in this encounter Care Teams Street Light Repairer Relationship Specialty Start Date End Date Elizabeth Blanco, TETO [address] [facility] [address] PCP - General Family Medicine 05/13/18 documented as of this encounter
--- OUTSIDE RECORDS SUMMARY | 2024-10-31 15:38 | XMS_ITS | Encounter Summary ---
Author Organization [facility] Address [facility] [place] [address] Care Team Providers Care Jordan Man Name Role Phone Elizabeth Blanco APRN Primary Care Provider [phone] Encounter Details Date Type Department Care Team (Late st Contact Info) Description 07/08/2018 3:00 PM EDT - 07/08/2018 3:45 PM EDT Surgery Gastroenterology at [facility] [place] [address] Mathew Bob MD [facility] [place] [address] COLONOSCOPY FLEXIBLE, WITH BX (WRVU 3.56) Social [...] - 07/08/2018 3:54 PM EDT Please call [phone] before 6pm Mon-Fri with problems, questions or concerns. If you call after 8pm or on weekends, call the Hospital at [phone] and ask to speak to the Phone Banker decontamination technician and the packer operator automatic will contact that person for you. * Attachments The following attachments cannot be sent through Care Everywhere. * COLONOSCOPY: POST-OP (BOLIVIAN) documented in this encounter Medications at Time [...] Report (07/08/2018 3:48 PM EDT) Final Diagnosis [id number] ? Location: 4T; EA07; A The signing pathologist has (i) examined the relevant preparation(s) for the specimen(s) and (ii) rendered or confirmed the diagnosis(es). . ?Surgical Pathology DIAGNOSIS Mucosal irritation, ??biopsy: - Colonic mucosa, negative for diagnostic abnormality. CR-PX Electronically signed by: ??Kobe Bonilla MD Verified: ??07/11/2018 ?Pathologist Performed at: ??-[facility] Dept. of Pathology, [place], [place] CLINICAL INFORMATION Specimen Submitted: A - Mucosal irritation r/o changes secondary to rectal prolapse Clinical History and Diagnosis: Mucosal irritation rule out changes secondary to rectal prolapse. Constipation. SPECIMEN PROCESSING A - Labeled/Fixativ e: Mucosal irritation, formalin. Quantity/Size: Five, 0.2-0.3 cm. Tissue Description: ??Soft, whaley-pink tissue ??. Sections/Proces sing: []. ([]) ??pps 07/11/2018 4:41 PM EDT [facility] GI Biopsy 07/08/2018 3:48 PM EDT 07/08/2018 3:48 PM EDT Mathew Bob MD PATHOLOGY/CYTOLOGY O ALPHONSE Performing Organization Address [facility] Co de Phone Number [facility] [place] [address] * Specimen to Pathology (07/08/2018 3:48 PM EDT) AP Specimen 07/08/2018 3:48 PM EDT 07/08/2018 4:50 PM EDT Narrative [facility] - 07/08/2018 4:50 PM EDT Specimen requisition ordered. ??Separate Pathology report to follow Resulting Agency Comment Spec In Lab Mathew Bob MD PATHOLOGY/CYTOLOGY O ALPHONSE Performing Organization Address [facility] Co de Phone Number [facility] [place] [address] * COLONOSCOPY (07/08/2018 3:03 PM EDT) COLONOSCOPY [facility] Endoscopy Procedure Date: 07/08/2018 3:03 PM ? Patient Name: Makeda Paiz ? Date of : 1990 ? Age: 28 ? Order #: [id number] ? Instrument Name: [id number] ? Procedure: ? Colonoscopy Indications: ? Abdominal pain, Constipation Providers: ? Mathew Bob, Diana Muñoz, ? Anne-Marie Chavez, Humble Kang, ? Fence Installer Helper Referring MD: ?Elizabeth Ellie Medicines: ? Fentanyl [...] preparation was evaluated using ? the BBPS ([place] Bowel Preparation ? Scale) with scores of: [...] done by the ? physician, nurse and sterilisation technician using the patient's ? name, date [...] Procedure Code(s): ?? --- Professional --- ? 41159, Colonoscopy, flexible; with ? biopsy, single or multiple ? 36910, 59, Moderate sedation services ? provided by [...] age 5 ? years or older ? [address], Moderate sedation services; ? each additional 15 minutes ? intraservice time ? 25914, Moderate sedation services; ? each additional 15 minutes ? intraservice time CPT copyright 2016 [employer]. All rights reserved. The codes documented in this report are preliminary and upon svp digital sales review may be revised to meet current [...] RN) documented in this encounter Care Teams Jordan Man Relationship Specialty Start Date End Date Elizabeth Blanco, CHIPPER FEEDER [address] [place] [address] PCP - General Family Medicine 05/13/18 documented as of this encounter
--- OUTSIDE RECORDS SUMMARY | 2024-10-31 15:38 | XMS_ITS | Encounter Summary ---
Author Organization [facility] Address [address] [place] [address] Care Team Providers Care Junior Systems Administrator Name Role Phone Elizabeth Blanco Primary Care Provider [phone] Encounter Details Date Type Department Care Team (Late st Contact Info) Description 05/15/2023 Specialty Pharmacy [facility] - [facility] [address] [place], [place] [address] Jessica Malhotra, [facility] [address] [place] [address] Social History Tobacco Use Types Packs/Day Years [...] filedocumented in this encounter Care Teams Junior Systems Administrator Relationship Specialty Start Date End Date Elizabeth Blanco FNP [address] [place] [address] [address] [facility] [address] PCP - General 01/03/19 documented as of this encounter
--- OUTSIDE RECORDS SUMMARY | 2024-10-31 15:38 | XMS_ITS | Encounter Summary ---
Author Organization [facility] Address [address] [place] [address] Care Team Providers Care Packing Machine Tender Name Role Phone Elizabeth Blanco JOSUÉ Primary Care Provider [phone] Encounter Details Date Type Department Care Team (Late st Contact Info) Description 05/08/2022 Specialty Pharmacy [facility] - [address] [address] Jessica Malhotra, [facility] [address] [facility] [facility] [address] Social History Tobacco Use Types Packs/Day Years [...] Documentation Medication: Humira cf pen 40mg Clinic: non-[facility] derm Reason for Encounter: documentation Notes: pt requested a call back on 05/15; has one pen on hand for 05/11 injection, due again 05/25/22 Follow up date: 05/15/22 Follow up reason: outreach * Jessica Malhotra [facility] - 05/08/[address] Rivera informing her that patient will need one time RX sent to [facility] due to misfire of pen. Jessica Malhotra, PharmD, BCPS Pharmacist Clinician [phone] 05/26/2022 documented in this encounter Plan of Treatment Not on file documented as of this encounter Visit Diagnoses Not on filedocumented in this encounter Care Teams Packing Machine Tender Relationship Specialty Start Date End Date Elizabeth Blanco F[place] [address] PCP - General 01/03/19 documented as of this encounter
--- OUTSIDE RECORDS SUMMARY | 2024-10-31 15:38 | XMS_ITS | Encounter Summary ---
Author Organization [facility] [place] [address] Care Team Providers Care Transit Mixer Operator Name Role Phone Elizabeth Blanco APRN Primary Care Provider [phone] Encounter Details Date Type Department Care Team (Late st Contact Info) Description 07/12/2018 Telephone [place] [phone] Ze Sexton RN Social History Tobacco Use [...] stating that she missed a yamil from [facility], but they did not leave a message. Patient wondering if it was Tracia since she saw her on 06/27 and had some testing performed. Returned call to patient to make her aware that is was not our office. documented in this encounter Plan of Treatment Not on file documented as of this encounter Visit Diagnoses Not on filedocumented in this encounter Care Teams Transit Mixer Operator Relationship Specialty Start Date End Date Elizabeth Blanco APRN [address] [place] [address] PCP - General Family Medicine 05/13/18 documented as of this encounter
--- OUTSIDE RECORDS SUMMARY | 2024-10-31 15:38 | XMS_ITS | Encounter Summary ---
Author Organization [facility] [place] [address] Care Team Providers Care Upset Welding Machine Operator Name Role Phone BellaElizabeth TETO Primary Care Provider [phone] Reason for Visit * Surgical (Routine) - Closed Specialty Diagnoses / Procedures Referred By Conteliezer t Referred To Contact Gastroenterology Diagnoses Unspecified abdominal pain Constipation, unspecified Abd Pain & Constipation, ?SIBO Procedures HYDROGEN BREATH TEST HBT- Lactulose Saleem Myles, MARINA REAGAN [address] [place] [address] [facility] [address] [place] [address] Referral ID Status Reason Start Date Expiration Date Visits Re quested Visits Authorized [id number] Closed 09/10/2020 09/10/2021 1 1 Encounter Details Date Type Department Care Team (Late st Contact Info) Description 09/24/2020 8:00 AM EST Procedure [place] [address] Bloating Social History Tobacco Use Types Packs/Day [...] Breath Testing in Gastrointestinal Disorders: The [place] Consensus (Am J Gastroenterol 2017; 112(5):775-84. Apositive breath test is defined as a rise in hydrogen production >20 ppm compared to baseline within 90 minutes. Methane-positive is defined by at least 10 ppm production of methane. Signed, Parul Leyva APRN [place] [address] P: [phone] F: [phone] Copy: Saleem Blanco APRN documented in this encounter Plan of Treatment Not on file documented as of this encounter Visit Diagnoses Diagnosis Bloating Flatulence, eructation, and gas pain documented in this encounter Care Teams Upset Welding Machine Operator Relationship Specialty Start Date End Date Elizabeth Blanco APRN [address] [place] [address] PCP - General Family Medicine 05/13/18 documented as of this encounter
--- OUTSIDE RECORDS SUMMARY | 2024-10-31 15:38 | XMS_ITS | Encounter Summary ---
Author Organization [facility] Address [address] [place] [address] Care Team Providers Care Outside Cutter Hand Name Role Phone Elizabeth Blanco JOSUÉ Primary Care Provider Encounter Details Date Type Department Care Team (Late st Contact Info) Description 10/30/2022 Specialty Pharmacy [facility] Ambulatory Pharmacy - [address] [address] Jessica Malhotra, [facility] [address] [place] [address] Social History Tobacco Use Types Packs/Day Years [...] * Yareli Randhawa - 10/30/2022 0954 EST [facility] Specialty Pharmacy Delivery Information Hours: Sunday-Sunday 8:30am - 5:00pm *Pharmacist available conventional mortgage underwriter 11/06 Delivery Service: [facility] Delivery Service Delivery Window: 1pm - 5pm Date of Delivery: 11/06/22 Tracking # : [id number] documented in this encounter Plan of Treatment Not on file documented as of this encounter Visit Diagnoses Not on filedocumented in this encounter Care Teams Outside Cutter Hand Relationship Specialty Start Date End Date Elizabeth Blanco FNP [address] [place] [address] PCP - General 01/03/19 documented as of this encounter
--- OUTSIDE RECORDS SUMMARY | 2024-10-31 15:38 | XMS_ITS | Encounter Summary ---
[facility] Organization [facility] [place] [address] Care Team Providers Care Granulator Machine Operator Name Role Phone Elizabeth Blanco APRN Primary Care Provider [phone] Encounter Details Date Type Department Care Team (Late st Contact Info) Description 06/16/2024 Interpretation Only [facility] in [facility] [address] [place] [phone] Monty Mcgrath MD [address] [place] [id number] Social History Tobacco Use Types Packs/Day Years [...] AM EDT) PT CLASS O RAD ADMITDTTM [id number] RAD PT RAD INFO [id number]^APARNA ^MONTY^E RAD EXAM DESC MRCSPWO^MR CSPINE WO [...] who have questions please contact the health care professionals that requested your imaging first. ? Narrative [...] patients who have questions please contactthe health care professionals that requested your imaging first. Monty Mcgrath MD IMG MRI ORDERABLES documented in this encounter Visit Diagnoses Not on filedocumented in this encounter Care Teams Granulator Machine Operator Relationship Specialty Start Date End Date Elizabeth Blanco, OVERHEAD FOREMAN [address] [place] [address] PCP - General Family Medicine 05/13/18 documented as of this encounter
--- OUTSIDE RECORDS SUMMARY | 2024-10-31 15:38 | XMS_ITS | Encounter Summary ---
Author Organization [facility] Address [address] [place] [address] Care Team Providers Care Senior Portfolio Manager Name Role Phone Elizabeth Blanco JOSUÉ Primary Care Provider [phone] Encounter Details Date Type Department Care Team (Late st Contact Info) Description 06/15/2020 Lab Requisition [facility] Pathology & Laboratory Medicine - [address] [address] Outr Resulting Lab, Provider Social History Tobacco [...] 19 - 88 pg/mL 06/16/2020 11:02 EDT [facility] Blood VENOUS BLOOD / Unknown 06/14/2020 16:05 EDT 06/15/2020 16:43 EDT us Provider Outr Resulting Lab CHEMISTRY & BLOOD GA S ORDERABLES Final Result [facility] [address] [place] [address] documented in this encounter Visit Diagnoses Not on filedocumented in this encounter Care Teams Senior Portfolio Manager Relationship Specialty Start Date End Date Elizabeth Blanco [place] [address] PCP - General 01/03/19 documented as of this encounter
--- OUTSIDE RECORDS SUMMARY | 2024-10-31 15:38 | XMS_ITS | Encounter Summary ---
Author Organization [facility] Address [address] [place] [address] Care Team Providers Care Arts Administrator Or Manager Name Role Phone Elizabeth Blanco Primary Care Provider [phone] Encounter Details Date Type Department Care Team (Late st Contact Info) Description 04/13/2023 Specialty Pharmacy [facility] Ambulatory Pharmacy - [facility] [address] [place], [place] [address] Jenna Shaffer RPH Social History Tobacco Use [...] on filedocumented in this encounter Care Teams Arts Administrator Or Manager Relationship Specialty Start Date End Date Elizabeth Blanco [place] [address] PCP - General 01/03/19 documented as of this encounter
--- OUTSIDE RECORDS SUMMARY | 2024-10-31 15:38 | XMS_ITS | Encounter Summary ---
[place] [address] Care Team Providers Care Hand Former Helper Name Role Phone EllieElizabeth alvarado TETO Primary Care Provider [phone] Reason for Visit * Reason Onset Date Comments Results 07/15/2018 Encounter Details Date Type Department Care Team (Late st Contact Info) Description 07/15/2018 Telephone [place] [phone] Edith Taylor Results Social History Tobacco Use [...] patient to discuss results. Per Fritz Castro, TAX ATTORNEY: kub showed a large amount of stool [place] and bx normal Pelvic mri showed cystocele and uterine prolapse. Also, paradoxical effect of pelvic floor All of this should be managed with PT. ?? She has pelvic floor dysfunction See if this is okay with her. I will order. Relayed above. She would like to be referred for pelvic floor PT here at [facility]. Wonders if she should keep HRAM scheduled or cancel? * Telephone Encounter - Edith Taylor - 07/15/2018 10:22 AM EDT Pt calls today to request results from recent testing in Jun. Be relayed to her. Is at work until 3today : [phone]. Also can use cell or letter. documented in this encounter Plan of Treatment Not on file documented as of this encounter Visit Diagnoses Diagnosis Low serum vitamin D documented in this encounter Care Teams Hand Former Helper Relationship Specialty Start Date End Date Elizabeth Blanco, TETO [address] [facility] [address] PCP - General Family Medicine 05/13/18 documented as of this encounter
--- OUTSIDE RECORDS SUMMARY | 2024-10-31 15:38 | XMS_ITS | Encounter Summary ---
Author Organization [facility] Address [address] [place] [address] Care Team Providers Care Building Energy Consultant Name Role Phone Unknown, Provider Primary Care Provider Unava ilable Encounter Details Date Type Department Care Team (Late st Contact Info) Description 05/06/2018 Results Only [facility] [phone] Mis Allred, [address] [id number] Social History Tobacco Use Types Packs/Day Years [...] ? YOEL COMBS ? Accession #: ? [id number] : ? 1990 (Age: 27) ??F ?Collect Date: ? 05/06/2018 Location: ? [facility] ? Receive Date: ? 05/07/2018 Provider: ?MIS ALLRED SORTING LIVESTOCK WORKER Copy to: ?KASIE BORJAS SORTING LIVESTOCK WORKER ? Specimen/Source: ?Pap Test, Cervix, ThinPrep Imaging System with manual evaluation Last Menstrual Period: ? 04/07/2018 Hormonal/Contracep tive Status: ? Oral contraceptives ? SPECIMEN ADEQUACY ? Satisfactory for Evaluation - transformation zone component present GENERAL CATEGORIZATION ? Negative for Intraepithelial Lesion or Malignancy INTERPRETATION ? Shift in teresita present suggestive of bacterial vaginosis. ? Document reviewed and electronically signed by: ? Mandi Gustafson, CT(ASCP) ? Report Date: ??05/14/2018 15:15 End of Report [facility] 05/06/2018 05/07/2018 us Mis Allred SORTING LIVESTOCK WORKER PATHOLOGY ORDERABLES Final R esult [facility] [address] [place] [address] documented in this encounter Visit Diagnoses Not on filedocumented in this encounter Care Teams Building Energy Consultant Relationship Specialty Start Date End Date Unknown, Provider, PCP - General 01/09/13 01/02/19 documented as of this encounter
--- OUTSIDE RECORDS SUMMARY | 2024-10-31 15:38 | XMS_ITS | Encounter Summary ---
Author Organization [facility] Address [address] [place] [address] Care Team Providers Care Underground Miner Name Role Phone Elizabeth Blanco JOSUÉ Primary Care Provider [phone] Encounter Details Date Type Department Care Team (Late st Contact Info) Description 05/26/2022 Specialty Pharmacy [facility] Ambulatory Pharmacy - [address] [phone] Jessica Malhotra, [facility] [address] [address] Social History Tobacco Use Types Packs/Day Years [...] Specialty Pharmacy Non-Outreach Documentation Medication: humira Clinic: [facility] Reason for Encounter: script received, refill too soon until 06/06/2022. Notes:profiled. 06/14: approval received from [facility] for maintenance doses. Uploaded to scans. Follow up date: Follow up reason: outreach documented in this encounter Plan of Treatment Not on file documented as of this encounter Visit Diagnoses Not on filedocumented in this encounter Care Teams Underground Miner Relationship Specialty Start Date End Date Elizabeth Blanco [place] [address] PCP - General 01/03/19 documented as of this encounter
--- OUTSIDE RECORDS SUMMARY | 2024-10-31 15:38 | XMS_ITS | Encounter Summary ---
Author Organization [facility] Address [address] [place] [address] Care Team Providers Care Bacteriology Research Assistant Name Role Phone Unavailable Primary Care Provider Unavailabl e Encounter Details Date Type Department Care Team (Late st Contact Info) Description 04/16/2009 Orders Only [facility] Services - [facility] [address] [place], [place] [address] Mis Allred, [facility] [address] [place] [address] Social History Tobacco Use Types [...] ? YOEL COMBS ? Accession #: ? [id number] ? : ? 1990 (Age: 18) ??F ?Collect Date: ? 04/16/2009 ? Location: ? [facility] ? Receive Date: ? 04/19/2009 ? Provider: ?MIS ROSAURA ENTERTAINMENT DIRECTOR ? Copy to: ? Specimen/Source: ?Pap Test, [...] 15:08 ? End of Report ? [facility] 04/16/2009 04/19/2009 us Mis Allred ENTERTAINMENT DIRECTOR PATHOLOGY ORDERABLES Final R esult [facility] [address] [place] [address] documented in this encounter Visit Diagnoses Not on filedocumented in this encounter
--- OUTSIDE RECORDS SUMMARY | 2024-10-31 15:38 | XMS_ITS | Encounter Summary ---
Author Organization [facility] [address] Care Team Providers Care Railroad Inspector Name Role Phone Elizabeth Blanco APRN Primary Care Provider [phone] Encounter Details Date Type Department Care Team (Late st Contact Info) Description 06/15/2024 Interpretation Only [facility] in [address] [phone] Mis Salinas MD [address] [place] [address] Social History Tobacco Use Types Packs/Day Years Used Date Smoking Tobacco: Never Assessed Sex and Gender Information Value Date Recorded Sex Assigned at Not on file Gender Identity Not on file Sexual Orientation Not on file documented as of this encounter Plan of Treatment Not on file documented as of this encounter Visit Diagnoses Not on filedocumented in this encounter Care Teams Railroad Inspector Relationship Specialty Start Date End Date Elizabeth Blanco APRN [address] [place] [address] PCP - General Family Medicine 05/13/18 documented as of this encounter
--- OUTSIDE RECORDS SUMMARY | 2024-10-31 15:38 | XMS_ITS | Encounter Summary ---
Author Organization [facility] Address [address] [place] [address] Care Team Providers Care Athletic Instructor Name Role Phone Elizabeth Blanco JOSUÉ Primary Care Provider [phone] Encounter Details Date Type Department Care Team (Late st Contact Info) Description 07/10/2022 Specialty Pharmacy [facility] Ambulatory Pharmacy - [address] [address] Jessica Malhotra, [facility] [address] [place] [address] Social History Tobacco Use Types Packs/Day Years [...] * Yareli Randhawa - 07/10/2022 1335 EDT [facility] Specialty Pharmacy Delivery Information Hours: Sunday-Sunday 8:30am - 5:00pm *Pharmacist available bindery production manager 11/06 Delivery Service: [facility] Delivery Service Delivery Window: 1pm - 5pm Date of Delivery: 07/17/22 Tracking # : [id number] documented in this encounter Plan of Treatment Not on file documented as of this encounter Visit Diagnoses Not on filedocumented in this encounter Care Teams Athletic Instructor Relationship Specialty Start Date End Date Elizabeth Blanco FNP [place] [address] PCP - General 01/03/19 documented as of this encounter
--- OUTSIDE RECORDS SUMMARY | 2024-10-31 15:38 | XMS_ITS | Encounter Summary ---
Author Organization [facility] [address] Care Team Providers Care Manager In Home Name Role Phone EllieElizabeth alvarado TETO Primary Care Provider [phone] Reason for Visit * Surgical (Routine) - Specialty Diagnoses / Procedures Referred By Abraham solorzano Referred To Contact Gastroenterology Diagnoses Pelvic floor dysfunction Procedures High Definition Anal Manometry Fritz Johnson APRN [facility] [address] GASTRO[place] [address] [facility] [address] [place] [address] Referral ID Status Reason Start Date Expiration Date V isits Requested Visits Authorized [id number] Consult, Test & Treat 06/27/2018 06/27/2019 1 1 Encounter Details Date Type Department Care Team (Latest Contact Info) Description 08/20/2018 9:00 AM EDT Procedure [place] [address] Constipation, unspecified constipation type Social History Tobacco [...] type documented in this encounter Care Teams Manager In Home Relationship Specialty Start Date End Date Elizabeth Blanco APRN [address] [place] [address] PCP - General Family Medicine 05/13/18 documented as of this encounter
--- OUTSIDE RECORDS SUMMARY | 2024-10-31 15:38 | XMS_ITS | Encounter Summary ---
Author Organization [facility] [place] [address] Care Team Providers Care Title I Math Tutor Name Role Phone Elizabeth Blanco APRN Primary Care Provider [phone] Encounter Details Date Type Department Care Team (Late st Contact Info) Description 08/20/2018 4:00 PM EDT Tech Visit Gastroenterology at [facility] [place] [address] Dashawn Serrano MD [facility] [place] [address] Constipation, unspecified constipation type Social History Tobacco [...] were not included. Re: Makeda Paiz Reg No:[id number] : 1990 Date of Service: 08/20/18 ANORECTAL MANOMETRY w/BALLOON EXPULSION Referring provider:Fritz Castro Dear: Dr. Castro We had the pleasure of performing a high resolution anorectal manometry on your patient in the GI Motility Laboratory at [facility]. CLINICAL HISTORY AND INDICATION As you know, [...] MD, DILAN Section of Gastroenterology and Hepatology [facility] [place] [address] V: [phone] F: [phone] CC/EC: Elizabeth Blanco APRN [address] [place] [address] documented in this encounter Plan of Treatment Not on file documented as of this encounter Visit Diagnoses Diagnosis Constipation, unspecified constipation type documented in this encounter Care Teams Title I Math Tutor Relationship Specialty Start Date End Date Elizabeth Blanco APRN [address], [place] [address] PCP - General Family Medicine 05/13/18 documented as of this encounter
--- OUTSIDE RECORDS SUMMARY | 2024-10-31 15:38 | XMS_ITS | Encounter Summary ---
Author Organization [facility] Address [address] [place] [address] Care Team Providers Care Facility Designer Name Role Phone Elizabeth Blanco JOSUÉ Primary Care Provider [phone] Encounter Details Date Type Department Care Team (Late st Contact Info) Description 02/19/2023 Specialty Pharmacy [facility] Ambulatory Pharmacy - [address] [address] Jenna Shaffer RPH Social History Tobacco Use [...] Jenna Shaffer RPH - 02/19/2023 1007 EDT [facility] Specialty Pharmacy Dermatology Routine Follow Up Kiaasia Paiz is a 32 y.o. female being [...] up: ??? Phone call: 6 months Jenna Shaffer, [facility] 02/19/2023 documented in this encounter Plan of Treatment Not on file documented as of this encounter Visit Diagnoses Not on filedocumented in this encounter Care Teams Facility Designer Relationship Specialty Start Date End Date Elizabeth Blanco [place] [address] PCP - General 01/03/19 documented as of this encounter
--- OUTSIDE RECORDS SUMMARY | 2024-10-31 15:38 | XMS_ITS | Encounter Summary ---
[place] [address] Care Team Providers Care Pan Puller Name Role Phone Elizabeth Blanco APRN Primary Care Provider [phone] Encounter Details Date Type Department Care Team (Late st Contact Info) Description 09/10/2020 [place] [address] Edith Taylor Social History Tobacco Use Types [...] CLINICAL SAFETY CHECKLIST 09/10/2020 Edith Paiz [address] [facility] [address] [id number] : 1990 REFERRING PROVIDER: GONZÁLEZ SHORT [[id number]] [...] on filedocumented in this encounter Care Teams Pan Puller Relationship Specialty Start Date End Date Elizabeth Blanco APRN [address] [place] [address] PCP - General Family Medicine 05/13/18 documented as of this encounter
--- OUTSIDE RECORDS SUMMARY | 2024-10-31 15:38 | XMS_ITS | Clinical Summary ---
Author Organization [facility] Address [facility] [place] [address] Care Team Providers Care Assistant Golf Course Superintendent Name Role Phone EllieElizabeth alvarado TETO Primary Care Provider [phone] Allergies Active Allergy Reactions Criticality Noted Date Comments Penicillins Angioedema High 06/27/2018 Medications Medication Sig Dispensed Refills Start Date End Date Status BLISOVI FE 1.5/30, 28, 1.5 mg-30 mcg (21)/75 mg (7) Tablet take 1 tablet by mouth once daily 0 04/17/2018 Active levothyroxine (SYNTHROID) 200 mcg Tablet 0 06/01/2018 Active levothyroxine (SYNTHROID) 25 mcg Tablet take 1 tablet by mouth once daily IN ADDITION TO 200MCG TABLET 0 04/19/2018 Active PROTOPIC 0.1 % Ointment 0 05/14/2018 Active fluocinolone acetonide (SYNALAR) 0.01 % Solution 0 05/10/2018 Active Active Problems Problem Noted Date Diagnosed Date Disorder of muscle, ligament, and fascia 018 Pelvic floor dysfunction 09/02/2018 Chronic constipation 09/02/2018 Social History Tobacco Use Types Packs/Day Years [...] AM EDT Temperature - - Respiratory Rate 8 07/08/2018 4:20 PM EDT Oxygen Saturation 100% 07/08/2018 4:20 PM EDT Inhaled Oxygen Concentration - - Weight 72.2 kg (159 lb 3.2 oz) 09/02/2018 9:11 A M EDT Height 170.2 cm (5' 7) 09/02/2018 9:11 AM EDT Body Mass Index 24.93 09/02/2018 9:11 AM EDT Plan of Treatment Health Maintenance Due Date Last Done Comments HIV screen 2009 Hepatitis C Screening 2009 Hepatitis B vaccine (0-59 yrs) (1) 2010 Tetanus/Diphtheria/Pertussis Vaccines (1 - Tdap) 06/17 HPV test 2021 PAP Smear 2021 Covid-19 Vaccine (1 - season) 2024 Influenza (Flu) vaccine (1 o f 1 - Influenza standard series) 07/20/2024 Care Teams Assistant Golf Course Superintendent Relationship Specialty Start Date End Date Elizabeth Blanco APRN [address], [place] [address] PCP - General Family Medicine 05/13/18
--- OUTSIDE RECORDS SUMMARY | 2024-10-31 15:38 | XMS_ITS | Encounter Summary ---
Author Organization [facility] Address [address] [place] [address] Care Team Providers Care Technology Solutions Architect Name Role Phone Elizabeth Blanco Primary Care Provider [phone] Encounter Details Date Type Department Care Team (Late st Contact Info) Description 03/19/2023 Specialty Pharmacy [facility] Ambulatory Pharmacy - [facility] [address] [place], [place] [address] Jenna Shaffer RPH Social History Tobacco Use [...] on filedocumented in this encounter Care Teams Technology Solutions Architect Relationship Specialty Start Date End Date Elizabeth Blanco [place] [address] PCP - General 01/03/19 documented as of this encounter
--- OUTSIDE RECORDS SUMMARY | 2024-10-31 15:38 | XMS_ITS | Encounter Summary ---
Author Organization [facility] Address [address] [place] [address] Care Team Providers Care Auto Radiator Specialist Name Role Phone Elizabeth Blanco Primary Care Provider [phone] Encounter Details Date Type Department Care Team (Late st Contact Info) Description 11/27/2022 Specialty Pharmacy [facility] Ambulatory Pharmacy - [facility] [address] [place], [place] [address] Jessica Malhotra, [facility] [address] [place] [address] [address] [place] [address] Social History Tobacco Use Types Packs/Day Years [...] on filedocumented in this encounter Care Teams Auto Radiator Specialist Relationship Specialty Start Date End Date Elizabeth Blanco FNP [address] [place] [address] [address] [place] [address] PCP - General 01/03/19 documented as of this encounter
--- OUTSIDE RECORDS SUMMARY | 2024-10-31 15:38 | XMS_ITS ---
Author Organization [facility] Address [address] [place] [address] Care Team Providers Care Summer School Coordinator Name Role Phone Elizabeth Blanco JOSUÉ Primary Care Provider [phone] Dermatology Status:Enrolled (Active) Start date:04/06/2022 Enrollment date:04/06/2022 Current support & services provided:Clinical Management, Refill Management Linked medications:adalimumab (Active) Linked problems:Psoriasis (Active) Continued Care and Services Coordination
--- OUTSIDE RECORDS SUMMARY | 2024-10-31 15:38 | XMS_ITS | Encounter Summary ---
Author Organization [facility] Address [address] [place] [address] Care Team Providers Care Naval Inspector Name Role Phone Elizabeth Blanco Primary Care Provider [phone] Encounter Details Date Type Department Care Team (Late st Contact Info) Description 06/12/2023 Specialty Pharmacy [facility] Ambulatory [facility] - [facility] [address] [place], [place] [address] Jessica Malhotra, [facility] [address] [place] [address] Social History Tobacco Use Types Packs/Day Years [...] on filedocumented in this encounter Care Teams Naval Inspector Relationship Specialty Start Date End Date Elizabeth Blanco FNP [address] [place] [address] DR [facility] [place] [address] PCP - General 01/03/19 documented as of this encounter
--- OUTSIDE RECORDS SUMMARY | 2024-10-31 15:38 | XMS_ITS | Encounter Summary ---
Author Organization [facility] Address [address] [place] [address] Care Team Providers Care Armorer Technician Name Role Phone Unknown, Provider Primary Care Provider Unava ilable Encounter Details Date Type Department Care Team (Late st Contact Info) Description 05/04/2017 Results Only [facility]- [facility] [phone] Mis Allred, [address] [phone] Social History Tobacco Use Types Packs/Day Years [...] ? YOEL COMBS ? Accession #: ? [id number] : ? 1990 (Age: 26) ??F ?Collect Date: ? 05/04/2017 Location: ? [facility] ? Receive Date: ? 05/07/2017 Provider: ?MIS ALLRED ERP MANAGER Copy to: ?KASIE BORJAS ERP MANAGER ? Specimen/Source: ?Pap Test, Cervix, ThinPrep Imaging System with manual evaluation Last Menstrual Period: ? 04/20/17 Hormonal/Contracep tive Status: ? Oral contraceptives ? SPECIMEN ADEQUACY ? Satisfactory for Evaluation - transformation zone component present GENERAL CATEGORIZATION ? Negative for Intraepithelial Lesion or Malignancy ? Document reviewed and electronically signed by: ? JACOB Cat(ASCP) ? Report Date: ??05/17/2017 07:49 End of Report [facility] 05/04/2017 05/07/2017 Mis Allred ERP MANAGER PATHOLOGY ORDERABLES Final R esult [facility] [address] [place] [address] documented in this encounter Visit Diagnoses Not on filedocumented in this encounter Care Teams Armorer Technician Relationship Specialty Start Date End Date Unknown, Provider, PCP - General 01/09/13 01/02/19 documented as of this encounter
--- OUTSIDE RECORDS SUMMARY | 2024-10-31 15:38 | XMS_ITS | Encounter Summary ---
Author Organization [facility] Address [address] [place] [address] Care Team Providers Care Construction Field Engineer Name Role Phone Elizabeth Blanco Primary Care Provider [phone] Encounter Details Date Type Department Care Team (Late st Contact Info) Description 07/13/2023 Specialty Pharmacy [facility] Ambulatory Pharmacy - [facility] [address] [place], [place] [phone] Jenna Shaffer RPH Social History Tobacco Use [...] on filedocumented in this encounter Care Teams Construction Field Engineer Relationship Specialty Start Date End Date Elizabeth Blanco [place] [address] PCP - General 01/03/19 documented as of this encounter
--- OUTSIDE RECORDS SUMMARY | 2024-10-31 15:38 | XMS_ITS | Encounter Summary ---
Author Organization [facility] [place] [address] Care Team Providers Care Door Tender Name Role Phone Elizabeth Blanco APRN Primary Care Provider Encounter Details Date Type Department Care Team (Late st Contact Info) Description 06/15/2024 Interpretation Only [facility] in [address] [phone] Mis Salinas MD [address] [place] [id number] Social History Tobacco Use Types Packs/Day Years Used Date Smoking Tobacco: Never Assessed Sex and Gender Information Value Date Recorded Sex Assigned at Not on file Gender Identity Not on file Sexual Orientation Not on file documented as of this encounter Plan of Treatment Not on file documented as of this encounter Visit Diagnoses Not on filedocumented in this encounter Care Teams Door Tender Relationship Specialty Start Date End Date Elizabeth Blanco APRN [address] [place] [address] PCP - General Family Medicine 05/13/18 documented as of this encounter
--- OUTSIDE RECORDS SUMMARY | 2024-10-31 15:38 | XMS_ITS | Encounter Summary ---
Author Organization [facility] Address [facility] [address] Care Team Providers Care Pipeline Superintendent Division Name Role Phone Elizabeth Blanco TETO Primary Care Provider [phone] Encounter Details Date Type Department Care Team (Latest Contact Info) Description 06/27/2018 11:05 AM EDT - 06/27/2018 11:59 PM EDT Hospital Encounter XRay at [address] [place] [address] Fritz Castro APRN [facility] [place] [address] Irritable bowel syndrome with constipation Discharge Disposition: [...] syndrome documented in this encounter Care Teams Pipeline Superintendent Division Relationship Specialty Start Date End Date Elizabeth Blanco APRN [address] [place] [address] PCP - General Family Medicine 05/13/18 documented as of this encounter
--- OUTSIDE RECORDS SUMMARY | 2024-10-31 15:38 | XMS_ITS | Encounter Summary ---
Author Organization [facility] Address [address] [place] [address] Care Team Providers Care Head Transfer Clerk Name Role Phone Unavailable Primary Care Provider Unavailabl e Encounter Details Date Type Department Care Team (Late st Contact Info) Description 01/07/2013 Results Only [facility] Laboratory Services - [facility] ([facility]) [address] [place], [place] [address] Macario Ireland, DO [address] [place], [place] [id number] Social History Tobacco Use Types Packs/Day Years [...] ? YOEL COMBS ? Accession #: ? [id number] ? : ? 1990 (Age: 22) ??F ? Collect Date: ? 01/07/2013 ? Location: ? [facility] ? Receive Date: ? 01/07/2013 ? Provider: MACARIO IRELAND DO Copy to: KAELA CANO CATERERS HELPER ? Final Pathologic Diagnosis: ? Gallbladder, cholecystectomy: [...] Gross Description: ? Received in formalin labelled Gayleer, Yoel and gallbladder is a 7.0 cm in [...] submitted in one cassette as (1). ??(Laurie Edwards)/[facility] End of Report CANDACE DAVIDSON 01/07/2013 15:5 9 EST 01/07/2013 15:59 EST us Macario Ireland DO PATHOLOGY ORDERABLES Fi nal Result CANDACE DAVIDSON [address] [place] [address] documented in this encounter Visit Diagnoses Not on filedocumented in this encounter
--- OUTSIDE RECORDS SUMMARY | 2024-10-31 15:38 | XMS_ITS | Encounter Summary ---
Author Organization [facility] Address [address] [place] [address] Care Team Providers Care Senior Pharmacy Technician Name Role Phone Elizabeth Blanco JOSUÉ Primary Care Provider [phone] Encounter Details Date Type Department Care Team (Late st Contact Info) Description 07/06/2023 Specialty Pharmacy [facility] Ambulatory Pharmacy - [address] [phone] Jenna Shaffer RPH Social History Tobacco Use [...] Notes * Whitney Vazquez RPH - 07/06/2023 1058 EDT Incoming call from patient who states [...] the future. Whitney Vazquez, PharmD Ambulatory Pharmacist [facility] Specialty Pharmacy 07/06/2023 documented in this encounter Plan of Treatment Not on file documented as of this encounter Visit Diagnoses Not on filedocumented in this encounter Care Teams Senior Pharmacy Technician Relationship Specialty Start Date End Date Elizabeth Blanco FNP [address] [place] [address] PCP - General 01/03/19 documented as of this encounter
--- OUTSIDE RECORDS SUMMARY | 2024-10-31 15:38 | XMS_ITS | Encounter Summary ---
Author [facility] [place] [address] Care Team Providers Care Custodial Manager Name Role Phone EllieElizabeth alvarado TETO Primary Care Provider [phone] Encounter Details Date Type Department Care Team (Late st Contact Info) Description 09/02/2018 9:00 AM EDT Office [place] [address] Fritz Castro APRN [facility] [place] [address] Pelvic floor dysfunction Social History Tobacco Use [...] acute angle, more acute than at rest. [place]: Moderate (conscious) sedation was administered by the [...] wasting documented in this encounter Care Teams Custodial Manager Relationship Specialty Start Date End Date Elizabeth Blanco, TETO [address] [place] [address] PCP - General Family Medicine 05/13/18 documented as of this encounter
--- OUTSIDE RECORDS SUMMARY | 2024-10-31 15:38 | XMS_ITS | Encounter Summary ---
Author Organization [facility] Address [address] [place] [address] Care Team Providers Care Continuous Improvement Coach Name Role Phone Elizabeth Blanco JOSUÉ Primary Care Provider [phone] Encounter Details Date Type Department Care Team (Late st Contact Info) Description 01/08/2020 Lab Requisition [facility] Pathology & Laboratory Medicine - [address] [address] Unknown, Provider, Social History Tobacco Use Types [...] gonorrhoeae Result Negative Negative 01/09/2020 13:25 EST [facility] Chlamydia trachomatis Result Negative Negative 01/09/2020 13:25 EST [facility] Swab SPECIMEN FROM UTERINE CERVIX / Unknown 01/07/2020 16:00 EST 01/08/2020 16:16 EST us Provider Unknown MICROBIOLOGY - GENERAL ORDER EDUARDO Final Result [facility] [address] [place] [address] documented in this encounter Visit Diagnoses Not on filedocumented in this encounter Care Teams Continuous Improvement Coach Relationship Specialty Start Date End Date Elizabeth [place] [address] [place] [address] PCP - General 01/03/19 documented as of this encounter
--- OUTSIDE RECORDS SUMMARY | 2024-10-31 15:38 | XMS_ITS | Encounter Summary ---
Author Organization [facility] Address [address] [place] [address] Care Team Providers Care Clarifier Name Role Phone Elizabeth Blanco JOSUÉ Primary Care Provider [phone] Encounter Details Date Type Department Care Team (Late st Contact Info) Description 04/06/2022 Specialty Pharmacy [facility] Ambulatory Pharmacy - [address] [address] Jessica Malhotra, [facility] [address] [address] Social History Tobacco Use Types Packs/Day Years [...] - 04/06/2022 1127 EDT Prescription Receipt by [facility] Specialty Pharmacy Date Received: 04/06/2022 Medication: Tremfya Sent by: electronic Clinic: [facility] Provider: [facility] Phone number: [phone] Benefits Investigation Results: [facility] Comments: Rx uploaded into scans. [facility] Specialty Pharmacy: [phone] * Jhoana Lema - 04/06/2022 1127 EDT Specialty Pharmacy [...] on filedocumented in this encounter Care Teams Clarifier Relationship Specialty Start Date End Date Elizabeth Bl[place] [address] [place] [address] PCP - General 01/03/19 documented as of this encounter
--- OUTSIDE RECORDS SUMMARY | 2024-10-31 15:38 | XMS_ITS | Encounter Summary ---
Author Organization [facility] Address [address] [place] [address] Care Team Providers Care Steam Conditioner Operator Name Role Phone Elizabeth Blanco Primary Care Provider [phone] Encounter Details Date Type Department Care Team (Late st Contact Info) Description 12/26/2022 Specialty Pharmacy [facility] Ambulatory Pharmacy - [facility] [address] [place], [place] [address] Jessica Malhotra, [facility] [address] [place] [address] [address] [place] [address] Social History Tobacco Use Types Packs/Day Years [...] on filedocumented in this encounter Care Teams Steam Conditioner Operator Relationship Specialty Start Date End Date Elizabeth Blanco FNP [address] [place] [address] [address] [facility] [place] [address] PCP - General 01/03/19 documented as of this encounter
--- OUTSIDE RECORDS SUMMARY | 2024-10-31 15:38 | XMS_ITS | Encounter Summary ---
Author Organization [facility] Address [facility] [place] [address] Care Team Providers Care Dermatologist Managing Partner Name Role Phone Bella Elizabeth TETO Primary Care Provider [phone] Reason for Referral * Physical Therapy (Routine) - Specialty Diagnoses / Procedures Referred By Abraham solorzano Referred To Contact Physical Therapy Diagnoses Pelvic floor dysfunction Fritz Castro APRN [facility] [place] [address] [address] [place] [address] Referral ID Status Reason Start Date Expiration Date V isits Requested Visits Authorized [id number] Evaluate and Treat 07/17/2018 07/17/2019 12 12 Encounter Details Date Type Department Care Team (Late st Contact Info) Description 07/17/2018 Orders Only [place] [address] Fritz Castro CHANNEL CEMENTER [facility] [place] [address] Pelvic floor dysfunction Social History Tobacco Use [...] wasting documented in this encounter Care Teams Dermatologist Managing Partner Relationship Specialty Start Date End Date Elizabeth Blanco, CHANNEL CEMENTER [address] [place] [address] PCP - General Family Medicine 05/13/18 documented as of this encounter
--- OUTSIDE RECORDS SUMMARY | 2024-10-31 15:38 | XMS_ITS | Encounter Summary ---
Author Organization [facility] Address [address] [place] [address] Care Team Providers Care Cnc Machinist Name Role Phone Elizabeth Blanco JOSUÉ Primary Care Provider [phone] Encounter Details Date Type Department Care Team (Late st Contact Info) Description 10/02/2022 Specialty Pharmacy [facility] Ambulatory Pharmacy - [facility] [address] [place], [place] [address] Jessica Malhotra, [facility] [address] [place] [address] Social History Tobacco Use Types Packs/Day Years [...] Marva Nichole - 10/02/2022 1421 EST [facility] Specialty Pharmacy Delivery Information Hours: Sunday-Sunday 8:30am - 5:00pm *Pharmacist available circular sawyer stone 11/06 Delivery Service: [facility] Delivery Window: 1pm - 5pm Date of Delivery: 10/10/22 Tracking # : [id number] documented in this encounter Plan of Treatment Not on file documented as of this encounter Visit Diagnoses Not on filedocumented in this encounter Care Teams Cnc Machinist Relationship Specialty Start Date End Date Elizabeth [place] [address] [place] [address] PCP - General 01/03/19 documented as of this encounter
--- OUTSIDE RECORDS SUMMARY | 2024-10-31 15:38 | XMS_ITS | Encounter Summary ---
Author Organization [facility] Address [facility] [place] [address] Care Team Providers Care Automotive Product Engineer Name Role Phone Elizabeth Blanco APRN Primary Care Provider [phone] Encounter Details Date Type Department Care Team (Latest Contact Info) Description 07/08/2018 2:05 PM EDT - 07/08/2018 4:50 PM EDT Hospital Encounter G[facility]enterology at [facility] [place] [address] Mathew Bob MD [facility] [place] [address] Discharge Disposition: Home Social History Tobacco Use [...] - 07/08/2018 3:54 PM EDT Please call [phone] before 6pm Mon-Fri with problems, questions or concerns. If you call after 8pm or on weekends, call the Hospital at [phone] and ask to speak to the Art Historian communications strategist and the alemite operator will contact that person for you. * Attachments The following attachments cannot be sent through Care Everywhere. * COLONOSCOPY: POST-OP (YEMENI) documented in this encounter Medications at Time [...] Report (07/08/2018 3:48 PM EDT) Final Diagnosis [id number] ? Location: 4T; EA07; A The signing pathologist has (i) examined the relevant preparation(s) for the specimen(s) and (ii) rendered or confirmed the diagnosis(es). . ?Surgical Pathology DIAGNOSIS Mucosal irritation, ??biopsy: - Colonic mucosa, negative for diagnostic abnormality. CR-PX Electronically signed by: ??Kobe Bonilla MD Verified: ??07/11/2018 ?Pathologist Performed at: ??-[facility] Dept. of Pathology, [place], [place] CLINICAL INFORMATION Specimen Submitted: A - Mucosal irritation r/o changes secondary to rectal prolapse Clinical History and Diagnosis: Mucosal irritation rule out changes secondary to rectal prolapse. Constipation. SPECIMEN PROCESSING A - Labeled/Fixativ e: Mucosal irritation, formalin. Quantity/Size: Five, 0.2-0.3 cm. Tissue Description: ??Soft, whaley-pink tissue ??. Sections/Proces sing: []. ([]) ??pps 07/11/2018 4:41 PM EDT [facility] GI Biopsy 07/08/2018 3:48 PM EDT 07/08/2018 3:48 PM EDT Mathew Bob MD PATHOLOGY/CYTOLOGY O ALPHONSE Performing Organization Address [facility] Co de Phone Number [facility] [place] [address] * Specimen to Pathology (07/08/2018 3:48 PM EDT) AP Specimen 07/08/2018 3:48 PM EDT 07/08/2018 4:50 PM EDT Narrative [facility] - 07/08/2018 4:50 PM EDT Specimen requisition ordered. ??Separate Pathology report to follow Resulting Agency Comment Spec In Lab Mathew Bob MD PATHOLOGY/CYTOLOGY O ALPHONSE Performing Organization Address [facility] Co de Phone Number [facility] [place] [address] * COLONOSCOPY (07/08/2018 3:03 PM EDT) COLONOSCOPY [facility] Endoscopy Procedure Date: 07/08/2018 3:03 PM ? Patient Name: Makeda Paiz ? Date of : 1990 ? Age: 28 ? Order #: [id number] ? Instrument Name: [id number] ? Procedure: ? Colonoscopy Indications: ? Abdominal pain, Constipation Providers: ? Mathew Bob iDana Muñoz, ? Anne-Marie Chavez, Humble Kang, ? Volunteer Firefighter Referring MD: ?Elizabeth Bella Medicines: ? Fentanyl [...] preparation was evaluated using ? the BBPS (Cambridge Bowel Preparation ? Scale) with scores of: [...] done by the ? physician, nurse and solid waste landfill technician using the patient's ? name, date [...] Procedure Code(s): ?? --- Professional --- ? 56575, Colonoscopy, flexible; with ? biopsy, single or multiple ? 35627, 59, Moderate sedation services ? provided by [...] age 5 ? years or older ? [address], Moderate sedation services; ? each additional 15 minutes ? intraservice time ? [address], Moderate sedation services; ? each additional 15 minutes ? intraservice time CPT copyright 2016 [employer]. All rights reserved. The codes documented in this report are preliminary and upon sewer cleaner review may be revised to meet current compliance requirements. Attending Participation: ? I personally performed the entire procedure. ? Mathew Bob, 07/08/2018 4:00:50 PM Number of Addenda: 0 Note Initiated On: 07/08/2018 3:03 PM PROVATION 07/08/2018 3:03 PM EDT Elizabeth Blanco TOOL DESIGN ENGINEER GENERAL SURGICAL ORD ERABLES PROVATION documented in [...] RN) documented in this encounter Care Teams Automotive Product Engineer Relationship Specialty Start Date End Date Elizabeth Blanco, TOOL DESIGN ENGINEER [address] [place] [address] PCP - General Family Medicine 05/13/18 documented as of this encounter
--- OUTSIDE RECORDS SUMMARY | 2024-10-31 15:38 | XMS_ITS | Encounter Summary ---
Author Organization [facility] Address [address] [place] [address] Care Team Providers Care Fishing Game Warden Name Role Phone Elizabeth Blanco JOSUÉ Primary Care Provider [phone] Encounter Details Date Type Department Care Team (Late st Contact Info) Description 08/14/2020 Lab Requisition [facility] Pathology & Laboratory Medicine - [address] [address] Juan Blas MD [address] [place] [phone] Irritable bowel syndrome without diarrhea; Other [...] with no specific pathologic features. 08/16/2020 18:14 [facility] Attestation By the signature below, the attending physician certifies that they have 1) personally conducted a gross and/or microscopic examination of the described specimen(s), and/or personally interpreted the results of laboratory testing of the described specimen(s), and 2) personally rendered or confirmed the above diagnosis. 08/16/2020 18:14 [facility] at 1814 Clinical History Chronic diarrhea; abdominal pain; rectal erythema; colon polyp 08/16/2020 18:14 [facility] Gross [...] C1. [place] Arriola 08/14/2020 9:58 08/16/2020 18:14 [facility] Performing Lab [facility] 08/16/2020 18:14 [facility] Scanned Images 08/16/2020 18:14 [facility] Tissue SPECIMEN FROM RECTUM / Unknown 08/13/2020 12:15 EDT 08/14/2020 5:06 EDT Tissue specimen (specimen) SPECIMEN FROM RECTUM / Unknown 08/13/2020 12:15 EDT 08/14/2020 5:06 EDT Tissue specimen (specimen) SPECIMEN FROM RECTUM / Unknown 08/13/2020 12:15 EDT 08/14/2020 5:06 EDT us Juan Blas MD PATHOLOGY ORDERABLES Final Result [facility] [address] [place] [address] documented in this encounter Visit Diagnoses Diagnosis Irritable bowel syndrome without diarrhea Irritable bowel syndrome Other fecal abnormalities Rectal prolapse documented in this encounter Care Teams Fishing Game Warden Relationship Specialty Start Date End Date Elizabeth Bl[place] [address] [place] [address] PCP - General 01/03/19 documented as of this encounter
--- OUTSIDE RECORDS SUMMARY | 2024-10-31 15:38 | XMS_ITS | Encounter Summary ---
Author Organization [facility] Address [address] [place] [address] Care Team Providers Care Upfitter Name Role Phone Unavailable Primary Care Provider Unavailabl e Encounter Details Date Type Department Care Team (Late st Contact Info) Description 02/27/2011 Results Only [facility] Laboratory Services - [facility] ([facility] [address] [place] [id number] Saranya Gotti, HOTSHOT SUPERINTENDENT Social History Tobacco Use Types Packs/Day Years [...] ? YOEL COMBS ? Accession #: ? [id number] ? : ? 1990 (Age: 20) ??F ?Collect Date: ? 02/27/2011 ? Location: ? [facility] ? Receive Date: ? 03/01/2011 ? Provider: ?SARANYA M ANUPAM HOTSHOT SUPERINTENDENT ? Copy to: ? Specimen/Source: ?Pap Test, [...] of Report ? CANDACE DAVIDSON 02/27/2011 03/01/2011 us Saranya Gotti HOTSHOT SUPERINTENDENT PATHOLOGY ORDERABLES Final Re sult CANDACE DAVIDSON [address] [place] [address] documented in this encounter Visit Diagnoses Not on filedocumented in this encounter
--- OUTSIDE RECORDS SUMMARY | 2024-10-31 15:38 | XMS_ITS | Encounter Summary ---
Author Organization [facility] Address [facility] [place] [address] Care Team Providers Care Cloud Architect Name Role Phone EllieElizabeth alvarado TETO Primary Care Provider Reason for Visit * Physical Therapy (Routine) - Specialty Diagnoses / Procedures Referred By Abraham solorzano Referred To Contact Physical Therapy Diagnoses Pelvic floor dysfunction Fritz Castro APRN [facility] [place] [address] [facility] [address] [address] [place] [address] Referral ID Status Reason Start Date Expiration Date V isits Requested Visits Authorized [id number] Evaluate and Treat 07/17/2018 07/17/2019 12 12 Encounter Details Date Type Department Care Team (Late st Contact Info) Description 09/02/2018 11:15 AM EDT Office Visit Physical Therapy at [facility] [address] [place] [address] Raman Rubio, PT [facility] PHYSICAL MEDICINE & [place] [address] Disorder of muscle, ligament, and fascia; Pelvic [...] Personal Factors affecting Plan of Care: 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 Goals: penitentiary goals (3 months) 1. Patient will reduce [...] constipation documented in this encounter Care Teams Cloud Architect Relationship Specialty Start Date End Date Elizabeth Blanco, MANAGER SPECIAL EVENTS [address] [place] [address] PCP - General Family Medicine 05/13/18 documented as of this encounter
--- OUTSIDE RECORDS SUMMARY | 2024-10-31 15:39 | XMS_ITS | Encounter Summary ---
Author Organization [facility] Address [facility] [place] [address] Care Team Providers Care Warehouse Stock Clerk Name Role Phone Elizabeth Blanco APRN Primary Care Provider [phone] Encounter Details Date Type Department Care Team (Late st Contact Info) Description 02/19/2017 Interpretation Only Radiology [address] [facility] [place] [address] Unknown None Social History Tobacco Use Types [...] 6:19 AM EDT APD Historical Result Principal Switch Box Installer: ??ANIKET ??TREVON C-ARM IMAGES: CLINICAL HISTORY: ??Left [...] for further details. Aniket Roa MD DP/rr [id number] Procedure Note Unknown - 05/19/2019 APD Historical Result Principal Switch Box Installer: ANIKET ROA C-ARM IMAGES: CLINICAL HISTORY: Left [...] for further details. Aniket Roa MD DP/rr [id number] Unknown IMG FLUORO ORDERABLE S documented in this encounter Visit Diagnoses Not on filedocumented in this encounter Care Teams Warehouse Stock Clerk Relationship Specialty Start Date End Date Elizabeth Blanco APRN [address] [place] [address] PCP - General Family Medicine 05/13/18 documented as of this encounter
--- OUTSIDE RECORDS SUMMARY | 2024-10-31 15:39 | XMS_ITS | Encounter Summary ---
[place] [address] Care Team Providers Care Sports Management Intern Name Role Phone Bella Elizabeth TETO Primary Care Provider Reason for Referral * Diagnostic Test (Routine) - Closed Specialty Diagnoses / Procedures Referred By Contac t Referred To Contact Radiology Diagnoses Pelvic floor dysfunction Procedures MRI Pelvis Soft Tissue (Gi Gu Stove Fitter)WO Contrast MRI Pelvis Soft Tissue (GI SHOE PULLER)W Contrast Fritz Castro APRN [facility] GASTROENTER[place] [address] [place] [address] Referral ID Status Reason Start Date Expiration Date V isits Requested Visits Authorized [id number] Closed Specialty Service Requested 06/27/2018 09/25/2018 1 1 * Surgical (Routine) - Specialty Diagnoses / Procedures Referred By Contac t Referred To Contact Gastroenterology Diagnoses Pelvic floor dysfunction Procedures High Definition Anal Manometry HRAM Fritz Castro MUSIC ENGRAVER [facility] GASTROENTER[place] [address] [facility] [place] [place] [address] Referral ID Status Reason Start Date Expiration Date V isits Requested Visits Authorized [id number] Consult, Test & Treat 06/27/2018 06/27/2019 1 1 Reason for Visit * Reason Comments GI Problem * Consultation (Routine) - Closed Specialty Diagnoses / Procedures Referred By Abraham solorzano Referred To Contact Gastroenterology Diagnoses CHRONIC CONSTIPATION Elizabeth Blanco APRN [address] [place] [address] [facility] [address] [place] [address] Referral ID Status Reason Start Date Expiration Date V isits Requested Visits Authorized [id number] Closed Consult, Test & Treat [facility] 05/13/2018 05/13/2019 1 1 Encounter Details Date Type Department Care Team (Late st Contact Info) Description 06/27/2018 9:00 AM EDT Office [place] [address] Fritz Castro APRN [facility] GASTROENTEROLOGY [place] [address] Pelvic floor dysfunction; Irritable bowel [...] AM EDT Section of Gastroenterology and Hepatology [address] [place], [place] [id number] .Makeda Paiz : 1990 Patient is here for further evaluation of gastrointestinal symptoms at the request of Elizabeth Blanco. HPI: Pt is here for terminal gauger constipation. Bowel issues for 10 years. Progressively becoming worse. Saw GI specialist in [place]. Placed on a medication that caused loose [...] * MRI Pelvis Soft Tissue (Gi Gu Stove Fitter)WO Contrast (07/09/2018 3:43 PM EDT) Anatomical Region [...] EDT EXAMINATION: MRI PELVIS SOFT TISSUE (GI SHOE PULLER) WO CONTRAST CLINICAL HISTORY: with defecography; pelvic [...] 07/10/2018 EXAMINATION: MRI PELVIS SOFT TISSUE (GI SHOE PULLER) WO CONTRAST CLINICAL HISTORY: with defecography; pelvic [...] 11:36 AM EDT) Neutrophil % 61.5 % [facility] Neutrophil Absolute 3.43 1.70 - 6.10 x10(3)/[facility] Lymph % 31.4 % [facility] Lymphocytes Abs 1.8 0.9 - 3.2 x10(3)/[facility] Monocyte % 4.8 % [facility] Monocyte Abs 0.3 0.3 - 0.9 x10(3)/[facility] Eos % 1.4 % [facility] Eosinophils Abs 0.1 0.0 - 0.4 x10(3)/[facility] Basophil % 0.5 % [facility] Baso Absolute 0.0 0.0 - 0.1 x10(3)/[facility] Immature Gran % 0.40 % [facility] Comment: Immature granulocytes(IG's)percentage and absolute count will include metamyelocytes, myelocytes, and promyelocytes. Blood smears from CBCs yielding IG's will be scanned manually for concordance. If this scan disagrees with the automated IG or if promyelocytes are noted, a manual differential will be performed. Immature Gran Absolute 0.02 0.00 - 0.04 x10(3)/[facility] Blood specimen (specimen) 06/27/2018 11:36 AM EDT 06/27/2018 11:46 AM EDT Narrative Resulting Agency Comment Spec In Lab Fritz Castro APRN HEMATOLOGY ORDERABLE S [facility] [place] [address] * (ABNORMAL) Hemogram (06/27/2018 11:36 AM EDT) White Blood Cell 5.6 4.0 - 9.5 x10(3)/[facility] LAB[facility] Red Blood Cell 4.55 4.00 - 5.21 x10(6)/[facility] Hemoglobin 12.2 11.7 - 15.5 gm/dL [facility] Hematocrit 37.4 35.7 - 45.8 % [facility] Mean Cell Volume 82.2(L) 82.6 - 94.4 fL [facility] Mean Cell Hemoglobin 26.8(L) 27.1 - 32.0 pg [facility] Mean Cell Hemoglobin Concentration 32.6 31.7 - 35.0 gm/dL [facility] Platelet 258 145 - 357 x10(3)/mc L [facility] RDW Standard Deviation 39.1 37.0 - 46.0 fL [facility] RDW coefficient of variation 13.1 11.5 - 14.1 % [facility] Mean Platelet Volume 10.5 7.6 - 12.9 fL [facility] NRBC% auto 0.0 % [facility] NRBC Absolute 0.000 0.000 - 0.000 x10(3)/mc L [facility] Blood specimen (specimen) 06/27/2018 11:36 AM EDT 06/27/2018 11:46 AM EDT Narrative Resulting Agency Comment Spec In Lab Fritz Castro APRN HEMATOLOGY ORDERABLE S [facility] [place] [place] [address] * (ABNORMAL) Vitamin D, 25-Hydroxy (06/27/2018 11:36 AM EDT) Vitamin D Total 25 OH 22(L) 30 - 100 ng/mL [facility] Comment: Deficient <10 ng/mL Insufficient 10 to 29 ng/mL Sufficient 30 to 100 ng/mL Potential Intoxication >100 ng/mL According to the US National Osteoporosis Foundation, Vitamin D concentrations >30 ng/mL are sufficient to protect bone health. ??The National Kidney Foundation has similarly stated that patients with Vitamin D concentrations <30ng/mL should be considered to be insufficient or deficient. http://WriteOn.com/nkf-guidelines http://WriteOn.com/nejm-VitD The IDS iSYS Vitamin D Immunoassay detects both 25-OH Vitamin D2 and 25-OH Vitamin D3, but only a total Vitamin D concentration is reported. Blood specimen (specimen) 06/27/2018 11:36 AM EDT 06/27/2018 2:33 PM EDT Narrative Resulting Agency Comment Spec In Lab Tracia Jayshree'Olive MUSIC ENGRAVER CHEMISTRY ORDERABLES Performing Organization Address [facility]/ZIP Co de Phone Number [facility] [place] [address] * Tissue transglutaminase, IgA (06/27/2018 11:36 AM EDT) Pathologist [facility] TTG IgA Ab <1.2 <4.0 (Negative) unit/mL [facility] Comment: Test Performed by: [facility] - [address] [address] Blood specimen (specimen) 06/27/2018 11:36 AM EDT 06/27/2018 2:49 PM EDT Narrative Resulting Agency Comment Spec In Lab Tracia Jayshree'Olive MUSIC ENGRAVER IMMUNOLOGY ORDERABLE S Performing Organization Address [facility] Co de Phone Number [facility] [place] [address] * TSH (06/27/2018 11:36 AM EDT) [facility] Thyroid Stimulating Hormone 1.75 0.27 - 4.20 mlU/ML [facility] Blood specimen (specimen) 06/27/2018 11:36 AM EDT 06/27/2018 11:46 AM EDT Narrative Resulting Agency Comment Spec In Lab Tracia Jayshree'Olive MUSIC ENGRAVER CHEMISTRY ORDERABLES Performing Organization Address [facility]/ZIP Co de Phone Number [facility] [place] [address] * (ABNORMAL) Comprehensive metabolic panel (non-fasting) (06/27/2018 11:36 AM EDT) [facility] Glucose 83 65 - 199 mg/dL [facility] Comment:Diabetes: >=200 mg/d L plus symptoms Blood Urea Nitrogen 11 8 - 18 mg/dL [facility] Creatinine 0.89 0.70 - 1.20 mg/dL [facility] Sodium 139 135 - 145 mmol/L [facility] Potassium 3.8 3.5 - 5.0 mmol/L [facility] Comment: Please note: ??Patients with WBC >100,000 may have falsely elevated Potassium levels. ??For accurate Potassium quantification in these patients send serum separator tube (gold top) for subsequent determinations. ??Contact the Clinical Chemistry Laboratory if there are any questions. Chloride 102 98 - 107 mmol/L [facility] Carbon Dioxide 23 22 - 31 mmol/L [facility] Anion Gap 14 5 - 15 mmol/L [facility] Calcium 8.9 8.5 - 10.5 mg/dL [facility] Protein, Total 7.3 6.1 - 8.0 gm/dL [facility] Albumin 4.6 3.2 - 5.2 gm/dL [facility] Aspartate Aminotransferase 34(H) 0 - 30 unit/L [facility] Alanine Aminotransferase 12 0 - 30 unit/L [facility] Alkaline Phosphatase 46 40 - 104 unit/L [facility] Bilirubin, Total 0.3 0.2 - 1.3 mg/dL [facility] Est Glomerular Filtration Rate 89 >=60 mL/min/1. 73 m?? [facility] Comment: The eGFR was calculated using the CKD-EPI equation. As with all creatinine based estimates of kidney function, eGFR values calculated with the CKD-EPI equation are not accurate in patients with acute kidney failure, extremes of body mass or the acutely ill. [email or web address] eGFR 103 >=60 mL/min/1. 73 m?? [facility] Comment: The eGFR was calculated using the CKD-EPI equation. As with all creatinine based estimates of kidney function, eGFR values calculated with the CKD-EPI equation are not accurate in patients with acute kidney failure, extremes of body mass or the acutely ill. [email or web address] Blood specimen (specimen) 06/27/2018 11:36 AM EDT 06/27/2018 11:46 AM EDT Narrative Resulting Agency Comment Spec In Lab Fritz Castro APRN CHEMISTRY ORDERABLES [facility] [place] [address] * XR Abdomen 1 view (Generic) (06/27/2018 [...] wasting documented in this encounter Care Teams Sports Management Intern Relationship Specialty Start Date End Date Elizabeth Blanco, MUSIC ENGRAVER [address] [place] [address] PCP - General Family Medicine 05/13/18 documented as of this encounter
[2024-10-31 19:41] LABS: Abs Immature Grans 0.02 10^3/uL (0.0-0.06); Absolute Basophil Count 0.05 10^3/uL (0.0-0.2); Absolute Eosinophil Count 0.18 10^3/uL (0.0-0.7); Absolute Lymphocyte Count 2.26 10^3/uL (1.2-3.4); Absolute Monocyte Count 0.74 10^3/uL (0.1-0.8); Absolute Neutrophil Count 6.21 10^3/uL (1.2-6.7); Basophils % 0.5 %; Eosinophils % 1.9 %; HGB 13.8 g/dL (11.2-15.7); Immature Grans % 0.2 %; Lymphocytes % 23.9 %; MCH 30.3 pg (27.0-33.0); MCHC 34.5 % (32.0-36.0); MCV 88 fL (80-95); MPV 10.6 fL (8.0-11.0); Monocytes % 7.8 %; Neutrophils % 65.7 %; Platelet Count 257 10^3/uL (130-400); RBC 4.56 10^6/uL (3.93-5.22); RDW 12.1 % (11.7-14.6); RDW-SD 38.8 fL; WBC 9.46 10^3/uL (4.4-10.8)
[2024-10-31 20:28] LABS: FREE T4 1.35 ng/dL (0.76-1.46); TSH 0.83 uIU/mL (0.36-3.74)
[2024-11-03 09:51] LABS: FSH 14.5 mIU/mL (See Note)
== END 2024-10-31 15:22 | disposition home or self-care (01) ==
LOC: NCHCN 15:21
PROVIDERS: Visit Provider Nurse Practitioner Family
DX: E03.9 Hypothyroidism, unspecified (principal); J06.9 Acute upper respiratory infection, unspecified; F39 Unspecified mood [affective] disorder
CPT/HCPCS: 83001; 84439; 84443; 85025

== ENCOUNTER 2025-01-18 12:28 | Emergency (ER) | payer MEDICAID, SELFPAY ==
--- NOTE | 2025-01-18 12:29 | W.ED.GENAD ---
Discharge Plan Disposition Patient Disposition: Home Discharge Details Clinical Impression: Influenza A Primary Care Provider: Unknown,Unknown ED Provider: Rudy Reveles Home Meds and New Rx's Prescriptions: New cetirizine 10 mg tablet 10 mg PO DAILY PRNQty: 7 0RF benzonatate 100 mg capsule 100 mg PO BID PRNQty: 7 0RF fluticasone propionate [Flonase Allergy Relief] 50 mcg/actuation spray,suspension 1 spray intranasal DAILY Qty: 16 0RF Rx Instructions: administer into each nostril promethazine-DM 6.25-15 mg/5 mL syrup 5 ml PO Q6H PRNQty: 118 0RF Continued cholecalciferol (vitamin D3) 1,250 mcg (50,000 unit) capsule 1,250 mcg PO QWEEK Humira(CF) 40 mg/0.4 mL syringe kit See Rx Instructions subcut .COMPLEX Rx Instructions: inject one - 40 mg/0.8 mL syringe every 2 weeks subcut levothyroxine 200 mcg tablet 127 mcg PO DAILY Patient Comments: 05/06/18 Now taking 225Mcg. Daily. DM fluoxetine 10 mg tablet 30 mg PO DAILY Patient Comments: TAKE 1 TABLET BY MOUTH DAILY WITH 1 20 MG TABLET FOR A TOTAL OF 30 MG DAILY methylphenidate HCl [Concerta] 36 mg tablet extended release 24hr 36 mg PO DAILY propranolol 10 mg tablet 10 mg PO DAILY PRN Discharge Instructions Instructions: Flu Additional Instructions: You are seen in the emergency department for your cough. Your chest x-ray showed no sign of pneumonia. Your viral swab was positive for influenza A. Please ensure that you are urinating at least once every [address] turn to the emergency department if you develop nausea or vomiting that does not stop or if he feels short of breath. Otherwise please follow-up with your primary care provider as needed. You may take these prescription medications as needed for symptoms. Discharge Data Discharge Date/Time-TO BE ENTERED AT DEPARTURE: 01/18/25 13:55 HPI General Date/Time Provider Initiated Documentation: 01/18/25 12:29. HPI Narrative: MDM This is an overall very well-appearing normothermic and not tachycardic 34-year-old female with influenza and given duration of time since symptoms began no indications for oseltamavir. No pain or proportion to suggest necrotizing soft tissue infection. Good range of motion in neck so I am not suspicious for retropharyngeal abscess. Uvula midline so doubt peritonsillar abscess. No significant posterior oropharynx erythema to suggest concurrent strep pharyngitis. Patient reported history of sternal trauma for which she was hospitalized overnight at [facility] last year. She reported that this would make her more susceptible for pneumonia. Fortunately chest x-ray was negative for pneumonia. Patient was tolerating p.o. and appears hydrated and in indication for IV fluids. We discussed that she should return if she develops vomiting that did not stop if she passed out or if she developed any increased difficulty breathing. I prescribed her symptomatic medications for her URI symptoms. HPI Is a 33-year-old female right emergency department via private vehicle in the setting of 1 week history of productive cough runny nose general fatigue. Patient notes that she had an injury to her chest wall last year for which she was hospitalized overnight at [facility]. She said that she has had a cough from been producing mucus. She has been attempting treatment with NyQuil. She was at a birthday alliance party last weekend where there were some sick contacts. She has not been vomiting. She has had some low-grade fevers. She has a raw but not sore throat. She denies routine tobacco and illicits. No significant shortness of breath. Exam General: Well-appearing in no acute distress speaking in complete sentences. Head: Normocephalic, atraumatic. Eye: Extraocular eye movements intact. No conjunctival injection. No scleral icterus. Ear, nose, mouth, throat: Grossly normal inspection. Normal voice, handling secretions normally. No significant posterior oropharynx erythema. Uvula midline. Neck: Trachea midline. Good range of motion in neck Cardiovascular: Well-perfused distal extremities. Respiratory: Nonlabored respiration. Clear lungs bilaterally Gastrointestinal: Nondistended abdomen. Musculoskeletal: No edema. Moving all 4 extremities spontaneously. Skin: Normal for age and race, grossly normal temperature and turgor. No acute rash. Neurologic: Alert and appropriate, no apparent acute deficits. Psychiatric: Mood and manner are appropriate. Grooming and personal hygiene are appropriate. Related Data Home Medications ?Medication ?Instructions ?Recorded ?Confirmed levothyroxine 200 mcg tablet 127 mcg PO DAILY 10/03/23 01/18/25 cholecalciferol (vitamin D3) 1,250 1,250 mcg PO QWEEK 11/01/23 01/18/25 mcg (50,000 unit) capsule adalimumab 40 mg/0.4 mL See Rx Instructions subcut .COMPLEX 01/04/24 01/18/25 subcutaneous syringe kit (Humira(CF)) benzonatate 100 mg capsule 100 mg PO BID PRN #7 caps 01/18/25 cetirizine 10 mg tablet 10 mg PO DAILY PRN #7 tabs 01/18/25 fluoxetine 10 mg tablet 30 mg PO DAILY 01/18/25 01/18/25 fluticasone propionate 50 1 spray intranasal DAILY #16 grams 01/18/25 mcg/actuation nasal spray,suspension (Flonase Allergy Relief) methylphenidate HCl 36 mg 36 mg PO DAILY 01/18/25 01/18/25 tablet,extended release 24 hr (Concerta) promethazine-DM 6.25 mg-15 mg/5 mL 5 ml PO Q6H PRN #118 mL 01/18/25 oral syrup propranolol 10 mg tablet 10 mg PO DAILY PRN 01/18/25 01/18/25 Previous Rx's ?Medication ?Instructions ?Recorded benzonatate 100 mg capsule 100 mg PO BID PRN #7 caps 01/18/25 cetirizine 10 mg tablet 10 mg PO DAILY PRN #7 tabs 01/18/25 fluticasone propionate 50 1 spray intranasal DAILY #16 grams 01/18/25 mcg/actuation nasal spray,suspension (Flonase Allergy Relief) promethazine-DM 6.25 mg-15 mg/5 mL 5 ml PO Q6H PRN #118 mL 01/18/25 oral syrup Allergies Allergy/AdvReac Type Severity Reaction Status Date / Time amoxicillin Allergy Intermediate facial Verified 01/18/25 12:33 swelling amoxicillin trihydrate (From Allergy Intermediate facial Verified 01/18/25 12:33 Augmentin) swelling Penicillins Allergy Intermediate facial Verified 01/18/25 12:33 swelling potassium clavulanate (From Allergy Intermediate facial Verified 01/18/25 12:33 Augmentin) swelling Environmental Allergy Mild Wheezing Uncoded 01/18/25 12:33 General STEFANIE: 4 Medical Decision Making Quality:SDOH Health Related Social Needs: No Data to Display PFSH All Active Problems (Updated 01/18/25 @ 13:46 by Rudy Reveles MD) Influenza A (Acute) Pelvic pain (Acute) UTI (urinary tract infection) (Acute) Chronic pelvic pain in female (Acute) Childhood asthma (Acute) Psoriasis (Chronic) Hypothyroidism (Acute 12/07/14) Surgical History (Updated 01/04/24 @ 13:34 by Mansi Mart DO) Status post vaginal hysterectomy 08/24/2023, at [facility] disc surgery 02/2017 [place] teeth extraction Cholecystectomy Family History Father Essential hypertension Thyroid disorder Sister Thyroid disorder Social History Smoking/Tobacco Use Status: Never Smoking risk assessment performed?: Yes Alcohol Intake: current Alcohol Intake frequency: holidays/special occasions only Drug use: Daily Substance use type: marijuana Seatbelt use: always Do you feel safe at home: Yes Do you feel safe in your relationship?: Yes Female Reproductive History Menstrual Age of Menarche: 12 control method: pills History History 2 Para 2 Hx # Term Pregnancies Multiple births Hx # Pregnancies Ectopic pregnancies AB induced Hx Number of Living Children AB spontaneous
[2025-01-18 12:31] VITALS: BP 130/87; PULSE 88; RESP 18; TEMP 36.6; O2SAT 99
[2025-01-18 12:36] VITALS: BP 130/87; PULSE 88; RESP 18; TEMP 36.6; O2SAT 99
--- NOTE | 2025-01-18 12:45 | DI.RAD_ITS ---
Exam(s) XR CHEST 2V PA LATERAL EXAM: XR CHEST 2V PA LATERAL CLINICAL HISTORY: cough TECHNIQUE: 2D digital imaging was performed. Two views. COMPARISON: CR XR CHEST 2V PA LATERAL from 07/31/2024 CR XR STERNUM from 07/31/2024 FINDINGS: HEART: Normal size. Aorta: Not dilated. PULMONARY VASCULATURE: Normal. MEDIASTINUM: Unremarkable. LUNGS: Clear. PLEURAL SPACE: No pleural effusion or pneumothorax. BONE:Old sternal fracture. SOFT TISSUES: Unremarkable. IMPRESSION: No acute abnormality. DATA REPOSITORY: RADIATION DOSE DELIVERED:
--- NOTE | 2025-01-18 13:33 | DI.VRAD_ITS ---
PROCEDURE INFORMATION: Exam: XR Chest Exam date and time: 01/18/2025 1:07 PM Age: 34 years old Clinical indication: Cough TECHNIQUE: Imaging protocol: Radiologic exam of the chest. Views: 2 views. COMPARISON: CR XR CHEST 2V PA LATERAL 07/31/2024 8:19 AM FINDINGS: Lungs: Lungs are clear with no infiltrate or nodule. Pleural spaces: Unremarkable. No pleural effusion. No pneumothorax. Heart/Mediastinum: Cardiomediastinal silhouette is normal. Bones/joints: Unremarkable. IMPRESSION: No active cardiopulmonary disease. Dictated and Authenticated by: Eugene Sexton MD. Orderin Abdirizak Grant MD
== END 2025-01-18 13:55 | disposition home or self-care (01) ==
PROVIDERS: Emergency Provider Emergency Medicine
DX: J10.1 Influenza due to other identified influenza virus with other respiratory manifestations (principal); E03.9 Hypothyroidism, unspecified
CPT/HCPCS: 87426; 99283; 71046

== ENCOUNTER 2025-01-26 11:52 | Outpatient (CLI) | payer MEDICAID, SELFPAY ==
--- NOTE | 2025-01-26 | DI.RAD_ITS ---
Exam(s) XR RIBS RT W PA LAT CHEST EXAM: XR RIBS RT W PA LAT CHEST CLINICAL HISTORY: Pleurodynia, R07.81; cough, R05.9 TECHNIQUE: 2D digital imaging was performed.Six images were obtained. COMPARISON: CR,XR XR CHEST 2V PA LATERAL from 01/18/2025 FINDINGS: MEDIASTINUM: Normal. HEART: Normal. PULMONARY VASCULATURE: Normal. LUNGS: Clear. PLEURAL SPACE: No pleural effusion or pneumothorax. BONE:Normal. RIGHT RIBS: Normal. OTHER FINDINGS:There are surgical clips in the right upper quadrant of the abdomen. IMPRESSION: 1. No acute pulmonary findings. 2. Unremarkable right ribs. DATA REPOSITORY: RADIATION DOSE DELIVERED:
== END 2025-01-26 12:12 ==
PROVIDERS: Visit Provider Nurse Practitioner Family
DX: R07.81 Pleurodynia (principal); R05.9 Cough, unspecified
CPT/HCPCS: 71046; 71100

== ENCOUNTER 2025-02-25 14:44 | Outpatient (REF) | payer MEDICAID, SELFPAY ==
[2025-02-25 15:36] LABS: Abs Immature Grans 0.02 10^3/uL (0.0-0.06); Absolute Basophil Count 0.04 10^3/uL (0.0-0.2); Absolute Eosinophil Count 0.27 10^3/uL (0.0-0.7); Absolute Lymphocyte Count 2.86 10^3/uL (1.2-3.4); Absolute Monocyte Count 0.54 10^3/uL (0.1-0.8); Absolute Neutrophil Count 4.23 10^3/uL (1.2-6.7); Basophils % 0.5 %; Eosinophils % 3.4 %; HCT 40.4 % (36.0-46.0); HGB 13.4 g/dL (11.2-15.7); Immature Grans % 0.3 %; Lymphocytes % 35.9 %; MCH 29.3 pg (27.0-33.0); MCHC 33.2 % (32.0-36.0); MCV 88 fL (80-95); MPV 10.4 fL (8.0-11.0); Monocytes % 6.8 %; Neutrophils % 53.1 %; Nucleated RBC 0.3 % (0.0-0.3); Platelet Count 246 10^3/uL (130-400); RBC 4.57 10^6/uL (3.93-5.22); RDW 12.8 % (11.7-14.6); RDW-SD 41.4 fL; WBC 7.96 10^3/uL (4.4-10.8)
[2025-02-25 16:44] LABS: Mono Screening Negative (Negative)
== END 2025-02-25 14:45 | disposition home or self-care (01) ==
LOC: NCHCN 14:44
PROVIDERS: Visit Provider Student in an Organized Health Care Education/Training Program
DX: R59.0 Localized enlarged lymph nodes (principal); R10.9 Unspecified abdominal pain
CPT/HCPCS: 80053; 85025; 86308

== ENCOUNTER 2025-02-27 14:40 | Outpatient (CLI) | payer MEDICAID, SELFPAY ==
[2025-02-27 16:17] LABS: ALT 17 U/L (14-59); AST 22 U/L (15-37); Albumin 4.2 g/dL (3.4-5.0); Alkaline Phosphatase 64 U/L (46-116); BUN 8 mg/dL (7-18); Bilirubin, Total 0.3 mg/dL (0.2-1.0); CREATININE 0.6 mg/dL (0.55-1.02); Calcium 9.2 mg/dL (8.5-10.1); Chloride 104 mmol/L (98-107); Estimated GFR 121.47 (mL/min/1.73m2); Glucose 90 mg/dL (74-106); Potassium 3.3 mmol/L (3.5-5.1); Sodium 142 mmol/L (136-145); Total Protein 7.3 g/dL (6.4-8.2)
== END 2025-02-27 14:41 | disposition home or self-care (01) ==
LOC: LBO 14:40
PROVIDERS: Visit Provider Student in an Organized Health Care Education/Training Program
DX: R10.9 Unspecified abdominal pain (principal)
CPT/HCPCS: 36415; 80053

== ENCOUNTER 2025-04-20 16:14 | Outpatient (REF) | payer MEDICAID, SELFPAY ==
[2025-04-20 21:58] LABS: Abs Immature Grans 0.02 10^3/uL (0.0-0.06); Absolute Basophil Count 0.02 10^3/uL (0.0-0.2); Absolute Eosinophil Count 0.17 10^3/uL (0.0-0.7); Absolute Lymphocyte Count 2.47 10^3/uL (1.2-3.4); Absolute Monocyte Count 0.45 10^3/uL (0.1-0.8); Absolute Neutrophil Count 3.92 10^3/uL (1.2-6.7); Basophils % 0.3 %; Eosinophils % 2.4 %; HCT 39.6 % (36.0-46.0); HGB 13.1 g/dL (11.2-15.7); Immature Grans % 0.3 %; MCH 29.4 pg (27.0-33.0); MCHC 33.1 % (32.0-36.0); MCV 89 fL (80-95); MPV 10.2 fL (8.0-11.0); Monocytes % 6.4 %; Neutrophils % 55.6 %; Platelet Count 261 10^3/uL (130-400); RBC 4.46 10^6/uL (3.93-5.22); RDW 12.1 % (11.7-14.6); RDW-SD 39.7 fL; WBC 7.05 10^3/uL (4.4-10.8)
[2025-04-20 22:46] LABS: Anion Gap 7.5 mmol/L (3-11); BUN 15 mg/dL (7-18); CO2 29.5 mmol/L (21.0-32.0); CREATININE 0.6 mg/dL (0.55-1.02); Calcium 8.9 mg/dL (8.5-10.1); Chloride 102 mmol/L (98-107); Estimated GFR 121.47 (mL/min/1.73m2); Glucose 92 mg/dL (74-106); Sodium 139 mmol/L (136-145); Vitamin B12 335 pg/mL (193-986); Vitamin D 25 Total 16 ng/mL (30-100)
[2025-04-21 19:26] LABS: HIV-1/2 Ag & Ab Screen Negative (Negative)
[2025-04-21 19:29] LABS: Hepatitis C Ab w Rflx HCV PCR Negative (Negative)
[2025-04-23 10:10] LABS: IgA 201 mg/dL (85-499); Interpretation (See Note); Tissue Transglutaminase IgA <4.0 CU (<20.0)
== END 2025-04-20 16:15 | disposition home or self-care (01) ==
LOC: NCHCN 16:14
PROVIDERS: PCP Family Medicine; Visit Provider Family Medicine
DX: E87.6 Hypokalemia (principal); E53.9 Vitamin B deficiency, unspecified; E55.9 Vitamin D deficiency, unspecified; Z11.4 Encounter for screening for human immunodeficiency virus [HIV]
CPT/HCPCS: 80048; 82306; 82784; 83516; 86803; 87389; 82607; 85025

== ENCOUNTER 2025-06-15 21:59 | Outpatient (REF) | payer MEDICAID, SELFPAY ==
[2025-06-15 22:19] LABS: Abs Immature Grans 0.03 10^3/uL (0.0-0.06); HCT 40.1 % (36.0-46.0); HGB 13.4 g/dL (11.2-15.7); Immature Grans % 0.3 %; MCH 29.6 pg (27.0-33.0); MCHC 33.4 % (32.0-36.0); MCV 89 fL (80-95); MPV 10.3 fL (8.0-11.0); Platelet Count 246 10^3/uL (130-400); RBC 4.52 10^6/uL (3.93-5.22); RDW 12.5 % (11.7-14.6); RDW-SD 40.7 fL; WBC 8.65 10^3/uL (4.4-10.8)
[2025-06-15 22:29] LABS: ALT 15 U/L (14-59); AST 23 U/L (15-37); Albumin 4.3 g/dL (3.4-5.0); Alkaline Phosphatase 64 U/L (46-116); Anion Gap 10.2 mmol/L (3-11); BUN 10 mg/dL (7-18); Bilirubin, Total 0.3 mg/dL (0.2-1.0); CO2 27.8 mmol/L (21.0-32.0); Calcium 9.3 mg/dL (8.5-10.1); Chloride 102 mmol/L (98-107); Estimated GFR 99.71 (mL/min/1.73m2); Glucose 98 mg/dL (74-106); Potassium 3.8 mmol/L (3.5-5.1); Sodium 140 mmol/L (136-145); Total Protein 7.0 g/dL (6.4-8.2)
== END 2025-06-15 22:00 | disposition home or self-care (01) ==
LOC: LBN 21:59
PROVIDERS: PCP Family Medicine; Visit Provider Physician Assistant Medical
DX: T14.8XXA Other injury of unspecified body region, initial encounter (principal)
CPT/HCPCS: 80053; 85025

== ENCOUNTER 2025-06-16 13:34 | Outpatient (CLI) | payer MEDICAID, SELFPAY ==
--- NOTE | 2025-06-16 | DI.US_ITS ---
Exam(s) US LOWER EXTREMITY VENOUS RT EXAM: US LOWER EXTREMITY VENOUS RT CLINICAL HISTORY: INJURY RT LEG T14.8XXA BRUISE, R/O DVT TECHNIQUE: Grayscale, color, and doppler imaging of the deep venous system of the right lower extremity was performed. COMPARISON: US US ABDOMEN RENAL from 02/20/2022 FINDINGS: There is no evidence of intraluminal thrombus and there is normal compression and augmentation demonstrated within the common femoral vein, femoral vein, and popliteal vein. In the ipsilateral calf the interrogated veins also exhibit normal compression/ augmentation properties. The ipsilateral saphenofemoral junction is patent. IMPRESSION: 1. No evidence of DVT in the right lower extremity. DATA REPOSITORY:
== END 2025-06-16 13:54 ==
LOC: DI 13:34
PROVIDERS: PCP Family Medicine; Visit Provider Physician Assistant Medical
DX: T14.8XXA Other injury of unspecified body region, initial encounter (principal)
CPT/HCPCS: 93971